=== PATIENT | female | born 1935 | race Caucasian/White ===

== ENCOUNTER 2017-08-18 12:04 | Emergency (ER) | payer OTHER ==
[~2017-08-18] VITALS: Ht 152.4 cm; Wt 75.3 kg
[2017-08-18 12:14] VITALS: TEMP 36.7
--- NOTE | 2017-08-18 12:55 | EMERGENCY ROOM VISIT NOTE ---
History Report prepared by Vanessa: Shelby Soria Under the Supervision of: Dr. Nabor Rodriguez M.D. 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 Positive numbness when she stands on her heels, cough. Negative recent falls or injuries or burning herself. She describes her pain as constant and worse when she stands on her heels. The patient notes her right foot hurts slightly more than the left and she has recently gained a couple of pounds. 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 Negative recent falls or injuries or burning herself. Review of Systems See HPI for pertinent positives and negatives. A total of ten systems were reviewed and were otherwise negative. Past Medical & Surgical Medical Problems: (1) Asthma (2) Bronchitis Family History No pertinent family history Social History Smoking Status: Former Smoker Smokeless Tobacco Use: No Alcohol Use: none Drug Use: none Housing Status: lives alone Occupation Status: retired Current/Historical Medications No Active Prescriptions or Reported Meds Allergies Coded Allergies: No Known Allergies (Unverified , 08/18/17) Physical Exam Vital Signs Date Time Temp Pulse Resp B/P (MAP) Pulse Ox O2 Delivery O2 Flow Rate FiO2 08/18/17 13:27 70 08/18/17 13:21 Room Air 08/18/17 12:14 36.7 83 20 127/71 97 Room Air Physical Exam GENERAL: Awake, alert, well-appearing, NAD. Wearing glasses. HENT: Normocephalic, atraumatic. EYES: Normal conjunctiva. Sclera non-icteric. PERRL. No anisocoria. NECK: Supple. No nuchal rigidity. FROM. RESPIRATORY: No rhonchi, wheezing. Mild crackles at the bases. CARDIAC: RRR, no MRG ABDOMEN: Soft, NTND, BS+ MSK: No chest wall TTP. 1 to 2+ pitting edema located at the level of the mid tibia. Mild calcaneal pain. Redness and prolonged cap refill of all toes BLE. Sensory intact. NEURO: GCS 15, CN 2-12 intact, moves all 4s on command SKIN: No rash or jaundice noted. Medical Decision & Procedures ER Provider Diagnostic Interpretation: Radiology results as stated below per my review and radiologist interpretation: CHEST ONE VIEW PORTABLE CLINICAL HISTORY: 82 years-old Female presenting with EVALUATE RESPIRATORY DISTRESS.DYSPNEA. TECHNIQUE: Portable upright AP view of the chest was obtained. COMPARISON: None. FINDINGS: Atherosclerosis of the aortic arch. Cardiac silhouette top normal in size. No focal opacity. No large effusion or pneumothorax. Osseous structures normal. Upper abdomen normal. IMPRESSION: 1. No acute cardiopulmonary disease. Electronically signed by: Aaron Dale M.D. 08/18/2017 1:20 PM ULTRASOUND VENOUS DOPPLER LWR EXT BILA CLINICAL HISTORY: Bilateral lower extremity swelling. Bilateral heel pain. Blanching toes. COMPARISON STUDY: No previous studies for comparison. FINDINGS: Real-time and color flow Doppler imaging were performed. Flow was seen within the femoral, popliteal and calf veins with no intraluminal thrombus demonstrated. The saphenous vein is patent. IMPRESSION: No evidence of lower extremity DVT. Electronically signed by: Robert Basurto M.D. 08/18/2017 2:57 PM ART DOP LOWER EXT BILAT CLINICAL HISTORY: 82 years-old Female presenting with blanching toes, heel pain, b/l LE swelling. TECHNIQUE: Real-time grayscale and color and spectral Doppler ultrasound imaging of the 53 arteries was performed. Measurements calculated based on NASCET criteria. COMPARISON: None. FINDINGS: Right: Common femoral artery: Patent. Peak systolic velocity 199 cm/s. Superficial femoral artery: Patent. Peak systolic velocity 84-139 cm/s. Deep femoral artery: Patent. Peak systolic velocity 96 cm/s. Popliteal artery: Patent. Peak systolic velocity 84-132 cm/s. Anterior tibial artery: Patent. Peak systolic velocity 106 cm/s. Posterior tibial artery: Patent. Peak systolic velocity 68-80 cm/s. Peroneal artery: Patent. Peak systolic velocity 25-51 cm/s. Dorsalis pedis: Patent. Peak systolic velocity 69 cm/s. Left: Common femoral artery: Patent. Peak systolic velocity 180 cm/s. Superficial femoral artery: Patent. Peak systolic velocity 90-138 cm/s. Deep femoral artery: Patent. Peak systolic velocity 96 cm/s. Popliteal artery: Patent. Peak systolic velocity 77-83 cm/s. Anterior tibial artery: Patent. Peak systolic velocity 90 cm/s. Posterior tibial artery: Patent. Peak systolic velocity 66-78 cm/s. Peroneal artery: Patent. Peak systolic velocity 24-65 cm/s. Dorsalis pedis: Patent. Peak systolic velocity 92 cm/s. ALAN Not performed. Reference ranges: Normal ALAN 1.0-1.4; 0.9-0.99 borderline; less than 0.9 abnormal. IMPRESSION: 1. No hemodynamically significant stenosis. Electronically signed by: Aaron Dale M.D. 08/18/2017 3:01 PM Laboratory Results 08/18/17 13:30 Red Blood Count 4.05, Mean Corpuscular Volume 88.1, Mean Corpuscular Hemoglobin 28.9, Mean Corpuscular Hemoglobin Concent 32.8, Mean Platelet Volume 10.4, Neutrophils (%) (Auto) 65.0, Lymphocytes (%) (Auto) 23.9, Monocytes (%) (Auto) 7.7, Eosinophils (%) (Auto) 2.8, Basophils (%) (Auto) 0.3, Neutrophils # (Auto) 6.12, Lymphocytes # (Auto) 2.25, Monocytes # (Auto) 0.72, Eosinophils # (Auto) 0.26, Basophils # (Auto) 0.03 08/18/17 13:30 Test 08/18/17 13:30 08/18/17 15:37 White Blood Count 9.41 K/uL (4.8-10.8) Red Blood Count 4.05 M/uL (4.2-5.4) Hemoglobin 11.7 g/dL (12.0-16.0) Hematocrit 35.7 % (37-47) Mean Corpuscular Volume 88.1 fL (80-100) Mean Corpuscular Hemoglobin 28.9 pg (25-34) Mean Corpuscular Hemoglobin Concent 32.8 g/dl (32-36) Platelet Count 227 K/uL (130-400) Mean Platelet Volume 10.4 fL (7.4-10.4) Neutrophils (%) (Auto) 65.0 % Lymphocytes (%) (Auto) 23.9 % Monocytes (%) (Auto) 7.7 % Eosinophils (%) (Auto) 2.8 % Basophils (%) (Auto) 0.3 % Neutrophils # (Auto) 6.12 K/uL (1.4-6.5) Lymphocytes # (Auto) 2.25 K/uL (1.2-3.4) Monocytes # (Auto) 0.72 K/uL (0.11-0.59) Eosinophils # (Auto) 0.26 K/uL (0-0.5) Basophils # (Auto) 0.03 K/uL (0-0.2) RDW Standard Deviation 46.8 fL (36.4-46.3) RDW Coefficient of Variation 14.4 % (11.5-14.5) Immature Granulocyte % (Auto) 0.3 % Immature Granulocyte # (Auto) 0.03 K/uL (0.00-0.02) Anion Gap 6.0 mmol/L (3-11) Est Creatinine Clear Calc Drug Dose 58.8 ml/min Estimated GFR () 95.1 Estimated GFR (Non- 82.0 BUN/Creatinine Ratio 21.3 (10-20) Calcium Level 8.9 mg/dl (8.5-10.1) Troponin I < 0.015 ng/ml (0-0.045) Pro-B-Type Natriuretic Peptide 438 pg/ml (0-1800) Prothrombin Time 10.1 SECONDS (9.0-12.0) Prothromb Time International Ratio 1.0 (0.9-1.1) Activated Partial Thromboplast Time 27.3 SECONDS (21.0-31.0) Partial Thromboplastin Ratio 1.1 Laboratory results reviewed by me Medications Administered Medications (Trade) Dose Ordered Sig/Craig Route Start Time Stop Time Status Last Admin Dose Admin Acetaminophen (Tylenol Tab) 1,000 mg NOW STAT PO 08/18/17 13:03 08/18/17 13:05 DC 08/18/17 15:06 1,000 MG ECG Per My Interpretation Indication: other (BLE swelling) Rate (beats per minute): 69 Rhythm: normal sinus Findings: no ectopy, other (normal intervals, normal axis, no STS changes or TWI) ED Course 1247: The patient was evaluated in room C7. A complete history and physical exam was performed. 1600: I reevaluated the patient. Discussed results and discharge instructions: She verbalized understanding and agreement. The patient is ready for discharge. 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 Positive numbness when she stands on her heels, cough. Negative recent falls or injuries or burning herself. Nursing notes reviewed. Ancillary studies and prior records reviewed. Differential diagnosis: Etiologies such as DVT, musculoskeletal, infection, joint effusion, trauma, lymphedema, idiopathic, CHF, fracture, dislocation, neurovascular compromise, compartment syndrome, soft tissue injury, as well as others were entertained. Patient was seen and evaluated the bedside. Patient was complaining some bilateral foot pain and swelling. This been ongoing 4 days. Patient was also concerned that she had a cough that she has had some fluid on her lungs in the past. Patient denies any acute chest pain or shortness of breath. Patient denies any prior history of DVT or PE. The patient does have some mild pain and swelling that is located at the ankle and up to the mid tibia. The patient is neurovascular intact distally. Patient was complaining some mild calcaneal tenderness. Patient was noted to have some decreased cap refill and cool toes. The patient does not have any sensory deficit in the patient is able to move all her toes without issue. Patient denies any recent trauma. Patient did have blood work completed along with EKG, troponin, BNP, chest x- ray. Patient also did have bilateral Dopplers of both arterial and venous phase of the lower extremities. Patient's chest x-ray was clear. Patient's EKG is nonischemic with a negative troponin. BNP is not elevated. Less likely CHF or volume overload. The patient's ultrasound did not show any flow-limiting stenosis and there is no evidence of any DVT. The patient did have Reed wraps that were placed over the bilateral lower extremities. I did discuss that she could have some tendinosis or tendinitis. The patient also could have some arthritic change. We also did discuss possibility of neuropathy. Patient was told to keep her legs elevated when she can. Patient was given these Reed wrap to help with any swelling. Patient was told to follow-up with her primary care physician and that if she had persistent symptoms she can follow-up with either physical therapy, podiatry , and/or orthopedics. Patient family member agreed with plan of care. Patient was given strict follow-up, discharge, and return precautions. All questions were answered. Patient was deemed suitable for outpatient follow-up at this time. Patient agreed with the plan of care and was safely discharged home. Medication Reconcilliation Current Medication List: was personally reviewed by me Blood Pressure Screening Patient's blood pressure: Normal blood pressure Blood pressure disposition: Did not require urgent referral Impression Primary Impression: Foot pain Additional Impressions: Anemia Leg swelling Scribe Attestation The scribe's documentation has been prepared under my direction and personally reviewed by me in its entirety. I confirm that the note above accurately reflects all work, treatment, procedures, and medical decision making performed by me. Departure Information Dispostion Home / Self-Care Prescriptions No Active Prescriptions or Reported Meds Referrals Sita Jones DO (PCP) Forms HOME CARE DOCUMENTATION FORM, IMPORTANT VISIT INFORMATION Patient Instructions Arthritis Foot, My [facility] Additional Instructions Please return to the emergency department if you have worsening or recurrent symptoms not amenable to at-home treatment. Please call for a follow-up appointment with her primary care physician. Please take your medications as prescribed. If you have other concerns and/or complaints please feel free to also call your primary care physician's office or return the ED for further evaluation, management, and treatment. You were found to have an elevated blood pressure today (>120 sytolic or >90 diastolic). Per medicare guidelines, you need to follow up with this blood pressure screening with your Primary Care Physician (PCP). For a new PCP call [phone]. You received narcotic or benzodiazepene medication while in the emergency room today. This is an addictive medication that may cause drowziness as well as constipation. Do not drive, operate heavy machinery, or drink alcohol under the influence of this medication. You may take 400 mg Ibuprofen every 12 hours as needed for pain/fever with food unless told by your physician not to take NSAIDs. You may take tylenol 650 mg every 6 hours as needed for pain/fever unless told by your physician to not take it or have liver problems. You may take motrin and tylenol separately or at the same time. Consider topical medications like icy hot, Biofreeze, or BenGay. He may use her Reed wrap to help with any swelling or pain. Please consider follow-up with your PCP to discuss further management options which may include physical therapy, podiatry, and/or orthopedics. Take your medications as prescribed. You have been examined and treated today on an emergency basis only. This is not a substitute for, or an effort to provide, complete comprehensive medical care. It is impossible to recognize and treat all injuries or illnesses in a single emergency department visit. It is therefore important that you follow up closely with [facility], your PCP, and/or your specialist(s). Call as soon as possible for an appointment. Thank you for your time and consideration. I look forward to speaking with you again soon. Please don't hesitate to call us if you have any questions. Problem Qualifiers Primary Impression: Foot pain Laterality: bilateral Qualified Codes: M79.671 - Pain in right foot; M79.672 - Pain in left foot Additional Impressions: Anemia Anemia type: unspecified type Qualified Codes: D64.9 - Anemia, unspecified
[2017-08-18] MEDS ORDERED: ACETAMINOPHEN 500 MG TAB PO STA (13:03)
[2017-08-18 13:20] VITALS: Ht 152.4 cm; Wt 75.3 kg
--- NOTE | 2017-08-18 13:21 | DIAGNOSTIC IMAGING REPORT ---
CHEST ONE VIEW PORTABLE CLINICAL HISTORY: 82 years-old Female presenting with EVALUATE RESPIRATORY DISTRESS.DYSPNEA. TECHNIQUE: Portable upright AP view of the chest was obtained. COMPARISON: None. FINDINGS: Atherosclerosis of the aortic arch. Cardiac silhouette top normal in size. No focal opacity. No large effusion or pneumothorax. Osseous structures normal. Upper abdomen normal. IMPRESSION: 1. No acute cardiopulmonary disease. Electronically signed by: Aaron Dale M.D. 08/18/2017 1:20 PM Dictated Date/Time: 08/18/2017 1:18 PM
[2017-08-18 13:48] LABS: BASO % 0.3 %; BASO ABS # 0.03 K/uL (0-0.2); EOS % 2.8 %; EOS ABS # 0.26 K/uL (0-0.5); HEMATOCRIT 35.7 % (37-47); HEMOGLOBIN 11.7 g/dL (12.0-16.0); IG# 0.03 K/uL (0.00-0.02); LYMPH % 23.9 %; LYMPH ABS # 2.25 K/uL (1.2-3.4); MEAN CELL VOLUME 88.1 fL (80-100); MEAN CORPUSCULAR HEMOGLOBIN 28.9 pg (25-34); MEAN CORPUSCULAR HGB CONC 32.8 g/dl (32-36); MEAN PLATELET VOLUME 10.4 fL (7.4-10.4); MONO % 7.7 %; MONO ABS # 0.72 K/uL (0.11-0.59); NEUT ABS # 6.12 K/uL (1.4-6.5); PLATELET COUNT 227 K/uL (130-400); RED CELL DISTRIBUTION WIDTH CV 14.4 % (11.5-14.5); RED CELL DISTRIBUTION WIDTH SD 46.8 fL (36.4-46.3); WHITE BLOOD COUNT 9.41 K/uL (4.8-10.8)
[2017-08-18 14:27] LABS: BLOOD UREA NITROGEN 15 mg/dl (7-18); CALCIUM 8.9 mg/dl (8.5-10.1); CARBON DIOXIDE 27 mmol/L (21-32); CREATININE 0.68 mg/dl (0.60-1.20); GLUCOSE 88 mg/dl (70-99); POTASSIUM 4.1 mmol/L (3.5-5.1); SODIUM 141 mmol/L (136-145)
--- NOTE | 2017-08-18 14:58 | DIAGNOSTIC IMAGING REPORT ---
ULTRASOUND VENOUS DOPPLER LWR EXT BILA CLINICAL HISTORY: Bilateral lower extremity swelling. Bilateral heel pain. Blanching toes. COMPARISON STUDY: No previous studies for comparison. FINDINGS: Real-time and color flow Doppler imaging were performed. Flow was seen within the femoral, popliteal and calf veins with no intraluminal thrombus demonstrated. The saphenous vein is patent. IMPRESSION: No evidence of lower extremity DVT. Electronically signed by: Robert Basurto M.D. 08/18/2017 2:57 PM Dictated Date/Time: 08/18/2017 2:57 PM
--- NOTE | 2017-08-18 15:02 | DIAGNOSTIC IMAGING REPORT ---
ART DOP LOWER EXT BILAT CLINICAL HISTORY: 82 years-old Female presenting with blanching toes, heel pain, b/l LE swelling. TECHNIQUE: Real-time grayscale and color and spectral Doppler ultrasound imaging of the 53 arteries was performed. Measurements calculated based on NASCET criteria. COMPARISON: None. FINDINGS: Right: Common femoral artery: Patent. Peak systolic velocity 199 cm/s. Superficial femoral artery: Patent. Peak systolic velocity 84-139 cm/s. Deep femoral artery: Patent. Peak systolic velocity 96 cm/s. Popliteal artery: Patent. Peak systolic velocity 84-132 cm/s. Anterior tibial artery: Patent. Peak systolic velocity 106 cm/s. Posterior tibial artery: Patent. Peak systolic velocity 68-80 cm/s. Peroneal artery: Patent. Peak systolic velocity 25-51 cm/s. Dorsalis pedis: Patent. Peak systolic velocity 69 cm/s. Left: Common femoral artery: Patent. Peak systolic velocity 180 cm/s. Superficial femoral artery: Patent. Peak systolic velocity 90-138 cm/s. Deep femoral artery: Patent. Peak systolic velocity 96 cm/s. Popliteal artery: Patent. Peak systolic velocity 77-83 cm/s. Anterior tibial artery: Patent. Peak systolic velocity 90 cm/s. Posterior tibial artery: Patent. Peak systolic velocity 66-78 cm/s. Peroneal artery: Patent. Peak systolic velocity 24-65 cm/s. Dorsalis pedis: Patent. Peak systolic velocity 92 cm/s. ALAN Not performed. Reference ranges: Normal ALAN 1.0-1.4; 0.9-0.99 borderline; less than 0.9 abnormal. IMPRESSION: 1. No hemodynamically significant stenosis. Electronically signed by: Aaron Dale M.D. 08/18/2017 3:01 PM Dictated Date/Time: 08/18/2017 2:56 PM
[2017-08-18 15:58] LABS: PTT PATIENT 27.3 SECONDS (21.0-31.0)
[2017-08-18 16:35] VITALS: BP 152/83; PULSE 70; O2SAT 98
== END 2017-08-18 16:35 | disposition home or self-care (01) ==
LOC: C.EDB 12:06 → C.EDC 16:35
DX: M79.671 Pain in right foot (principal); M79.672 Pain in left foot; D64.9 Anemia, unspecified; R60.9 Edema, unspecified; J45.909 Unspecified asthma, uncomplicated; Z87.891 Personal history of nicotine dependence

== ENCOUNTER 2021-04-24 05:30 | Inpatient (IN) ==
[2021-04-24] MEDS ORDERED: fentaNYL citrate 100 MCG/2 ML VIAL IV STA (05:59)
[2021-04-24] MEDS ORDERED: ACETAMINOPHEN 1,000 MG/100 ML VIAL IV STA (05:59)
--- NOTE | 2021-04-24 06:17 | Emergency Department Note ---
History of Present Illness General Chief complaint: Shortness of Breath/Dyspnea Stated complaint: SHORT OF BREATH/INCREASED PAIN & DISCOMFORT Time Seen by Provider: 04/24/21 05:44 Source: patient Mode of arrival: EMS Limitations: no limitations History of Present Illness Provider complaint: rib pain, dyspnea Onset (ago): day(s) Location: chest Maximum Pain Intensity: 7 Associated symptoms: + chest pain, + cough and + shortness of breath; no fever/chills, no headaches or no nausea/vomiting Treatments prior to arrival: other This is an 86-year-old female presents the emergency department complaining of increased rib pain. Patient with recent fall and diagnosis of a humeral fracture as well as rib fractures. Patient was initially evaluated and placed on hydrocodone/acetaminophen. When patient returned due to worsening pain, additional imaging and repeat labs were performed which were reassuring, no evidence of pneumothorax/hemothorax, or occult pulmonary contusion. Patient then changed to oxycodone for additional pain control. Patient states she is still having significant pain. Patient is concerned that she does live alone. Patient does have an oxygen concentrator which she has used intermittently in the past that she does have a history of COPD due to prior tobacco abuse. Patient denies any hemoptysis or worsening cough, denies fevers or chills, denies any other chest pain other than the site over the rib fractures to the right lateral ribs. Pt seen during a time of high acuity and national emergency pandemic while wearing PPE. Home Medications Medication Instructions Recorded Confirmed Type budesonide-formoterol HFA 160 2 puffs INH BID #30.6 gm 09/18/18 04/24/21 Rx mcg-4.5 mcg/actuation aerosol inhaler (Symbicort) acetaminophen 500 mg tablet 500 mg PO Q6H PRN 10/09/18 04/24/21 History (Tylenol Extra Strength) furosemide 20 mg tablet (Lasix) 10 mg PO DAILY PRN 10/09/18 04/24/21 History Oxygen Home #1 ea 02/19/19 04/17/21 Rx albuterol sulfate 90 mcg/actuation 2 inh INHALATION Q4H PRN #8.5 g 01/23/21 04/24/21 Rx aerosol inhaler oxycodone 5 mg tablet 5 mg PO Q6H PRN #12 tab 04/21/21 04/24/21 Rx famotidine 40 mg tablet 40 mg PO QAM 04/24/21 04/24/21 History tiotropium bromide 18 mcg capsule 1 cap INH QAM 04/24/21 04/24/21 History with inhalation device (Spiriva with HandiHaler) Allergies Allergy/AdvReac Type Severity Reaction Status Date / Time latex Allergy Intermediate rash and Verified 04/24/21 11:37 sores in mouth methylprednisolone Allergy Intermediate hives Verified 04/24/21 11:37 aspirin AdvReac Intermediate upset Verified 04/24/21 11:37 stomach Past Med/Surg History Medical History Asthma Cerebral vascular disease COPD (chronic obstructive pulmonary disease) Venous insufficiency (chronic) (peripheral) Surgical History H/O total hysterectomy History of appendectomy Family History Grandfather (Maternal) Cancer mouth Father Cancer colon Mother Cancer colon and uterine Family/Other Cancer colon Social History Smoking Status: Former smoker Tobacco Type: Cigarettes Age Started Using Tobacco: 19; Age Quit Using Tobacco: 69; packs per day: 4; Years Smoked: 50; Number of Years Since Quit: 24; Second Hand Exposure: Yes; Hx Alcohol Use: No Hx Substance Use: No Preferred Language: [place] Visual Impairment: No Limitations Hearing Ability: Normal Unemployment Examiner Required: No Beliefs That Will Affect Care: None marital status: / Current Living Situation: Alone current occupational status: retired Other Information That Helps Us Care for You: No Feels Safe at Home: Yes Safety Concerns: Feels Safe At This Time Physical Activity Frequency: Does not Exercise Seatbelt Use: always Assistive Devices: Oxygen - Continuous Review of Systems A total of 10 systems reviewed and were otherwise negative All systems reviewed & are unremarkable except as noted in HPI & below Physical Exam Vital Signs Vital Signs - 24 hr 04/24/21 05:36 04/24/21 05:38 04/24/21 06:00 Temperature Temperature Source Pulse Rate 87 93 H 82 Pulse Rate [Apical] Pulse Rate from SpO2 Sensor 91 H 83 Pulse Rhythm [Apical] Pulse Strength [Apical] Respiratory Rate 18 20 17 Respiratory Effort / Characteristics Respiratory Depth Blood Pressure 107/62 Blood Pressure [Left Arm] Blood Pressure Mean 77 Blood Pressure Mean [Left Arm] Pulse Oximetry 94 93 95 Oxygen Delivery Method Room Air Oxygen Flow Rate Sepsis Recent Fever Within 48 Hours No Sepsis New/Unexplained Change in Mental Status N/A Sepsis Action Taken by Nursing No Action Required 04/24/21 06:14 04/24/21 06:20 04/24/21 06:23 Temperature Temperature Source Pulse Rate 87 Pulse Rate [Apical] 85 Pulse Rate from SpO2 Sensor 86 Pulse Rhythm [Apical] Pulse Strength [Apical] Respiratory Rate 16 17 Respiratory Effort / Characteristics Respiratory Depth Blood Pressure 146/73 H Blood Pressure [Left Arm] 146/73 H Blood Pressure Mean 97 Blood Pressure Mean [Left Arm] 97 Pulse Oximetry 94 93 Oxygen Delivery Method Room Air Room Air Oxygen Flow Rate Sepsis Recent Fever Within 48 Hours Sepsis New/Unexplained Change in Mental Status Sepsis Action Taken by Nursing 04/24/21 06:30 04/24/21 07:00 04/24/21 07:18 Temperature Temperature Source Pulse Rate 91 H 77 Pulse Rate [Apical] Pulse Rate from SpO2 Sensor 88 97 H 77 Pulse Rhythm [Apical] Pulse Strength [Apical] Respiratory Rate 16 11 L Respiratory Effort / Characteristics Respiratory Depth Blood Pressure 128/71 Blood Pressure [Left Arm] Blood Pressure Mean 90 Blood Pressure Mean [Left Arm] Pulse Oximetry 90 93 96 Oxygen Delivery Method Oxygen Flow Rate Sepsis Recent Fever Within 48 Hours Sepsis New/Unexplained Change in Mental Status Sepsis Action Taken by Nursing 04/24/21 07:30 04/24/21 08:00 04/24/21 08:01 Temperature Temperature Source Pulse Rate 78 89 92 H Pulse Rate [Apical] Pulse Rate from SpO2 Sensor 78 91 H Pulse Rhythm [Apical] Pulse Strength [Apical] Respiratory Rate 12 23 16 Respiratory Effort / Characteristics Respiratory Depth Blood Pressure 126/55 L 129/64 Blood Pressure [Left Arm] Blood Pressure Mean 78 85 Blood Pressure Mean [Left Arm] Pulse Oximetry 98 97 Oxygen Delivery Method Oxygen Flow Rate Sepsis Recent Fever Within 48 Hours Sepsis New/Unexplained Change in Mental Status Sepsis Action Taken by Nursing 04/24/21 08:50 04/24/21 09:00 04/24/21 09:30 Temperature Temperature Source Pulse Rate 83 85 83 Pulse Rate [Apical] Pulse Rate from SpO2 Sensor 84 86 85 Pulse Rhythm [Apical] Pulse Strength [Apical] Respiratory Rate 22 21 15 Respiratory Effort / Characteristics Respiratory Depth Blood Pressure Blood Pressure [Left Arm] Blood Pressure Mean Blood Pressure Mean [Left Arm] Pulse Oximetry 97 96 96 Oxygen Delivery Method Oxygen Flow Rate Sepsis Recent Fever Within 48 Hours Sepsis New/Unexplained Change in Mental Status Sepsis Action Taken by Nursing 04/24/21 09:45 04/24/21 11:00 Temperature 36.4 C L Temperature Source Oral Pulse Rate Pulse Rate [Apical] 80 82 Pulse Rate from SpO2 Sensor Pulse Rhythm [Apical] Regular Regular Pulse Strength [Apical] Normal Normal Respiratory Rate 16 18 Respiratory Effort / Characteristics Non-Labored Spontaneous Non-Labored Spontaneous Respiratory Depth Normal Normal Blood Pressure Blood Pressure [Left Arm] 161/80 H 165/90 H Blood Pressure Mean Blood Pressure Mean [Left Arm] 107 115 Pulse Oximetry 97 98 Oxygen Delivery Method Nasal Cannula Nasal Cannula Oxygen Flow Rate 2 2 Sepsis Recent Fever Within 48 Hours Sepsis New/Unexplained Change in Mental Status Sepsis Action Taken by Nursing GENERAL: alert, well appearing, well nourished, no distress, non-toxic EYE EXAM: normal conjunctiva, PERRL and EOM's grossly intact OROPHARYNX: no exudate, no erythema, lips, buccal mucosa, and tongue normal and mucous membranes are moist NECK: supple, no nuchal rigidity, no adenopathy, non-tender LUNGS: Clear to auscultation. Normal chest wall mechanics, no w/r/r HEART: no murmurs, S1 normal and S2 normal, pain with palpation over the right lateral ribs, no crepitus ABDOMEN: abdomen soft, non-tender, normo-active bowel sounds, no masses, no rebound or guarding. BACK: Back is symmetrical on inspection and there is no deformity, no midline tenderness, no CVA tenderness. SKIN: no rashes and no bruising UPPER EXTREMITIES: upper extremities are grossly normal. nml pulses b/l. Normal range of motion to the left upper extremity. Right upper extremity in a sling. LOWER EXTREMITIES: Trace bilateral pitting edema. FROM, nml pulses b/l. NEURO EXAM: Normal sensorium, cranial nerves II-XII grossly intact, normal speech, no gross weakness of arms, no gross weakness of legs. Gross sensation intact. Course Administered Medications Acetaminophen (Acetaminophen 500 Mg Tab) 1,000 mg PO TID KOBI Stop: 05/24/21 20:59 Last Admin: 04/24/21 20:10 Dose: 1,000 mg Documented by: [id number] Enoxaparin Sodium (Enoxaparin Inj 40 Mg/0.4 Ml Syr) 40 mg SQ Q24H COUNTS INCLUDE 234 BEDS AT THE [facility] Stop: 05/24/21 13:59 Last Admin: 04/24/21 14:06 Dose: 40 mg Documented by: [id number] Famotidine (Famotidine 40 Mg Tablet) 40 mg PO QAM KOBI Stop: 05/24/21 13:00 Last Admin: 04/24/21 14:06 Dose: 40 mg Documented by: [id number] Fluticasone/Vilanterol (Fluticasone/Vilanterol 200/25mcg 14 Puffs/Inhaler) 1 p uffs INH DAILY COUNTS INCLUDE 234 BEDS AT THE [facility] Stop: 05/24/21 20:59 Last Admin: 04/24/21 20:10 Dose: 1 puffs Documented by: [id number] Lidocaine (Lidocaine 5% 1 Patch) 1 patch TD QAM COUNTS INCLUDE 234 BEDS AT THE [facility] Stop: 05/24/21 12:59 Last Admin: 04/24/21 14:06 Dose: Not Given Documented by: [id number] Oxycodone HCl (Oxycodone Hcl Ir 5 Mg Tab (Immediate Release)) 5 mg PO Q6H PRN PRN Reason: pain (scale score 7-10) Stop: 05/08/21 13:00 Last Admin: 04/25/21 00:31 Dose: 5 mg Documented by: [id number] Admin: 04/24/21 17:01 Dose: 5 mg Documented by: [id number] Umeclidinium [place] (Umeclidinium [place] 62.5mcg/Blister 7 Puffs/Inhaler) 1 puffs INH DAILY COUNTS INCLUDE 234 BEDS AT THE [facility]; Protocol Stop: 05/24/21 13:59 Last Admin: 04/24/21 14:07 Dose: 1 puffs Documented by: [id number] Discontinued Medications Fentanyl Citrate (Fentanyl Citrate 100 Mcg/2 Ml Vial) 50 mcg IV NOW STA Stop: 04/24/21 06:00 Last Admin: 04/24/21 06:24 Dose: 50 mcg Documented by: [id number] [facility] 1,000 mg in 100 mls @ 400 mls/hr IV NOW STA Stop: 04/24/21 06:13 Last Infusion: 04/24/21 07:30 Dose: 0 mls/hr Documented by: [id number] Admin: 04/24/21 06:27 Dose: 400 mls/hr Documented by: [id number] Oxycodone HCl (Oxycodone Hcl Ir 5 Mg Tab (Immediate Release)) 5 mg PO NOW ONE Stop: 04/24/21 11:22 Last Admin: 04/24/21 11:47 Dose: 5 mg Documented by: [id number] Medical Decision Making Differential Diagnosis Differential diagnoses includes but is not limited to pneumonia, bronchitis, COPD/Asthma exacerbation, pneumothorax, pulmonary embolism, congestive heart failure, acute coronary syndrome Medical Records Attestation: I reviewed the patient's medical records. Home Medications Current Medication List: was personally reviewed by me Laboratory Data Attestation: I reviewed the patient's lab results. Result diagrams: 04/24/21 05:40 04/24/21 07:27 Lab Results 04/24/21 04/24/21 04/24/21 Range/Units 05:40 05:40 07:25 WBC 9.05 (4.8-10.8) K/uL RBC 3.49 L (4.2-5.4) M/uL Hgb 10.3 L (12.0-16.0) g/dL Hct 32.3 L (37-47) % MCV 92.6 (80-100) fL MCH 29.5 (25-34) pg MCHC 31.9 L (32-36) g/dL RDW Std Deviation 51.0 H (36.4-46.3) fL RDW Coeff of Harmony 15.1 H (11.5-14.5) % Plt Count 253 (130-400) K/uL MPV 10.9 H (7.4-10.4) fL Sodium 139 (136-145) mmol/L Potassium (3.5-5.1) mmol/L Chloride 106 (98-107) mmol/L Carbon Dioxide 26 (21-32) mmol/L Anion Gap 7 (3-11) BUN 22 (6-23) mg/dl Creatinine 0.77 (0.6-1.2) mg/dl Est Cr Clr Drug Dosing 51.2 ml/min Est GFR ( Amer) 81.6 ml/min Est GFR (Non-Af Amer) 70.4 ml/min BUN/Creatinine Ratio 28.6 H (10-20) Glucose 111 H (70-99(Fasting)) mg/dl Calcium 8.9 (8.5-10.1) mg/dl Total Bilirubin 0.5 (0.2-1.0) mg/dl AST (13-39) U/L ALT 11 (7-52) U/L Alkaline Phosphatase 71 (34-104) U/L Total Protein 6.8 (6.0-8.3) gm/dl Albumin 3.8 (3.4-5.0) gm/dl Globulin 3.0 (2.5-4.0) gm/dl Albumin/Globulin Ratio 1.3 (0.9-2) SARS-CoV-2, RNA, NAAT NEGATIVE (NEGATIVE) 04/24/21 Range/Units 07:27 WBC (4.8-10.8) K/uL RBC (4.2-5.4) M/uL Hgb (12.0-16.0) g/dL Hct (37-47) % MCV (80-100) fL MCH (25-34) pg MCHC (32-36) g/dL RDW Std Deviation (36.4-46.3) fL RDW Coeff of Harmony (11.5-14.5) % Plt Count (130-400) K/uL MPV (7.4-10.4) fL Sodium (136-145) mmol/L Potassium 4.2 (3.5-5.1) mmol/L Chloride (98-107) mmol/L Carbon Dioxide (21-32) mmol/L Anion Gap (3-11) BUN (6-23) mg/dl Creatinine (0.6-1.2) mg/dl Est Cr Clr Drug Dosing ml/min Est GFR ( Amer) ml/min Est GFR (Non-Af Amer) ml/min BUN/Creatinine Ratio (10-20) Glucose (70-99(Fasting)) mg/dl Calcium (8.5-10.1) mg/dl Total Bilirubin (0.2-1.0) mg/dl AST 15 (13-39) U/L ALT (7-52) U/L Alkaline Phosphatase (34-104) U/L Total Protein (6.0-8.3) gm/dl Albumin (3.4-5.0) gm/dl Globulin (2.5-4.0) gm/dl Albumin/Globulin Ratio (0.9-2) SARS-CoV-2, RNA, NAAT (NEGATIVE) Imaging Data Radiologist's Impression: XR ribs RT min 2V w CXR1V HISTORY: 86 years-old Female right rib pain, fx, sob acute right-sided rib pain status post fall COMPARISON: Chest radiograph and CTA chest 04/21/2021 TECHNIQUE: AP view of the chest with 4 views the right ribs FINDINGS: Acute, comminuted, impacted and displaced fracture of the proximal right humerus redemonstrated. Degenerative changes of the shoulders and spine. Acute fractures of the lateral right sixth, seventh and eighth ribs appear unchanged. No pneumothorax. Cardiomediastinal and hilar silhouettes are within normal limits. Emphysema with chronic interstitial coarsening. IMPRESSION: 1. Emphysema with chronic interstitial coarsening. 2. Unchanged appearance of the acute nondisplaced fractures of the lateral right sixth, seventh and eighth ribs. No pneumothorax. 3. Acute, comminuted, impacted and displaced proximal right humeral fracture redemonstrated. ACT 112: Negative or not required by law. The above report was generated using voice recognition software. It may contain grammatical, syntax or spelling errors. Electronically signed by: Samm Valdivia M.D. 04/24/2021 9:02 AM ECG Data Attestation: I personally reviewed and interpreted this ECG as follows: Indication: + SOB/dyspnea Rate (beats per minute): 89 Rhythm: + normal sinus ECG Intervals/blocks: + Normal QRS and + Normal QT ECG [place]: + Normal ECG ST segments: + Nonspecific ST abnormalities MDM Narrative This is an 86-year-old female who presents due to concern for persistent pain. Patient with a fall 1 week ago found to have a proximal humerus fracture and multiple right rib fractures. Patient initially discharged on hydro codone/acetaminophen. Patient returned several days ago due to ongoing pain and trouble breathing. She had additional imaging at that time as a precaution as well as labs which were reassuring. Patient's pain medication changed to oxycodone. Patient states she has been taking this and feels weak and dizzy at times however states it does not help the pain. Patient states she continues to feel short of breath. Patient states due to having one arm in a sling she has been I am unable to set up her home oxygen. She states family does trying, however periodically however she does live alone primarily. Due to concern for persistent pain, advanced age, limitations given her current living situation, underlying comorbidities, case discussed with hospitalist for additional evaluation and management and likely disposition into short-term rehab if possible. An order was placed for continuous cardiac monitoring. The monitor shows a rate of _86_ with _normal sinus_ rhythm. Impression & Plan SOB (shortness of breath), Right rib fracture, Humeral fracture, COPD (chronic obstructive pulmonary disease), Rib pain on right side Discharge Plan Visit Data Chief Complaint: Shortness of Breath/Dyspnea Stated Complaint: SHORT OF BREATH/INCREASED PAIN & DISCOMFORT ED Provider: Sherrie Fields Discharge Problem: SOB (shortness of breath), Right rib fracture, Humeral fracture, COPD (chronic obstructive pulmonary disease), Rib pain on right side Patient Disposition: Admitted As Inpatient Discharge Instructions Interventions: ED Discharge Assessment Last Done: 04/24/21 12:56 Discharge Problem: Right rib fracture Qualifiers: Encounter type: subsequent encounter Rib fracture type: multiple ribs Fracture type: closed Fracture healing: with routine healing Qualified Code(s): S22.41XD - Multiple fractures of ribs, right side, subsequent encounter for fracture with routine healing Humeral fracture Qualifiers: Encounter type: subsequent encounter Humerus Location: proximal Fracture type: closed Fracture morphology: other fracture Fracture alignment: displaced [place]ality: right Fracture healing: with routine healing Qualified Code(s): S42.291D - Other displaced fracture of upper end of right humerus, subsequent encounter for fracture with routine healing COPD (chronic obstructive pulmonary disease) Qualifiers: COPD type: unspecified COPD Qualified Code(s): J44.9 - Chronic obstructive pulmonary disease, unspecified
[2021-04-24 06:29] LABS: Hematocrit (blood only) 32.3 % (37-47); Hemoglobin 10.3 g/dL (12.0-16.0); Mean Corpuscular Hemoglobin 29.5 pg (25-34); Mean Corpuscular Hgb Conc 31.9 g/dL (32-36); Mean Corpuscular Volume 92.6 fL (80-100); Mean Platelet Volume 10.9 fL (7.4-10.4); Platelet Count 253 K/uL (130-400); RDW Coefficient of Variation 15.1 % (11.5-14.5); Red Blood Count 3.49 M/uL (4.2-5.4); White Blood Count 9.05 K/uL (4.8-10.8)
[2021-04-24 07:01] LABS: Albumin Globulin Ratio 1.3 (0.9-2); Albumin Level 3.8 gm/dl (3.4-5.0); BUN Creatinine Ratio 28.6 (10-20); Bilirubin,Total 0.5 mg/dl (0.2-1.0); Calcium 8.9 mg/dl (8.5-10.1); Creatinine Clr Calc Pharmacy 51.2 ml/min; Est GFR (African American) 81.6 ml/min; Est GFR (Non-African American) 70.4 ml/min; Total Protein 6.8 gm/dl (6.0-8.3)
[2021-04-24 08:04] LABS: Potassium 4.2 mmol/L (3.5-5.1)
--- NOTE | 2021-04-24 09:03 | XRay Report ---
XR ribs RT min 2V w CXR1V HISTORY: 86 years-old Female right rib pain, fx, sob acute right-sided rib pain status post fall COMPARISON: Chest radiograph and CTA chest 04/21/2021 TECHNIQUE: AP view of the chest with 4 views the right ribs FINDINGS: Acute, comminuted, impacted and displaced fracture of the proximal right humerus redemonstrated. Dege nerative changes of the shoulders and spine. Acute fractures of the lateral right sixth, seventh and eighth ribs appear unchanged. No pneumothorax. Cardiomediastinal and hilar silhouettes are within nor mal limits. Emphysema with chronic interstitial coarsening. IMPRESSION: 1. Emphysema with chronic interstitial coarsening. 2. Unchanged appearance of the acute nondisplaced fractures of the lateral right sixth, seventh and e ighth ribs. No pneumothorax. 3. Acute, comminuted, impacted and displaced proximal right humeral fracture redemonstrated. ACT 112: Negative or not required by law. The above report was generated using voice recognition software. It may contain grammatical, syntax o r spelling errors. Electronically signed by: Samm Valdivia M.D. 04/24/2021 9:02 AM
--- NOTE | 2021-04-24 10:27 | History & Physical Report ---
Date of Service April 24, 2021 Assessment & Plan (1) Right rib fracture: Plan: -CXR today showed unchanged appearance of the acute nondisplaced fractures of the lateral right sixth, seventh and eighth ribs. No pneumothorax. Emphysema with chronic interstitial coarsening. -Continue to rotate between oxycodone 5 milligrams PO Q6 and Tylenol. -Lidoderm patch. -Patient encouraged to use incentive spirometer. -Patient is interested in rehab placement. Will consult case management. (2) Closed fracture of right humerus: Plan: -Patient is in a sling, [facility] orthopedics on 04/19 who recommended ice and medication management. No procedure scheduled. She has a follow-up appointment with them on 04/05 or 04/06. -Continue to rotate between oxycodone 5 milligrams PO Q6 and Tylenol. -Patient is interested in rehab placement. Will consult case management. (3) COPD (chronic obstructive pulmonary disease): Plan: -No evidence of acute exacerbation. No wheezes on exam, no elevated white blood cell count, no sputum production, CXR shows emphysema with chronic interstitial coarsening. -Currently on 2 L nasal cannula. She is not on oxygen at home. -Albuterol nebs every 4 as needed. -Continue Symbicort and Spiriva. (4) Cerebral vascular disease: Plan: -Patient reports she was told several years ago there was partially blocked artery in her neck, she takes aspirin 81 daily. -No records of this in our system however will continue aspirin 81 daily. (5) DVT prophylaxis: Plan: -SCDs ordered -Lovenox SQ. History of Present Illness Chief Complaint: Right-sided rib pain. Primary Care Provider: Valerie Calzada MD Patient is an 86 y/o F w/ PMH of COPD, peripheral vascular disease, and mechanical ground-level fall on 04/17 who presents with increased rib pain. Patient was evaluated and treated in our ED on 04/17 for a humeral fracture, discharged with hydrocodone-acetaminophen. She returned on 04/21 due to increasing right-sided chest pain and was diagnosed with right rib 6, 7, 8 fractures. CXR showed no evidence of pneumothorax/hemothorax, or occult pulmonary contusion. Medication was changed to oxycodone for additional pain control. Patient returns again today and states she is still having significant pain specific to her right rib cage where her fractures are. She has been compliant with incentive spirometry use, has been using her inhalers for her COPD as scheduled. Denies fevers/chills, hemoptysis, productive cough, new onset SOB, palpitations, any other chest pain other than the site over the rib fractures to the right lateral ribs. Patient is concerned that she does live alone and is interested in rehab for her injuries. Patient was recommended to follow-up with [facility] orthopedics on Monday, 04/19. Management plan includes ice medications as prescribed, patient has a follow-up appointment with them on either 05/06 or 05/07. Allergies Allergy/AdvReac Type Severity Reaction Status Date / Time latex Allergy Intermediate rash and Verified 04/24/21 11:37 sores in mouth methylprednisolone Allergy Intermediate hives Verified 04/24/21 11:37 aspirin AdvReac Intermediate upset Verified 04/24/21 11:37 stomach Home Medications Medication Instructions Recorded Confirmed Type budesonide-formoterol HFA 160 2 puffs INH BID #30.6 gm 09/18/18 04/24/21 Rx mcg-4.5 mcg/actuation aerosol inhaler (Symbicort) acetaminophen 500 mg tablet 500 mg PO Q6H PRN 10/09/18 04/24/21 History (Tylenol Extra Strength) furosemide 20 mg tablet (Lasix) 10 mg PO DAILY PRN 10/09/18 04/24/21 History Oxygen Home #1 ea 02/19/19 04/17/21 Rx albuterol sulfate 90 mcg/actuation 2 inh INHALATION Q4H PRN #8.5 g 01/23/21 04/24/21 Rx aerosol inhaler oxycodone 5 mg tablet 5 mg PO Q6H PRN #12 tab 04/21/21 04/24/21 Rx famotidine 40 mg tablet 40 mg PO QAM 04/24/21 04/24/21 History tiotropium bromide 18 mcg capsule 1 cap INH QAM 04/24/21 04/24/21 History with inhalation device (Spiriva with HandiHaler) Past Med/Surg History Medical History Asthma Cerebral vascular disease COPD (chronic obstructive pulmonary disease) Venous insufficiency (chronic) (peripheral) Surgical History H/O total hysterectomy History of appendectomy Family History Grandfather (Maternal) Cancer mouth Father Cancer colon Mother Cancer colon and uterine Family/Other Cancer colon Social History Smoking Status: Former smoker Tobacco Type: Cigarettes Age Started Using Tobacco: 19; Age Quit Using Tobacco: 69; packs per day: 4; Years Smoked: 50; Number of Years Since Quit: 24; Second Hand Exposure: Yes; Hx Alcohol Use: No Hx Substance Use: No Preferred Language: Czech Communication Ability: Effective Visual Impairment: No Limitations Hearing Ability: Normal Dual Rate Dealer Required: No Beliefs That Will Affect Care: None marital status: / Current Living Situation: Alone current occupational status: retired Other Information That Helps Us Care for You: No Feels Safe at Home: Yes Safety Concerns: Feels Safe At This Time Physical Activity Frequency: Does not Exercise Seatbelt Use: always Assistive Devices: None Review of Systems Review of Systems: Constitutional: No fever, sweats or chills Eyes: No diplopia, no worsening or blurred vision ENT: normal hearing, no trouble swallowing Respiratory: Reports cough without sputum, no dyspnea at rest or on exertion Cardiovascular: No chest pain, tightness or palpitations Abdomen: No pain, nausea, vomiting, diarrhea or constipation Musculoskeletal: Right-sided rib cage pain, no joint pain, calf pain, swelling Neurologic: No weakness, numbness/tingling, or balance problems Psychiatric: No anxiety or depression Skin: No rash or itch Physical Exam Physical Exam: General: awake, alert, no apparent distress. Patient on 2 L nasal cannula. Head: Normocephalic, atraumatic ENT: PERRL, EOMI, no pharyngeal exudate, mucous membranes moist Chest: Clear to auscultation, no adventitious breath sounds Cardiac: Regular rate and rhythm, no murmur, no JVD, normal peripheral pulses, good capillary refill Abdominal: NABS x 4 quadrants, soft, nontender to palpation, no rebound, guarding or tenderness Extremities: Normal inspection, no peripheral edema or erythema, calfs nontender to palpation Psych: Normal mood and affect Neuro: AAO x 3, strength intact bilaterally and rated 5/5, no motor deficits, s peech is clear, no peripheral sensory deficits Skin: no rash or erythema Results & Data Results & Data ([facility]) Vital Signs (Past 12 Hours) Vital Signs Pulse Pulse Resp BP BP Pulse Ox 04/24/21 09:45 80 16 161/80 H 97 04/24/21 09:30 83 15 96 04/24/21 09:00 85 21 96 04/24/21 08:50 83 22 97 04/24/21 08:01 92 H 16 129/64 97 04/24/21 08:00 89 23 04/24/21 07:30 78 12 126/55 L 98 04/24/21 07:18 77 11 L 128/71 96 04/24/21 07:00 93 04/24/21 06:30 91 H 16 90 04/24/21 06:23 87 17 146/73 H 93 04/24/21 06:20 85 16 146/73 H 94 04/24/21 06:00 82 17 95 04/24/21 05:38 93 H 20 107/62 93 04/24/21 05:36 87 18 94 Laboratory Results Lab Results 04/24/21 04/24/21 04/24/21 Range/Units 05:40 05:40 07:25 WBC 9.05 (4.8-10.8) K/uL RBC 3.49 L (4.2-5.4) M/uL Hgb 10.3 L (12.0-16.0) g/dL Hct 32.3 L (37-47) % MCV 92.6 (80-100) fL MCH 29.5 (25-34) pg MCHC 31.9 L (32-36) g/dL RDW Std Deviation 51.0 H (36.4-46.3) fL RDW Coeff of Harmony 15.1 H (11.5-14.5) % Plt Count 253 (130-400) K/uL MPV 10.9 H (7.4-10.4) fL Sodium 139 (136-145) mmol/L Potassium (3.5-5.1) mmol/L Chloride 106 (98-107) mmol/L Carbon Dioxide 26 (21-32) mmol/L Anion Gap 7 (3-11) BUN 22 (6-23) mg/dl Creatinine 0.77 (0.6-1.2) mg/dl Est Cr Clr Drug Dosing 51.2 ml/min Est GFR ( Amer) 81.6 ml/min Est GFR (Non-Af Amer) 70.4 ml/min BUN/Creatinine Ratio 28.6 H (10-20) Glucose 111 H (70-99(Fasting)) mg/dl Calcium 8.9 (8.5-10.1) mg/dl Total Bilirubin 0.5 (0.2-1.0) mg/dl AST (13-39) U/L ALT 11 (7-52) U/L Alkaline Phosphatase 71 (34-104) U/L Total Protein 6.8 (6.0-8.3) gm/dl Albumin 3.8 (3.4-5.0) gm/dl Globulin 3.0 (2.5-4.0) gm/dl Albumin/Globulin Ratio 1.3 (0.9-2) SARS-CoV-2, RNA, NAAT NEGATIVE (NEGATIVE) 04/24/21 Range/Units 07:27 WBC (4.8-10.8) K/uL RBC (4.2-5.4) M/uL Hgb (12.0-16.0) g/dL Hct (37-47) % MCV (80-100) fL MCH (25-34) pg MCHC (32-36) g/dL RDW Std Deviation (36.4-46.3) fL RDW Coeff of Harmony (11.5-14.5) % Plt Count (130-400) K/uL MPV (7.4-10.4) fL Sodium (136-145) mmol/L Potassium 4.2 (3.5-5.1) mmol/L Chloride (98-107) mmol/L Carbon Dioxide (21-32) mmol/L Anion Gap (3-11) BUN (6-23) mg/dl Creatinine (0.6-1.2) mg/dl Est Cr Clr Drug Dosing ml/min Est GFR ( Amer) ml/min Est GFR (Non-Af Amer) ml/min BUN/Creatinine Ratio (10-20) Glucose (70-99(Fasting)) mg/dl Calcium (8.5-10.1) mg/dl Total Bilirubin (0.2-1.0) mg/dl AST 15 (13-39) U/L ALT (7-52) U/L Alkaline Phosphatase (34-104) U/L Total Protein (6.0-8.3) gm/dl Albumin (3.4-5.0) gm/dl Globulin (2.5-4.0) gm/dl Albumin/Globulin Ratio (0.9-2) SARS-CoV-2, RNA, NAAT (NEGATIVE) Diagnostic Findings Ribs w/Chest X-Ray 04/24/21 05:59 XR ribs RT min 2V w CXR1V HISTORY: 86 years-old Female right rib pain, fx, sob acute right-sided rib pain status post fall COMPARISON: Chest radiograph and CTA chest 04/21/2021 TECHNIQUE: AP view of the chest with 4 views the right ribs FINDINGS: Acute, comminuted, impacted and displaced fracture of the proximal right humerus redemonstrated. Degenerative changes of the shoulders and spine. Acute fractures of the lateral right sixth, seventh and eighth ribs appear unchanged. No pneumothorax. Cardiomediastinal and hilar silhouettes are within normal limits. Emphysema with chronic interstitial coarsening. IMPRESSION: 1. Emphysema with chronic interstitial coarsening. 2. Unchanged appearance of the acute nondisplaced fractures of the lateral right sixth, seventh and eighth ribs. No pneumothorax. 3. Acute, comminuted, impacted and displaced proximal right humeral fracture redemonstrated. Code Status & VTE Plan Code Status DNR, DNI Supervising Physician Co-Signing Physician Notes I personally saw and examined the patient. I verified all almonte points and agree with Tisha Sánchez PA-C with the following exceptions and/or additions: 86 year old female who presents to the ER with generalized weakness after falling. No signs/symptoms of infective etiology. O/E Alert and orientated x3, HS1+2, no murmurs, Chest CTAB, no focal lateralizing deficit right arm in sling. Right lateral chest pain on palpation. A/P Multiple rib fractures - continue incentive spirometer and nebulizers. Humeral fracture - continue sling. pain management. PT/OT evals Hypoxia - secondary to chest pain from rib fractures and atelectasis. No sign/symptom of pneumonia from history, labs, imaging. PG Care Time/CCT Total # of Minutes Spent Total Time Spent with Patient: Total time spent is greater than 50% in coordination of care (as documented) at patient's floor/unit and/or counseling patient: Coding Level of Care Code 26616 Initial Inpt Care Lvl 2 Diagnoses Right rib fracture S22.41XA Encounter type: initial encounter Fracture type: closed Rib fracture type: multiple ribs Closed fracture of right humerus S42.301A Fracture morphology: comminuted COPD (chronic obstructive pulmonary disease) J43.9 COPD type: emphysema Emphysema type: unspecified Cerebral vascular disease I67.9 DVT prophylaxis Z29.9 (1) Right rib fracture Encounter type: initial encounter Fracture type: closed Rib fracture type: multiple ribs Qualified Code(s): S22.41XA - Multiple fractures of ribs, right side, initial encounter for closed fracture (2) COPD (chronic obstructive pulmonary disease) COPD type: emphysema Emphysema type: unspecified Qualified Code(s): J43.9 - Emphysema, unspecified (3) Closed fracture of right humerus Fracture morphology: comminuted
[2021-04-24] MEDS ORDERED: oxyCODONE HCL IR 5 MG TAB (IMMEDIATE RELEASE) PO ONE (11:21)
--- NOTE | 2021-04-24 11:38 | Electrocardiogram Report ---
Test Reason : Blood Pressure : / mmHG Vent. Rate : 089 BPM Atrial Rate : 087 BPM P-R Int : 000 ms QRS Dur : 062 ms QT Int : 348 ms P-R-T Axes : 000 047 050 degrees QTc Int : 423 ms Poor data quality, interpretation may be adversely affected Normal sinus rhythm with frequent Premature atrial complexes Cannot rule out Septal infarct , age undetermined Abnormal ECG When compared with ECG of 21-APR-2021 21:10, Septal infarct is now Present Confirmed by Matias Freire ([id number]) on 04/24/2021 11:37:54 AM Referred By: Confirmed By:Matias Freire
[2021-04-24] MEDS ORDERED: POLYETHYLENE (MIRALAX) 17 GM PACK PO PRN (13:01)
[2021-04-24] MEDS ORDERED: FUROSEMIDE 20 MG TAB PO PRN (13:01)
[2021-04-24] MEDS ORDERED: ALBUTEROL HFA 8 GM INHALER INH PRN (13:01)
[2021-04-24] MEDS ORDERED: ONDANSETRON INJ 2 MG/ML 2 ML VIAL IV PRN (13:01)
[2021-04-24] MEDS ORDERED: ACETAMINOPHEN 500 MG TAB PO PRN (13:13)
[2021-04-24] MEDS: ENOXAPARIN INJ 40 MG/0.4 ML SYR SQ SCH (14:06)
[2021-04-24] MEDS: LIDOCAINE 5% 1 PATCH TD SCH (14:06)
[2021-04-24] MEDS: FAMOTIDINE 40 MG TABLET PO SCH (14:06)
[2021-04-24] MEDS: UMECLIDINIUM BROMIDE 62.5MCG/BLISTER 7 PUFFS/INHALER INH SCH (14:07)
[2021-04-24] MEDS: oxyCODONE HCL IR 5 MG TAB (IMMEDIATE RELEASE) PO PRN (17:01)
[2021-04-24] MEDS: FLUTICASONE/VILANTEROL 200/25MCG 14 PUFFS/INHALER INH SCH (20:10)
[2021-04-24] MEDS: ACETAMINOPHEN 500 MG TAB PO SCH (20:10)
[2021-04-25] MEDS: oxyCODONE HCL IR 5 MG TAB (IMMEDIATE RELEASE) PO PRN ×2 (00:31→21:28)
[2021-04-25 06:05] LABS: Basophils # (auto) 0.02 K/uL (0-0.2); Basophils % (auto) 0.3 %; Eosinophils # (auto) 0.21 K/uL (0-0.5); Eosinophils % (auto) 3.1 %; Hematocrit (blood only) 31.6 % (37-47); Immature Granulocytes # (auto) 0.02 K/uL (0.00-0.02); Immature Granulocytes % (auto) 0.3 %; Lymphocytes % (auto) 13.4 %; Mean Corpuscular Hemoglobin 29.6 pg (25-34); Mean Corpuscular Hgb Conc 31.6 g/dL (32-36); Mean Corpuscular Volume 93.5 fL (80-100); Mean Platelet Volume 10.6 fL (7.4-10.4); Monocytes # (auto) 0.72 K/uL (0.11-0.59); Monocytes % (auto) 10.7 %; Neutrophils # (auto) 4.85 K/uL (1.4-6.5); Neutrophils % (auto) 72.2 %; Platelet Count 247 K/uL (130-400); RDW Coefficient of Variation 14.9 % (11.5-14.5); RDW Standard Deviation 50.7 fL (36.4-46.3); Red Blood Count 3.38 M/uL (4.2-5.4); White Blood Count 6.72 K/uL (4.8-10.8)
[2021-04-25] MEDS: UMECLIDINIUM BROMIDE 62.5MCG/BLISTER 7 PUFFS/INHALER INH SCH (08:36)
[2021-04-25] MEDS: FAMOTIDINE 40 MG TABLET PO SCH (08:36)
[2021-04-25] MEDS: LIDOCAINE 5% 1 PATCH TD SCH (08:36)
[2021-04-25] MEDS: ACETAMINOPHEN 500 MG TAB PO SCH ×3 (08:36→21:27)
[2021-04-25] MEDS: FLUTICASONE/VILANTEROL 200/25MCG 14 PUFFS/INHALER INH SCH (08:37)
--- NOTE | 2021-04-25 13:24 | Hospitalist Progress Note ---
Date of Service April 25, 2021 Assessment & Plan (1) Rib pain on right side: (2) Closed fracture of right humerus: (3) Accidental fall: (4) Cerebral vascular disease: (5) Uncontrolled pain: (6) COPD (chronic obstructive pulmonary disease): Plan: 86F admitted 04/24 with ongoing rib pain 2/2 rib fracture from fall 04/17, uncontrolled outpatient Pain 2/2 R Rib Fractures R Rib 6-8 fractures 04/28 fall as below First noted on CXR 04/17 CTA 04/21 negative for associated PE or Ptx. Trace R pleff. CXR 04/24 stable fractures & tiny R pleff No pulmonary contusion, hemothorax, pneumothorax - APAP 1G TID - Lido patch - Ibuprofen 400mg TID PRN - OxyIR 5mg q8h PRN - Senna daily + miralax PRN to prevent OIC - IS Mechanical fall w/ injury, Closed R humeral Fracture Mechanical fall 04/17 c/b humeral fracture, R Rib 6-8 fractures [facility] 04/19: ice, sling, medical mgmt. no surgery. - Continue sling - Pain mgmt as above - [facility] f/u 05/06 or 05/07 - PT/OT assessment. patient is NOT interested in rehab. consider outpt PT/OT for gait/balance training COPD No exacerbation. CXR stable No home O2 requirement, weaned off O2 inpatient - Albuterol nebs every 4 as needed. - Continue Symbicort and Spiriva. - IS Anemia New 04/17/21 Hgb 10s from prior 12 12/2020 Suspect due to blood loss in s/o fall & associated injuries Slow downtrend likely iatrogenic - Iron studies - Minimize lab draws unless dropping significantly. If major drop - would repeat CXR to r/o developing hemothorax. Cerebral vascular disease - Blocked artery in neck per patient - points to carotid (carotid atherosclerosis? no documentation in our system) - Continue ASA daily. Discussed that if she does have ASCVD warranting aspirin she should also be on statin. Will discuss w/ OP physician Elevated BP - Likely due to pain. Would not plan to initiate antiHTN med inpatient unless significantly elevated. outpatient f/u to ensure normalization. Diet: Regular DVT ppx: Lovenox Dispo: came from home. plans to return home w/ daugther for support. F/u PT/OT recs for potential home PT/OT but suspect outpt OT/PT would be sufficient Admission and Anticipated Discharge Date Admission Date: April 24, 2021 Subjective Pain ok - required 2 oxy PRNs in past 24h Would NOT want to go to rehab. Unsure how that got misconstrued Breathing well, off O2 now Using IS Review of Systems Review of Systems: No CP SOB NV + constipation urinating well no dysuria no MCKEON blurry vision no edema Physical Exam Physical Exam: General: Well appearing, sitting in chair comfortably Face: resolving bruise under R eye Neuro: alert oriented conversant pleasant CV: Normal rate, regular rhythm. No murmurs. Resp: Breathing comfortably on room air. Lungs clear to auscultation bilaterally. No wheezes. Trace crackles in R base Abd: Soft, nontender Ext: Warm, well perfused. Trace edema R chest wall w/o visible bruising. lido patch in place Results & Data Results & Data ([facility]) Vital Signs (Past 12 Hours) Vital Signs Temp Pulse Resp BP Pulse Ox 04/25/21 07:45 98.6 F 78 18 156/65 H 96 PG Care Time/CCT Total # of Minutes Spent Total Time Spent with Patient: Total time spent is greater than 50% in coordination of care (as documented) at patient's floor/unit and/or counseling patient: Coding Level of Care Code 61521 Subseq Hosp Care Lvl 2 Diagnoses Rib pain on right side R07.81 Closed fracture of right humerus S42.301A Fracture morphology: comminuted Accidental fall W19.XXXA Cerebral vascular disease I67.9 Uncontrolled pain R52 COPD (chronic obstructive pulmonary disease) J44.9 COPD type: unspecified COPD (1) Closed fracture of right humerus Fracture morphology: comminuted (2) COPD (chronic obstructive pulmonary disease) COPD type: unspecified COPD Qualified Code(s): J44.9 - Chronic obstructive pulmonary disease, unspecified
[2021-04-25] MEDS ORDERED: IBUPROFEN 200 MG TAB PO PRN (14:05)
[2021-04-25] MEDS: SENNA 8.6 MG TAB PO SCH (14:15)
[2021-04-25] MEDS: ENOXAPARIN INJ 40 MG/0.4 ML SYR SQ SCH (16:38)
[2021-04-26] MEDS: oxyCODONE HCL IR 5 MG TAB (IMMEDIATE RELEASE) PO PRN (04:06)
[2021-04-26 06:35] LABS: Hemoglobin 10.7 g/dL (12.0-16.0); Mean Corpuscular Hemoglobin 30.1 pg (25-34); Mean Corpuscular Hgb Conc 32.4 g/dL (32-36); Mean Corpuscular Volume 92.7 fL (80-100); Mean Platelet Volume 10.3 fL (7.4-10.4); Platelet Count 260 K/uL (130-400); RDW Coefficient of Variation 14.8 % (11.5-14.5); RDW Standard Deviation 49.9 fL (36.4-46.3); Red Blood Count 3.56 M/uL (4.2-5.4); White Blood Count 8.26 K/uL (4.8-10.8)
[2021-04-26 07:04] LABS: Albumin Level 3.5 gm/dl (3.4-5.0); BUN Creatinine Ratio 18.6 (10-20); Calcium 8.9 mg/dl (8.5-10.1); Creatinine Clr Calc Pharmacy 66.8 ml/min; Est GFR (African American) 96.9 ml/min; Est GFR (Non-African American) 83.6 ml/min; Phosphorus 3.2 mg/dl (2.5-4.9); Potassium 3.7 mmol/L (3.5-5.1)
[2021-04-26 07:19] LABS: Ferritin 85.6 ng/ml (8-388)
[2021-04-26] MEDS: ACETAMINOPHEN 500 MG TAB PO SCH ×2 (09:20→14:56)
[2021-04-26] MEDS: FAMOTIDINE 40 MG TABLET PO SCH (09:21)
[2021-04-26] MEDS: FLUTICASONE/VILANTEROL 200/25MCG 14 PUFFS/INHALER INH SCH (09:21)
[2021-04-26] MEDS: UMECLIDINIUM BROMIDE 62.5MCG/BLISTER 7 PUFFS/INHALER INH SCH (09:21)
[2021-04-26] MEDS: SENNA 8.6 MG TAB PO SCH (09:22)
[2021-04-26] MEDS: LIDOCAINE 5% 1 PATCH TD SCH (09:22)
[2021-04-26] MEDS: ENOXAPARIN INJ 40 MG/0.4 ML SYR SQ SCH (15:01)
--- NOTE | 2021-04-26 16:01 | Discharge Summary ---
Date of Service April 26, 2021 Admission HPI Per Admitting Provider Patient is an 86 y/o F w/ PMH of COPD, peripheral vascular disease, and mechanical ground-level fall on 04/17 who presents with increased rib pain. Patient was evaluated and treated in our ED on 04/17 for a humeral fracture, discharged with hydrocodone-acetaminophen. She returned on 04/21 due to increasing right-sided chest pain and was diagnosed with right rib 6, 7, 8 fractures. CXR showed no evidence of pneumothorax/hemothorax, or occult pulmonary contusion. Medication was changed to oxycodone for additional pain control. Patient returns again today and states she is still having significant pain specific to her right rib cage where her fractures are. She has been compliant with incentive spirometry use, has been using her inhalers for her COPD as scheduled. Denies fevers/chills, hemoptysis, productive cough, new onset SOB, palpitations, any other chest pain other than the site over the rib fractures to the right lateral ribs. Patient is concerned that she does live alone and is interested in rehab for her injuries. Patient was recommended to follow-up with [facility] orthopedics on Monday, 04/19. Management plan includes ice medications as prescribed, patient has a follow-up appointment with them on either 05/06 or 05/07. Principal Diagnosis Generalized weakness, right humerus fracture, right rib fracture Discharge Exam Patient noted bright red blood per rectum on day of discharge. No chest pain, dizziness or shortness of breath. No prior colonoscopy and not interest in having one at this time. No significant history of steroids. Bleeding is non- painful. She wishes to be discharged home regardless. Constitutional WD/WN, vitals as above Eyes PERRL, conjunctivae normal, anicteric sclerae ENMT external ear and nose normal, oropharynx normal Respiratory normal respiratory effort Cardiovascular RRR, no murmur, no edema Gastrointestinal (Abdomen) normal bowel sounds, soft, nontender, no hepatosplenomegaly Rectal Exam: normal visual inspection of rectum (few skin tags but no hemorrhoids) Skin no rashes, warm and dry Psychiatric A+Ox3, euthymic affect Discharge Data Allergies Allergy/AdvReac Type Severity Reaction Status Date / Time latex Allergy Intermediate rash and Verified 04/24/21 11:37 sores in mouth methylprednisolone Allergy Intermediate hives Verified 04/24/21 11:37 aspirin AdvReac Intermediate upset Verified 04/24/21 11:37 stomach Consultations 04/24/21 07:02 ED Decision to Admit Stat Hospital Course (1) Rib pain on right side: (2) Closed fracture of right humerus: (3) Accidental fall: (4) Cerebral vascular disease: (5) Uncontrolled pain: (6) COPD (chronic obstructive pulmonary disease): Donita Rodas is an 86 year old female admitted to [facility] from April 24-2021 due to generalized weakness after recent falls and humerus/rib fractures. She underwent Physical and Occupational Therapy assessments and home health referrals have been completed. She preferred to be discharged to her daughter's home than for inpatient rehabilitation at this time. She should oxygen to maintain oxygen saturation levels > 90% and follow- up with her primary care physician for ongoing hypoxia, suspect atelactasis due to rib fracture. Continue to use incentive spirometer to reduce the risk of pneumonia after rib fractures. She will continue to follow-up with orthopedics regarding her previously diagnosed humerus fracture. She noticed bright red blood in her stool prior to discharge. Hemoglobin levels have been stable during your admission. Most likely given painless nature of this is due to a diverticular bleed however recommend following up with her PCP to discuss possible need of a colonoscopy given she has never had one. She was given Lovenox and ibuprofen during her inpatient admission which will not be continued on discharge and increase the risk of diverticular bleeding and therefore should improve off these medications. Recommend using acetaminophen regularly up to 3250 mg daily and oxycodone as previously prescribed as needed for breakthrough pain. She can continue using lidocaine patches as needed. Total Time Total Time Spent Total Time Spent (In Minutes): 40 Discharge Plan Discharge Items Patient Disposition: Home - Home Health Services Reason For Visit: R HUMERAL, RIB FRACTURE Discharge Diagnosis: Generalized weakness, right humerus fracture, right rib fracture Activity: Resume your previous activity Non-emergency contact: Primary Care Provider Call non-emergency contact if: you have any medication questions and your symptoms worsen Follow-up/Referrals: Valerie Calzada MD [Primary Care Provider] - 04/28/21 9:30 am (Laura Lopes PA-C will be seeing you.) Diet: Regular Addtl Attending Provider Instructions: You were admitted to [facility] from April 24-31, 2022 due to generalized weakness after recent falls and humerus/rib fractures. You underwent Physical and Occupational Therapy assessments and home health referrals have been completed. Please continue oxygen to maintain oxygen saturation levels > 90% and follow-up with your primary care physician for ongoing hypoxia. Continue to use incentive spirometer to reduce the risk of pneumonia after rib fractures. Please continue to follow-up with orthopedics regarding your humerus fracture. You noticed bright red blood in your stool prior to discharge. Your hemoglobin (anemia) levels have been stable during your admission. Most likely given painless nature of this is due to a diverticular bleed however recommend following up with your primary care physician to discuss possible need of a colonoscopy. You were given Lovenox and ibuprofen during admission which will not be continued on discharge and increase the risk of diverticular bleeding and should improve off these medications. Recommend using acetaminophen regularly up to 3250 mg daily and oxycodone as previously prescribed as needed for breakthrough pain. Please continue lidocaine patches which are available [id number]. Pending Studies at Discharge: No Stand-Alone Forms: [facility] Medications and DC Order Prescriptions: Continued Symbicort 160-4.5 mcg/actuation HFA aerosol inhaler 2 puffs INH BID Qty: 30.6 RF: 5 (DME) Oxygen Home Liters Per Minute See Dose Instructions .ROUTE .MEDSUPPLY Qty: 1 RF: 0 acetaminophen [Tylenol Extra Strength] 500 mg Tablet 500 mg PO Q6H PRN (Reason: Pain) RF: 0 furosemide [Lasix] 20 mg tablet 10 mg PO DAILY PRN (Reason: Edema) RF: 0 albuterol sulfate 90 mcg/actuation HFA aerosol inhaler 2 inh inhalation Q4H PRN (Reason: shortness of breath or wheezing) Qty: 8.5 RF: 0 oxycodone 5 mg tablet 5 mg PO Q6H PRN (Reason: pain (scale score 7-10)) Qty: 12 RF: 0 famotidine 40 mg tablet 40 mg PO QAM RF: 0 Spiriva with HandiHaler 18 mcg capsule, w/inhalation device 1 cap INH QAM RF: 0 Discharge Orders: Discharge Order (Routine); Ordered 04/26/21 Ordered By: Fred Vasquez Admission Data Admit Date/Time: 04/24/21 11:13 Attending Provider: Fred Vasquez Admit Provider: Fred Vasquez Primary Care Provider: Valerie Calzada Other Providers: Bettie Mart ; Fred Vasquez Other Interventions: Discharge Summary Assessment (RN) Last Done: 04/26/21 16:14 Coding Level of Care Code D/C DAY MANAGEMENT >30 MINS Diagnoses Rib pain on right side R07.81 Closed fracture of right humerus S42.301A Fracture morphology: comminuted Accidental fall W19.XXXA Cerebral vascular disease I67.9 Uncontrolled pain R52 COPD (chronic obstructive pulmonary disease) J44.9 COPD type: unspecified COPD
== END 2021-04-26 17:50 | disposition home health service (06) | DRG 183 ==
LOC: ED 05:30 → SUATTDRO 11:13 → 3N 11:13

== ENCOUNTER 2023-08-27 13:51 | Inpatient (IN) ==
--- OUTSIDE RECORDS SUMMARY | 2023-08-27 13:56 | External Medical Summary | Continuity of Care Document ---
Author Name Unknown Organization [facility] [address] [facility] Address [address] [place], [place] [id number] Care Team Providers Care Ui Designer Name Role Phone Valerie Calzada Primary Care Physician [phone] [id number] Date(s): 08/02/23 - 08/02/23 [facility] [address], [address] [place] [address] [phone] Encounter Diagnosis Swallowing dysfunction(Discharge Diagnosis) - 08/01/23 COPD (chronic obstructive pulmonary disease)(Discharge Diagnosis) - 08/01/23 GERD (gastroesophageal reflux disease)(Discharge Diagnosis) - 08/01/23 Discharge Disposition: Home or Self Care Attending Physician: MD Calzada Amy L Allergies, Adverse Reactions, Alerts Substance Reaction Severity Status aspirin stomach burning Active Assessment and Plan Extracted from: Title:Office Visit Note Author:MD Clazada Amy L D ate:08/02/23 1.COPD (chronic obstructiv e pulmonary disease) STATUS: Chronic, uncontrolled. DATA: hx & examreviewed. GOAL: Maintain adequate oxygenation, improve functional ability. PLAN: will try to send in Rx for Symbicort 160 with brand name product. Cont current use of Spiriva & rescue inhaler. Recheck in 2-3 months. Call if not able to get Symbicort inhaler. 2.GERD (gastroesophageal reflux disease) STATUS: Chronic, uncontrolled. DATA: hx & examreviewed. GOAL: relieve sx of acid reflux. PLAN: Cont current dose of Esomeprazole. Refer to GI, as she may need EGD, vs med change. Stay vigilant with diet & non-pharmacological measures. 5.Swallowing dysfunction STATUS: Chronic, uncontrolled. DATA: hx & examreviewed. GOAL: relieve sx of food sticking. PLAN: will await input from GI, to see if any further esophageal studies needed (ie manometry). Return in 2-3 months for recheck of breathing. Time:Total time spent with this patient on day of evaluation including chart review, ordering, education and coordination of care elements: _32 minutes Immunizations Given and Recorded Vaccine Date Status Refusal Reason influenza virus vaccine, inactivated 02/01/23 Give n influenza virus vaccine, inactivated 12/29/21 Give n influenza virus vaccine, inactivated 12/11/20 Give n influenza virus vaccine, inactivated 11/27/19 Give n pneumococcal 20-valent conjugate vaccine 02/14/22 Given tetanus/diphtheria/pertuss, acel (Tdap) 10/25/20 R ecorded tetanus/diphtheria/pertuss, acel (Tdap) 1 08/10/16 Recorded pneumococcal 13-valent vaccine 2 02/10/16 Recorded pneumococcal 23-valent vaccine 3 10/18/01 Recorded 1Result Comment: 2019-11-27: Historical information-source unspecified 2Result Comment: 2019-11-27: Historical information-source unspecified 3Result Comment: 2019-11-27: Historical information-source unspecified Medications albuterol 0.083% for nebulization Start: 04/07/22 18:19:00 EST, See Instructions, Disp# 300 mL, Refills: 0, INHALE 1 VIAL VIA NEBULIZER EVERY 6 HOURS NEEDED FOR WHEEZING, Pharmacy: [facility] [id number] Start Date: 04/07/22 Status: Ordered aspirin 81 mg oral delayed release tablet Start: 03/29/19 7:55:00 EST, 1 tab, PO, Daily Start Date: 03/29/19 Status: Ordered esomeprazole 40 mg oral delayed release capsule Start: 10/03/22 9:56:00 EDT, 1 cap, PO, Daily, Disp# 30 cap, Refills: 6, Pharmacy: [id number] Start Date: 10/03/22 Status: Ordered furosemide 20 mg oral tablet Start: 12/12/22 10:48:00 EDT, See Instructions, Disp# 15 tab, Refills: 3, Take 1/2 (one-half) tablet by mouth once daily, Pharmacy: [id number] Start Date: 12/12/22 Status: Ordered Spiriva Respimat 60 ACT 2.5 mcg/inh inhalation aerosol Start: 10/14/22 12:32:00 EDT, See Instructions, Disp# 4 g, Refills: 11, INHALE 2 SPRAY(S) BY MOUTH ONCE DAILY, Pharmacy: [id number] Start Date: 10/14/22 Status: Ordered Symbicort 160 mcg-4.5 mcg/inh inhalation aerosol Start: 08/02/23 8:56:00 EDT, 2 puff, inhaled, bid, Disp# 10.2 g, Refills: 5, Pharmacy: [id number] Start Date: 08/02/23 Status: Ordered Mental Status 08/02/23 Barriers to Learning one year None evide nt Mandatory Health Literacy Documentation Yes Health Literacy Communication Barriers N ever Primary Language Cambodian Problem List Condition Confirmation Course Effective Dates Status H ealth Status Informant Ankle edema Confirmed Active Ankle edema Confirmed Active BPPV (benign paroxysmal positional vertigo) Confirmed Active Carotid artery stenosis Confirmed Active Chronic headache Confirmed Active COPD (chronic obstructive pulmonary disease) Confirmed Active Bony exostosis of mandible Confirmed Active Proximal humerus fracture Confirmed Active GERD (gastroesophageal reflux disease) Confirmed Active GERD (gastroesophageal reflux disease) Confirmed Active Bright red rectal bleeding Confirmed Active Borderline hyperglycemia Confirmed Active Shoulder injury 1 Confirmed Active Myalgia Confirmed Active Arm pain, left Confirmed Active Wrist pain, left Confirmed Active Medicare annual wellness visit, subsequent Confirmed Active Sebaceous cyst Confirmed Active Sebaceous cyst Confirmed Active Swallowing dysfunction Confirmed Active Back pain, thoracic Confirmed Active Gastric regurgitation Confirmed Active 1right Diagnosis Diagnosis Type Effective Dates Health Status Clinical Service Informant Swallowing dysfunction Discharge Diagnosis 08/01/23 COPD (chronic obstructive pulmonary disease) Discharge Diagnosis 08/01/23 GERD (gastroesophageal reflux disease) Discharge Diagnosis 08/01/23 Procedures Procedure Date Related Diagnosis Body Site Status X-ray tomography of right rib 1 11/17/22 Completed Esophagram 2 10/05/22 Completed REMOVE FOREIGN BODY 3 10/26/21 Com pleted Chest x-ray 4 04/21/21 Completed Hand X-ray 5 11/27/20 Completed X-ray 6 04/01/19 Completed MR angiogram of carotid justine ry with contrast 7 05/09/16 Completed History of hysterectomy C ompleted [address] [place] [address] Impression: 1. No acute processes of the chest. 2. No acute displaced rib fracture or pneumothorax identified. 3. Chronic right-sided rib and proximal humeral fracture deformities 2[facility] Impression: 1. Mild esophageal dysmotility 2. Small sliding-type hiatal hernia 3. Gastroesophageal reflux was observed during the examination 3UOC Right hand, removal of subcutaneous retained foreign bodies (dirt, gravel) 4[facility] Impression: 1. No acute cardiopulmonary findings 2. No change in alignment of the impacted right humeral head and neck fracture since radiographs of04/17/2021 5Osteopenia and osteoarthritis. 6XR MANDIBLE MIN 4V ROUTINE IMPRESSION: No significant bony abnormalities. 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 Smoking Status Never smoked cigaret daksha Sex Female FCM Outpt Note * MD Zheng, Valerie Griffin: PERFORM Event Display: FCM Outpt Note Authored Date: Chief Complaint follow up, discuss inhaler, not working well History of Present Illness * This patient is being followed longitudinally for chronic serious medical problems by Dr. Valerie Calzada. Their most recent visitwith Dr. Calzada:02/02/23 Here for recheck offollowing concerns : 1)COPD - she has been using Brenya 80/45 (generic for Symbicort) for past 2 months. She did notrequest it, but her pharmacist just gave it to her as the generic for Symbicort. The brand name inhaler helped, but she feels like Brenya difference. It does not cause any adverse effects. She has had increased FAIR, no SOB. She does cough almost every day. Hot weather bothers her most. She does have oxygen, but tries not to use it. 2) GERD - she continues to have intractable heartburn about 3-4 days of the week, despite Nexium.It bothers her at night, even though she does sleep on 2 pillows. 3) Swallowing dysfunction - she denies swallowing problems or pain with swallowing. However, she does feel that "food sticks" in one part of her throat. Review of Systems Review of Systems- Constitutional: no fatigue or changes in weight. HEENT: no vision changes, or sinus congestion. Respiratory: + cough, SOB, &wheezing. Cardiac: no chest pain, palpitations or pedal edema. GI: no abdominal pain, vomiting or change in bowel habits. : no dysuria. Neurologic: no headaches. Musculoskeletal: No joint pains. Physical Exam Vitals & Measurements HR:70(Monitored) RR:20 BP:148/66 SpO2:95% WT:72.100kg(Dosing) WT:72.1kg PHQ2 Data(Data Documented on:08/02/2023 08:32) Emotional health assessment NEGATIVE PE : Alert, in NAD. HEENT - PERRL. TM's - normal. Nares - clear. Oropharynx - normal. Neck - supple, without thyromegaly or lymphadenopathy. Lungs - clear, with good breath sounds bilaterally. Heart - RRR without murmur. No pedal edema. Abdomen - +BS, soft, NT without HSM or mass. Neuro - alert & oriented, speech & cognition normal. Skin - warm & dry. Psych - affect appropriate. Assessment/Plan 1.COPD (chronic obstructive pulmonary disease) STATUS: Chronic, uncontrolled. DATA: hx & examreviewed. GOAL: Maintain adequate oxygenation, improve functional ability. PLAN: will try to send in Rx for Symbicort 160 with brand name product. Cont current use of Spiriva & rescue inhaler. Recheck in 2-3 months. Call if not able to get Symbicort inhaler. 2.GERD (gastroesophageal reflux disease) STATUS: Chronic, uncontrolled. DATA: hx & examreviewed. GOAL: relieve sx of acid reflux. PLAN: Cont current dose of Esomeprazole. Refer to GI, as she may need EGD, vs med change. Stay vigilant with diet & non-pharmacological measures. 5.Swallowing dysfunction STATUS: Chronic, uncontrolled. DATA: hx & examreviewed. GOAL: relieve sx of food sticking. PLAN: will await input from GI, to see if any further esophageal studies needed (ie manometry). Return in 2-3 months for recheck of breathing. Time:Total time spent with this patient on day of evaluation including chart review, ordering, education and coordination of care elements: _32 minutes Problem List/Past Medical History Ongoing Ankle edema Ankle edema Arm pain, left Back pain, thoracic Bony exostosis of mandible Borderline hyperglycemia BPPV (benign paroxysmal positional vertigo) Bright red rectal bleeding Carotid artery stenosis Chronic headache COPD (chronic obstructive pulmonary disease) Gastric regurgitation GERD (gastroesophageal reflux disease) GERD (gastroesophageal reflux disease) Medicare annual wellness visit, subsequent Myalgia Proximal humerus fracture Sebaceous cyst Sebaceous cyst Shoulder injury Swallowing dysfunction Wrist pain, left Historical Ear pain, right Procedure/Surgical History X-ray tomography of right rib| Service Date: 11/17/2022Esophagram| Service Date: 10/05/2022REMOVE FOREIGN BODY| Service Date: 2Chest x-ray| Service Date: 04/21/2021Hand X-ray|Service Date: 11/27/2020X-ray| Service Date: 04/01/2019MR angiogram of carotid artery with contrast| Service Date: 05/09/2016History of hysterectomy Medications albuterol(albuterol 0.083% for nebulization), See Instructions aspirin(aspirin 81 mg oral delayed release tablet), 81 mg= 1 tab, PO, Daily budesonide-formoterol(Symbicort 160 mcg-4.5 mcg/inh inhalation aerosol), 2 puff, inhaled, bid, 5 refills esomeprazole(esomeprazole 40 mg oral delayed release capsule), 40 mg= 1 cap, PO, Daily, 6 refills furosemide(furosemide 20 mg oral tablet), See Instructions tiotropium(Spiriva Respimat 60 ACT 2.5 mcg/inh inhalation aerosol), See Instructions Allergies aspirinstomach burning Social History Smoking Status Never smoked cigarettes Tobacco Stopped at age:66Years Family History Malignant tumor of lung: Father and Brother. Uterine cancer...: Mother. Health Status Family Member(s) Immunizations Vaccine Date Status influenza virus vaccine, inactivated 02/01/2023 Given pneumococcal 20-valent conjugate vaccine 02/14/2022 Given influenza virus vaccine, inactivated 12/29/2021 Given influenza virus vaccine, inactivated 12/11/2020 Given tetanus/diphtheria/pertuss, acel (Tdap) 10/2020 Recorded influenza virus vaccine, inactivated 11/27/2019 Given tetanus/diphtheria/pertuss, acel (Tdap) 08/10/2016 Recorded Comments : 2019-11-27: Historical information-source unspecified pneumococcal 13-valent vaccine 02/10/2016 Recorded Comments : 2019-11-27: Historical information-source unspecified pneumococcal 23-valent vaccine 10/18/2001 Recorded Comments : 2019-11-27: Historical information-source unspecified Recommendations Health Maintenance Pending(in the next year) OverDue Medicare Annual Wellness Visit due02/14/23and every 1year Due Body Mass Index due07/07/23and every 366day Adult COVID-19 Vaccination due08/02/23Unknown Frequency Adult Social Determinants of Health Screening due08/02/23Unknown Frequency Shingles Vaccine due08/02/23One-time only Due In Future Adult Influenza Vaccine not due until09/24/23and every 1year Satisfied(in the past 1 year) Satisfied Adult Influenza Vaccine on02/01/23.Satisfied by SHADI Robertson Kim Electronic Signature on File Electronically Reviewed/Signed by: Valerie Calzada MD Author Signature Dt/Tm:08/02/2023 12:04 PM Ripening Room Operator [facility] [address] [place] [address] [facility] Patient Care team information Care Team Personnel Name: MD Zheng, Valerie Griffin Position: Physician - Family Med Member Role: Primary Care Provider Address: Address: [address] [place] [address], [place] [address] [place]
--- OUTSIDE RECORDS SUMMARY | 2023-08-27 13:56 | External Medical Summary | Continuity of Care Document ---
Author Name Unknown Organization [facility] [address] [facility] [address] [id number] Care Team Providers Care Garbage Collector Name Role Phone Valerie Calzada Primary Care Physician [phone] Encounter [facility] [id number] Date(s): 06/14/23 - 06/14/23 [facility] [address] [place] [facility] [address] [phone] Encounter Diagnosis Epidermal cyst(Discharge Diagnosis) - 06/14/23 Seborrheic keratoses(Discharge Diagnosis) - 06/14/23 Discharge Disposition: Home or Self Care Attending Physician: NISHANT Garrison Holly C Referring Physician: MD Calzada Amy L Allergies, Adverse Reactions, Alerts Substance Reaction Severity Status aspirin stomach burning Active Assessment and Plan Extracted from: Title:Dermatology Office Visit Note Author:NISHANT Garrison Holly C Date:06/14/23 1.Epidermal cyst Reassurance provided. Chronic Stable Patient declines treatment at this time. Advised she can schedule on excision if she would like, she declines. She is here because her daughter wanted her to come. 2.Seborrheic keratoses Chronic Stable Discussed benign nature of lesions. May treat prn if become painful or irritated. Discussed signs and symptoms of skin cancer with patient and advised to call and schedule an appointment if develops any new or concerning lesions or wounds that won't heal. Advised to wear hats, sunscreens and SPF clothing. Advised patient to call with any problems, questions, or concerns. States understanding. Patient was seen independently,Dr Merinoavailable for immediate collaboration as needed during this visit. Will follow up in as needed Immunizations Given and Recorded Vaccine Date Status [...] EVERY 6 HOURS NEEDED FOR WHEEZING, Pharmacy: [facility] [id number] Start Date: 04/07/22 Status: Ordered aspirin 81 mg oral delayed release tablet Start: 03/29/19 7:55:00 EST, 1 tab, PO, Daily Start Date: 03/29/19 Status: Ordered esomeprazole 40 mg oral delayed release capsule Start: 10/03/22 9:56:00 EDT, 1 cap, PO, Daily, Disp# 30 cap, Refills: 6, Pharmacy: [id number] Start Date: 10/03/22 Status: Ordered furosemide 20 mg oral tablet Start: 12/12/22 10:48:00 EDT, See Instructions, Disp# 15 tab, Refills: 3, Take 1/2 (one-half) tablet by mouth once daily, Pharmacy: [id number] Start Date: 12/12/22 Status: Ordered Spiriva Respimat 60 ACT 2.5 mcg/inh inhalation aerosol Start: 10/14/22 12:32:00 EDT, See Instructions, Disp# 4 g, Refills: 11, INHALE 2 SPRAY(S) BY MOUTH ONCE DAILY, Pharmacy: [id number] Start Date: 10/14/22 Status: Ordered Symbicort 80 mcg-4.5 mcg/inh inhalation aerosol Start: 12/12/22 14:56:00 EDT, 2 puff, inhaled, bid, Disp# 1 each, Refills: 11, Pharmacy: [id number] Start Date: 12/12/22 Status: Ordered Problem List Condition Confirmation Course Effective Dates [...] Effective Dates Health Status Clinical Service Informant Epidermal cyst Discharge Diagnosis 06/14/23 Seborrheic keratoses Discharge Diagnosis 06/14/23 Procedures Procedure Date Related Diagnosis Body Site Status X-ray tomography of right rib 1 11/17/22 Completed Esophagram 2 10/05/22 Completed REMOVE FOREIGN BODY 3 10/26/21 Com pleted Chest x-ray 4 04/21/21 Completed Hand X-ray 5 11/27/20 Completed X-ray 6 04/01/19 Completed MR angiogram of carotid justine ry with contrast 7 05/09/16 Completed History of hysterectomy C ompleted [address] [place] [address] Impression: 1. No acute processes of the chest. 2. No acute displaced rib fracture or pneumothorax identified. 3. Chronic right-sided rib and proximal humeral fracture deformities [address] [place] [address] Impression: 1. Mild esophageal dysmotility 2. Small sliding-type hiatal hernia 3. Gastroesophageal reflux was observed during the examination 3UOC Right hand, removal of subcutaneous retained foreign bodies (dirt, gravel) 4 Impression: 1. No acute cardiopulmonary findings 2. [...] stenosis of R ICA & L ICA Social History Social History Type Response Tobacco Stopped age 66 Years . Smoking Status Former Smoker, quit > 1 yr Sex Female Dermatology Outpatient Note * NISHANT Garrison, Naya Escoto: PERFORM, MODIFY Event Display: Dermatology Outpt Note Authored Date: [id number] Chief Complaint left upper back, has area that has increased in size, itches. Denies pain or bleeding. History of Present Illness 88 YearsoldFemalepatient here for acute visit. Patient reports area of concern today:enlargingbump on back. Has had it for many years. Sidney wanted her to get it checkedso she is here. It itches once in a while, no pain,bleed, discharge. Previous treatment. Family history melanoma:no Family history of BCC or SCC no Tanning bed use:no History of severe, blistering sunburns:no Sun protection:No out very much, so does not wear hats or sunscreens. Ever have anything removed:no Denies history of skin cancer. No other skin areas of concern. Otherwise healthy. Saw Dr Merino09/08/2021 who also noted the epidermal inclusion cyst. Physical Exam General: Well developed, well nourished, in no acute distress. Oriented x3 with appropriate mood and affect. Skin: skin exam performed of hair, scalp, ears, face, nose, lips, neck, chest, abdomen, back, axilla, upper extremities, hands.Brown waxy lesions, red papules, brown macules. The exam normal except for the following findings: left upper mid back 2 cm epidermal inclusion cyst. Nolesions suspicious for skin cancer. No unusual features under dermoscopy. Patient declined further exam. Denied any other areas of concerns. Assessment/Plan 1.Epidermal cyst Reassurance provided. Chronic Stable Patient declines treatment at this time. Advised she can schedule on excision if she would like, she declines. She is here because her daughter wanted her to come. 2.Seborrheic keratoses Chronic Stable Discussed benign nature of lesions. May treat prn if become painful or irritated. Discussed signs and symptoms of skin cancer with patient and advised to call and schedule an appointment if develops any new or concerning lesions or wounds that won't heal. Advised to wear hats, sunscreens and SPF clothing. Advised patient to call with any problems, questions, or concerns. States understanding. Patient was seenindependently,Dr Merinoavailable for immediate collaboration as needed during this visit. Will follow up in as needed Problem List/Past Medical History Ongoing Ankle edema [...] Service Date: 10/05/2022REMOVE FOREIGN BODY| Service Date: 10/26/2021hest x-ray| Service Date: 04/21/2021Hand X-ray|Service Date: 11/27/2020X-ray| Service Date: 04/01/2019MR angiogram of carotid artery with contrast| Service Date: 05/09/2016History of hysterectomy Medications albuterol(albuterol 0.083% for nebulization), See Instructions aspirin(aspirin 81 mg oral delayed release tablet), 81 mg= 1 tab, PO, Daily budesonide-formoterol(Symbicort 80 mcg-4.5 mcg/inh inhalation aerosol), 2 puff, inhaled, bid, 11 refills esomeprazole(esomeprazole 40 mg oral delayed release capsule), 40 mg= 1 cap, PO, Daily, 6 refills furosemide(furosemide 20 mg oral tablet), See Instructions tiotropium(Spiriva Respimat 60 ACT 2.5 mcg/inh inhalation aerosol), See Instructions Allergies aspirinstomach burning Social History Smoking Status Former Smoker, quit > 1 yr Tobacco Stopped at age:66Years Family History Malignant tumor of lung: Father and Brother. Uterine cancer...: Mother. Health Status Family Member(s) Electronic Signature on File Electronically Reviewed/Signed by: Naya Garrison PA-C Author Signature Dt/Tm:06/14/2023 09:40 AM Department of Dermatology Electronically Reviewed/Signed by: Bubba Merino MD Cosigner Signature Dt/Tm: 06/14/2023 10:11 AM Department of Dermatology [facility] Patient Care team information Care Team Personnel Name: MD Zheng, Valerie Griffin Position: Physician - Family Med Member Role: Primary Care Provider Address: Address: [address] [place] [address]"
--- NOTE | 2023-08-27 14:04 | ED Triage Note ---
Date of Service August 27, 2023 Provider in Triage Author: Janice Rojas History of Present Illness This patient was briefly evaluated while in triage. An abbreviated physical exam was performed. This patient is a 88-year-old Female who presents to the ED for evaluation 5 days of mid-upper abdominal pain, vomiting, diarrhea dizzy, lightheaded, sweats/chills no urinary symptoms no blood in vomit or stool hx of hysterectomy and cholecystectomy per pt Physical Exam GENERAL: NAD CARDIOVASCULAR: RRR RESPIRATORY: CTA ABDOMEN: BS x 4. Mid upper abdominal TTP. No guarding or rebound. Initial orders for labs and / or imaging were placed and patient was placed in the waiting area until a bed is available. Please see further documentation for the full ED course.
[2023-08-27] MEDS: SODIUM CHLORIDE 0.9% 500 ML IV STA (14:44)
[2023-08-27 15:00] LABS: Basophils # (auto) 0.03 K/uL (0.00-0.20); Basophils % (auto) 0.3 %; Eosinophils # (auto) 0.02 K/uL (0.00-0.50); Eosinophils % (auto) 0.2 %; Hematocrit (blood only) 38.4 % (37.0-47.0); Hemoglobin 13.2 g/dl (12.0-16.0); Immature Granulocytes # (auto) 0.04 K/uL (0.01-0.20); Immature Granulocytes % (auto) 0.4 %; Lymphocytes # (auto) 1.23 K/uL (1.20-3.40); Lymphocytes % (auto) 12.1 %; Mean Corpuscular Hemoglobin 29.5 pg (25.0-34.0); Mean Corpuscular Hgb Conc 34.4 g/dL (32.0-36.0); Mean Corpuscular Volume 85.9 fL (80.0-100.0); Mean Platelet Volume 11.5 fL (9.4-12.4); Monocytes # (auto) 1.69 K/uL (0.11-0.59); Monocytes % (auto) 16.6 %; Neutrophils # (auto) 7.16 K/uL (1.40-6.50); Neutrophils % (auto) 70.4 %; Platelet Count 207 K/uL (130-400); RDW Standard Deviation 43.8 fL (36.4-46.3); Red Blood Count 4.47 M/uL (4.20-5.40); White Blood Count 10.17 K/ul (4.8-10.8)
[2023-08-27] MEDS: dilTIAZem HCL 125 MG in DEXTROSE 5% 100 ML IV SCH (15:02)
[2023-08-27] MEDS: MAGNESIUM SULFATE / D5W 1 GM/100 ML BAG IV SCH (15:09)
[2023-08-27] MEDS: STAT IV Infusion **Titration per Protocol STA (15:09)
[2023-08-27 15:14] LABS: Albumin Globulin Ratio 1.2 (0.9-2); Albumin Level 4.2 gm/dl (3.4-5.0); Bilirubin,Total 0.8 mg/dl (0.2-1.0); Calcium 8.9 mg/dl (8.6-10.3); Creatinine Clr Calc Pharmacy 34.3 ml/min; Est GFR (African American) 58.7 ml/min; Est GFR (Non-African American) 50.6 ml/min; Globulin 3.4 gm/dl (2.5-4.0); Potassium 3.9 mmol/L (3.5-5.1); Total Protein 7.6 gm/dl (6.0-8.3)
[2023-08-27 15:16] LABS: iSTAT Hemoglobin 12.2 g/dl (12.0-16.0); iSTAT Ionized Calcium 1.09 mmol/l (1.12-1.32)
[2023-08-27] MEDS: OPTIRAY 320 100ml IV ONE (15:25)
[2023-08-27 15:26] LABS: Troponin I High Sensitivity 57.5 pg/ml (0-14)
--- NOTE | 2023-08-27 15:26 | Emergency Department Note ---
Impression & Plan Atrial fibrillation with rapid ventricular response, Weakness, Dehydration, Gastroenteritis ED Provider Note Provider: Efrain Fatima MD DATE OF SERVICE: 08/27/2023 CHIEF COMPLAINT: Weak, nausea and vomiting diarrhea decreased intake, abdominal discomfort HISTORY OF PRESENT ILLNESS: Patient is a 88-year-old female history of COPD and GERD presenting here today reporting over the past 5 days has been dealing with abdominal discomfort with associated nausea and did have some episodes of vomiting and diarrhea. Nonbloody in nature. Not been able to eat or drink much and feeling very weak. Denies chest pain or significant new shortness of breath. Denies a cardiac history. No sick contacts reported. No trauma reported. No syncope reported. Generalized weakness and fatigue. No focal numbness or weakness specifically. Denies urinary symptoms but decreased urine output. No fevers or chills reported. Did soak through her close the other night by her report however. No use of Pepto-Bismol or Imodium at home. PAST MEDICAL HISTORY: As noted above MEDICATIONS: Reviewed home medications which she has not been able to take much recently due to her illness SOCIAL HISTORY: Former smoker PHYSICAL EXAM: GENERAL: alert and oriented in no acute distress on stretcher Head: normocephalic and atraumatic EYES: No injection, discharge or icterus. EOMI. NECK: Trachea midline. ENT: Mucous membranes pink and moist. LUNGS: Airway patent. No retractions. Breath sounds clear HEART: Tachycardic irregular regular rate and rhythm. No chest wall tenderness ABDOMEN: Soft some slight mid abdominal discomfort on palpitation. No guarding. SKIN: Acyanotic, warm, dry, without rashes EXTREMITIES: Without swelling, tenderness or deformity NEUROLOGICAL: No focal deficits. No aphasia. No facial droop or slurred speech. Ambulatory. EKG: Rapid atrial fibrillation [address] segment elevation or depression with a QTc of 455. CONTINUOUS CARDIAC MONITORING: was ordered and showed a heart rate of 100s-160s bpm in atrial fibrillation Patient's laboratory studies and imaging reviewed. Differential includes Infection, cholecystitis, gastrointestinal issue, dehydration, metabolic abnormality, hypo/hyperglycemia, electrolyte disturbance, anemia, hypoxia, cardiac sources, intracerebral event, toxicologic, neurologic, as well as other pathologies. IMPRESSION/MEDICAL DECISION MAKING: Patient with GI symptoms for several days. Generalized weakness. Seemingly somewhat dehydrated. Found to be in new onset rapid atrial fibrillation. Will give IV fluids. Will start some gentle rate control with IV diltiazem. Given some borderline blood pressures and her well appearance we will avoid bolus. Given some IV magnesium as well. Some abdominal tenderness but nonperitoneal. Will obtain abdominal CT imaging. Doubt this represents PE. No evidence of leg swelling or DVT on clinical exam. Blood work here without significant cytosis or anemia. No severe electrolyte abnormalities or signs of renal dysfunction. No findings consistent with acute hepatitis or pancreatitis. Troponin sent given the rapid A-fib and minimally elevated. I doubt this represents acute ACS or PE. Likely demand given her tachycardia and dehydration. CT abdomen pelvis per radiology reassuring without acute intra-abdominal findings noted. Patient resting on reassessment. Will increase diltiazem drip and start on heparin drip given her risk factors and new onset A-fib. Hospitalist contacted for admission. DIAGNOSIS: A-fib with rapid ventricular response, weakness, gastroenteritis DISPOSITION: Hospitalist will evaluate Patient was agreeable with this plan. Critical Care I have personally spent 35 minutes of critical care time in the direct management of this patient. This includes bedside care, interpretation of diagnostic studies, and testing, discussion with consultants, patient, and family members, and other required patient management activities. These 35 minutes is in excess of all separately billable procedures. Past Med/Surg History Problem List (Updated 08/27/23 @ 16:44 by Tasha Reina MD) Elevated troponin Hyponatremia Gastroenteritis (Acute) Dehydration (Acute) Weakness (Acute) Atrial fibrillation with rapid ventricular response (Acute) Uncontrolled pain SOB (shortness of breath) (Acute) Rib pain on right side (Acute) DVT prophylaxis Right rib fracture (Acute) Humeral fracture (Acute) Cerebral vascular disease Venous insufficiency (chronic) (peripheral) COPD (chronic obstructive pulmonary disease) (Acute) Medical History Cerebral vascular disease COPD (chronic obstructive pulmonary disease) Venous insufficiency (chronic) (peripheral) Surgical History H/O total hysterectomy History of appendectomy Family History Grandfather (Maternal) Cancer mouth Father Cancer colon Mother Cancer colon and uterine Family/Other Cancer colon Social History Smoking Status: Never smoker Tobacco Type: Cigarettes Age Started Using Tobacco: 19; Age Quit Using Tobacco: 69; packs per day: 4; Second Hand Exposure: Yes; Do You Dip or Chew Tobacco: No; Hx Alcohol Use: No Hx Substance Use: No Preferred Language: American Communication Ability: Effective Visual Impairment: No Limitations Hearing Ability: Normal Building Inspection Engineer Required: No Beliefs That Will Affect Care: None marital status: / Current Living Situation: Alone current occupational status: retired Feels Safe at Home: Yes Physical Activity Frequency: Does not Exercise Seatbelt Use: always Assistive Devices: Brace/Splint/Immobilizer Allergies Allergies Allergy/AdvReac Type Severity Reaction Status Date / Time latex Allergy Intermediate rash and Verified 08/27/23 16:02 sores in mouth methylprednisolone Allergy Intermediate hives Verified 08/27/23 16:02 aspirin AdvReac Intermediate upset Verified 08/27/23 16:02 stomach Home Meds Home Medications Medication Instructions Recorded Confirmed albuterol sulfate 2.5 mg/3 mL 2.5 mg continuous nebulization Q6 11/17/22 08/27/23 (0.083 %) solution for nebulization PRN Wheezing albuterol sulfate 90 mcg/actuation 2 puff inhalation Q6H PRN 11/17/22 08/27/23 aerosol inhaler cough,Sob,wheezing aspirin 81 mg tablet,delayed 81 mg PO DAILY 11/17/22 08/27/23 release esomeprazole magnesium 40 mg 40 mg PO DAILY 11/17/22 08/27/23 capsule,delayed release furosemide 20 mg tablet 10 mg PO Q OTHER DAY Fluid 11/17/22 08/27/23 Retention tiotropium bromide 2.5 2 puff inhalation DAILY PRN 11/17/22 08/27/23 mcg/actuation mist for inhalation Shortness Of Breath Or Wheezing (Spiriva Respimat) budesonide-formoterol HFA 160 2 puff inhalation BID 08/27/23 08/27/23 mcg-4.5 mcg/actuation aerosol inhaler (Breyna) Results & Data (ED) Vital Signs Vital Signs - 24 hr 08/27/23 13:59 08/27/23 14:49 08/27/23 15:42 Temperature 36.4 C L Temperature Source Oral Pulse Rate 96 H 130 H Pulse Rhythm Regular Pulse Strength Normal Respiratory Rate 17 22 Respiratory Effort / Characteristics Non-Labored Respiratory Depth Normal Respiratory Pattern Regular Blood Pressure 97/42 L Blood Pressure Mean 60 Blood Pressure Position Sitting Pulse Oximetry 97 98 97 Oxygen Delivery Method Room Air Room Air Room Air Sepsis Recent Fever Within 48 Hours Yes Sepsis New/Unexplained Change in Mental Status No Sepsis Action Taken by Nursing No Action Required 08/27/23 15:51 08/27/23 16:13 Temperature Temperature Source Pulse Rate 120 H Pulse Rhythm Pulse Strength Respiratory Rate Respiratory Effort / Characteristics Respiratory Depth Respiratory Pattern Blood Pressure 111/67 Blood Pressure Mean 84 Blood Pressure Position Pulse Oximetry 96 Oxygen Delivery Method Room Air Sepsis Recent Fever Within 48 Hours Sepsis New/Unexplained Change in Mental Status Sepsis Action Taken by Nursing Laboratory Data 08/27/23 14:29 08/27/23 14:29 Lab Results 08/27/23 08/27/23 Range/Units 14:29 15:02 WBC 10.17 (4.8-10.8) K/ul RBC 4.47 (4.20-5.40) M/uL Hgb 13.2 (12.0-16.0) g/dl POC Hgb 12.2 (12.0-16.0) g/dl Hct 38.4 (37.0-47.0) % POC Hct 36 L (37-47) % MCV 85.9 (80.0-100.0) fL MCH 29.5 (25.0-34.0) pg MCHC 34.4 (32.0-36.0) g/dL RDW Std Deviation 43.8 (36.4-46.3) fL RDW Coeff of Harmony 14.0 (11.5-14.5) % Plt Count 207 (130-400) K/uL MPV 11.5 (9.4-12.4) fL Immature Gran % (Auto) 0.4 % Neut % (Auto) 70.4 % Lymph % (Auto) 12.1 % Lucas % (Auto) 16.6 % Eos % (Auto) 0.2 % Baso % (Auto) 0.3 % Neut # (Auto) 7.16 H (1.40-6.50) K/uL Lymph # (Auto) 1.23 (1.20-3.40) K/uL Lucas # (Auto) 1.69 H (0.11-0.59) K/uL Eos # (Auto) 0.02 (0.00-0.50) K/uL Baso # (Auto) 0.03 (0.00-0.20) K/uL Immature Gran # (Auto) 0.04 (0.01-0.20) K/uL PT 10.9 (9.0-12.0) Seconds INR 1.0 (0.9-1.1) APTT 28 (21-31) Seconds PTT Ratio 1.0 POC Sodium 134 L (135-144) mmol/L Sodium 134 L (136-145) mmol/L POC Potassium 4.0 (3.3-5.0) mmol/L Potassium 3.9 (3.5-5.1) mmol/L POC Chloride 102 (101-112) mmol/L Chloride 100 (98-107) mmol/L Carbon Dioxide 25 (21-32) mmol/L POC Total CO2 21 L (24-31) mmol/L Anion Gap 9 (3-11) POC Anion Gap 16.0 (16-25) mmol/L POC BUN 19 H (7-18) mg/dl BUN 21 (6-23) mg/dl Creatinine 1.00 (0.6-1.2) mg/dl POC Creatinine 1.0 (0.6-1.3) mg/dl Est Cr Clr Drug Dosing 34.3 ml/min Est GFR ( Amer) 58.7 ml/min Est GFR (Non-Af Amer) 50.6 ml/min BUN/Creatinine Ratio 21.0 H (10-20) Glucose 111 H (70-99(Fasting)) mg/dl POC Glucose (other) 108 H (70-99) mg/dl Calcium 8.9 (8.6-10.3) mg/dl POC Ioniz Calcium Esther 1.09 L (1.12-1.32) mmol/l Total Bilirubin 0.8 (0.2-1.0) mg/dl AST 42 H (13-39) U/L ALT 23 (7-52) U/L Alkaline Phosphatase 97 (34-104) U/L Troponin I High Sens 57.5 H* (0-14) pg/ml Total Protein 7.6 (6.0-8.3) gm/dl Albumin 4.2 (3.4-5.0) gm/dl Globulin 3.4 (2.5-4.0) gm/dl Albumin/Globulin Ratio 1.2 (0.9-2) Lipase 28 (11-82) U/L TSH 4.450 (0.300-4.500) uIu/ml Administered Medications Diltiazem HCl 125 mg/ Dextrose 125 mls @ 10 mls/hr IV .[id number] PENDING SALE TO [facility]; Protocol Stop: 09/26/23 14:59 Last Titration: 08/27/23 16:14 Dose: 10 mg/hr, 10 mls/hr Documented By: OAC Co-signed By: CHARLEY Admin: 08/27/23 15:02 Dose: 5 mg/hr, 5 mls/hr Documented By: OAC Co-signed By: PENNY Heparin Sodium/Dextrose (Heparin Sodium/Dextrose) 25,000 units in 500 mls @ 13 mls/hr IV .Q24H PENDING SALE TO [facility]; Protocol Stop: 09/26/23 16:14 Last Admin: 08/27/23 16:37 Dose: 650 units/hr, 13 mls/hr Documented By: OAC Co-signed By: CHARLEY Discontinued Medications Heparin Sodium (Porcine) (Heparin Sod (Porcine) 1000 Unit/Ml) 3,000 units IV NOW ONE Stop: 08/27/23 16:14 Last Admin: 08/27/23 16:37 Dose: 3,000 units Documented By: OAC Co-signed By: CHARLEY Heparin Sodium/Dextrose (Heparin Iv Adult Wt-Based Low-Dose W/ Initial Bolus Protocol) 1 each IV NOW STA; Protocol Stop: 08/27/23 15:58 Last Admin: 08/27/23 16:40 Dose: 1 each Documented By: KERRY Sodium Chloride (Nss) 500 mls @ 999 mls/hr IV .Q31M STA Stop: 08/27/23 14:37 Last Infusion: 08/27/23 15:16 Dose: Infused Documented By: Admin: 08/27/23 14:44 Dose: 999 mls/hr Documented By: OAC Sodium Chloride (Nss) 500 mls @ 999 mls/hr IV .Q31M ONE Stop: 08/27/23 15:16 Last Infusion: 08/27/23 17:00 Dose: Infused Documented By: [facility] Admin: 08/27/23 16:21 Dose: 999 mls/hr Documented By: KERRY Magnesium Sulfate/Dextrose (Magnesium Sulfate / D5w) 1 gm in 100 mls @ 400 mls/hr IV Q15M KOBI Stop: 08/27/23 15:14 Last Infusion: 08/27/23 15:48 Dose: Infused Documented By: Admin: 08/27/23 15:09 Dose: 400 mls/hr Documented By: KERRY Sodium Chloride (Nss) 250 mls @ 999 mls/hr IV .Q16M ONE Stop: 08/27/23 16:41 Last Infusion: 08/27/23 17:17 Dose: Infused Documented By: Admin: 08/27/23 16:57 Dose: 999 mls/hr Documented By: RENETTA Ioversol (Optiray 320 100ml) 90 ml IV ONCE ONE Stop: 08/27/23 15:25 Last Admin: 08/27/23 15:25 Dose: 90 ml Documented By: RM Miscellaneous (Stat Iv Infusion Titration Per Protocol) 1 each N/A NOW STA Stop: 08/27/23 14:48 Last Admin: 08/27/23 15:09 Dose: 1 each Documented By: KERRY Imaging Data Radiologist's Impression: Abdomen/Pelvis CT 08/27/23 14:05 CT abd pelvis IV con only CLINICAL HISTORY: abdominal pain n/v/d x 5 days TECHNIQUE: Helical axial images of the abdomen and pelvis were obtained and displayed. Automated dose lowering techniques and/or adjustment according to patient size were utilized for this exam. This exam was performed with intravenous contrast. CT DOSE: 899.16 mGy.cm COMPARISON: Comparison is made to CT abdomen pelvis 04/21/2021 FINDINGS: Lower chest: No acute abnormality. Liver: Unremarkable. No focal lesions are seen. Gallbladder and biliary tree: Cholelithiasis is seen without evidence of cholecystitis. No intra- or extrahepatic biliary ductal dilation. Pancreas: Unremarkable, no focal lesions. Spleen: Unremarkable. Adrenals: Unremarkable. Kidneys and ureters: Nonobstructive nephrolithiasis is seen. Bladder: Unremarkable. Reproductive organs: Unremarkable. Bowel: The appendix is normal. There is a small hiatal hernia. Lymph nodes Retroperitoneal: Subcentimeter lymph nodes are noted. Pelvic: Unremarkable. Mesenteric: Unremarkable. Peritoneum: Normal. Vessels: Atherosclerotic calcifications are seen. Abdominal wall: Unremarkable. Bones: Unremarkable. IMPRESSION: No acute abnormalities. In particular no evidence of bowel obstruction or cholecystitis despite cholelithiasis. There is a small hiatal hernia. ACT 112: Negative or not required by law. Electronically signed by: Gab Do M.D. 08/27/2023 3:39 PM Discharge Plan Visit Data Chief Complaint: GI Assessment Stated Complaint: SICK 5 DAYS,GI ISSUES,NO ORAL INTAKE,ABD PAIN ED Provider: Efrain Fatima Discharge Problem: Atrial fibrillation with rapid ventricular response, Weakness, Dehydration, Gastroenteritis Patient Disposition: Being Evaluated by Hospitalist Discharge Instructions Interventions: ED Discharge Assessment Last Done: 08/27/23 18:03
[2023-08-27 15:30] LABS: Thyroid Stimulating Hormone 4.45 uIu/ml (0.300-4.500)
--- NOTE | 2023-08-27 15:41 | CT Scan Report ---
CT abd pelvis IV con only CLINICAL HISTORY: abdominal pain n/v/d x 5 days TECHNIQUE: Helical axial images of the abdomen and pelvis were obtained and displayed. Automated dose lowering techniques and/or adjustment according to patient size were utilized for this exam. This e xam was performed with intravenous contrast. CT DOSE: 899.16 mGy.cm COMPARISON: Comparison is made to CT abdomen pelvis 04/21/2021 FINDINGS: Lower chest: No acute abnormality. Liver: Unremarkable. No focal lesions are seen. Gallbladder and biliary tree: Cholelithiasis is seen without evidence of cholecystitis. No intra- or extrahepatic biliary ductal dilation. Pancreas: Unremarkable, no focal lesions. Spleen: Unremarkable. Adrenals: Unremarkable. Kidneys and ureters: Nonobstructive nephrolithiasis is seen. Bladder: Unremarkable. Reproductive organs: Unremarkable. Bowel: The appendix is normal. There is a small hiatal hernia. Lymph nodes Retroperitoneal: Subcentimeter lymph nodes are noted. Pelvic: Unremarkable. Mesenteric: Unremarkable. Peritoneum: Normal. Vessels: Atherosclerotic calcifications are seen. Abdominal wall: Unremarkable. Bones: Unremarkable. IMPRESSION: No acute abnormalities. In particular no evidence of bowel obstruction or cholecystitis despite hebert lithiasis. There is a small hiatal hernia. ACT 112: Negative or not required by law. Electronically signed by: Gab Do M.D. 08/27/2023 3:39 PM
[2023-08-27] MEDS ORDERED: HEPARIN SOD (PORCINE) 1000 UNIT/ML IV ONE (16:13)
[2023-08-27] MEDS: SODIUM CHLORIDE 0.9% 500 ML IV ONE (16:21)
[2023-08-27] MEDS ORDERED: POLYETHYLENE (MIRALAX) 17 GM PACK PO PRN (16:22)
[2023-08-27] MEDS ORDERED: ONDANSETRON INJ 2 MG/ML 2 ML VIAL IV PRN (16:22)
[2023-08-27] MEDS ORDERED: MELATONIN 3 MG TAB PO PRN (16:22)
[2023-08-27] MEDS ORDERED: LEVALBUTEROL HCL 0.63 MG/3 ML NEB NEB PRN (16:26)
[2023-08-27 16:33] LABS: Partial Thromboplastin Time 28 Seconds (21-31)
[2023-08-27] MEDS: HEPARIN SODIUM/DEXTROSE 25,000 UNITS/500 ML BAG IV SCH (16:37)
[2023-08-27] MEDS: HEPARIN SOD (PORCINE) 1000 UNIT/ML IV ONE (16:37)
[2023-08-27] MEDS: Heparin IV Adult Wt-Based Low-Dose w/ INITIAL Bolus Protocol IV STA (16:40)
[2023-08-27 16:41] LABS: Prothrombin Time 10.9 Seconds (9.0-12.0)
--- NOTE | 2023-08-27 16:46 | History & Physical Report ---
Date of Service August 27, 2023 Assessment & Plan (1) Gastroenteritis: Plan: acute episode on , resolved, reports decreased appetite IV fluids, no acute abnormality on CT A/p Zofran PRN diet as tolerated (2) Atrial fibrillation with rapid ventricular response: Plan: new onset IV Cardizem, IV Heparin continue ASA obtain ECHO consult cardiology monitor on tele TSH is normal (3) COPD (chronic obstructive pulmonary disease): Plan: no exacerbation continue inhalers Xopenex prn (4) Hyponatremia: Plan: mild hold Lasix IV fluids monitor BMP (5) Elevated troponin: Plan: demand ischemia due to Afib with RVR, repeat trop IV Heparin ECHO tele ASA statins History of Present Illness Chief Complaint: nausea, dizziness Primary Care Provider: Valerie Calzada MD Patient is a 88-year-old female history of COPD and GERD presenting here today reporting nausea, vomiting , diarrhea on .Nonbloody in nature. Not been able to eat or drink much and feeling very weak since this episode on . No sick contacts reported. No trauma reported. No syncope reported. Generalized weakness and fatigue. No focal numbness or weakness specifically. Denies urinary symptoms but decreased urine output. No fevers or chills reported. CT abdomen/pelvis no acute abnormalities. EKG is significant for Afib, HR in 170, she was started on IV Cardizem, IV Heparin, patient denies CAD, but reports more SOB lately,no CP. Trop 57, TSH is normal , denies cough, wheezing, stopped smoking years ago. Allergies Allergy/AdvReac Type Severity Reaction Status Date / Time latex Allergy Intermediate rash and Verified 08/27/23 16:02 sores in mouth methylprednisolone Allergy Intermediate hives Verified 08/27/23 16:02 aspirin AdvReac Intermediate upset Verified 08/27/23 16:02 stomach Home Medications Medication Instructions Recorded Confirmed Type albuterol sulfate 2.5 mg/3 mL 2.5 mg continuous nebulization Q6 11/17/22 08/27/23 History (0.083 %) solution for nebulization PRN Wheezing albuterol sulfate 90 mcg/actuation 2 puff inhalation Q6H PRN 11/17/22 08/27/23 History aerosol inhaler cough,Sob,wheezing aspirin 81 mg tablet,delayed 81 mg PO DAILY 11/17/22 08/27/23 History release esomeprazole magnesium 40 mg 40 mg PO DAILY 11/17/22 08/27/23 History capsule,delayed release furosemide 20 mg tablet 10 mg PO Q OTHER DAY Fluid 11/17/22 08/27/23 History Retention tiotropium bromide 2.5 2 puff inhalation DAILY PRN 11/17/22 08/27/23 History mcg/actuation mist for inhalation Shortness Of Breath Or Wheezing (Spiriva Respimat) budesonide-formoterol HFA 160 2 puff inhalation BID 08/27/23 08/27/23 History mcg-4.5 mcg/actuation aerosol inhaler (Breyna) Past Med/Surg History Problem List (Updated 08/27/23 @ 16:44 by Tasha Reina MD) Elevated troponin Hyponatremia Gastroenteritis (Acute) Dehydration (Acute) Weakness (Acute) Atrial fibrillation with rapid ventricular response (Acute) Uncontrolled pain SOB (shortness of breath) (Acute) Rib pain on right side (Acute) DVT prophylaxis Right rib fracture (Acute) Humeral fracture (Acute) Cerebral vascular disease Venous insufficiency (chronic) (peripheral) COPD (chronic obstructive pulmonary disease) (Acute) Medical History Cerebral vascular disease COPD (chronic obstructive pulmonary disease) Venous insufficiency (chronic) (peripheral) Surgical History H/O total hysterectomy History of appendectomy Family History Grandfather (Maternal) Cancer mouth Father Cancer colon Mother Cancer colon and uterine Family/Other Cancer colon Social History Smoking Status: Never smoker Tobacco Type: Cigarettes Age Started Using Tobacco: 19; Age Quit Using Tobacco: 69; packs per day: 4; Second Hand Exposure: Yes; Do You Dip or Chew Tobacco: No; Hx Alcohol Use: No Hx Substance Use: No Preferred Language: Icelandic Communication Ability: Effective Visual Impairment: No Limitations Hearing Ability: Normal Avionics Repair Technician Required: No Beliefs That Will Affect Care: None marital status: / Current Living Situation: Alone current occupational status: retired Feels Safe at Home: Yes Physical Activity Frequency: Does not Exercise Seatbelt Use: always Assistive Devices: Brace/Splint/Immobilizer Review of Systems Review of Systems: All systems reviewed & are unremarkable except as noted in HPI & below Physical Exam Physical Exam: head atraumatic, normocephalic neck supple chest decreased breath sounds b/l heart tachy, no murmurs abdomen soft, nt, nd, bs present extremities no edema, no clubbing, no cyanosis neuro AAO times 3 Results & Data Results & Data Vital Signs (Past 12 Hours) Vital Signs Temp Pulse Resp BP Pulse Ox O2 Del Method 08/27/23 15:51 120 H 96 Room Air 08/27/23 15:42 130 H 22 97 Room Air 08/27/23 14:49 98 Room Air 08/27/23 13:59 36.4 C L 96 H 17 97/42 L 97 Room Air Laboratory Results Abnormal lab results 08/27/23 08/27/23 Range/Units 14:29 15:02 POC Hct 36 L (37-47) % Neut # (Auto) 7.16 H (1.40-6.50) K/uL [place]entry # (Auto) 1.69 H (0.11-0.59) K/uL POC Sodium 134 L (135-144) mmol/L Sodium 134 L (136-145) mmol/L POC Total CO2 21 L (24-31) mmol/L POC BUN 19 H (7-18) mg/dl BUN/Creatinine Ratio 21.0 H (10-20) Glucose 111 H (70-99(Fasting)) mg/dl POC Glucose (other) 108 H (70-99) mg/dl POC Ioniz Calcium Esther 1.09 L (1.12-1.32) mmol/l AST 42 H (13-39) U/L Troponin I High Sens 57.5 H* (0-14) pg/ml Diagnostic Findings Abdomen/Pelvis CT 08/27/23 14:05 CT abd pelvis IV con only CLINICAL HISTORY: abdominal pain n/v/d x 5 days TECHNIQUE: Helical axial images of the abdomen and pelvis were obtained and displayed. Automated dose lowering techniques and/or adjustment according to patient size were utilized for this exam. This exam was performed with intravenous contrast. CT DOSE: 899.16 mGy.cm COMPARISON: Comparison is made to CT abdomen pelvis 04/21/2021 FINDINGS: Lower chest: No acute abnormality. Liver: Unremarkable. No focal lesions are seen. Gallbladder and biliary tree: Cholelithiasis is seen without evidence of cholecystitis. No intra- or extrahepatic biliary ductal dilation. Pancreas: Unremarkable, no focal lesions. Spleen: Unremarkable. Adrenals: Unremarkable. Kidneys and ureters: Nonobstructive nephrolithiasis is seen. Bladder: Unremarkable. Reproductive organs: Unremarkable. Bowel: The appendix is normal. There is a small hiatal hernia. Lymph nodes Retroperitoneal: Subcentimeter lymph nodes are noted. Pelvic: Unremarkable. Mesenteric: Unremarkable. Peritoneum: Normal. Vessels: Atherosclerotic calcifications are seen. Abdominal wall: Unremarkable. Bones: Unremarkable. IMPRESSION: No acute abnormalities. In particular no evidence of bowel obstruction or cholecystitis despite cholelithiasis. There is a small hiatal hernia. ACT 112: Negative or not required by law. Electronically signed by: Gab Do M.D. 08/27/2023 3:39 PM ECG Additional Comments: afib with RVR HR 166 PG Care Time/CCT Total # of Minutes Spent Total Time Spent with Patient: Total time spent is greater than 50% in coordination of care (as documented) at patient's floor/unit and/or counseling patient: Coding Level of Care Code 32489 INT INP/OBS CARE 3/75MIN Diagnoses Gastroenteritis K52.9 Atrial fibrillation with rapid ventricular response I48.91 Pulmonary emphysema, unspecified emphysema type J44.9 COPD type: unspecified COPD Hyponatremia E87.1 Elevated troponin R79.89 (3) COPD (chronic obstructive pulmonary disease) COPD type: unspecified COPD Qualified Code(s): J44.9 - Chronic obstructive pulmonary disease, unspecified
[2023-08-27] MEDS: SODIUM CHLORIDE 0.9% 250 ML IV ONE (16:57)
[2023-08-27] MEDS ORDERED: UMECLIDINIUM BROMIDE 62.5MCG/BLISTER 7 PUFFS/INHALER INH PRN (17:51)
[2023-08-27 18:30] LABS: Troponin I High Sensitivity 68.5 pg/ml (0-14)
[2023-08-27] MEDS: ATORVASTATIN 40 MG TAB PO SCH (19:01)
[2023-08-27 23:34] LABS: ANTI-Xa, UFH(UnfractionatedHep 0.22 IU/ml (0.3-0.7)
[2023-08-28 04:48] LABS: Hematocrit (blood only) 31.7 % (37.0-47.0); Hemoglobin 10.7 g/dl (12.0-16.0); Mean Corpuscular Hemoglobin 29.1 pg (25.0-34.0); Mean Corpuscular Hgb Conc 33.8 g/dL (32.0-36.0); Mean Corpuscular Volume 86.1 fL (80.0-100.0); Mean Platelet Volume 11.8 fL (9.4-12.4); Platelet Count 151 K/uL (130-400); RDW Standard Deviation 44.3 fL (36.4-46.3); Red Blood Count 3.68 M/uL (4.20-5.40); White Blood Count 9.09 K/ul (4.8-10.8)
[2023-08-28 04:57] LABS: BUN Creatinine Ratio 16.5 (10-20); Calcium 8.2 mg/dl (8.6-10.3); Creatinine Clr Calc Pharmacy 40.7 ml/min; Est GFR (African American) 71.4 ml/min; Est GFR (Non-African American) 61.6 ml/min; Magnesium 2.1 mg/dl (1.7-2.4); Potassium 3.7 mmol/L (3.5-5.1)
[2023-08-28 05:07] LABS: Troponin I High Sensitivity 68.5 pg/ml (0-14)
[2023-08-28] MEDS: FLUTICASONE/VILANTEROL 200/25MCG 14 PUFFS/INHALER INH SCH (08:02)
[2023-08-28] MEDS: ASPIRIN 81 MG ECTAB PO SCH (08:02)
[2023-08-28] MEDS: ACETAMINOPHEN 325 MG TAB PO PRN (08:03)
[2023-08-28] MEDS: PANTOprazole 40 MG TAB PO SCH (08:03)
--- NOTE | 2023-08-28 08:51 | XRay Report ---
XR chest 2V PA/lateral HISTORY: 88 years-old Female tachypnea acute shortness of breath COMPARISON: 11/17/2022 TECHNIQUE: AP view of the chest FINDINGS: Cardiomediastinal and hilar silhouettes are within normal limits. Atherosclerosis of the aorta. No pn eumothorax, pleural effusion, airspace consolidation or pulmonary edema. Emphysema with hyperinflatio n. Chronic right-sided rib fractures with healed chronic right proximal humeral fracture deformity. IMPRESSION: Emphysema without acute process of the chest. ACT 112: Negative or not required by law. The above report was generated using voice recognition software. It may contain grammatical, syntax o r spelling errors. Electronically signed by: Samm Valdivia M.D. 08/28/2023 8:50 AM
[2023-08-28 09:22] LABS: Adenovirus PCR Not Detected (NotDetected); Bordetella parapertussis PCR Not Detected (NotDetected); Bordetella pertussis PCR Not Detected (NotDetected); Chlamydia pneumoniae PCR Not Detected (NotDetected); Coronavirus 229E PCR Not Detected (NotDetected); Coronavirus CoV-2 (COVID19)PCR Not Detected (NotDetected); Coronavirus HKU1 PCR Not Detected (NotDetected); Coronavirus NL63 PCR Not Detected (NotDetected); Coronavirus OC43PCR Not Detected (NotDetected); Human Metapneumovirus PCR Not Detected (NotDetected); Influenza A PCR Not Detected (NotDetected); Influenza B PCR Not Detected (NotDetected); Mycoplasma pneumoniae PCR Not Detected (NotDetected); Parainfluenza Virus 1 PCR Not Detected (NotDetected); Parainfluenza Virus 2 PCR Not Detected (NotDetected); Parainfluenza Virus 3 PCR Not Detected (NotDetected); Parainfluenza Virus 4 PCR Not Detected (NotDetected); Respiratory Syncytial VirusPCR Not Detected (NotDetected); Rhinovirus/Enterovirus PCR Not Detected (NotDetected)
[2023-08-28 09:35] LABS: Appearance Urine Cloudy (Clear); Bacteria Urine Automated 3+ (None Seen); Bilirubin Urine Negative (Negative); Blood Urine Negative (Negative); Cast Urine Automated 0-2 /lpf (0-2); Color Urine Dark Yellow; Glucose Urine UA Negative (Negative); Ketones Urine Trace (Negative); Leukocyte Esterase Urine 1+ (Negative); Nitrite Urine Negative (Negative); Protein Urine 1+ (Negative); Specific Gravity Urine > 1.045 (1.000-1.030); Urobilinogen Urine Negative (Negative); WBC Urine Automated 0-5 /hpf (0-5)
--- NOTE | 2023-08-28 13:37 | Hospitalist Progress Note ---
Date of Service August 28, 2023 Assessment & Plan (1) Gastroenteritis: Plan: Patient continues to have diarrhea Stool bio fire pending Improved in frequency and volume but consistency is still very watery. Patient is eating and drinking well. No renal failure Received IV fluids. Will monitor without fluids Zofran PRN diet as tolerated (2) Atrial fibrillation with rapid ventricular response: Plan: new onset Per nurse, patient is going back and forth between A-fib and sinus rhythm Rate much better controlled [id number] score of 5 (gender, age, history of stroke) Currently on IV heparin Will switch to p.o. Eliquis Awaiting cardiology input Cardizem drip has been discontinued Echocardiogram ordered TSH normal Monitor on telemetry (3) COPD (chronic obstructive pulmonary disease): Plan: no exacerbation continue inhalers Xopenex prn (4) Hyponatremia: Plan: mild hold Lasix Was given IV fluid monitor BMP (5) Elevated troponin: Plan: demand ischemia due to Afib with RVR, repeat trop IV Heparin ECHO tele ASA statins (6) Acute febrile illness: Plan: Patient had fever. Broke with Tylenol. Ordered stool bio fire Respiratory panel ordered as well. Blood cultures ordered Most likely viral episode with viral gastroenteritis as no other symptoms associated Admission and Anticipated Discharge Date Admission Date: August 27, 2023 Subjective Patient states that the diarrhea has improved frequency and volume but still very watery. Patient is accompanied by her daughter in the room. Review of Systems Review of Systems: All systems reviewed & are unremarkable except as noted in Subjective Physical Exam Physical Exam: General: Awake, conversant Heart: S1, S2/regular rate and rhythm, no murmur rubs or gallops Lungs: Clear to auscultation bilaterally. Normal effort Abdomen: Soft/nontender/nondistended. No hepatosplenomegaly Extremities: No clubbing/cyanosis. No edema Behavior: Appropriate, cooperative Results & Data Results & Data Vital Signs (Past 12 Hours) Vital Signs Temp Pulse Pulse Pulse Resp BP BP 08/28/23 10:29 107 H 08/28/23 10:17 36.3 C L 82 16 08/28/23 08:56 36.8 C 80 20 92/49 L 08/28/23 07:09 38.8 C H 88 20 104/61 08/28/23 06:00 87 24 103/82 08/28/23 05:30 89 25 H 92/59 L 06/03/24 05:00 93 H 28 H 107/71 08/28/23 04:45 93 H 26 H 101/63 08/28/23 04:12 37.7 C H 88 23 96/61 L 08/28/23 03:36 110 H 26 H 93/64 L 08/28/23 03:06 110 H 26 H 08/28/23 02:52 92 H 08/28/23 02:33 116 H 21 98/68 L 08/28/23 01:51 105 H 20 08/28/23 01:45 101 H 26 H BP Pulse Ox O2 Del Method 08/28/23 10:29 08/28/23 10:17 102/62 96 Room Air 08/28/23 08:56 94 Room Air 08/28/23 07:09 96 Room Air 08/28/23 06:00 93 Room Air 08/28/23 05:30 96 Room Air 08/28/23 05:00 98 Room Air 08/28/23 04:45 96 Room Air 08/28/23 04:12 97 Room Air 08/28/23 03:36 95 08/28/23 03:06 94 08/28/23 02:52 08/28/23 02:33 95 08/28/23 01:51 95 08/28/23 01:45 95 Laboratory Results Abnormal lab results 08/27/23 08/27/23 08/27/23 Range/Units 14:29 15:02 17:18 RBC (4.20-5.40) M/uL Hgb (12.0-16.0) g/dl Hct (37.0-47.0) % POC Hct 36 L (37-47) % Neut # (Auto) 7.16 H (1.40-6.50) K/uL Pierce # (Auto) 1.69 H (0.11-0.59) K/uL Heparin Anti-Xa, Unfract (0.3-0.7) IU/ml POC Sodium 134 L (135-144) mmol/L Sodium 134 L (136-145) mmol/L POC Total CO2 21 L (24-31) mmol/L POC BUN 19 H (7-18) mg/dl BUN/Creatinine Ratio 21.0 H (10-20) Glucose 111 H (70-99(Fasting)) mg/dl POC Glucose (other) 108 H (70-99) mg/dl Calcium (8.6-10.3) mg/dl POC Ioniz Calcium Esther 1.09 L (1.12-1.32) mmol/l AST 42 H (13-39) U/L Troponin I High Sens 57.5 H* 68.5 H* D (0-14) pg/ml Urine Appearance (Clear) Ur Specific [place] (1.000-1.030) Urine Protein (Negative) Urine Ketones (Negative) Ur Leukocyte Esterase (Negative) Urine RBC (Auto) (0-2) /hpf U Epithel Cells (Auto) (0-2) /hpf Urine Bacteria (Auto) (None Seen) 08/27/23 08/28/23 08/28/23 Range/Units 22:37 03:28 06:19 RBC 3.68 L (4.20-5.40) M/uL Hgb 10.7 L (12.0-16.0) g/dl Hct 31.7 L (37.0-47.0) % POC Hct (37-47) % Neut # (Auto) (1.40-6.50) K/uL Pierce # (Auto) (0.11-0.59) K/uL Heparin Anti-Xa, Unfract 0.22 L 0.20 L (0.3-0.7) IU/ml POC Sodium (135-144) mmol/L Sodium 134 L (136-145) mmol/L POC Total CO2 (24-31) mmol/L POC BUN (7-18) mg/dl BUN/Creatinine Ratio (10-20) Glucose 122 H (70-99(Fasting)) mg/dl POC Glucose (other) (70-99) mg/dl Calcium 8.2 L (8.6-10.3) mg/dl POC Ioniz Calcium Esther (1.12-1.32) mmol/l AST (13-39) U/L Troponin I High Sens 68.5 H* (0-14) pg/ml Urine Appearance (Clear) Ur Specific [place] (1.000-1.030) Urine Protein (Negative) Urine Ketones (Negative) Ur Leukocyte Esterase (Negative) Urine RBC (Auto) (0-2) /hpf U Epithel Cells (Auto) (0-2) /hpf Urine Bacteria (Auto) (None Seen) 08/28/23 Range/Units 09:12 RBC (4.20-5.40) M/uL Hgb (12.0-16.0) g/dl Hct (37.0-47.0) % POC Hct (37-47) % Neut # (Auto) (1.40-6.50) K/uL Pierce # (Auto) (0.11-0.59) K/uL Heparin Anti-Xa, Unfract (0.3-0.7) IU/ml POC Sodium (135-144) mmol/L Sodium (136-145) mmol/L POC Total CO2 (24-31) mmol/L POC BUN (7-18) mg/dl BUN/Creatinine Ratio (10-20) Glucose (70-99(Fasting)) mg/dl POC Glucose (other) (70-99) mg/dl Calcium (8.6-10.3) mg/dl POC Ioniz Calcium Esther (1.12-1.32) mmol/l AST (13-39) U/L Troponin I High Sens (0-14) pg/ml Urine Appearance Cloudy A (Clear) Ur Specific [place] > 1.045 H (1.000-1.030) Urine Protein 1+ H (Negative) Urine Ketones Trace H (Negative) Ur Leukocyte Esterase 1+ H (Negative) Urine RBC (Auto) 3-5 H (0-2) /hpf U Epithel Cells (Auto) 6-10 H (0-2) /hpf Urine Bacteria (Auto) 3+ H (None Seen) PG Care Time/CCT Total # of Minutes Spent Total Time Spent with Patient: Total time spent is greater than 50% in coordination of care (as documented) at patient's floor/unit and/or counseling patient: Coding Level of Care Code 66033 SUB INP/OBS CARE 2/35MIN Diagnoses Gastroenteritis K52.9 Atrial fibrillation with rapid ventricular response I48.91 Pulmonary emphysema, unspecified emphysema type J44.9 COPD type: unspecified COPD Hyponatremia E87.1 Elevated troponin R79.89 Acute febrile illness R50.9 (3) COPD (chronic obstructive pulmonary disease) COPD type: unspecified COPD Qualified Code(s): J44.9 - Chronic obstructive pulmonary disease, unspecified
--- NOTE | 2023-08-28 13:57 | Cardiology Consultation ---
Date of Consultation August 28, 2023 Assessment & Plan (1) Paroxysmal atrial fibrillation: (2) Pericardial effusion: (3) Elevated troponin: Plan ASSESSMENT/PLAN: 1. Paroxysmal atrial fibrillation: Based on her symptoms, she seems to been having paroxysmal atrial fibrillation for years with increased burden/frequency and symptomatic. She does not feel well with her palpitations. Heart rates are quite elevated at times. Hypotensive with diltiazem intravenously. Would avoid beta-blockers given her extensive wheezing. Hypotension would also likely inhibit aggressive rate control. Discussed treatment strategy such as rate control, rhythm control, or ablation. Recommend amiodarone 400 mg twice daily for 8 to 10 days and then 200 mg once daily. We discussed potential adverse reaction such as pulmonary toxicity, thyroid abnormalities, and liver damage. She was agreeable to attempt amiodarone. Diagnosis itself discussed in detail. Recommend anticoagulation for stroke risk reduction. She is agreeable. Currently on heparin but would discharge on Eliquis 5 mg twice daily. 2. Carotid artery stenosis: She reports carotid artery stenosis and is on aspirin. Aspirin can be discontinued while on anticoagulation therapy. Monitor through her PCP. 3. Pericardial effusion: Small. Chronicity unknown. Echo can be repeated in the next few days prior to discharge if still hospitalized, otherwise as an outpatient. Asymptomatic in this regard. 4. Gastroenteritis: As per primary hospitalist service. Had fever earlier today while hospitalized. 5. Elevated troponin: Likely due to demand ischemia. Did not present with acute coronary syndrome. Ischemic evaluation not necessary. 6. Disposition: Cardiology will continue to follow. Plan of care communicated with primary hospitalist service, Dr. Deluna. Thank you for allowing me to participate in the care of your patient. Please call for any other questions or concerns. Sincerely, Geo Escudero M.D. History of Present Illness Reason for Consultation: Atrial fibrillation Requesting Physician: Dr. Reina Attending Physician: Belkis Deluna MD History of Present Illness Ms. Rodas is a very pleasant 88-year-old female history significant for COPD, venous insufficiency and stroke according to records, however she denies TIA or stroke history. She developed epigastric pain on 08/24/2023. The pain worsened over the next several days. She also had diarrhea, at least 5 bouts of diarrhea per day. She denies melena, hematochezia, hematuria, fevers, chills, chest pain, orthopnea, shortness of breath at rest, syncope, near syncope, or sick contacts. She has h ad several bouts of diarrhea today (as of our conversation for this consult earlier this afternoon). Nursing staff reports that the most recent diarrhea it was orange/brown in color but liquid. She has dyspnea on exertion which is chronic and stable. She has chronic lower extremity edema but has not had edema at the time of presentation. She has not been eating or drinking well since she has been feeling ill in her abdomen. For years, she has had intermittent fluttering in her chest. It can last for days at a time. She uses a pulse oximeter at home and at times during the fluttering she notes that her heart rate is in the 130s. She does not feel overly well during the palpitations, stating that it causes her great anxiety. The frequency of her palpitations have increased over time. She has had intermittent palpitations while here. On telemetry she has noted to develop atrial fibrillation with heart rates up to the 160s. She was given diltiazem 5 mg IV as a continuous drip but nursing staff reports that her systolic blood pressure was in the 90s and therefore was discontinued. Review of systems: As above. Review of systems otherwise negative/unremarkable. Family history: Son diagnosed with Brugada syndrome and has ICD (lives in [place]). Social history: She quit smoking in approximately 1999. No alcohol or drug abuse. Lives alone. 5 children. Grandchildren. Her daughter, Iris, was present at the bedside. Allergies Allergy/AdvReac Type Severity Reaction Status Date / Time latex Allergy Intermediate rash and Verified 08/27/23 16:02 sores in mouth methylprednisolone Allergy Intermediate hives Verified 08/27/23 16:02 aspirin AdvReac Intermediate upset Verified 08/27/23 16:02 stomach Home Medications Medication Instructions Recorded Confirmed Type albuterol sulfate 2.5 mg/3 mL 2.5 mg continuous nebulization Q6 11/17/22 08/27/23 History (0.083 %) solution for nebulization PRN Wheezing albuterol sulfate 90 mcg/actuation 2 puff inhalation Q6H PRN 11/17/22 08/27/23 History aerosol inhaler cough,Sob,wheezing aspirin 81 mg tablet,delayed 81 mg PO DAILY 11/17/22 08/27/23 History release esomeprazole magnesium 40 mg 40 mg PO DAILY 11/17/22 08/27/23 History capsule,delayed release furosemide 20 mg tablet 10 mg PO Q OTHER DAY Fluid 11/17/22 08/27/23 History Retention tiotropium bromide 2.5 2 puff inhalation DAILY PRN 11/17/22 08/27/23 History mcg/actuation mist for inhalation Shortness Of Breath Or Wheezing (Spiriva Respimat) budesonide-formoterol HFA 160 2 puff inhalation BID 08/27/23 08/27/23 History mcg-4.5 mcg/actuation aerosol inhaler (Breyna) Patient History Surgical History H/O total hysterectomy History of appendectomy Family History Grandfather (Maternal) Cancer mouth Father Cancer colon Mother Cancer colon and uterine Family/Other Cancer colon Social History Smoking Status: Former smoker Tobacco Type: Cigarettes Age Started Using Tobacco: 19; Age Quit Using Tobacco: 69; packs per day: 4; Second Hand Exposure: Yes; Do You Dip or Chew Tobacco: No; Hx Alcohol Use: No Hx Substance Use: No Preferred Language: Mohawk Communication Ability: Effective Visual Impairment: No Limitations Hearing Ability: Normal Solution Sales Senior Executive Required: No Beliefs That Will Affect Care: None marital status: / Current Living Situation: Alone current occupational status: retired Feels Safe at Home: Yes Physical Activity Frequency: Does not Exercise Seatbelt Use: always Assistive Devices: Denture - Upper and Glasses Physical Exam Physical Exam: Gen.: No acute distress. Alert. HEENT: Anicteric sclera. Neck: No JVD. No bruits. Normal carotid upstrokes bilaterally. Cardiac: No ventricular heave. Irregularly irregular. Normal S1-S2. No murmurs, rubs, or gallops. Pulmonary: Decreased breath sounds bilaterally with bilateral expiratory wheezing. Abdomen: Soft, nontender, nondistended, with normoactive bowel sounds. No bruits noted. Extremities: 2+ radial pulses bilaterally. 2+ posterior tibialis pulses bilaterally. No edema or cyanosis. Psychiatric: Affect appears appropriate. Results & Data Vital Signs (Past 12 Hours) Vital Signs Temp Pulse Pulse Pulse Resp BP BP 08/28/23 10:29 107 H 08/28/23 10:17 36.3 C L 82 16 08/28/23 08:56 36.8 C 80 20 92/49 L 08/28/23 07:09 38.8 C H 88 20 104/61 08/28/23 06:00 87 24 103/82 08/28/23 05:30 89 25 H 92/59 L 08/28/23 05:00 93 H 28 H 107/71 08/28/23 04:45 93 H 26 H 101/63 08/28/23 04:12 37.7 C H 88 23 96/61 L 08/28/23 03:36 110 H 26 H 93/64 L 08/28/23 03:06 110 H 26 H 08/28/23 02:52 92 H 08/28/23 02:33 116 H 21 98/68 L BP Pulse Ox O2 Del Method 08/28/23 10:29 08/28/23 10:17 102/62 96 Room Air 08/28/23 08:56 94 Room Air 08/28/23 07:09 96 Room Air 08/28/23 06:00 93 Room Air 08/28/23 05:30 96 Room Air 08/28/23 05:00 98 Room Air 08/28/23 04:45 96 Room Air 08/28/23 04:12 97 Room Air 08/28/23 03:36 95 08/28/23 03:06 94 08/28/23 02:52 08/28/23 02:33 95 Laboratory Results Laboratory Results - last 24 hr 08/27/23 08/27/23 08/27/23 14:29 15:02 17:18 WBC 10.17 RBC 4.47 Hgb 13.2 POC Hgb 12.2 Hct 38.4 POC Hct 36 L MCV 85.9 MCH 29.5 MCHC 34.4 RDW Std Deviation 43.8 RDW Coeff of Harmony 14.0 Plt Count 207 MPV 11.5 Immature Gran % (Auto) 0.4 Neut % (Auto) 70.4 Lymph % (Auto) 12.1 [place] % (Auto) 16.6 Eos % (Auto) 0.2 Baso % (Auto) 0.3 Neut # (Auto) 7.16 H Lymph # (Auto) 1.23 [place] # (Auto) 1.69 H Eos # (Auto) 0.02 Baso # (Auto) 0.03 Immature Gran # (Auto) 0.04 PT 10.9 INR 1.0 APTT 28 PTT Ratio 1.0 Heparin Anti-Xa, Unfract POC Sodium 134 L Sodium 134 L POC Potassium 4.0 Potassium 3.9 POC Chloride 102 Chloride 100 Carbon Dioxide 25 POC Total CO2 21 L Anion Gap 9 POC Anion Gap 16.0 POC BUN 19 H BUN 21 Creatinine 1.00 POC Creatinine 1.0 Est Cr Clr Drug Dosing 34.3 Est GFR ( Amer) 58.7 Est GFR (Non-Af Amer) 50.6 BUN/Creatinine Ratio 21.0 H Glucose 111 H POC Glucose (other) 108 H Calcium 8.9 POC Ioniz Calcium Esther 1.09 L Magnesium Total Bilirubin 0.8 AST 42 H ALT 23 Alkaline Phosphatase 97 Troponin I High Sens 57.5 H* 68.5 H* D Total Protein 7.6 Albumin 4.2 Globulin 3.4 Albumin/Globulin Ratio 1.2 Triglycerides 61 Cholesterol 105 LDL Cholesterol, Calc 58 VLDL Cholesterol, Calc 12 HDL Cholesterol 35 Cholesterol/HDL Ratio 3.0 Lipase 28 Procalcitonin TSH 4.450 Urine Color Urine Appearance Urine pH Ur Specific [place] Urine Protein Urine Glucose (UA) Urine Ketones Urine Blood Urine Nitrite Urine Bilirubin Urine Urobilinogen Ur Leukocyte Esterase Urine WBC (Auto) Urine RBC (Auto) U Hyaline Cast (Auto) U Epithel Cells (Auto) Urine Bacteria (Auto) Stl C. cayetanensis PCR Stool Rotavirus A PCR Stl Adenov F 40/41 PCR Stool Astrovirus (PCR) Stool Campylobacter PCR Stool Cryptosporidium PCR Stl E.coli Shiga Tox PCR Stl Enterotoxigenic E PCR Stool EAEC (PCR) Stl E. histolytica PCR Stool Giardia Lamblia PCR Stool Salmonella PCR Stool Sapovirus (PCR) Stl P. shigelloides PCR Stl Shigella/EIEC PCR St Y.enterocolitica PCR Stool Vibrio (PCR) Stl Vibrio cholerae PCR Stl Norovirus GI/GII PCR Adenovirus (PCR) B. pertussis DNA (PCR) B.parapertussis DNA PCR C. pneumoniae DNA (PCR) Coronavirus OC43 (PCR) Coronavirus HKU1 (PCR) Coronavirus 229E (PCR) SARS-CoV-2 (PCR) Coronavirus NL63 (PCR) Human Metapneumovir PCR Influenza Type A (PCR) Influenza Type B (PCR) M. pneumoniae (PCR) Parainfluenza 1 (PCR) Parainfluenza 2 (PCR) Parainfluenza 3 (PCR) Parainfluenza 4 (PCR) RSV (PCR) Entero/Rhino (PCR) 08/27/23 08/28/23 08/28/23 22:37 03:28 06:19 WBC 9.09 RBC 3.68 L Hgb 10.7 L POC Hgb Hct 31.7 L POC Hct MCV 86.1 MCH 29.1 MCHC 33.8 RDW Std Deviation 44.3 RDW Coeff of Harmony 14.0 Plt Count 151 MPV 11.8 Immature Gran % (Auto) Neut % (Auto) Lymph % (Auto) [place] % (Auto) Eos % (Auto) Baso % (Auto) Neut # (Auto) Lymph # (Auto) [place] # (Auto) Eos # (Auto) Baso # (Auto) Immature Gran # (Auto) PT INR APTT PTT Ratio Heparin Anti-Xa, Unfract 0.22 L 0.20 L POC Sodium Sodium 134 L POC Potassium Potassium 3.7 POC Chloride Chloride 105 Carbon Dioxide 24 POC Total CO2 Anion Gap 5 POC Anion Gap POC BUN BUN 14 Creatinine 0.85 POC Creatinine Est Cr Clr Drug Dosing 40.7 Est GFR ( Amer) 71.4 Est GFR (Non-Af Amer) 61.6 BUN/Creatinine Ratio 16.5 Glucose 122 H POC Glucose (other) Calcium 8.2 L POC Ioniz Calcium Esther Magnesium 2.1 Total Bilirubin AST ALT Alkaline Phosphatase Troponin I High Sens 68.5 H* Total Protein Albumin Globulin Albumin/Globulin Ratio Triglycerides Cholesterol LDL Cholesterol, Calc VLDL Cholesterol, Calc HDL Cholesterol Cholesterol/HDL Ratio Lipase Procalcitonin 0.20 TSH Urine Color Urine Appearance Urine pH Ur Specific [place] Urine Protein Urine Glucose (UA) Urine Ketones Urine Blood Urine Nitrite Urine Bilirubin Urine Urobilinogen Ur Leukocyte Esterase Urine WBC (Auto) Urine RBC (Auto) U Hyaline Cast (Auto) U Epithel Cells (Auto) Urine Bacteria (Auto) Stl C. cayetanensis PCR Stool Rotavirus A PCR Stl Adenov F 40/ PCR Stool Astrovirus (PCR) Stool Campylobacter PCR Stool Cryptosporidium PCR Stl E.coli Shiga Tox PCR Stl Enterotoxigenic E PCR Stool EAEC (PCR) Stl E. histolytica PCR Stool Giardia Lamblia PCR Stool Salmonella PCR Stool Sapovirus (PCR) Stl P. shigelloides PCR Stl Shigella/EIEC PCR St Y.enterocolitica PCR Stool Vibrio (PCR) Stl Vibrio cholerae PCR Stl Norovirus GI/GII PCR Adenovirus (PCR) B. pertussis DNA (PCR) B.parapertussis DNA PCR C. pneumoniae DNA (PCR) Coronavirus OC43 (PCR) Coronavirus HKU1 (PCR) Coronavirus 229E (PCR) SARS-CoV-2 (PCR) Coronavirus NL63 (PCR) Human Metapneumovir PCR Influenza Type A (PCR) Influenza Type B (PCR) M. pneumoniae (PCR) Parainfluenza 1 (PCR) Parainfluenza 2 (PCR) Parainfluenza 3 (PCR) Parainfluenza 4 (PCR) RSV (PCR) Entero/Rhino (PCR) 08/28/23 08/28/23 08/28/23 08:10 09:12 12:57 WBC RBC Hgb POC Hgb Hct POC Hct MCV MCH MCHC RDW Std Deviation RDW Coeff of Harmony Plt Count MPV Immature Gran % (Auto) Neut % (Auto) Lymph % (Auto) [place] % (Auto) Eos % (Auto) Baso % (Auto) Neut # (Auto) Lymph # (Auto) [place] # (Auto) Eos # (Auto) Baso # (Auto) Immature Gran # (Auto) PT INR APTT PTT Ratio Heparin Anti-Xa, Unfract POC Sodium Sodium POC Potassium Potassium POC Chloride Chloride Carbon Dioxide POC Total CO2 Anion Gap POC Anion Gap POC BUN BUN Creatinine POC Creatinine Est Cr Clr Drug Dosing Est GFR ( Amer) Est GFR (Non-Af Amer) BUN/Creatinine Ratio Glucose POC Glucose (other) Calcium POC Ioniz Calcium Esther Magnesium Total Bilirubin AST ALT Alkaline Phosphatase Troponin I High Sens Total Protein Albumin Globulin Albumin/Globulin Ratio Triglycerides Cholesterol LDL Cholesterol, Calc VLDL Cholesterol, Calc HDL Cholesterol Cholesterol/HDL Ratio Lipase Procalcitonin TSH Urine Color Dark Yellow Urine Appearance Cloudy A Urine pH 6.0 Ur Specific [place] > 1.045 H Urine Protein 1+ H Urine Glucose (UA) Negative Urine Ketones Trace H Urine Blood Negative Urine Nitrite Negative Urine Bilirubin Negative Urine Urobilinogen Negative Ur Leukocyte Esterase 1+ H Urine WBC (Auto) 0-5 Urine RBC (Auto) 3-5 H U Hyaline Cast (Auto) 0-2 U Epithel Cells (Auto) 6-10 H Urine Bacteria (Auto) 3+ H Stl C. cayetanensis PCR Pending Stool Rotavirus A PCR Pending Stl Adenov F 40/41 PCR Pending Stool Astrovirus (PCR) Pending Stool Campylobacter PCR Pending Stool Cryptosporidium PCR Pending Stl E.coli Shiga Tox PCR Pending Stl Enterotoxigenic E PCR Pending Stool EAEC (PCR) Pending Stl E. histolytica PCR Pending Stool Giardia Lamblia PCR Pending Stool Salmonella PCR Pending Stool Sapovirus (PCR) Pending Stl P. shigelloides PCR Pending Stl Shigella/EIEC PCR Pending St Y.enterocolitica PCR Pending Stool Vibrio (PCR) Pending Stl Vibrio cholerae PCR Pending Stl Norovirus GI/GII PCR Pending Adenovirus (PCR) Not Detected B. pertussis DNA (PCR) Not Detected B.parapertussis DNA PCR Not Detected C. pneumoniae DNA (PCR) Not Detected Coronavirus OC43 (PCR) Not Detected Coronavirus HKU1 (PCR) Not Detected Coronavirus 229E (PCR) Not Detected SARS-CoV-2 (PCR) Not Detected Coronavirus NL63 (PCR) Not Detected Human Metapneumovir PCR Not Detected Influenza Type A (PCR) Not Detected Influenza Type B (PCR) Not Detected M. pneumoniae (PCR) Not Detected Parainfluenza 1 (PCR) Not Detected Parainfluenza 2 (PCR) Not Detected Parainfluenza 3 (PCR) Not Detected Parainfluenza 4 (PCR) Not Detected RSV (PCR) Not Detected Entero/Rhino (PCR) Not Detected Diagnostic Findings ECHO 08/28/23: 1. Normal left ventricular size and systolic function. EF 55-60%. No regional wall motion abnormalities. No left ventricular hypertrophy. 2. No significant valvular abnormalities. 3. Small pericardial effusion without echocardiographic evidence of tamponade physiology. 4. Atrial fibrillation with normal heart rate. 5. No prior study available for comparison. ECG personally reviewed from 08/27/2023: A-fib with RVR 166 bpm. Possible septal infarct. Labs reviewed and notable for normal renal function, normal potassium, normal TSH, normal magnesium, mild anemia (chronic and stable). Elevated high- sensitivity troponin, peaking at 68.5. Chest x-ray 08/28/2023: Emphysema without acute process per radiology. CT abdomen/pelvis 08/27/2023: No acute abnormalities per radiology. Small hiatal hernia. Medications Administered Current Inpatient Medications Acetaminophen (Acetaminophen 325 Mg Tab) 650 mg PO Q4H PRN PRN Reason: pain/fever Stop: 09/26/23 16:21 Last Admin: 08/28/23 08:03 Dose: 650 mg Aspirin (Aspirin 81 Mg Ectab) 81 mg PO DAILY [facility] Stop: 09/27/23 08:59 Last Admin: 08/28/23 08:02 Dose: 81 mg Atorvastatin Calcium (Atorvastatin 40 Mg Tab) 40 mg PO QAM [facility] Stop: 09/26/23 16:59 Last Admin: 08/28/23 08:02 Dose: 40 mg Fluticasone/Vilanterol (Fluticasone/Vilanterol 200/25mcg 14 Puffs/Inhaler) 1 puffs INH DAILY [facility] Stop: 09/27/23 08:59 Last Admin: 08/28/23 08:02 Dose: 1 puffs Diltiazem HCl 125 mg/ Dextrose 125 mls @ 0 mls/hr IV .Q0M KOBI; Protocol Stop: 09/26/23 14:59 Last Titration: 08/28/23 09:15 Dose: 0 mg/hr, 0 mls/hr Heparin Sodium/Dextrose (Heparin Sodium/Dextrose) 25,000 units in 500 mls @ 15 mls/hr IV .Q24H KOBI; Protocol Stop: 09/26/23 16:14 Last Titration: 08/28/23 08:03 Dose: 750 units/hr, 15 mls/hr Levalbuterol HCl (Levalbuterol Hcl 0.63 Mg/3 Ml Neb) 0.63 mg NEB Q6R PRN; Protocol PRN Reason: Shortness Of Breath Or Wheezing Stop: 09/26/23 16:25 Melatonin (Melatonin 3 Mg Tab) 3 mg PO HS PRN PRN Reason: Insomnia Stop: 09/26/23 16:21 Ondansetron HCl (Ondansetron Inj 2 Mg/Ml 2 Ml Vial) 4 mg IV Q6H PRN PRN Reason: Nausea Stop: 09/26/23 16:21 Pantoprazole Sodium (Pantoprazole 40 Mg Tab) 40 mg PO DAILY KOBI Stop: 09/27/23 08:59 Last Admin: 08/28/23 08:03 Dose: 40 mg Polyethylene Glycol (Polyethylene (Miralax) 17 Gm Pack) 17 gm PO DAILY PRN PRN Reason: Constipation Stop: 09/26/23 16:21 Umeclidinium [place] (Umeclidinium [place] 62.5mcg/Blister 7 Puffs/Inhaler) 1 puffs INH DAILY PRN PRN Reason: Shortness Of Breath Or Wheezin Stop: 09/26/23 17:50 PG Care Time/CCT Total # of Minutes Spent Total Time Spent with Patient: Total time spent is greater than 50% in coordination of care (as documented) at patient's floor/unit and/or counseling patient: Coding Level of Care Code 27764 INT INP/OBS CARE 3/75MIN Diagnoses Paroxysmal atrial fibrillation I48.0 Pericardial effusion I31.39 Elevated troponin R79.89
--- NOTE | 2023-08-28 14:18 | XCELERA ---
[id number] \\[email or web address]\[id number]
[2023-08-28 14:24] LABS: Adenovirus F 40/41 PCR Not Detected (NotDetected); Astrovirus PCR Not Detected (NotDetected); Campylobacter PCR Not Detected (NotDetected); Cryptosporidium PCR Not Detected (NotDetected); Cyclospora cayetanensis PCR Not Detected (NotDetected); Entamoeba histolytica PCR Not Detected (NotDetected); Enteroaggregative E.coli(EAEC) Not Detected (NotDetected); Enteropathogenic E.coli (EPEC) Not Detected (NotDetected); Enterotoxigenic E.coli (ETEC) Not Detected (NotDetected); Giardia lamblia PCR Not Detected (NotDetected); Norovirus GI/GII PCR Not Detected (NotDetected); Plesiomonas shigelloides PCR Not Detected (NotDetected); Rotavirus A PCR Not Detected (NotDetected); Salmonella PCR Not Detected (NotDetected); Sapovirus PCR Not Detected (NotDetected); Shiga-like Toxin E.coli (STEC) Not Detected (NotDetected); Shigella/Enteroinvasive E.coli Not Detected (NotDetected); Vibrio cholerae PCR Not Detected (NotDetected); Vibrio species PCR Not Detected (NotDetected); Yersinia enterocolitica PCR Not Detected (NotDetected)
[2023-08-28 14:39] LABS: ANTI-Xa, UFH(UnfractionatedHep 0.23 IU/ml (0.3-0.7)
[2023-08-28] MEDS: AMIODARONE 200 MG TAB PO SCH (17:50)
[2023-08-28 21:17] LABS: ANTI-Xa, UFH(UnfractionatedHep 0.24 IU/ml (0.3-0.7)
[2023-08-29 04:25] LABS: ANTI-Xa, UFH(UnfractionatedHep 0.32 IU/ml (0.3-0.7)
[2023-08-29] MEDS: APIXABAN 5 MG TABLET PO SCH (09:07)
--- NOTE | 2023-08-29 11:18 | Discharge Summary ---
Date of Service August 29, 2023 Admission HPI Per Admitting Provider Patient is a 88-year-old female history of COPD and GERD presenting here today reporting nausea, vomiting , diarrhea on .Nonbloody in nature. Not been able to eat or drink much and feeling very weak since this episode on . No sick contacts reported. No trauma reported. No syncope reported. Generalized weakness and fatigue. No focal numbness or weakness specifically. Denies urinary symptoms but decreased urine output. No fevers or chills reported. CT abdomen/pelvis no acute abnormalities. EKG is significant for Afib, HR in 170, she was started on IV Cardizem, IV Heparin, patient denies CAD, but reports more SOB lately,no CP. Trop 57, TSH is normal , denies cough, wheezing, stopped smoking years ago. Admission Exam Per Admitting Provider head atraumatic, normocephalic neck supple chest decreased breath sounds b/l heart tachy, no murmurs abdomen soft, nt, nd, bs present extremities no edema, no clubbing, no cyanosis neuro AAO times 3 Principal Diagnosis - Viral gastroenteritis - Rapid Afib: new diagnosis - Acute febrile illness due to Viral gastroenteritis - Small pericardial effusion Discharge Exam General: Awake, conversant Heart: S1, S2/regular rate and rhythm, no murmur rubs or gallops Lungs: Clear to auscultation bilaterally. Normal effort Abdomen: Soft/nontender/nondistended. No hepatosplenomegaly Extremities: No clubbing/cyanosis. No edema Behavior: Appropriate, cooperative Discharge Data Allergies Allergy/AdvReac Type Severity Reaction Status Date / Time latex Allergy Intermediate rash and Verified 08/27/23 16:02 sores in mouth methylprednisolone Allergy Intermediate hives Verified 08/27/23 16:02 aspirin AdvReac Intermediate upset Verified 08/27/23 16:02 stomach Consultations 08/27/23 15:58 ED Decision to Admit Stat 08/27/23 16:22 Consult Cardiology Routine Ordered Studies 08/27/23 14:05 CT abd pelvis IV con only Stat Hospital Course (1) Gastroenteritis: Resolved No more diarrhea Patient is tolerating meals Stool bio fire negative Patient is eating and drinking well. No renal failure Continue to do well without IV fluids (2) Atrial fibrillation with rapid ventricular response: new onset Per nurse, patient is going back and forth between A-fib and sinus rhythm Rate much better controlled [id number] score of 5 (gender, age, history of stroke) Switched to p.o. Eliquis Patient was started on p.o. amiodarone by cardiology Heart rate stable even on ambulation Will discharge on amiodarone 400 twice daily for 1 week followed by 200 once daily thereafter Echocardiogram showed a small pericardial effusion without any evidence of tamponade. Payroll And Benefits Manager will follow-up with a repeat echocardiogram Follow-up with cardiology in 1 month (3) COPD (chronic obstructive pulmonary disease): no exacerbation continue inhalers Xopenex prn (4) Hyponatremia: mild hold Lasix Was given IV fluid monitor BMP (5) Elevated troponin: demand ischemia due to Afib with RVR, repeat trop IV Heparin ECHO tele ASA statins (6) Acute febrile illness: Patient had fever. Broke with Tylenol. Stool bio fire was negative Patient had no respiratory complaints or any other complaints Blood cultures ordered, pending Most likely viral episode with viral gastroenteritis as no other symptoms associated No more fevers Blood culture will need to be followed up on by PCP Plan Discharge today Total Time Total Time Spent Total Time Spent (In Minutes): 35 Discharge Plan Discharge Items Patient Disposition: Home - Self-Care Reason For Visit: AFIB Discharge Diagnosis: - Viral gastroenteritis - Rapid Afib: new diagnosis - Acute febrile illness due to Viral gastroenteritis - Small pericardial effusion Activity: Resume your previous activity Non-emergency contact: Primary Care Provider Call non-emergency contact if: you have any medication questions and your symptoms worsen Follow-up/Referrals: Michael Escudero MD [Physician] - 09/04/23 11:30 am Valerie Calzada MD [Primary Care Provider] - 09/04/23 2:45 pm (Pt scheduled with Dr. Calzada for hospital follow up on September 03 at 2:[address] [place] [address] location in front of the hospital. ) Diet: Heart Healthy Addtl Attending Provider Instructions: - Advised to follow-up with PCP in 1 week - Advised to follow-up with mission analyst in 1 month - Advised to note that you will be on Amiodarone 200mg 2 tabs twice daily for 1 week followed by 1 tab once daily thereafter. - Advised that you are being discharged on a blood thinner called Jayde Pending Studies at Discharge: Yes Studies:: Blood cultures Stand-Alone Forms: My [facility] Medications and DC Order Prescriptions: New Eliquis 5 mg Tablet 5 mg PO BID 30 Days Qty: 60 0RF amiodarone 200 mg Tablet 400 mg PO BIDM 7 Days Qty: 90 0RF Rx Instructions: then followed by 200mg 1 tab by mouth once daily thereafter Continued Spiriva Respimat 2.5 mcg/actuation mist 2 puff INHALATION DAILY PRN (Reason: Shortness Of Breath Or Wheezing) esomeprazole magnesium 40 mg capsule,delayed release(DR/EC) 40 mg PO DAILY albuterol sulfate 2.5 mg /3 mL (0.083 %) solution for nebulization 2.5 mg continuous nebulization Q6 PRN (Reason: Wheezing) furosemide 20 mg tablet 10 mg PO Q OTHER DAY albuterol sulfate 90 mcg/actuation Hfa Aerosol Inhaler 2 puff INHALATION Q6H PRN (Reason: cough,Sob,wheezing) aspirin 81 mg Tablet,Delayed Release (Dr/Ec) 81 mg PO DAILY budesonide-formoterol [Breyna] 160-4.5 mcg/actuation HFA aerosol inhaler 2 puff INHALATION BID Discharge Orders: Discharge Order (Routine); Ordered 08/29/23 Ordered By: Belkis Deluna Admission Data Admit Date/Time: 08/27/23 16:22 Attending Provider: Belkis Deluna Admit Provider: Tasha Reina Primary Care Provider: Valerie Calzada Other Providers: Tasha Reina; Ramiro Castaneda Other Interventions: Discharge Summary Assessment (RN) Last Done: 08/29/23 11:24 Coding Level of Care Code 76205 INP/OBS DISCH >30 MIN Diagnoses Gastroenteritis K52.9 Atrial fibrillation with rapid ventricular response I48.91 Pulmonary emphysema, unspecified emphysema type J44.9 COPD type: unspecified COPD Hyponatremia E87.1 Elevated troponin R79.89 Acute febrile illness R50.9
--- NOTE | 2023-08-30 05:25 | Electrocardiogram Report ---
Test Reason : Blood Pressure : / mmHG Vent. Rate : 166 BPM Atrial Rate : 000 BPM P-R Int : 000 ms QRS Dur : 070 ms QT Int : 274 ms P-R-T Axes : 000 063 072 degrees QTc Int : 455 ms Atrial fibrillation with rapid ventricular response Low voltage QRS Abnormal ECG When compared with ECG of 17-NOV-2022 15:12, Atrial fibrillation has replaced Sinus rhythm Vent. rate has increased BY 88 BPM Questionable change in initial forces of Septal leads T wave inversion no longer evident in Inferior leads Confirmed by Michael Escudero ([id number]) on 08/30/2023 5:25:27 AM Referred By: REFERRED SELF Confirmed By:Michael Escudero
--- NOTE | 2023-08-30 05:49 | Electrocardiogram Report ---
Test Reason : Blood Pressure : / mmHG Vent. Rate : 075 BPM Atrial Rate : 075 BPM P-R Int : 154 ms QRS Dur : 074 ms QT Int : 370 ms P-R-T Axes : 070 059 076 degrees QTc Int : 413 ms Normal sinus rhythm Normal ECG When compared with ECG of 27-AUG-2023 14:34, Sinus rhythm has replaced Atrial fibrillation Vent. rate has decreased BY 91 BPM Confirmed by Michael Escudero ([id number]) on 08/30/2023 5:48:40 AM Referred By: REFERRED SELF Confirmed By:Michael Escudero
--- NOTE | 2023-08-30 05:56 | Electrocardiogram Report ---
Test Reason : Blood Pressure : / mmHG Vent. Rate : 094 BPM Atrial Rate : 094 BPM P-R Int : 168 ms QRS Dur : 082 ms QT Int : 336 ms P-R-T Axes : 068 062 075 degrees QTc Int : 420 ms Poor data quality, interpretation may be adversely affected Sinus rhythm with frequent , and consecutive Premature supraventricular complexes with Fusion complex es When compared with ECG of 28-AUG-2023 09:18, Fusion complexes are now Present Premature supraventricular complexes are now Present Confirmed by Michael Escudero ([id number]) on 08/30/2023 5:56:20 AM Referred By: REFERRED SELF Confirmed By:Michael Escudero
--- NOTE | 2023-08-30 05:57 | Electrocardiogram Report ---
Test Reason : Blood Pressure : / mmHG Vent. Rate : 133 BPM Atrial Rate : 326 BPM P-R Int : 000 ms QRS Dur : 076 ms QT Int : 312 ms P-R-T Axes : 000 052 063 degrees QTc Int : 464 ms Atrial flutter with variable A-V block Nonspecific ST abnormality Abnormal ECG When compared with ECG of 28-AUG-2023 10:47, Atrial flutter has replaced Sinus rhythm ST now depressed in Anterior leads Confirmed by Michael Escudero ([id number]) on 08/30/2023 5:57:21 AM Referred By: REFERRED SELF Confirmed By:Michael Escudero
== END 2023-08-29 12:55 | disposition home or self-care (01) | DRG 392 ==
LOC: ED 13:51 → EDINP 16:22 → SUATTDRO 16:22 → EDINP 18:03 → 2S 08-28 10:26

== ENCOUNTER 2024-03-28 12:34 | Inpatient (IN) ==
--- NOTE | 2024-03-28 13:43 | ED Triage Note ---
Date of Service March 28, 2024 Provider in Triage Author: Doug Lo History of Present Illness This patient was briefly evaluated while in triage. An abbreviated physical exam was performed. This patient is a 89-year-old Female who was referred to the emergency department by her PCP for shortness of breath and left-sided chest discomfort. The patient reports that she was just discharged from the hospital a week ago for a low oxygen level. The patient reports that she fell the day that she got home. The patient reports persistent pain to her left ribs. Patient did have lab work and chest x-ray in the office that was concerning for possible pneumonia. The patient is currently on oxygen at 2 L/min nasal cannula at home. Patient also has a history of A-fib and COPD. The patient rates her discomfort a 9 out of 10. Physical Exam CONSTITUTIONAL: Healthy and well nourished. HEENT: No scleral icterus or conjunctival injection. NECK: Full active range of motion without discomfort. LYMPHATICS: No cervical chain adenopathy. RESPIRATORY: Clear to auscultation bilaterally with no wheezing, crackles, rhonchi or stridor. CARDIOVASCULAR: Regular rate and rhythm with no murmurs, rubs or gallops. GASTROINTESTINAL: Bowel sounds present in all quadrants. No focal abdominal pain. MUSCULOSKELETAL: Patient has generalized tenderness to palpation through the left rib region. INTEGUMENTARY: No rash or other significant dermatologic conditions noted on exposed surfaces. HEMATOLOGIC: No ecchymosis or petechiae. PSYCHIATRIC: Positive affect. NEUROLOGIC: No focal neurologic deficits noted. Initial orders for labs and / or imaging were placed and patient was placed in the waiting area until a bed is available. Please see further documentation for the full ED course.
[2024-03-28 14:53] LABS: Basophils # (auto) 0.02 K/uL (0.00-0.20); Basophils % (auto) 0.2 %; Eosinophils # (auto) 0.14 K/uL (0.00-0.50); Eosinophils % (auto) 1.1 %; Hematocrit (blood only) 30.6 % (37.0-47.0); Hemoglobin 9.5 g/dl (12.0-16.0); Immature Granulocytes % (auto) 1.6 %; Lymphocytes # (auto) 1.27 K/uL (1.20-3.40); Lymphocytes % (auto) 10.3 %; Mean Corpuscular Hemoglobin 27.2 pg (25.0-34.0); Mean Corpuscular Volume 87.7 fL (80.0-100.0); Mean Platelet Volume 10.9 fL (9.4-12.4); Monocytes # (auto) 1.17 K/uL (0.11-0.59); Monocytes % (auto) 9.5 %; Neutrophils # (auto) 9.56 K/uL (1.40-6.50); Neutrophils % (auto) 77.3 %; Platelet Count 310 K/uL (130-400); RDW Coefficient of Variation 14.6 % (11.5-14.5); RDW Standard Deviation 46.8 fL (36.4-46.3); Red Blood Count 3.49 M/uL (4.20-5.40); White Blood Count 12.36 K/ul (4.8-10.8)
[2024-03-28 15:06] LABS: Alanine Aminotransferase 12 U/L (7-52); Albumin Globulin Ratio 1.4 (0.9-2); Albumin Level 3.7 gm/dl (3.4-5.0); Alkaline Phosphatase 68 U/L (34-104); Anion Gap 4 (3-11); Aspartate Aminotransferase 12 U/L (13-39); BUN Creatinine Ratio 20.9 (10-20); Bilirubin,Total 0.5 mg/dl (0.2-1.0); Blood Urea Nitrogen 29 mg/dl (6-23); Calcium 8.5 mg/dl (8.6-10.3); Carbon Dioxide 31 mmol/L (21-32); Chloride 103 mmol/L (98-107); Globulin 2.6 gm/dl (2.5-4.0); Glucose 97 mg/dl (70-99(Fasting)); Lipase 23 U/L (11-82); Potassium 4.4 mmol/L (3.5-5.1); Sodium 138 mmol/L (136-145); Total Protein 6.3 gm/dl (6.0-8.3)
[2024-03-28 15:12] LABS: Troponin I High Sensitivity 8.4 pg/ml (0-14)
[2024-03-28 15:17] LABS: INR 1.1 (0.9-1.1); Partial Thromboplastin Time 27 Seconds (21-31); Prothrombin Time 11.9 Seconds (9.0-12.0)
[2024-03-28 15:31] LABS: Adenovirus PCR Not Detected (NotDetected); Bordetella parapertussis PCR Not Detected (NotDetected); Bordetella pertussis PCR Not Detected (NotDetected); Chlamydia pneumoniae PCR Not Detected (NotDetected); Coronavirus 229E PCR Not Detected (NotDetected); Coronavirus CoV-2 (COVID19)PCR Not Detected (NotDetected); Coronavirus HKU1 PCR Not Detected (NotDetected); Coronavirus NL63 PCR Not Detected (NotDetected); Coronavirus OC43PCR Not Detected (NotDetected); Human Metapneumovirus PCR Not Detected (NotDetected); Influenza A PCR Not Detected (NotDetected); Influenza B PCR Not Detected (NotDetected); Mycoplasma pneumoniae PCR Not Detected (NotDetected); Parainfluenza Virus 1 PCR Not Detected (NotDetected); Parainfluenza Virus 2 PCR Not Detected (NotDetected); Parainfluenza Virus 3 PCR Not Detected (NotDetected); Parainfluenza Virus 4 PCR Not Detected (NotDetected); Respiratory Syncytial VirusPCR Not Detected (NotDetected); Rhinovirus/Enterovirus PCR Not Detected (NotDetected)
--- NOTE | 2024-03-28 15:41 | CT Scan Report ---
CT chest diagnostic wo con CLINICAL HISTORY: L rib pain s/p fall, SOB TECHNIQUE: Multidetector row helical CT of the chest was performed. Coronal and sagittal reformations were obtained. Automated dose lowering techniques and/or adjustment according to patient size were u tilized for this exam. CT DOSE: 215.84 mGy.cm Comparison: Comparison is made to CT chest on 824 FINDINGS: Lungs and pleura: Diffuse centrilobular emphysema is seen most prominent in the upper lobes. Small ri ght pleural effusion is seen. Diffuse groundglass opacities are seen, new from prior exam. Heart and pericardium: Cardiomegaly is seen with biatrial enlargement. Hypodensity of the blood pool is seen compatible with anemia. Vessels: Mild atherosclerotic changes in the aorta and coronary arteries. Mediastinum and arturo: Subcentimeter lymph nodes are seen. Chest wall and lower neck: Unremarkable. Abdomen: Unremarkable. Bones: Degenerative changes in the thoracic spine. IMPRESSION: 1. There is a trace right pleural effusion. 2. Scattered groundglass opacities are compatible with infectious/inflammatory process. ACT 112: Negative or not required by law. Electronically signed by: Gab Do M.D. 03/28/2024 3:39 PM
--- NOTE | 2024-03-28 15:49 | Electrocardiogram Report ---
Test Reason : Blood Pressure : */* mmHG Vent. Rate : 59 BPM Atrial Rate : 59 BPM P-R Int : 172 ms QRS Dur : 86 ms QT Int : 446 ms P-R-T Axes : 87 13 62 degrees QTcB Int : 441 ms Sinus bradycardia Low voltage QRS Borderline ECG When compared with ECG of 28-Nov-2023 15:40, No significant change was found Confirmed by Matias Freire ([id number]) on 03/28/2024 3:48:49 PM Referred By: Confirmed By: Matias Freire
--- NOTE | 2024-03-28 15:51 | Emergency Department Note ---
Impression & Plan Hypoxia, Pneumonia, Acute heart failure with preserved ejection fraction (HFpEF), Anemia ED Provider Note NAME: DEBBIE WORKMAN AGE: 89 SEX: F : 1935 ARRIVES VIA: Walk-In INFORMANT: Patient, daughter ED PROVIDER(S): Nabor Rodriguez MD CHIEF COMPLAINT: Shortness of breath, outpatient referral MEDICAL DECISION MAKING: Patient presents to concern for shortness of breath and outpatient referral for possible pneumonia. IV was established and blood work was obtained. Patient with a white count of 12 with a hemoglobin of 9.5 with a normal platelet count. Patient's kidney function with creatinine 1.39. BioFire negative. Patient's CT of the chest does not show any evidence of fracture trace right pleural effusion and groundglass opacities consistent with an infectious process. Patient was ordered IV cefepime. Patient does use oxygen at home but has been using it more frequently. The patient does currently have an oxygen requirement at the bedside. Given these concerns I did see the on-call hospitalist service Dr. Casillas and the patient was admitted to the medicine service. Critical Care: I have personally spent 35 minutes of critical care time in direct management of this patient. This includes bedside care, interpretation of diagnostic studies, and testing, discussion with consultants, patient, and family members, and other require inpatient management activities. This 35 minutes is in excess of all separately billable procedures. Discussion w/ other healthcare providers: Dr. Casillas inpatient medicine service Prior /Outside records reviewed: None Differential diagnosis: Reactive airway disease, pneumonia, pneumothorax, COPD, CHF, ACS, pulmonary embolism, musculoskeletal, GERD as well as other pathologies were considered. Diagnostics, as interpreted by me: ECG: Sinus bradycardia, rate 59, normal intervals, normal axis no ST elevations. Cardiac monitoring: An order was placed for continuous cardiac monitoring. The monitor shows a rate of 62 with sinus rhythm. Patient was placed on pulse oximetry Medical decision rules: None Imaging studies: I informally interpreted the patient's CT of the chest does show right-sided pleural effusion. with formal report to follow. HPI: Patient presents as a referral due to concern for some associated shortness of breath. Patient did have an outpatient x-ray completed that was concerning for possible pneumonia. Patient reportedly did have a fall after being admitted and treated for CHF. The patient reportedly fell and struck her ribs. Patient did subsequently have a chest x-ray completed today that showed possible pneumonia. Patient does take Eliquis. Patient denies strike or LOC at the time that she had a fall. Patient reports that she believes she was admitted at [facility]. Patient was treated with IV Lasix and discharged home at that time. Patient has not been eating or drinking as much. Patient reportedly did take her medications. No nausea vomiting or diarrhea. PAST MEDICAL HISTORY: See Below PAST SURGICAL HISTORY: See Below SOCIAL HISTORY: See Below HOME MEDICATIONS: See Below ALLERGIES: See Below VITALS: See Below PHYSICAL EXAMINATION: GENERAL: NAD, non-toxic. EYE EXAM: Normal conjunctiva. PERRL, no anisocoria and EOM's grossly intact w/o pain. OROPHARYNX: Moist mucus membranes, grossly normal dentition. NECK: Trachea midline, no stridor. LUNGS: Bibasilar crackles noted. Normal chest wall mechanics. HEART: NSR, no MRG. ABDOMEN: Abdomen soft, non-tender, no masses, no rebound or guarding. BACK: No CVA TTP. SKIN: No rashes and no bruising. UPPER EXTREMITIES: Upper extremities are grossly normal. LOWER EXTREMITIES: Grossly normal, trace pretibial edema without calf pain erythema. NEURO EXAM: A&O x3, cranial nerves II-XII grossly intact, normal speech, moves all 4 extremities. Past Med/Surg History Problem List (Updated 04/03/24 @ 10:29 by Nabor Rodriguez MD) Hypoxia (Acute) Leukocytosis Acute kidney injury Pneumonia (Acute) Fall Anemia (Acute) Paroxysmal atrial fibrillation controlled w/ medications, reason for eliquis, follows w/ Dr Escudero COPD (chronic obstructive pulmonary disease) Acute heart failure with preserved ejection fraction (HFpEF) (Acute) Diarrhea Epigastric pain Dyspnea on exertion Pericardial effusion Paroxysmal atrial fibrillation (Acute) Acute febrile illness Elevated troponin Hyponatremia Gastroenteritis (Acute) Dehydration (Acute) Weakness (Acute) Atrial fibrillation with rapid ventricular response (Acute) Uncontrolled pain Rib pain on right side (Acute) SOB (shortness of breath) (Acute) DVT prophylaxis Humeral fracture (Acute) Right rib fracture (Acute) Cerebral vascular disease Venous insufficiency (chronic) (peripheral) COPD (chronic obstructive pulmonary disease) (Acute) Medical History COPD (chronic obstructive pulmonary disease) Venous insufficiency (chronic) (peripheral) Cerebral vascular disease Hx of fracture 2021--hx humeral and rib fracture from fall- resolved Pericardial effusion hx Dyspnea on exertion Hx of acute heart failure Acid reflux Anxiety Peripheral edema bilat ankle Paroxysmal atrial fibrillation controlled w/ medications, reason for eliquis, follows w/ Dr Escudero On home O2 2 lpm via NC w/ activity Vomiting reason for upcoming procedure Surgical History H/O total hysterectomy appendix removed during hysterectomy Family History Grandfather (Maternal) Cancer mouth Father Cancer colon Mother Cancer colon and uterine Family/Other Cancer colon Social History Smoking Status: Former smoker Tobacco Type: Cigarettes Age Started Using Tobacco: 19; Age Quit Using Tobacco: 69; packs per day: 4; Second Hand Exposure: Yes; Do You Dip or Chew Tobacco: No; Hx Alcohol Use: No Hx Substance Use: No Preferred Language: Georgian Communication Ability: Effective Visual Impairment: No Limitations Hearing Ability: Normal Roof Fitter Required: No Beliefs That Will Affect Care: None marital status: / Current Living Situation: Alone current occupational status: retired Feels Safe at Home: Yes Physical Activity Frequency: Does not Exercise Seatbelt Use: always Assistive Devices: Cane, Oxygen - Continuous, Walker and Wheelchair Allergies Allergies Allergy/AdvReac Type Severity Reaction Status Date / Time latex Allergy Intermediate rash and Verified 02/28/24 13:51 sores in mouth methylprednisolone Allergy Intermediate hives Verified 02/28/24 13:51 aspirin AdvReac Intermediate upset Verified 02/28/24 13:51 stomach Home Meds Home Medications Medication Instructions Recorded Confirmed albuterol sulfate 2.5 mg/3 mL 2.5 mg continuous nebulization Q6 11/17/22 03/28/24 (0.083 %) solution for nebulization PRN Wheezing albuterol sulfate 90 mcg/actuation 2 puff inhalation Q6H PRN 11/17/22 03/28/24 aerosol inhaler cough,Sob,wheezing pantoprazole 20 mg tablet,delayed 20 mg PO QAM 02/07/24 03/28/24 release chlorpheniramine maleate 4 mg 4 mg PO Q12H PRN ALLERGIES 03/28/24 03/28/24 tablet (Allergy Relief (chlorpheniramine)) pseudoephedrine HCl 120 mg 120 mg PO BID PRN Congestion 03/28/24 03/28/24 tablet,extended release (Sudafed 12 Hour) sodium chloride, sodium 1 ea DAILY 03/28/24 03/28/24 bicarb-nasal rinse squeeze bottle with packet (Neilmed Sinus Rinse Complete with packet) spironolactone 25 mg tablet 25 mg PO QAM 03/28/24 03/28/24 tiotropium 2.5 mcg-olodaterol 2.5 2 puff inhalation QAM 03/28/24 03/28/24 mcg/actuation mist for inhalation (Stiolto Respimat) Previous Rx's Medication Instructions Recorded apixaban 5 mg tablet (Eliquis) 5 mg PO BID #180 tabs 09/20/23 budesonide 160 mcg-glycopyr 9 2 inh inhalation BID #10.7 grams 12/14/23 mcg-formot 4.8 mcg/actuation HFA inhaler (Breztri Aerosphere) fluticasone propionate 50 1 spray intranasal BID #18.2 mL 12/22/23 mcg/actuation nasal spray,suspension (Flonase Allergy Relief) amiodarone 200 mg tablet 200 mg PO DAILY #90 tabs 02/07/24 ipratropium 0.5 mg-albuterol 3 mg 3 ml inhalation Q6H #180 mL 03/14/24 (2.5 mg base)/3 mL nebulization soln furosemide 20 mg tablet 20 mg PO Q OTHER DAY Fluid 03/30/24 Retention #90 tabs Results & Data (ED) Vital Signs Vital Signs - 24 hr 03/28/24 13:38 03/28/24 15:47 Temperature 36.8 C Temperature Source Temporal Artery Scan Pulse Rate 63 Pulse Rate [Right Finger] 63 Respiratory Rate 18 24 Respiratory Depth Normal Blood Pressure 153/67 H Blood Pressure [Right Arm] 135/71 Blood Pressure Mean 95 Blood Pressure Mean [Right Arm] 92 Pulse Oximetry 99 100 Oxygen Delivery Method Nasal Cannula Nasal Cannula Oxygen Flow Rate 2 3 Sepsis Recent Fever Within 48 Hours No Sepsis New/Unexplained Change in Mental Status No Sepsis Action Taken by Nursing No Action Required Home Medications Current Medication List: was personally reviewed by id Laboratory Data Attestation: I reviewed the patient's lab results. 03/30/24 05:32 03/30/24 05:32 Lab Results 03/28/24 Range/Units 14:28 WBC 12.36 H (4.8-10.8) K/ul RBC 3.49 L (4.20-5.40) M/uL Hgb 9.5 L (12.0-16.0) g/dl Hct 30.6 L (37.0-47.0) % MCV 87.7 (80.0-100.0) fL MCH 27.2 (25.0-34.0) pg MCHC 31.0 L (32.0-36.0) g/dL RDW Std Deviation 46.8 H (36.4-46.3) fL RDW Coeff of Harmony 14.6 H (11.5-14.5) % Plt Count 310 (130-400) K/uL MPV 10.9 (9.4-12.4) fL Immature Gran % (Auto) 1.6 % Neut % (Auto) 77.3 % Lymph % (Auto) 10.3 % Calvert % (Auto) 9.5 % Eos % (Auto) 1.1 % Baso % (Auto) 0.2 % Neut # (Auto) 9.56 H (1.40-6.50) K/uL Lymph # (Auto) 1.27 (1.20-3.40) K/uL Calvert # (Auto) 1.17 H (0.11-0.59) K/uL Eos # (Auto) 0.14 (0.00-0.50) K/uL Baso # (Auto) 0.02 (0.00-0.20) K/uL Immature Gran # (Auto) 0.20 (0.01-0.20) K/uL PT 11.9 (9.0-12.0) Seconds INR 1.1 (0.9-1.1) APTT 27 (21-31) Seconds PTT Ratio 1.0 Sodium 138 (136-145) mmol/L Potassium 4.4 (3.5-5.1) mmol/L Chloride 103 (98-107) mmol/L Carbon Dioxide 31 (21-32) mmol/L Anion Gap 4 (3-11) BUN 29 H (6-23) mg/dl Creatinine 1.39 H (0.6-1.2) mg/dl Est Cr Clr Drug Dosing Not Reportable eGFR 36.50 BUN/Creatinine Ratio 20.9 H (10-20) Glucose 97 (70-99(Fasting)) mg/dl Calcium 8.5 L (8.6-10.3) mg/dl Total Bilirubin 0.5 (0.2-1.0) mg/dl AST 12 L (13-39) U/L ALT 12 (7-52) U/L Alkaline Phosphatase 68 (34-104) U/L Troponin I High Sens 8.4 (0-14) pg/ml Total Protein 6.3 (6.0-8.3) gm/dl Albumin 3.7 (3.4-5.0) gm/dl Globulin 2.6 (2.5-4.0) gm/dl Albumin/Globulin Ratio 1.4 (0.9-2) Lipase 23 (11-82) U/L Procalcitonin 0.04 (0-0.5) ng/ml Adenovirus (PCR) Not Detected (NotDetected) B. pertussis DNA (PCR) Not Detected (NotDetected) B.parapertussis DNA PCR Not Detected (NotDetected) C. pneumoniae DNA (PCR) Not Detected (NotDetected) Coronavirus OC43 (PCR) Not Detected (NotDetected) Coronavirus HKU1 (PCR) Not Detected (NotDetected) Coronavirus 229E (PCR) Not Detected (NotDetected) SARS-CoV-2 (PCR) Not Detected (NotDetected) Coronavirus NL63 (PCR) Not Detected (NotDetected) Human Metapneumovir PCR Not Detected (NotDetected) Influenza Type A (PCR) Not Detected (NotDetected) Influenza Type B (PCR) Not Detected (NotDetected) M. pneumoniae (PCR) Not Detected (NotDetected) Parainfluenza 1 (PCR) Not Detected (NotDetected) Parainfluenza 2 (PCR) Not Detected (NotDetected) Parainfluenza 3 (PCR) Not Detected (NotDetected) Parainfluenza 4 (PCR) Not Detected (NotDetected) RSV (PCR) Not Detected (NotDetected) Entero/Rhino (PCR) Not Detected (NotDetected) Administered Medications Discontinued Medications Acetaminophen (Acetaminophen 325 Mg Tab) 650 mg PO Q4H PRN PRN Reason: Pain or Fever Stop: 04/27/24 20:22 Last Admin: 03/30/24 02:24 Dose: 650 mg Documented By: JESSICA Acetaminophen (Acetaminophen 325 Mg Tab) 650 mg PO TID [facility] Stop: 04/28/24 13:59 Last Admin: 03/30/24 14:16 Dose: 650 mg Documented By: Admin: 03/30/24 07:53 Dose: 650 mg Documented By: Admin: 03/29/24 21:34 Dose: 650 mg Documented By: Admin: 03/29/24 13:38 Dose: 650 mg Documented By: ANSON Amiodarone HCl (Amiodarone 200 Mg Tab) 200 mg PO DAILY [facility] Stop: 04/28/24 08:59 Last Admin: 03/30/24 09:43 Dose: 200 mg Documented By: Admin: 03/29/24 11:06 Dose: 200 mg Documented By: ANSON Apixaban (Apixaban 5 Mg Tablet) 5 mg PO BID [facility] Stop: 04/27/24 20:59 Last Admin: 03/28/24 21:49 Dose: 5 mg Documented By: OFELIA Apixaban (Apixaban 2.5 Mg Tab) 2.5 mg PO BID [facility] Stop: 04/28/24 08:59 Last Admin: 03/30/24 07:50 Dose: 2.5 mg Documented By: Admin: 03/29/24 21:33 Dose: 2.5 mg Documented By: Admin: 03/29/24 11:01 Dose: 2.5 mg Documented By: ANSON Fluticasone Furoate (Fluticasone Furoate 200mcg 14 Puffs/Inhaler) 1 puffs INH DAILY [facility] Stop: 04/27/24 20:59 Last Admin: 03/30/24 10:19 Dose: 1 puffs Documented By: Admin: 03/29/24 11:01 Dose: 1 puffs Documented By: Admin: 03/28/24 21:51 Dose: 1 puffs Documented By: MED Furosemide (Furosemide 40 Mg/4 Ml Vial) 40 mg IV ONE ONE Stop: 03/28/24 16:16 Last Admin: 03/28/24 16:33 Dose: 40 mg Documented By: ASW Cefepime HCl (Maxipime 2000mg) 2,000 mg in 20 mls @ 5 mls/min IV NOW STA; Protocol Stop: 03/28/24 16:24 Last Admin: 03/28/24 16:33 Dose: 5 mls/min Documented By: ASW Morphine Sulfate (Morphine Sulfate 2 Mg/Ml Carp) 2 mg IV NOW STA Stop: 03/28/24 16:22 Last Admin: 03/28/24 16:33 Dose: 2 mg Documented By: ELVISW Pantoprazole Sodium (Pantoprazole 40 Mg Tab) 40 mg PO [facility] Stop: 04/28/24 08:59 Last Admin: 03/30/24 07:50 Dose: 40 mg Documented By: Admin: 03/29/24 11:01 Dose: 40 mg Documented By: ANSON Spironolactone (Spironolactone 25 Mg Tab) 25 mg PO [facility] Stop: 04/28/24 08:59 Last Admin: 03/30/24 09:38 Dose: Not Given Documented By: Admin: 03/29/24 11:01 Dose: 25 mg Documented By: ANSON Umeclidinium/Vilanterol (Umeclidinium/Vilanterol 62.5/25mcg 7 Puffs/Inhaler) 1 puffs INH [facility] Stop: 04/27/24 20:59 Last Admin: 03/30/24 10:19 Dose: 1 puffs Documented By: Admin: 03/29/24 11:00 Dose: 1 puffs Documented By: Admin: 03/28/24 21:50 Dose: 1 puffs Documented By: [facility] Imaging Data Radiologist's Impression: Chest CT 03/28/24 13:44 CT chest diagnostic wo con CLINICAL HISTORY: L rib pain s/p fall, SOB TECHNIQUE: Multidetector row helical CT of the chest was performed. Coronal and sagittal reformations were obtained. Automated dose lowering techniques and/or adjustment according to patient size were utilized for this exam. CT DOSE: 215.84 mGy.cm Comparison: Comparison is made to CT chest on 824 FINDINGS: Lungs and pleura: Diffuse centrilobular emphysema is seen most prominent in the upper lobes. Small right pleural effusion is seen. Diffuse groundglass opacities are seen, new from prior exam. Heart and pericardium: Cardiomegaly is seen with biatrial enlargement. Hypodensity of the blood pool is seen compatible with anemia. Vessels: Mild atherosclerotic changes in the aorta and coronary arteries. Mediastinum and arturo: Subcentimeter lymph nodes are seen. Chest wall and lower neck: Unremarkable. Abdomen: Unremarkable. Bones: Degenerative changes in the thoracic spine. IMPRESSION: 1. There is a trace right pleural effusion. 2. Scattered groundglass opacities are compatible with infectious/inflammatory process. ACT 112: Negative or not required by law. Electronically signed by: Gab Do M.D. 03/28/2024 3:[address] 03/28/24 13:44 CT chest diagnostic wo con CLINICAL HISTORY: L rib pain s/p fall, SOB TECHNIQUE: Multidetector row helical CT of the chest was performed. Coronal and sagittal reformations were obtained. Automated dose lowering techniques and/or adjustment according to patient size were utilized for this exam. CT DOSE: 215.84 mGy.cm Comparison: Comparison is made to CT chest on 824 FINDINGS: Lungs and pleura: Diffuse centrilobular emphysema is seen most prominent in the upper lobes. Small right pleural effusion is seen. Diffuse groundglass opacities are seen, new from prior exam. Heart and pericardium: Cardiomegaly is seen with biatrial enlargement. Hypodensity of the blood pool is seen compatible with anemia. Vessels: Mild atherosclerotic changes in the aorta and coronary arteries. Mediastinum and arturo: Subcentimeter lymph nodes are seen. Chest wall and lower neck: Unremarkable. Abdomen: Unremarkable. Bones: Degenerative changes in the thoracic spine. IMPRESSION: 1. There is a trace right pleural effusion. 2. Scattered groundglass opacities are compatible with infectious/inflammatory process. ACT 112: Negative or not required by law. Electronically signed by: Gab Do M.D. 03/28/2024 3:39 PM Discharge Plan Visit Data Chief Complaint: Abnormal Labs/Diagnostic Testing Stated Complaint: ABN LABS, BLOODWORK ED Provider: Nabor Rodriguez Discharge Problem: Hypoxia, Pneumonia, Acute heart failure with preserved ejection fraction (HFpEF), Anemia Patient Disposition: Admitted As Inpatient Discharge Instructions Interventions: ED Discharge Assessment Last Done: 03/29/24 21:52 Discharge Problem: Pneumonia Qualifiers: Pneumonia type: due to unspecified organism Laterality: unspecified laterality Lung location: unspecified part of lung Qualified Code(s): J18.9 - Pneumonia, unspecified organism Anemia Qualifiers: Anemia type: unspecified type Qualified Code(s): D64.9 - Anemia, unspecified
[2024-03-28] MEDS: MoRPHine SULFATE 2 MG/ML CARP IV STA (16:33)
[2024-03-28] MEDS: CEFEPIME 2000MG 2,000 MG/20 ML SYR IV STA (16:33)
[2024-03-28] MEDS: FUROSEMIDE 40 MG/4 ML VIAL IV ONE (16:33)
--- NOTE | 2024-03-28 17:09 | History & Physical Report ---
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 every other day - Last echocardiogram 09/2023 showed normal systolic function, EF 60 to 65% - CXR showing trace bilateral pleural effusions, minimal bibasilar opacities that favor atelectasis, emphysema - Chest CT showing trace right pleural effusion, scattered groundglass opacities that are compatible with infectious/inflammatory process - Heart healthy, low-sodium, fluid restricted diet - BNP ordered - diuresis with Lasix 40 mg IV in ED; continue with Lasix 40 IV BID to start 03/29 - continue spironolactone - [place] working on obtaining records from recent hospitalization; if no echo obtained during hospitalization, order echo - Strict I&O monitoring - Daily weights - juan carlos stockings, promote leg elevation, and frequent movement - daily BMP and Mg with diuretic (2) Fall: Plan: s/p fall at home 03/22 resulting in left sided rib pain denies HS or LOC; on Eliquis chest cxr and ct showed no fractures - biofire negative - UA ordered - PT/OT consulted - fall and aspiration precautions Left rib pain - Tylenol prn, Voltaren gel prn, incentive spirometry (3) Acute kidney injury: Plan: Mild has had recent ibuprofen use due to pain from fall (400 Mg every 4 hours x 2 days) possibly secondary to poor p.o. intake, acute CHF, or NSAID use - Cr increased from 1.02 to 1.50, BUN elevated to 29 - urine sodium and urine cr ordered to calculate Fena - UA ordered - post void bladder scan 614, on purewick - will repeat with next void - BMP trend - Avoid nephrotoxic agents - NSAIDs - defer IV fluid resuscitation given acute CHF above (4) Pneumonia: Plan: questionable chest CT showing scattered groundglass opacities compatible with infectious/inflammatory process Biofire negative - no leukocytosis, VSS, non-hypoxic (on chronic O2 therapy) - lactate and procal negative - started on cefepime in ED - if procal negative defer further abx therapy - sputum cultures ordered - incentive spirometry (5) Leukocytosis: Plan: WBC 12.36; chronically elevated neutrophil predominance Possibly secondary to stress with fall or questionable pneumonia Trend CBC to monitor white count (6) COPD (chronic obstructive pulmonary disease): Plan: history of COPD on chronic prn 2 L O2 nasal cannula; has used continuous O2 for past few weeks follows with Dr. Moore Does not appear to be in acute exacerbation at this time Continue home inhalers (7) Paroxysmal atrial fibrillation: Plan: history of paroxysmal A-fib; not in A-fib on admitting EKG Continue home amiodarone and Eliquis (8) Anemia: Plan: History of chronic anemia although acutely worsened Hgb 9.5 denies signs of bleeding; no blood in stool, no melena iron panel with AM labs closely monitor H&H Plan Patient is an 89-year-old female with past medical history of HFpEF, COPD, paroxysmal A-fib, anxiety, GERD, anemia. She presents today after a fall on 03/22 in which she hurt her ribs; She had a chest x-ray with her PCP who then referred her to come in for treatment for pneumonia. The CXR showed bilateral pleural effusions and minimal bibasilar opacities that favor atelectasis. Patient stated she was recently discharged from the hospital 1 week ago and was treated for CHF. She is being admitted today for acute CHF exacerbation and questionable pneumonia, pending procalcitonin. Chronic stable diagnoses: GERD - continue PPI anxiety - continue paxil VTE ppx: Eliquis Diet: heart healthy, low NA Dispo: med/tele Admission and Anticipated Discharge Date Admission Date: 03/28/23 History of Present Illness Chief Complaint: abnormal lab/diagnostic testing Primary Care Provider: Valerie Calzada MD Patient is an 89-year-old female with past medical history of HFpEF, COPD, paroxysmal A-fib, anxiety, GERD, anemia. She presents today after a fall on 03/22 in which she hurt her ribs; She had a chest x-ray with her PCP who then referred her to come in for treatment for pneumonia. The CXR showed bilateral pleural effusions and minimal bibasilar opacities that favor atelectasis. Patient stated she was recently discharged from the hospital 1 week ago and was treated for CHF. Patient stated that she was at [facility] after worsening shortness of breath and increased oxygen requirement; she was treated with IV Lasix and sent home. She stated that she had 2 L O2 via nasal cannula as needed, prior to this hospitalization she was requiring 24/7 and has continued to need it since. She was discharged on Lasix 20 Mg every other day. She stated she has had about a 10 pound weight increase over the past 3 weeks. She has poor p.o. intake but tries to limit herself, did have a hot dog 1 years. She endorses chronic cough, has recently been decreased because she has to force herself not to cough with the rib pain on the left side. The patient stated she fell a couple days ago, approximately 03/22 while she was rushing to go to the bathroom. She fell into her daughter shower, denies LOC or head strike. She h as both a walker and a cane but sometimes ambulates without assistance. She endorses chronic dizziness, no acute worsening. She also has chronic edema, and it has been worsened over the past 3 weeks. Patient denies fever, chills, headache, rhinorrhea, sore throat, sputum production, abdominal pain, nausea, vomiting, diarrhea, constipation, dysuria, hematuria, numbness, tingling. She took all of her home medications this morning wishes to be full code. Patient's daughters updated at bedside. Allergies Allergy/AdvReac Type Severity Reaction Status Date / Time latex Allergy Intermediate rash and Verified 02/28/24 13:51 sores in mouth methylprednisolone Allergy Intermediate hives Verified 02/28/24 13:51 aspirin AdvReac Intermediate upset Verified 02/28/24 13:51 stomach Home Medications Medication Instructions Recorded Confirmed Type albuterol sulfate 2.5 mg/3 mL 2.5 mg continuous nebulization Q6 11/17/22 03/28/24 History (0.083 %) solution for nebulization PRN Wheezing albuterol sulfate 90 mcg/actuation 2 puff inhalation Q6H PRN 11/17/22 03/28/24 History aerosol inhaler cough,Sob,wheezing apixaban 5 mg tablet (Eliquis) 5 mg PO BID #180 tabs 09/20/23 03/28/24 Rx furosemide 20 mg tablet 20 mg PO DAILY PRN Fluid Retention 09/29/23 03/28/24 Rx #90 tabs budesonide 160 mcg-glycopyr 9 2 inh inhalation BID #10.7 grams 12/14/23 03/28/24 Rx mcg-formot 4.8 mcg/actuation HFA inhaler (Breztri Aerosphere) fluticasone propionate 50 1 spray intranasal BID #18.2 mL 12/22/23 03/28/24 Rx mcg/actuation nasal spray,suspension (Flonase Allergy Relief) amiodarone 200 mg tablet 200 mg PO DAILY #90 tabs 02/07/24 03/28/24 Rx pantoprazole 20 mg tablet,delayed 20 mg PO QAM 02/07/24 03/28/24 History release ipratropium 0.5 mg-albuterol 3 mg 3 ml inhalation Q6H #180 mL 03/14/24 03/28/24 Rx (2.5 mg base)/3 mL nebulization soln chlorpheniramine maleate 4 mg 4 mg PO Q12H PRN ALLERGIES 03/28/24 03/28/24 History tablet (Allergy Relief (chlorpheniramine)) pseudoephedrine HCl 120 mg 120 mg PO BID PRN Congestion 03/28/24 03/28/24 History tablet,extended release (Sudafed 12 Hour) sodium chloride, sodium 1 ea DAILY 03/28/24 03/28/24 History bicarb-nasal rinse squeeze bottle with packet ([facility] [place] Sinus Rinse Complete with packet) spironolactone 25 mg tablet 25 mg PO QAM 03/28/24 03/28/24 History tiotropium 2.5 mcg-olodaterol 2.5 2 puff inhalation QAM 03/28/24 03/28/24 History mcg/actuation mist for inhalation (Stiolto Respimat) Past Med/Surg History Problem List (Updated 03/28/24 @ 18:12 by Demetrice Chatterjee PA-C) Leukocytosis Acute kidney injury Pneumonia Fall Anemia Paroxysmal atrial fibrillation controlled w/ medications, reason for eliquis, follows w/ Dr Escudero COPD (chronic obstructive pulmonary disease) Encounter for pre-operative examination Acute heart failure with preserved ejection fraction (HFpEF) Diarrhea Epigastric pain Dyspnea on exertion Pericardial effusion Paroxysmal atrial fibrillation (Acute) Acute febrile illness Elevated troponin Hyponatremia Gastroenteritis (Acute) Dehydration (Acute) Weakness (Acute) Atrial fibrillation with rapid ventricular response (Acute) Uncontrolled pain Rib pain on right side (Acute) SOB (shortness of breath) (Acute) DVT prophylaxis Humeral fracture (Acute) Right rib fracture (Acute) Cerebral vascular disease Venous insufficiency (chronic) (peripheral) COPD (chronic obstructive pulmonary disease) (Acute) Medical History COPD (chronic obstructive pulmonary disease) Venous insufficiency (chronic) (peripheral) Cerebral vascular disease Hx of fracture 2021--hx humeral and rib fracture from fall- resolved Pericardial effusion hx Dyspnea on exertion Hx of acute heart failure Acid reflux Anxiety Peripheral edema bilat ankle Paroxysmal atrial fibrillation controlled w/ medications, reason for eliquis, follows w/ Dr Escudero On home O2 2 lpm via NC w/ activity Vomiting reason for upcoming procedure Surgical History H/O total hysterectomy appendix removed during hysterectomy Family History Grandfather (Maternal) Cancer mouth Father Cancer colon Mother Cancer colon and uterine Family/Other Cancer colon Social History Smoking Status: Former smoker Tobacco Type: Cigarettes Age Started Using Tobacco: 19; Age Quit Using Tobacco: 69; packs per day: 4; Second Hand Exposure: Yes; Do You Dip or Chew Tobacco: No; Hx Alcohol Use: No Hx Substance Use: No Preferred Language: Yi Communication Ability: Effective Visual Impairment: No Limitations Hearing Ability: Normal Business Economist Required: No Beliefs That Will Affect Care: None marital status: / Current Living Situation: Alone current occupational status: retired Feels Safe at Home: Yes Safety Concerns: Feels Safe At This Time Physical Activity Frequency: Does not Exercise Seatbelt Use: always Assistive Devices: Cane, Oxygen - at Night and Walker Review of Systems Review of Systems: see HPI Physical Exam Physical Exam: The patient is awake, alert and oriented 3, well developed and well nourished, normocephalic and atraumatic, in no acute distress. Non-toxic appearing. HEENT- EOMI, mucous membranes moist. Hearing grossly intact. Heart-normal S1 and S2. No murmurs, rubs or gallops. Lungs-decreased bilaterally, no respiratory distress, no accessory muscle use. Abdomen-normal bowel sounds and soft. No ascites noted. Non-tender. Extremities- no clubbing, cyanosis. +2 pitting edema BL LE. Dark purple BL feet, chronic. Rheumatologic-normal range of motion. Psychiatric-normal affect. Results & Data Results & Data Vital Signs (Past 12 Hours) Vital Signs Temp Pulse Pulse Resp BP BP Pulse Ox 03/28/24 16:36 61 22 135/71 100 03/28/24 16:36 62 24 100 03/28/24 15:59 60 03/28/24 15:47 63 24 135/71 100 03/28/24 13:38 36.8 C 63 18 153/67 H 99 O2 Del Method O2 Flow Rate 03/28/24 16:36 Nasal Cannula 2 03/28/24 16:36 Nasal Cannula 2 03/28/24 15:59 03/28/24 15:47 Nasal Cannula 3 03/28/24 13:38 Nasal Cannula 2 Laboratory Results Reviewed CBC, PT/INR, CMP, troponin, bio fire Diagnostic Findings reviewed CXR and chest CT Medications Administered ED: Lasix 40 IVm cefepime 2g, morphine 2mg IV ECG Additional Comments: sinus bradycardia, rate 59 Code Status & VTE Plan Code Status full VTE Prophylaxis Plan VTE Prophylaxis will be ordered: Yes Supervising Physician Co-Signing Physician Notes I have personally seen, evaluated and examined the patient. I have also personally discussed the management of the patient with the resident physician/LUPIS and I agree with the exam findings documented in the history and physical examination and the documented assessment and plan unless otherwise stated below. Brief Exam: In general is a very pleasant 89-year-old female is accompanied by her daughter at the time of examination. She appropriately and pleasantly. She does have some mild conversational dyspnea approximately 5-6 words at a time. She is also using accessory muscles of respiration. She does report she had an echocardiogram during her stay at [facility] about a week ago. She was told "her flapper" are not closing appropriately. I suspect the aortic stenosis clinically as described below. We would have requested the records from [facility] and have yet to receive them. HEENT: Normocephalic atraumatic. Heart: Is fairly regular on auscultation. There is a 2 out of 6 to 3 out of 6 systolic ejection murmur best heard at the right sternal border. No rub. Lungs: Diminished with bilateral rales. Extremities: 2+ edema bilaterally lower extremities with changes of chronic venous stasis bilaterally. Neurologically: Alert and oriented x 3 with no focal deficit. Assessment/plan: As discussed above. Obtain records from [facility] from last week. It does sound like she had an echocardiogram then. Therefore we will not repeat that at this point until we review those records. Fluid restriction. IV diuresis. Pain control with Tylenol at this point has been taking a significant amount of NSAIDs at home we will hold off on those given the acute CHF and the bump in her creatinine. Please refer to orders for further planning. PG Care Time/CCT Total # of Minutes Spent Total Time Spent with Patient: Total time spent is greater than 50% in coordination of care (as documented) at patient's floor/unit and/or counseling patient: Coding Level of Care Code 80067 INT INP/OBS CARE 3/75MIN Diagnoses Acute heart failure with preserved ejection fraction (HFpEF) I50.31 Fall W19.XXXA Acute kidney injury N17.9 Pneumonia J18.9 Leukocytosis D72.829 COPD (chronic obstructive pulmonary disease) J44.9 Paroxysmal atrial fibrillation I48.0 Anemia D64.9
[2024-03-28] MEDS ORDERED: DICLOFENAC SOD 1% GEL 100 GM TUBE EXT PRN (20:23)
[2024-03-28] MEDS ORDERED: ALBUTEROL HFA 8 GM INHALER INH PRN (20:23)
[2024-03-28] MEDS ORDERED: DOCUSATE SODIUM 100 MG CAP PO PRN (20:23)
[2024-03-28] MEDS: APIXABAN 5 MG TABLET PO SCH (21:49)
[2024-03-28] MEDS: UMECLIDINIUM/VILANTEROL 62.5/25MCG 7 PUFFS/INHALER INH SCH (21:50)
[2024-03-28] MEDS: FLUTICASONE FUROATE 200MCG 14 PUFFS/INHALER INH SCH (21:51)
[2024-03-29 00:53] LABS: Appearance Urine Clear (Clear); Bacteria Urine Automated None Seen (None Seen); Bilirubin Urine Negative (Negative); Blood Urine Negative (Negative); Cast Urine Automated 0-2 /lpf (0-2); Color Urine Yellow; Epithelial Cell Urine Auto 0-2 /hpf (0-2); Glucose Urine UA Negative (Negative); Ketones Urine Negative (Negative); Leukocyte Esterase Urine Trace (Negative); Nitrite Urine Negative (Negative); Protein Urine Negative (Negative); RBC Urine Automated 0-2 /hpf (0-2); Specific Gravity Urine 1.008 (1.000-1.030); Urobilinogen Urine Negative (Negative); WBC Urine Automated 0-5 /hpf (0-5)
[2024-03-29 01:11] LABS: Creatinine Urine Random 16.7 mg/dl
[2024-03-29 04:28] LABS: Basophils # (auto) 0.02 K/uL (0.00-0.20); Basophils % (auto) 0.2 %; Eosinophils # (auto) 0.22 K/uL (0.00-0.50); Eosinophils % (auto) 1.7 %; Hematocrit (blood only) 31.5 % (37.0-47.0); Hemoglobin 9.8 g/dl (12.0-16.0); Immature Granulocytes # (auto) 0.22 K/uL (0.01-0.20); Immature Granulocytes % (auto) 1.7 %; Lymphocytes # (auto) 1.32 K/uL (1.20-3.40); Lymphocytes % (auto) 10.4 %; Mean Corpuscular Hemoglobin 27.5 pg (25.0-34.0); Mean Corpuscular Hgb Conc 31.1 g/dL (32.0-36.0); Mean Corpuscular Volume 88.5 fL (80.0-100.0); Mean Platelet Volume 10.9 fL (9.4-12.4); Monocytes # (auto) 1.43 K/uL (0.11-0.59); Monocytes % (auto) 11.3 %; Neutrophils # (auto) 9.49 K/uL (1.40-6.50); Neutrophils % (auto) 74.7 %; Platelet Count 293 K/uL (130-400); RDW Coefficient of Variation 14.5 % (11.5-14.5); RDW Standard Deviation 46.9 fL (36.4-46.3); Red Blood Count 3.56 M/uL (4.20-5.40)
[2024-03-29 04:44] LABS: BUN Creatinine Ratio 20.3 (10-20); Calcium 8.3 mg/dl (8.6-10.3); Creatinine Clr Calc Pharmacy 21.9 ml/min; Magnesium 2.4 mg/dl (1.7-2.4); Potassium 4.3 mmol/L (3.5-5.1)
[2024-03-29 05:03] LABS: Ferritin 41.7 ng/ml (8-388)
[2024-03-29] MEDS ORDERED: UMECLIDINIUM/VILANTEROL 62.5/25MCG 7 PUFFS/INHALER INH SCH (09:00)
[2024-03-29] MEDS ORDERED: FUROSEMIDE 40 MG/4 ML VIAL IV SCH (09:00)
[2024-03-29] MEDS: PANTOprazole 40 MG TAB PO SCH (11:01)
[2024-03-29] MEDS: SPIRONOLACTONE 25 MG TAB PO SCH (11:01)
[2024-03-29] MEDS: APIXABAN 2.5 MG TAB PO SCH (11:01)
[2024-03-29] MEDS: AMIODARONE 200 MG TAB PO SCH (11:06)
[2024-03-29] MEDS: ACETAMINOPHEN 325 MG TAB PO SCH (13:38)
--- NOTE | 2024-03-29 20:04 | Hospitalist Progress Note ---
Date of Service March 29, 2024 Assessment & Plan (1) Acute heart failure with preserved ejection fraction (HFpEF): (2) Acute kidney injury: (3) Hypoxia: (4) COPD (chronic obstructive pulmonary disease): (5) Fall: Plan Patient is an 89-year-old female with past medical history of HFpEF, COPD (2L O2 PRN), paroxysmal A-fib, anxiety, GERD, anemia. She presents today after a fall on 03/22 in which she hurt her ribs; She had a chest x-ray with her PCP who then referred her to come in for treatment for pneumonia. she was seen at [facility] and treated for pneumonia and CHF exacerbation last week. #Acute exacerbation of CHF Recent admission for similar at [facility], echo done thereattempting to obtain records. Follows with Dr. Escudero and CHF clinic Dry weight ~140lbs. Most recent lasix regimen 20mg every other day CT showing trace right pleural effusion and groundglass opacities Received 40 mg of IV Lasixadditional Lasix held with increasing creatinine and weight near dry weight Continue low-sodium diet, fluid restriction, daily weights, JOSLYN hose #KIMBERLY Baseline creatinine ~1 Does report recent increased NSAID use. Cr continues to rise 1.58 - further lasix held, defer fluids today will reasses tomorrow AM BMP #Hypoxia/ hx of COPD with a history of COPD, does not appear to be in acute exacerbation. COntinue Stiolto and albuterol. Has home oxygen 2 L as needed but has been having to wear it more frequently With a recent fall 03/22 at home resulting in rib pain, no fractures on imaging - this has been limiting her ability to take a deep breath, contributing to atelectasis seen on CT scan Continue IS Wean oxygen as tolerated suspect she will have to go home on continuous oxygen while ribs continue to heal Low suspicion for pneumonia given reason for atelectasis, recent completed antibiotic course lactate and Pro-Dinesh negative. Antibiotics have been discontinued. Sputum cultures, pending uncollected #Anemia History of chronic anemia baseline 10.5-11, hgb 9.9 on admission Iron panel consistent with anemia of chronic disease No signs of active bleeding. Routine hemoglobin monitoring #recent fall - PT/OT consults GERD - continue PPI anxiety - continue paxil Proximal A-fibsinus rhythm on telemetry and EKG. Continue Eliquis and amiodarone Dispo: continue inpatient stay, monitoring respiratory status and Cr VTE ppx: Jayde family updated at bedside 03/29 Admission and Anticipated Discharge Date Admission Date: March 28, 2024 Supervising Physician Co-Signing Physician Notes Attending Attestation - Chart reviewed, care plan d/w ADRIEN Thakur. I agree w/ the almonte components of her documentation. Fred Pool MD Subjective patient seen resting in bed while holding in the ER, no family present at bedside. Is able to tell me her past medical history in detail. States that she was just hospitalized at [facility] and was told that she was fluid overloaded and possibly had pneumonia and was discharged after antibiotics. There have been multiple changes to her Lasix dosing over the last month or so and she is unsure what she is supposed be taking but her last instruction was to take it every other day. She had it as a as needed and did not realize how much weight she should gain before she should take it and was taking it infrequently Her main complaint is her pain from her ribs from her fall trying to sit on the toilet at home this occurred on 03/22. She is unable to take a deep breath because of this Denies cough, fevers or chills Review of Systems Review of Systems: All systems reviewed & are unremarkable except as noted in Subjective Physical Exam Physical Exam: General: NAD, VS as above , very pleasant Resp: normal respiratory effort, lungs diminished in the bases, no wheezing CV: RRR, no murmur, Abd: normal bowel sounds, non tender, no hepatosplenomegaly Extremities: Moves all extremities, 1+ bilateral lower extremity edema Neuro: A&O x3, Skin: bruising left lateral side hip and abdomen Results & Data Results & Data Vital Signs (Past 12 Hours) Vital Signs Pulse Pulse Pulse Resp BP BP Pulse Ox 03/29/24 19:00 63 20 104/60 98 03/29/24 18:00 67 14 115/39 L 99 03/29/24 17:00 64 18 108/43 L 100 03/29/24 16:00 61 20 127/44 L 100 03/29/24 15:00 60 15 99 03/29/24 14:42 03/29/24 12:00 60 18 100 03/29/24 12:00 128/53 L 03/29/24 12:00 128/53 L 03/29/24 11:03 64 24 97 03/29/24 11:00 123/54 L 03/29/24 11:00 123/54 L 03/29/24 10:57 64 19 98 03/29/24 10:03 63 19 03/29/24 10:00 138/38 L 03/29/24 09:54 67 16 03/29/24 09:06 60 17 96 03/29/24 09:00 124/50 L 03/29/24 08:45 60 17 100 03/29/24 08:00 115/44 L 03/29/24 08:00 115/44 L 03/29/24 08:00 115/44 L 03/29/24 08:00 60 24 99 03/29/24 07:59 16 Pulse Ox Pulse Ox O2 Del Method O2 Flow Rate O2 Flow Rate O2 Flow Rate 03/29/24 19:00 Nasal Cannula 3 03/29/24 18:00 Nasal Cannula 2 03/29/24 17:00 Nasal Cannula 2 03/29/24 16:00 Nasal Cannula 2 03/29/24 15:00 Nasal Cannula 2 03/29/24 14:42 98 100 2 2 03/29/24 12:00 03/29/24 12:00 03/29/24 12:00 03/29/24 11:03 03/29/24 11:00 03/29/24 11:00 03/29/24 10:57 03/29/24 10:03 03/29/24 10:00 03/29/24 09:54 03/29/24 09:06 03/29/24 09:00 03/29/24 08:45 03/29/24 08:00 03/29/24 08:00 03/29/24 08:00 03/29/24 08:00 03/29/24 07:59 Laboratory Results CBC and chemistry reviewed Iron panel reviewed PG Care Time/CCT Total # of Minutes Spent Total Time Spent with Patient: Total time spent is greater than 50% in coordination of care (as documented) at patient's floor/unit and/or counseling patient: Coding Level of Care Code 26050 SUB INP/OBS CARE 3/50MIN Diagnoses Acute heart failure with preserved ejection fraction (HFpEF) I50.31 Acute kidney injury N17.9 Hypoxia R09.02 Pulmonary emphysema, unspecified emphysema type J44.9 COPD type: unspecified COPD Fall W19.XXXA (4) COPD (chronic obstructive pulmonary disease) COPD type: unspecified COPD Qualified Code(s): J44.9 - Chronic obstructive p ulmonary disease, unspecified
[2024-03-30] MEDS: ACETAMINOPHEN 325 MG TAB PO PRN (02:24)
[2024-03-30 06:14] LABS: Basophils # (auto) 0.01 K/uL (0.00-0.20); Basophils % (auto) 0.1 %; Eosinophils # (auto) 0.17 K/uL (0.00-0.50); Eosinophils % (auto) 1.6 %; Hematocrit (blood only) 27.2 % (37.0-47.0); Hemoglobin 8.7 g/dl (12.0-16.0); Immature Granulocytes # (auto) 0.16 K/uL (0.01-0.20); Immature Granulocytes % (auto) 1.5 %; Lymphocytes % (auto) 9.5 %; Mean Corpuscular Hemoglobin 28.1 pg (25.0-34.0); Mean Corpuscular Volume 87.7 fL (80.0-100.0); Mean Platelet Volume 10.8 fL (9.4-12.4); Monocytes # (auto) 1.31 K/uL (0.11-0.59); Monocytes % (auto) 12.5 %; Neutrophils # (auto) 7.87 K/uL (1.40-6.50); Neutrophils % (auto) 74.8 %; Platelet Count 273 K/uL (130-400); RDW Coefficient of Variation 14.3 % (11.5-14.5); RDW Standard Deviation 45.7 fL (36.4-46.3); White Blood Count 10.52 K/ul (4.8-10.8)
[2024-03-30 06:29] LABS: BUN Creatinine Ratio 18.2 (10-20); Creatinine Clr Calc Pharmacy 22.7 ml/min; Potassium 4.1 mmol/L (3.5-5.1)
[2024-03-30 11:27] VITALS: TEMP 98.1
--- NOTE | 2024-03-30 16:11 | Discharge Summary ---
Discharge Summary Date of Service March 30, 2024 Principal Dx & Hospital Course #1 = Principal Diagnosis (1) Acute heart failure with preserved ejection fraction (HFpEF): (2) Acute kidney injury: (3) Hypoxia: (4) COPD (chronic obstructive pulmonary disease): (5) Fall: Plan Patient is an 89-year-old female with past medical history of HFpEF, COPD (2L O2 PRN), paroxysmal A-fib, anxiety, GERD, anemia. She presents today after a fall on 03/22 in which she hurt her ribs; She had a chest x-ray with her PCP who then referred her to come in for treatment for pneumonia. she was seen at [facility] [address] and treated for pneumonia and CHF exacerbation last week. #Acute exacerbation of CHF Recent admission for similar at [facility] [address], echo done thereattempting to obtain records. Follows with Dr. Escudero and CHF clinic Dry weight ~140lbs. Most recent lasix regimen 20mg every other day CT showing trace right pleural effusion and groundglass opacities Donita presented with increasing oxygen requirements which are likely multifactorial. Did improve after diuresis and down to her dry weight unfortunately was overdiuresis and had a mild KIMBERLY. Discussed lifestyle changes with her and her daughter prior to discharge including low-sodium diet, fluid restriction, daily weights, JOSLYN hose. to continue Lasix 20 mg p.o. every other day resuming on Sunday 04/02. Close follow-up with the CHF clinic. Blood pressures were low but patient asymptomatic and upon chart review tend to be running this way. Discussed increasing fluids at home if becoming dizzy and to notify her PCP #KIMBERLY Baseline creatinine ~1 Does report recent increased NSAID use. Cr downtrending to 1.43, will suspect will continue to do so without Lasix. Discussed appropriate level of hydration #Hypoxia/ hx of COPD with a history of COPD, does not appear to be in acute exacerbation. COntinue Stiolto and albuterol. With a recent fall 03/22 at home resulting in rib pain, no fractures on imaging - this has been limiting her ability to take a deep breath, contributing to atelectasis seen on CT scan Patient's ability to take a deep breath improved with scheduled Tylenol 650mg TID - recommend she continue this the next few days at home. Continue her incentive spirometry and can work on weaning her oxygen back to as needed. Was stable on 1 L at rest on discharge #Anemia History of chronic anemia baseline 10.5-11, hgb 9.9 on admission Iron panel consistent with anemia of chronic disease No signs of active bleeding. Routine hemoglobin monitoring #recent fall - PT/OT consults recommend home consider home PT. - case management started the process to be followed up on monday GERD - continue PPI anxiety - continue paxil Proximal A-fibsinus rhythm on telemetry and EKG. Continue Eliquis and amiodarone Dispo: Discharged to home today. Discussed with patient and daughter with the option to stay 1 more night for additional blood pressure and kidney function monitoring but they felt comfortable taking her home stating she thinks she will do better at home and will make sure she is staying adequately hydrated. Will have PCP and CHF clinic follow-up family updated at bedside 03/29, 03/30 Notes For Next Care Provider Consider repeat BMP next week pending when the CHF follow-up is scheduled Medication Changes From Visit Lasix changed to 20 mg every other day Admission HPI Per Admitting Provider Patient is an 89-year-old female with past medical history of HFpEF, COPD, paroxysmal A-fib, anxiety, GERD, anemia. She presents today after a fall on 03/22 in which she hurt her ribs; She had a chest x-ray with her PCP who then referred her to come in for treatment for pneumonia. The CXR showed bilateral pleural effusions and minimal bibasilar opacities that favor atelectasis. Patient stated she was recently discharged from the hospital 1 week ago and was treated for CHF. Patient stated that she was at [facility] [address] after worsening shortness of breath and increased oxygen requirement; she was treated with IV Lasix and sent home. She stated that she had 2 L O2 via nasal cannula as needed, prior to this hospitalization she was requiring 24/7 and has continued to need it since. She was discharged on Lasix 20 Mg every other day. She stated she has had about a 10 pound weight increase over the past 3 weeks. She has poor p.o. intake but tries to limit herself, did have a hot dog 1 years. She endorses chronic cough, has recently been decreased because she has to force herself not to cough with the rib pain on the left side. The patient stated she fell a couple days ago, approximately 03/22 while she was rushing to go to the bathroom. She fell into her daughter shower, denies LOC or head strike. She has both a walker and a cane but sometimes ambulates without assistance. She endorses chronic dizziness, no acute worsening. She also has chronic edema, and it has been worsened over the past 3 weeks. Patient denies fever, chills, headache, rhinorrhea, sore throat, sputum production, abdominal pain, nausea, vomiting, diarrhea, constipation, dysuria, hematuria, numbness, tingling. She took all of her home medications this morning wishes to be full code. Patient's daughters updated at bedside. Discharge Exam General: NAD, VS as above , very pleasant Resp: normal respiratory effort, lungs clear to auscultation CV: RRR, no murmur, Abd: normal bowel sounds, non tender, no hepatosplenomegaly Extremities: Moves all extremities, trace bilateral lower extremity edema Neuro: A&O x3, Skin: bruising left lateral side hip and thigh Discharge Plan Discharge Items Patient Disposition: Home - Self-Care Reason For Visit: ACUTE CHF, POSSIBLE PNA Discharge Diagnosis: chf exac, bruised ribs Activity: Resume your previous activity Weightbearing: Full weightbearing Non-emergency contact: Primary Care Provider and Amusement Ride Operator Call non-emergency contact if: you have any medication questions, your symptoms worsen and your temperature is above 101 Follow-up/Referrals: Valerie Calzada MD [Primary Care Provider] - (follow up 7-10 days ) Lisseth Treadwell PA-C [Physician Grinder Machine Setter] - (follow up within one week ) Diet: Heart Healthy and Low Sodium (2gm) Addtl Attending Provider Instructions: Ms. Rodas, You were hospitalized after having difficulty breathing - this was likely due to a multitude of reasons including your recent pneumonia, fall that injured your ribs and an exacerbation of your heart failure. We treated you with IV Lasix which improved your breathing from heart failure but unfortunately caused an increase in your kidney function. For this reason we have held your Lasix for a few days. Please resume your Lasix on Sunday 04/02 at the dose of 20 mg every other day. You will have close follow up with Pam Darby at the CHF clinic to alter your dosing as needed. Please weigh yourself everyday and keep a log. It is important that you stay hydrated but not over hydrated. Goal for about 2 L of total fluid per day. I have attached some additional information about CHF below. Regarding your lungs the pain improved with scheduled Tylenol - we were giving you 650 mg 3 times a day, I would recommend that you continue on this dosing for the next few days (4-6) as you continue to heal and get closer to your baseline. You can wean your oxygen as tolerated at rest to maintain oxygen saturation greater than 90%. Would recommend continued use with activity. Home PT is in the works and our Case Management office will be following up on Monday. Regarding your low blood pressure readings - these seem to be more chronic for you. You did not have dizziness or lightheadedness while you were in the hospital, however if this were to occur at home, please rest/lie down and focus on hydration. If you are feeling that way you should not take your spironolactone and call your PCP. Activity: You can do normal everyday activities as your body allows. Take rest breaks if you feel tired. Do not overexert. Stop activity if you have pain, shortness of breath or feel dizzy. Follow-up appointments: Make an appointment with your primary care physician within one week of discharge. A copy of this summary will be sent to them. Every time you see your primary care physician, or any other doctor, bring your medication list, and a list of questions. CONTACT YOUR PRIMARY CARE PROVIDER if you experience any of the following: Shortness of breath or difficulty breathing Fevers or chills Feeling tired with normal activity or experiencing dizziness or fainting Difficulty following your treatment plan, or difficulty taking medications Call cardiology if - weight gain greater than 3 lbs in one day - weight gain greater than 5 lbs in one week CALL 911 OR GO TO THE EMERGENCY DEPARTMENT if you experience any of the followin g: Severe abdominal pain or nausea/vomiting Severe chest pain, or chest pain that radiates (moves) to your jaw or arm Sudden, severe shortness of breath or difficulty breathing Thank you for allowing us to participate in your care. Addtl Installation Service Representative Provider Instructions: Call 911 and go to the Emergency Room if: * You have tightness or pain in your chest that does not go away with rest or Nitroglycerin * You are very short of breath even with rest Call your doctor if any of the following symptoms or problems start or get worse: * Shortness of breath or difficulty breathing * Wake up at night short of breath * Chest pain * Cough * Swelling of your hands, fee, or legs * More fatigued or tired with your normal activity * Palpitations - sudden fast heart beats WEIGHT * Weigh yourself every morning after using the bathroom. * Use the same scale. * Wear the same amount of clothing. * Write your weight down on your chart. * Call your doctor if you gain more than 2-3 pounds in 1-2 days. MEDICATIONS * Use this discharge instruction sheet for instructions. * Take your medications at the time your doctor ordered. * Do not skip a dose of your medicines. * If you miss a dose of medicine, take as soon as possible, but DO NOT DOUBLE A DOSE. * Read your medicine information when you get home. * Know all of the side effects of your medicine. * Call your doctor's office if you have any side effects. * Be sure all of your doctors know what medicine and herbs you take (including cold, flu, and herbal medicine). * Pain Medicine: If you do not get relief from your pain, please call your doctor for help. Take the following with you to your follow-up doctor appointments: * Weight Chart * Medication List * List of questions Do not drink excessive alcohol, beer or wine. Pending Studies at Discharge: No Stand-Alone Forms: My [facility], Smoking Cessation Medications and DC Order Prescriptions: Continued Jarrett Chicisimo 160-9-4.8 mcg/actuation HFA aerosol inhaler 2 inh inhalation BID Qty: 10.7 3RF ipratropium-albuterol 0.5 mg-3 mg(2.5 mg base)/3 mL solution for nebulization 3 ml inhalation Q6H Qty: 180 3RF fluticasone propionate [Flonase Allergy Relief] 50 mcg/actuation spray,suspension 1 spray intranasal BID Qty: 18.2 2RF Rx Instructions: administer into each nostril pantoprazole 20 mg tablet,delayed release (DR/EC) 20 mg PO QAM amiodarone 200 mg tablet 200 mg PO DAILY Qty: 90 3RF Eliquis 5 mg tablet 5 mg PO BID Qty: 180 3RF albuterol sulfate 2.5 mg /3 mL (0.083 %) solution for nebulization 2.5 mg continuous nebulization Q6 PRN (Reason: Wheezing) albuterol sulfate 90 mcg/actuation Hfa Aerosol Inhaler 2 puff INHALATION Q6H PRN (Reason: cough,Sob,wheezing) Stiolto Respimat 2.5-2.5 mcg/actuation mist 2 puff inhalation QAM chlorpheniramine maleate [Allergy Relief(chlorpheniramn)] 4 mg tablet 4 mg PO Q12H PRN (Reason: ALLERGIES) pseudoephedrine HCl [Sudafed 12 Hour] 120 mg tablet extended release 120 mg PO BID PRN (Reason: Congestion) Neilmed Sinus Rinse Complete Packet With Rinse Device 1 ea DAILY Rx Instructions: use daily; spironolactone 25 mg tablet 25 mg PO QAM Changed furosemide 20 mg tablet 20 mg PO Q OTHER DAY Qty: 90 3RF Discharge Orders: Discharge Order (Routine); Ordered 03/30/24 Ordered By: Seema Thakur Admission Data Admit Date/Time: 03/28/24 17:53 Attending Provider: Fred Pool Admit Provider: Ahmet Casillas Primary Care Provider: Valerie Calzada Other Providers: Lisseth Treadwell Other Interventions: Discharge Summary Assessment (RN) Last Done: 03/30/24 16:07 Hospital Stay Data Consultations 03/28/24 16:43 ED Decision to Admit Stat 03/30/24 15:42 [facility] Referral Routine Diagnostic Imagining Performed Chest CT 03/28/24 13:44 CT chest diagnostic wo con CLINICAL HISTORY: L rib pain s/p fall, SOB TECHNIQUE: Multidetector row helical CT of the chest was performed. Coronal and sagittal reformations were obtained. Automated dose lowering techniques and/or adjustment according to patient size were utilized for this exam. CT DOSE: 215.84 mGy.cm Comparison: Comparison is made to CT chest on 824 FINDINGS: Lungs and pleura: Diffuse centrilobular emphysema is seen most prominent in the upper lobes. Small right pleural effusion is seen. Diffuse groundglass opacities are seen, new from prior exam. Heart and pericardium: Cardiomegaly is seen with biatrial enlargement. Hypodensity of the blood pool is seen compatible with anemia. Vessels: Mild atherosclerotic changes in the aorta and coronary arteries. Mediastinum and arturo: Subcentimeter lymph nodes are seen. Chest wall and lower neck: Unremarkable. Abdomen: Unremarkable. Bones: Degenerative changes in the thoracic spine. IMPRESSION: 1. There is a trace right pleural effusion. 2. Scattered groundglass opacities are compatible with infectious/inflammatory process. ACT 112: Negative or not required by law. Electronically signed by: Gab Do M.D. 03/28/2024 3:39 PM Pending Results Patient Have Any Pending Studies at Discharge: No Discharge Instructions Given to Patient (Per Discharging Provider) Ms. Rodas, Robert were hospitalized after having difficulty breathing - this was likely due to a multitude of reasons including your recent pneumonia, fall that injured your ribs and an exacerbation of your heart failure. We treated you with IV Lasix which improved your breathing from heart failure but unfortunately caused an in crease in your kidney function. For this reason we have held your Lasix for a few days. Please resume your Lasix on Sunday 04/02 at the dose of 20 mg every other day. You will have close follow up with Pam Darby at the CHF clinic to alter your dosing as needed. Please weigh yourself everyday and keep a log. It is important that you stay hydrated but not over hydrated. Goal for about 2 L of total fluid per day. I have attached some additional information about CHF below. Regarding your lungs the pain improved with scheduled Tylenol - we were giving you 650 mg 3 times a day, I would recommend that you continue on this dosing for the next few days (4-6) as you continue to heal and get closer to your baseline. You can wean your oxygen as tolerated at rest to maintain oxygen saturation greater than 90%. Would recommend continued use with activity. Home PT is in the works and our Case Management office will be following up on Monday. Regarding your low blood pressure readings - these seem to be more chronic for you. You did not have dizziness or lightheadedness while you were in the hospital, however if this were to occur at home, please rest/lie down and focus on hydration. If you are feeling that way you should not take your spironolactone and call your PCP. Activity: You can do normal everyday activities as your body allows. Take rest breaks if you feel tired. Do not overexert. Stop activity if you have pain, shortness of breath or feel dizzy. Follow-up appointments: Make an appointment with your primary care physician within one week of discharge. A copy of this summary will be sent to them. Every time you see your primary care physician, or any other doctor, bring your medication list, and a list of questions. CONTACT YOUR PRIMARY CARE PROVIDER if you experience any of the following: Shortness of breath or difficulty breathing Fevers or chills Feeling tired with normal activity or experiencing dizziness or fainting Difficulty following your treatment plan, or difficulty taking medications Call cardiology if - weight gain greater than 3 lbs in one day - weight gain greater than 5 lbs in one week CALL 911 OR GO TO THE EMERGENCY DEPARTMENT if you experience any of the following: Severe abdominal pain or nausea/vomiting Severe chest pain, or chest pain that radiates (moves) to your jaw or arm Sudden, severe shortness of breath or difficulty breathing Thank you for allowing us to participate in your care. Supervising Physician Co-Signing Physician Notes Attending Attestation and Discharge Note: Chart reviewed, discharge care plan d/w ADRIEN Thakur. I agree w/ the almonte components of her discharge documentation. Of note - I did not perform a personal bedside visit or physical exam on day of discharge. 89yo female with chronic diastolic CHF, PAF on Eliquis/amiodarone, COPD - recent hospitalization at [facility] [address] for pneumonia/CHF exacerbation - presented after a fall with left-sided chest wall pain. Imaging did not show a discrete rib fracture but imaging was concerning for either ongoing pneumonia vs pulm edema. Latter favored. During her stay she was diuresed. This led to mild KIMBERLY with Cr 1.4 (baseline about 0.9 to 1). Since she had previously been treated with abx for recent pneumonia she did not receive additional abx while here. Her lasix was held once KIMBERLY developed. She will resume her lasix on 04/02 at a dose of 20mg every other day. Seen by PT/OT - cleared for home, but home therapy advised. Fred Pool MD Total Time Total Time Spent Total Time Spent (In Minutes): Time spent day of discharge 35 minutes including direct patient care, medication reconciliation, documentation, review of labs and images, and coordination of care. Coding Level of Care Code 08790 INP/OBS DISCH >30 MIN Diagnoses Acute heart failure with preserved ejection fraction (HFpEF) I50.31 Acute kidney injury N17.9 Hypoxia R09.02 Pulmonary emphysema, unspecified emphysema type J44.9 COPD type: unspecified COPD Fall W19.XXXA
[2024-03-30 16:28] VITALS: BP 109/61; PULSE 61; RESP 18; O2SAT 95
== END 2024-03-30 16:43 | disposition home or self-care (01) | DRG 291 ==
LOC: ED 12:34 → SUATTDRO 17:53 → EDINP 17:53 → 2N 03-29 20:25
DX: S70.02XA Contusion of left hip, initial encounter; J44.9 Chronic obstructive pulmonary disease, unspecified; R91.8 Other nonspecific abnormal finding of lung field; D64.9 Anemia, unspecified; K21.9 Gastro-esophageal reflux disease without esophagitis; J18.9 Pneumonia, unspecified organism; Z87.891 Personal history of nicotine dependence; I48.0 Paroxysmal atrial fibrillation; R07.81 Pleurodynia; J43.9 Emphysema, unspecified; I50.31 Acute diastolic (congestive) heart failure; Z79.899 Other long term (current) drug therapy; W18.2XXA Fall in (into) shower or empty bathtub, initial encounter; F41.9 Anxiety disorder, unspecified; N17.9 Acute kidney failure, unspecified; Z79.01 Long term (current) use of anticoagulants; S70.12XA Contusion of left thigh, initial encounter

== ENCOUNTER 2024-06-21 10:11 | Inpatient (IN) ==
--- NOTE | 2024-06-21 10:33 | Emergency Department Note ---
Impression & Plan Stroke-like symptoms ED Provider Note NAME: DEBBIE WORKMAN AGE: 89 SEX: F : 1935 ARRIVES VIA: Walk-In INFORMANT: Patient, ED PROVIDER(S): Matias Pizarro DO CHIEF COMPLAINT: Strokelike symptoms HPI: The patient is an 89-year-old female who presented to the emergency department for an evaluation of strokelike symptoms. The patient started having symptoms yesterday around noon. She was with her daughter when she started having an acute onset of strokelike symptoms. She had a near syncopal episode first followed by difficulty speaking. She is also noticed headache. The patient denies having any fever. She denies having any coughing. She denies having any abdominal pain. She has had no chest pain. She does have a history of atrial fibrillation and currently takes Eliquis. She states she has been compliant with her outpatient medications otherwise. ROS: See above HPI for pertinent positives & negatives. A total of 10 systems reviewed and were otherwise negative. PAST MEDICAL HISTORY: See Below PAST SURGICAL HISTORY: See Below FAMILY HISTORY: See Below SOCIAL HISTORY: See Below HOME MEDICATIONS: See Below ALLERGIES: See Below VITALS: See Below PHYSICAL EXAMINATION: GENERAL: The patient is awake and alert. The patient is anxious. EYES: The conjunctivae are clear. The pupils are round and reactive. EARS, NOSE, MOUTH AND THROAT: The nose is without any evidence of any deformity. NECK: The neck is nontender and supple. RESPIRATORY: Normal respiratory effort is noted there is no evidence of wheezing rhonchi or rales CARDIOVASCULAR: Regular rate and rhythm noted there no murmurs rubs or gallops normal S1 normal S2. GASTROINTESTINAL: The abdomen is soft. Abdomen is nontender. MUSCULOSKELETAL/EXTREMITIES: There is no evidence of gross deformity full range of motion is noted in the hips and shoulders. SKIN: There is no obvious evidence of any rash. There are no petechiae, pallor or cyanosis noted. NEUROLOGIC: The patient is awake alert and oriented x 3. There is no drift in the upper extremities but the patient is tremulous. Speech is clear but the patient has episodes of vocal stuttering. The patient is able to hold each leg off of the bed for greater than 5 seconds. MEDICAL DECISION MAKING: The patient is an 89-year-old female who presented to the emergency department for strokelike symptoms. The patient was having episodes of dysarthria. She was on was having a stuttering speech. The patient also complained of some left-sided numbness. She does take apixaban and symptoms began at noon yesterday. She was seen in another facility. No definite cause for her symptoms could be found. Her family brought her to the emergency department here for further evaluation. I discussed the patient's laboratory and radiographic studies with her. She was not found to have any signs of large vessel occlusion on CT angiography. She was also not found to have any abnormality on CT of the brain. She did have some small aneurysm noted on the angiography but I do not feel that this explains the patient's symptoms. I discussed the patient's condition with the on-call [facility]. They have agreed to evaluate the patient in the emergency department for further management and disposition. Triage Nursing notes reviewed. Prior medical records reviewed Vital Signs: reviewed and remarkable for no significant abnormalities Differential diagnosis: Infection, dehydration, metabolic abnormality, hypo/hyperglycemia, electrolyte disturbance, anemia, hypoxia, cardiac sources, intracerebral event, toxicologic, neurologic, as well as other pathologies. ER treatment provided: See below Diagnostics interpreted by me: ECG: EKG was obtained in the emergency department. My interpretation is sinus bradycardia at 59 bpm. There was no PVCs noted. There was no acute ST segment abnormalities noted. QRS duration was 100 ms. Cardiac Monitoring: An order was placed for continuous cardiac monitoring. The monitor shows a rate of 58 bpm with sinus bradycardia. Laboratory studies: As stated above and show below. Imaging studies: See below. Radiographic imaging was reviewed by myself Consultation(s): I discussed this case with the on-call [facility] hospitalist, Dr. Fonseca. He will evaluate the patient in the emergency department. Past Med/Surg History Problem List (Updated 06/21/24 @ 14:56 by Matias Pizarro DO) Stroke-like symptoms (Acute) Hypoxia (Acute) Diarrhea Epigastric pain Dyspnea on exertion Pericardial effusion Paroxysmal atrial fibrillation (Acute) Acute febrile illness Elevated troponin Hyponatremia Gastroenteritis (Acute) Dehydration (Acute) Weakness (Acute) Atrial fibrillation with rapid ventricular response (Acute) Uncontrolled pain Rib pain on right side (Acute) SOB (shortness of breath) (Acute) DVT prophylaxis Humeral fracture (Acute) Right rib fracture (Acute) Cerebral vascular disease Venous insufficiency (chronic) (peripheral) Medical History Acute kidney injury Anemia COPD (chronic obstructive pulmonary disease) Paroxysmal atrial fibrillation controlled w/ medications, reason for eliquis, follows w/ Dr Escudero COPD (chronic obstructive pulmonary disease) Venous insufficiency (chronic) (peripheral) Cerebral vascular disease Hx of fracture 2021--hx humeral and rib fracture from fall- resolved Pericardial effusion hx Dyspnea on exertion Hx of acute heart failure Acid reflux Anxiety Peripheral edema bilat ankle On home O2 2 lpm via NC w/ activity Vomiting reason for upcoming procedure Surgical History H/O total hysterectomy appendix removed during hysterectomy Family History Grandfather (Maternal) Cancer mouth Father Cancer colon Mother Cancer colon and uterine Family/Other Cancer colon Social History Smoking Status: Never smoker Tobacco Type: Cigarettes Age Started Using Tobacco: 19; Age Quit Using Tobacco: 69; packs per day: 4; Second Hand Exposure: Yes; Do You Dip or Chew Tobacco: No; Hx Alcohol Use: No Hx Substance Use: No Preferred Language: Algerian Communication Ability: Effective Visual Impairment: No Limitations Hearing Ability: Normal Branch Operations Coordinator Required: No Beliefs That Will Affect Care: None marital status: / Current Living Situation: Alone current occupational status: retired Feels Safe at Home: Yes Physical Activity Frequency: Does not Exercise Seatbelt Use: always Assistive Devices: Cane, Oxygen - Continuous, Walker and Wheelchair Allergies Allergies Allergy/AdvReac Type Severity Reaction Status Date / Time latex Allergy Intermediate rash and Verified 05/13/24 11:06 sores in mouth methylprednisolone Allergy Intermediate hives Verified 05/13/24 11:06 aspirin AdvReac Intermediate upset Verified 05/13/24 11:06 stomach Home Meds Home Medications Medication Instructions Recorded Confirmed albuterol sulfate 2.5 mg/3 mL 2.5 mg continuous nebulization Q6 11/17/22 06/21/24 (0.083 %) solution for nebulization PRN Wheezing albuterol sulfate 90 mcg/actuation 2 puff inhalation Q6H PRN 11/17/22 06/21/24 aerosol inhaler cough,Sob,wheezing pseudoephedrine HCl 120 mg 120 mg PO BID PRN Congestion 03/28/24 06/21/24 tablet,extended release (Sudafed 12 Hour) spironolactone 25 mg tablet 25 mg PO QAM 03/28/24 06/21/24 amiodarone 200 mg tablet 200 mg PO QAM 06/21/24 06/21/24 Previous Rx's Medication Instructions Recorded apixaban 5 mg tablet (Eliquis) 5 mg PO BID #180 tabs 09/20/23 furosemide 20 mg tablet 20 mg PO DAILY PRN Fluid Retention 04/05/24 #90 tabs budesonide 160 mcg-glycopyr 9 2 inh inhalation BID #10.7 grams 04/11/24 mcg-formot 4.8 mcg/actuation HFA inhaler ([email or web address]) Results & Data (ED) Vital Signs Vital Signs - 24 hr 06/21/24 10:15 06/21/24 10:39 06/21/24 10:47 Temperature 37.0 C Temperature Source Oral Pulse Rate 68 56 L 57 L Pulse Rate from SpO2 Sensor 57 L Pulse Rhythm Regular Pulse Strength Normal Respiratory Rate 20 21 Respiratory Effort / Characteristics Non-Labored Spontaneous Respiratory Depth Normal Blood Pressure 143/64 H 136/60 Blood Pressure Mean 90 85 Blood Pressure Position Sitting Pulse Oximetry 100 99 Oxygen Delivery Method Room Air Room Air Sepsis Recent Fever Within 48 Hours No Sepsis New/Unexplained Change in Mental Status No Sepsis Action Taken by Nursing No Action Required 06/21/24 10:47 06/21/24 10:57 06/21/24 11:01 Temperature Temperature Source Pulse Rate 58 L Pulse Rate from SpO2 Sensor 60 Pulse Rhythm Pulse Strength Respiratory Rate 27 H Respiratory Effort / Characteristics Respiratory Depth Blood Pressure 139/63 137/31 L Blood Pressure Mean 108 100 Blood Pressure Position Pulse Oximetry 96 Oxygen Delivery Method Room Air Sepsis Recent Fever Within 48 Hours Sepsis New/Unexplained Change in Mental Status Sepsis Action Taken by Nursing 06/21/24 11:09 06/21/24 11:16 06/21/24 11:45 Temperature Temperature Source Pulse Rate 55 L Pulse Rate from SpO2 Sensor 55 L Pulse Rhythm Pulse Strength Respiratory Rate 22 Respiratory Effort / Characteristics Respiratory Depth Blood Pressure 118/35 L 136/91 Blood Pressure Mean 87 105 Blood Pressure Position Pulse Oximetry 100 Oxygen Delivery Method Room Air Sepsis Recent Fever Within 48 Hours Sepsis New/Unexplained Change in Mental Status Sepsis Action Taken by Nursing 06/21/24 11:48 06/21/24 11:57 06/21/24 12:00 Temperature Temperature Source Pulse Rate 57 L 57 L 57 L Pulse Rate from SpO2 Sensor 58 L 57 L 57 L Pulse Rhythm Pulse Strength Respiratory Rate 25 H 17 16 Respiratory Effort / Characteristics Respiratory Depth Blood Pressure 130/74 Blood Pressure Mean 92 Blood Pressure Position Pulse Oximetry 97 98 99 Oxygen Delivery Method Room Air Room Air Room Air Sepsis Recent Fever Within 48 Hours Sepsis New/Unexplained Change in Mental Status Sepsis Action Taken by Nursing 06/21/24 12:15 06/21/24 12:21 06/21/24 12:30 Temperature Temperature Source Pulse Rate 56 L Pulse Rate from SpO2 Sensor 57 L Pulse Rhythm Pulse Strength Respiratory Rate 20 Respiratory Effort / Characteristics Respiratory Depth Blood Pressure 126/49 L 134/48 L Blood Pressure Mean 100 93 Blood Pressure Position Pulse Oximetry 97 Oxygen Delivery Method Room Air Sepsis Recent Fever Within 48 Hours Sepsis New/Unexplained Change in Mental Status Sepsis Action Taken by Nursing 06/21/24 12:30 06/21/24 12:33 06/21/24 12:42 Temperature Temperature Source Pulse Rate 57 L 57 L Pulse Rate from SpO2 Sensor 58 L 57 L Pulse Rhythm Pulse Strength Respiratory Rate 15 13 Respiratory Effort / Characteristics Respiratory Depth Blood Pressure 134/48 L Blood Pressure Mean 93 Blood Pressure Position Pulse Oximetry 96 98 Oxygen Delivery Method Room Air Room Air Sepsis Recent Fever Within 48 Hours Sepsis New/Unexplained Change in Mental Status Sepsis Action Taken by Nursing 06/21/24 12:45 06/21/24 13:00 06/21/24 13:06 Temperature Temperature Source Pulse Rate 57 L Pulse Rate from SpO2 Sensor 57 L Pulse Rhythm Pulse Strength Respiratory Rate 16 Respiratory Effort / Characteristics Respiratory Depth Blood Pressure 135/64 137/57 L Blood Pressure Mean 105 104 Blood Pressure Position Pulse Oximetry 98 Oxygen Delivery Method Room Air Sepsis Recent Fever Within 48 Hours Sepsis New/Unexplained Change in Mental Status Sepsis Action Taken by Nursing 06/21/24 13:15 06/21/24 13:30 06/21/24 13:33 Temperature Temperature Source Pulse Rate 56 L 60 Pulse Rate from SpO2 Sensor 56 L 60 Pulse Rhythm Pulse Strength Respiratory Rate 15 15 Respiratory Effort / Characteristics Respiratory Depth Blood Pressure 134/56 L 129/85 Blood Pressure Mean 82 91 Blood Pressure Position Pulse Oximetry 97 99 Oxygen Delivery Method Room Air Room Air Sepsis Recent Fever Within 48 Hours Sepsis New/Unexplained Change in Mental Status Sepsis Action Taken by Nursing 06/21/24 13:45 06/21/24 14:00 06/21/24 14:15 Temperature Temperature Source Pulse Rate 57 L Pulse Rate from SpO2 Sensor 57 L Pulse Rhythm Pulse Strength Respiratory Rate 15 Respiratory Effort / Characteristics Respiratory Depth Blood Pressure 120/84 134/79 130/63 Blood Pressure Mean 87 97 103 Blood Pressure Position Pulse Oximetry 97 Oxygen Delivery Method Room Air Sepsis Recent Fever Within 48 Hours Sepsis New/Unexplained Change in Mental Status Sepsis Action Taken by Nursing 06/21/24 14:21 06/21/24 14:30 Temperature Temperature Source Pulse Rate 58 L 58 L Pulse Rate from SpO2 Sensor 58 L 58 L Pulse Rhythm Pulse Strength Respiratory Rate 17 16 Respiratory Effort / Characteristics Respiratory Depth Blood Pressure 128/55 L Blood Pressure Mean 79 Blood Pressure Position Pulse Oximetry 97 97 Oxygen Delivery Method Room Air Sepsis Recent Fever Within 48 Hours Sepsis New/Unexplained Change in Mental Status Sepsis Action Taken by Long Term Medications Current Medication List: was personally reviewed by me Laboratory Data Attestation: I reviewed the patient's lab results. 06/21/24 10:34 06/21/24 10:34 Lab Results 06/21/24 06/21/24 Range/Units 10:34 10:35 WBC 8.35 (4.8-10.8) K/ul RBC 3.63 L (4.20-5.40) M/uL Hgb 9.6 L (12.0-16.0) g/dl Hct 30.5 L (37.0-47.0) % MCV 84.0 (80.0-100.0) fL MCH 26.4 (25.0-34.0) pg MCHC 31.5 L (32.0-36.0) g/dL RDW Std Deviation 44.3 (36.4-46.3) fL RDW Coeff of [place] 14.6 H (11.5-14.5) % Plt Count 232 (130-400) K/uL MPV 11.3 (9.4-12.4) fL Immature Gran % (Auto) 0.5 % Neut % (Auto) 71.7 % Lymph % (Auto) 15.7 % [place] % (Auto) 10.4 % Eos % (Auto) 1.1 % Baso % (Auto) 0.6 % Neut # (Auto) 5.99 (1.40-6.50) K/uL Lymph # (Auto) 1.31 (1.20-3.40) K/uL [place] # (Auto) 0.87 H (0.11-0.59) K/uL Eos # (Auto) 0.09 (0.00-0.50) K/uL Baso # (Auto) 0.05 (0.00-0.20) K/uL Immature Gran # (Auto) 0.04 (0.01-0.20) K/uL PT 11.7 (9.0-12.0) Seconds INR 1.1 (0.9-1.1) APTT 31 (21-31) Seconds PTT Ratio 1.2 Sodium 139 (136-145) mmol/L Potassium 4.2 (3.5-5.1) mmol/L Chloride 107 (98-107) mmol/L Carbon Dioxide 29 (21-32) mmol/L Anion Gap 3 (3-11) BUN 26 H (6-23) mg/dl Creatinine 1.48 H (0.6-1.2) mg/dl Est Cr Clr Drug Dosing Not Reportable eGFR 33.85 BUN/Creatinine Ratio 17.6 (10-20) Glucose 113 H (70-99(Fasting)) mg/dl POC Glucose 111 H (70-99) mg/dl Calcium 9.1 (8.6-10.3) mg/dl Magnesium 2.4 (1.7-2.4) mg/dl Total Bilirubin 0.4 (0.2-1.0) mg/dl AST 19 (13-39) U/L ALT 14 (7-52) U/L Alkaline Phosphatase 96 (34-104) U/L Troponin I High Sens 6.8 (0-14) pg/ml Total Protein 7.2 (6.0-8.3) gm/dl Albumin 4.1 (3.4-5.0) gm/dl Globulin 3.1 (2.5-4.0) gm/dl Albumin/Globulin Ratio 1.3 (0.9-2) TSH 2.564 (0.300-4.500) uIu/ml Administered Medications Discontinued Medications Ioversol (Optiray 320 125ml) 118 ml IV ONCE ONE Stop: 06/21/24 11:28 Last Admin: 06/21/24 11:27 Dose: 118 ml Documented By: ARACELI Imaging Data Attestation: I personally reviewed and interpreted this imaging study as follows: My Impression: CT of the brain was obtained in the emergency department. My interpretation is no intracranial hemorrhage or mass effect, final report below. 1 view chest x-ray was obtained in the emergency department. My interpretation is no free air or definite infiltrate, final report below. Radiologist's Impression: Chest X-Ray 06/21/24 10:17 XR chest 1V portable CLINICAL HISTORY: neuro deficit, acute stroke suspected COMPARISON STUDY: 03/28/2024 FINDINGS: Stable mild cardiomegaly without pulmonary vascular congestion. No effusion, consolidation, or pneumothorax. IMPRESSION: No acute findings. ACT 112: Negative or not required by law. Electronically signed by: James Iverson M.D. 06/21/2024 11:[address] 06/21/24 10:17 CT head/brain wo con CLINICAL HISTORY: neuro deficit, acute stroke suspected. TECHNIQUE: Multiple axial CT images of the head were obtained without contrast. A dose lowering technique was utilized adhering to the principles of ALARA. CT DOSE: 940.91 mGy.cm COMPARISON: 04/17/2021 no intracranial hemorrhage seen. No mass effect, midline shift, or hydrocephalus. There is stable moderate patchy periventricular hypodensity which usually represents chronic small vessel ischemic changes. Stable mild frontal lobe volume loss. No skull fracture seen. Visualized paranasal sinuses and mastoid air cells are clear. FINDINGS: No acute findings seen. IMPRESSION: ACT 112: Negative or not required by law. The above report was generated using voice recognition software. It may contain grammatical, syntax or spelling errors. Electronically signed by: James Iverson M.D. 06/21/2024 11:52 AM Head CTA 06/21/24 10:17 CT angio head w con, CT angio neck with con CLINICAL HISTORY: 89 years-old Female with neuro deficit, acute stroke suspected. Acute stroke like symptoms COMPARISON STUDY: Head CT of same day TECHNIQUE: Following the IV administration of 118 cc of Optiray, CT angiogram of the head and neck was performed from the aortic arch to the skull apex. Images are reviewed in the axial, sagittal, and coronal planes. 3-D MIPS images are created and assessed. IV contrast was administered without complication. All measurements were obtained according to NASCET criteria. A dose lowering technique was utilized adhering to the principles of ALARA. FINDINGS: CT BRAIN: Dictated separately. Involutional changes with white matter hypodensities likely represent chronic microvascular ischemic disease. CT ANGIOGRAM OF THE HEAD AND NECK: Atherosclerosis of the aorta. There are less than 50% involves the proximal left subclavian artery secondary to atheromatous plaque. Patent innominate and subclavian arteries. The common carotid arteries are patent. Atherosclerotic plaque of the carotid bulbs causes only mild stenosis bilaterally, left greater than right. 3 mm saccular outpouching of the supraclinoid segment of the right internal carotid artery just proximal to the ophthalmic origin, image 13 series 7. Additionally, there is 3 mm focus of sac outpouching involving the right carotid terminus on image 333 and a 4 mm focus of the left carotid terminus also on image 333. Patent middle and anterior cerebral arteries. Dominant right vertebral artery. The vertebral arteries are patent bilaterally. origin of the right posterior cerebral artery. Patent basilar and posterior cerebral arteries. Cerebral venous sinuses are patent. No abnormal intracranial enhancement. Pulmonary emphysema. Lung apices are clear. No pneumothorax. Mild polypoid mucosal thickening of the right maxillary sinus. Degenerative changes of the spine. IMPRESSION: 1. CTA of the head and neck demonstrates no arterial occlusion, high-grade stenosis or dissection. 2. 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 3. Pulmonary emphysema. ACT 112: Negative or not required by law. The above report was generated using voice recognition software. It may contain grammatical, syntax or spelling errors. Electronically signed by: Samm Valdivia M.D. 06/21/2024 12:09 PM Neck CTA 06/21/24 10:17 CT angio head w con, CT angio neck with con CLINICAL HISTORY: 89 years-old Female with neuro deficit, acute stroke suspected. Acute stroke like symptoms COMPARISON STUDY: Head CT of same day TECHNIQUE: Following the IV administration of 118 cc of Optiray, CT angiogram of the head and neck was performed from the aortic arch to the skull apex. Images are reviewed in the axial, sagittal, and coronal planes. 3-D MIPS images are created and assessed. IV contrast was administered without complication. All measurements were obtained according to NASCET criteria. A dose lowering technique was utilized adhering to the principles of ALARA. FINDINGS: CT BRAIN: Dictated separately. Involutional changes with white matter hypodensities likely represent chronic microvascular ischemic disease. CT ANGIOGRAM OF THE HEAD AND NECK: Atherosclerosis of the aorta. There are less than 50% involves the proximal left subclavian artery secondary to atheromatous plaque. Patent innominate and subclavian arteries. The common carotid arteries are patent. Atherosclerotic plaque of the carotid bulbs causes only mild stenosis bilaterally, left greater than right. 3 mm saccular outpouching of the supraclinoid segment of the right internal carotid artery just proximal to the ophthalmic origin, image 13 series 7. Additionally, there is 3 mm focus of sac outpouching involving the right carotid terminus on image 333 and a 4 mm focus of the left carotid terminus also on image 333. Patent middle and anterior cerebral arteries. Dominant right vertebral artery. The vertebral arteries are patent bilaterally. origin of the right posterior cerebral artery. Patent basilar and posterior cerebral arteries. Cerebral venous sinuses are patent. No abnormal intracranial enhancement. Pulmonary emphysema. Lung apices are clear. No pneumothorax. Mild polypoid mucosal thickening of the right maxillary sinus. Degenerative changes of the spine. IMPRESSION: 1. CTA of the head and neck demonstrates no arterial occlusion, high-grade stenosis or dissection. 2. 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 3. Pulmonary emphysema. ACT 112: Negative or not required by law. The above report was generated using voice recognition software. It may contain grammatical, syntax or spelling errors. Electronically signed by: Samm Valdivia M.D. 06/21/2024 12:09 PM Discharge Plan Visit Data Chief Complaint: TIA Symptoms Stated Complaint: TROUBLE WITH SPEECH, LT SIDE NUMB ED Provider: Matias Pizarro Discharge Problem: Stroke-like symptoms Patient Disposition: Being Evaluated by Hospitalist Forms Stand Alone Forms: My [employer] Prescriptions Prescriptions: No Action Leigh Annevelynjung Aerosphere 160-9-4.8 mcg/actuation HFA aerosol inhaler 2 inh inhalation BID Qty: 10.7 3RF furosemide 20 mg tablet 20 mg PO DAILY PRN (Reason: Fluid Retention) Qty: 90 3RF Eliquis 5 mg tablet 5 mg PO BID Qty: 180 3RF albuterol sulfate 2.5 mg /3 mL (0.083 %) solution for nebulization 2.5 mg continuous nebulization Q6 PRN (Reason: Wheezing) albuterol sulfate 90 mcg/actuation Hfa Aerosol Inhaler 2 puff INHALATION Q6H PRN (Reason: cough,Sob,wheezing) pseudoephedrine HCl [Sudafed 12 Hour] 120 mg tablet extended release 120 mg PO BID PRN (Reason: Congestion) spironolactone 25 mg tablet 25 mg PO QAM amiodarone 200 mg tablet 200 mg PO QAM Referrals Referrals: Valerie Calzada MD [Primary Care Provider] -
[2024-06-21 11:01] LABS: Basophils # (auto) 0.05 K/uL (0.00-0.20); Basophils % (auto) 0.6 %; Eosinophils # (auto) 0.09 K/uL (0.00-0.50); Eosinophils % (auto) 1.1 %; Hematocrit (blood only) 30.5 % (37.0-47.0); Hemoglobin 9.6 g/dl (12.0-16.0); Immature Granulocytes # (auto) 0.04 K/uL (0.01-0.20); Immature Granulocytes % (auto) 0.5 %; Lymphocytes # (auto) 1.31 K/uL (1.20-3.40); Lymphocytes % (auto) 15.7 %; Mean Corpuscular Hemoglobin 26.4 pg (25.0-34.0); Mean Corpuscular Hgb Conc 31.5 g/dL (32.0-36.0); Mean Platelet Volume 11.3 fL (9.4-12.4); Monocytes # (auto) 0.87 K/uL (0.11-0.59); Monocytes % (auto) 10.4 %; Neutrophils # (auto) 5.99 K/uL (1.40-6.50); Neutrophils % (auto) 71.7 %; Platelet Count 232 K/uL (130-400); RDW Coefficient of Variation 14.6 % (11.5-14.5); RDW Standard Deviation 44.3 fL (36.4-46.3); Red Blood Count 3.63 M/uL (4.20-5.40); White Blood Count 8.35 K/ul (4.8-10.8)
--- NOTE | 2024-06-21 11:03 | XRay Report ---
XR chest 1V portable CLINICAL HISTORY: neuro deficit, acute stroke suspected COMPARISON STUDY: 03/28/2024 FINDINGS: Stable mild cardiomegaly without pulmonary vascular congestion. No effusion, consolidation, or pneumothorax. IMPRESSION: No acute findings. ACT 112: Negative or not required by law. Electronically signed by: James Iverson M.D. 06/21/2024 11:02 AM
[2024-06-21 11:06] LABS: Alanine Aminotransferase 14 U/L (7-52); Albumin Globulin Ratio 1.3 (0.9-2); Albumin Level 4.1 gm/dl (3.4-5.0); Alkaline Phosphatase 96 U/L (34-104); Anion Gap 3 (3-11); Aspartate Aminotransferase 19 U/L (13-39); BUN Creatinine Ratio 17.6 (10-20); Bilirubin,Total 0.4 mg/dl (0.2-1.0); Blood Urea Nitrogen 26 mg/dl (6-23); Calcium 9.1 mg/dl (8.6-10.3); Carbon Dioxide 29 mmol/L (21-32); Chloride 107 mmol/L (98-107); Globulin 3.1 gm/dl (2.5-4.0); Glucose 113 mg/dl (70-99(Fasting)); Magnesium 2.4 mg/dl (1.7-2.4); Potassium 4.2 mmol/L (3.5-5.1); Sodium 139 mmol/L (136-145); Total Protein 7.2 gm/dl (6.0-8.3)
[2024-06-21 11:12] LABS: Troponin I High Sensitivity 6.8 pg/ml (0-14)
[2024-06-21 11:15] LABS: INR 1.1 (0.9-1.1); Partial Thromboplastin Ratio 1.2; Partial Thromboplastin Time 31 Seconds (21-31); Prothrombin Time 11.7 Seconds (9.0-12.0)
[2024-06-21] MEDS: OPTIRAY 320 125ml IV ONE (11:27)
--- NOTE | 2024-06-21 11:55 | CT Scan Report ---
CT head/brain wo con CLINICAL HISTORY: neuro deficit, acute stroke suspected. TECHNIQUE: Multiple axial CT images of the head were obtained without contrast. A dose lowering tech nique was utilized adhering to the principles of ALARA. CT DOSE: 940.91 mGy.cm COMPARISON: 04/17/2021 no intracranial hemorrhage seen. No mass effect, midline shift, or hydrocephalu s. There is stable moderate patchy periventricular hypodensity which usually represents chronic small vessel ischemic changes. Stable mild frontal lobe volume loss. No skull fracture seen. Visualized pa ranasal sinuses and mastoid air cells are clear. FINDINGS: No acute findings seen. IMPRESSION: ACT 112: Negative or not required by law. The above report was generated using voice recognition software. It may contain grammatical, syntax o r spelling errors. Electronically signed by: James Iverson M.D. 06/21/2024 11:52 AM
--- NOTE | 2024-06-21 12:11 | CT Scan Report ---
CT angio head w con, CT angio neck with con CLINICAL HISTORY: 89 years-old Female with neuro deficit, acute stroke suspected. Acute stroke lik e symptoms COMPARISON STUDY: Head CT of same day TECHNIQUE: Following the IV administration of 118 cc of Optiray, CT angiogram of the head and neck wa s performed from the aortic arch to the skull apex. Images are reviewed in the axial, sagittal, and c oronal planes. 3-D MIPS images are created and assessed. IV contrast was administered without complic ation. All measurements were obtained according to NASCET criteria. A dose lowering technique was uti lized adhering to the principles of ALARA. FINDINGS: CT BRAIN: Dictated separately. Involutional changes with white matter hypodensities likely represent chronic mi crovascular ischemic disease. CT ANGIOGRAM OF THE HEAD AND NECK: Atherosclerosis of the aorta. There are less than 50% involves the proximal left subclavian artery se condary to atheromatous plaque. Patent innominate and subclavian arteries. The common carotid arterie s are patent. Atherosclerotic plaque of the carotid bulbs causes only mild stenosis bilaterally, left greater than right. 3 mm saccular outpouching of the supraclinoid segment of the right internal martines tid artery just proximal to the ophthalmic origin, image 13 series 7. Additionally, there is 3 mm foc us of sac outpouching involving the right carotid terminus on image 333 and a 4 mm focus of the left carotid terminus also on image 333. Patent middle and anterior cerebral arteries. Dominant right vertebral artery. The vertebral arteries are patent bilaterally. origin of the r ight posterior cerebral artery. Patent basilar and posterior cerebral arteries. Cerebral venous sinus es are patent. No abnormal intracranial enhancement. Pulmonary emphysema. Lung apices are clear. No pneumothorax. Mild polypoid mucosal thickening of the right maxillary sinus. Degenerative changes of the spine. IMPRESSION: 1. CTA of the head and neck demonstrates no arterial occlusion, high-grade stenosis or dissection. 2. 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 3. Pulmonary emphysema. ACT 112: Negative or not required by law. The above report was generated using voice recognition software. It may contain grammatical, syntax o r spelling errors. Electronically signed by: Samm Valdivia M.D. 06/21/2024 12:09 PM
--- NOTE | 2024-06-21 13:22 | History & Physical Report ---
Date of Service June 21, 2024 Assessment & Plan (1) Stroke-like symptoms: (2) Paroxysmal atrial fibrillation: Plan Donita is a pleasant 89-year-old female who came in for stuttering speech, difficulty swallowing, headache, and left-sided facial numbness. While her difficulty swallowing and facial numbness had resolved, she still exhibits stuttering speech and headache. #Strokelike symptoms/stuttering speech Head CT on arrival revealed no acute findings Head/neck CTA revealed no arterial occlusion, high-grade stenosis, or dissection; small 4 mm saccular aneurysm Currently working to obtain brain MRI from [facility]; if unable to obtain we will repeat Echocardiogram ordered, pending COVID, flu, RSV negative on arrival Suspect that her stuttering speech may be secondary to anxiety, however patient's reported facial numbness is concerning for TIA Will plan to trial patient on Plavix 75 mg daily (aspirin allergy: Upset/burning stomach; no history of throat closing or anaphylaxis) #Paroxysmal atrial fibrillation Continue apixaban and dose reduce as needed Continue amiodarone #COPD Continue home inhalers Disposition: Obs -admit to PCU telemetry Full code Regular diet VTE PPx: Eliquis History of Present Illness Chief Complaint: TIA symptoms Primary Care Provider: Valerie Calzada MD Donita is an 89-year-old female with PMH of CVD, paroxysmal atrial fibrillation (on apixaban, amiodarone), and chronic venous insufficiency. She presented on for slurred speech, difficulty swallowing, headache, and left-sided facial numbness. Patient lives by herself. Patient reports that she felt fine when she woke up yesterday morning. She did some laundry, and was in the kitchen cooking some meat, when she suddenly felt dizzy like the room was spinning. Her daughter was present at that time, and "caught her". No head strike, fall, or syncope. Daughter at that time, noticed that she had developed stuttering speech. She is unsure if it was "slurred". She did not appreciate any facial droop at that time. Unsure if the weakness was generalized or unilateral. Patient does have a cane and walker at home, but usually does not require it for ambulation. No recent falls, or injuries to the head or neck. Patient also complained of left-sided facial numbness at that time. Additionally, she has had a waxing and waning headache since this time. In terms of location, she reports that it "roams" around her head, but is currently located on the back of her head/lower neck (occipital). Patient took Tylenol for this, but it only helped with her headache for short period of time. Patient went to [facility] yesterday for a stroke workup where she had initial imaging done including a brain MRI; she was then sent home. Patient took her regular morning medicine today. No recent change in medications. Patient manages her meds at home. Patient does have supplemental oxygen at home, but reports she does not use it at nighttime as she does not need it; no CPAP at night. Patient denies smoking (quit 30 to 40 years ago), tobacco use, recent alcohol use. Patient reports she does have an allergy to aspirin; reports that it "waters" her stomach whenever she takes it. No history of throat closure or anaphylaxis with ant iplatelets. She reports she is amenable to trying Plavix while inpatient. Patient is mildly bradycardic at 57 bpm at time admission; BP 137/57; vitals otherwise stable. ED course: ROS: Patient endorses headaches (currently occipital), blurry/itchy eyes, stuttering speech, unsure of unilateral deficits, FAIR (attributes to COPD), dry cough, and abdominal pain (attributes to "gas"/indigestion). Patient denies fever, chills, night-sweats, photophobia, rashes, tick bites, slurred speech, facial droop, tinnitus, chest pain, chest palpitations, SOB at rest, pleuritic CP, N/V/D, burning with urination, blood in the urine/stool, or numbness/tingling in the arms or legs. Allergies Allergy/AdvReac Type Severity Reaction Status Date / Time latex Allergy Intermediate rash and Verified 05/13/24 11:06 sores in mouth methylprednisolone Allergy Intermediate hives Verified 05/13/24 11:06 aspirin AdvReac Intermediate upset Verified 05/13/24 11:06 stomach Home Medications Medication Instructions Recorded Confirmed Type albuterol sulfate 2.5 mg/3 mL 2.5 mg continuous nebulization Q6 11/17/22 06/21/24 History (0.083 %) solution for nebulization PRN Wheezing albuterol sulfate 90 mcg/actuation 2 puff inhalation Q6H PRN 11/17/22 06/21/24 History aerosol inhaler cough,Sob,wheezing apixaban 5 mg tablet (Eliquis) 5 mg PO BID #180 tabs 09/20/23 06/21/24 Rx pseudoephedrine HCl 120 mg 120 mg PO BID PRN Congestion 03/28/24 06/21/24 H istory tablet,extended release (Sudafed 12 Hour) spironolactone 25 mg tablet 25 mg PO QAM 03/28/24 06/21/24 History furosemide 20 mg tablet 20 mg PO DAILY PRN Fluid Retention 04/05/24 06/21/24 Rx #90 tabs budesonide 160 mcg-glycopyr 9 2 inh inhalation BID #10.7 grams 04/11/24 06/21/24 Rx mcg-formot 4.8 mcg/actuation HFA inhaler (Breztri Aerosphere) amiodarone 200 mg tablet 200 mg PO QAM 06/21/24 06/21/24 History Past Med/Surg History Problem List (Updated 06/21/24 @ 14:56 by Matias Pizarro DO) Stroke-like symptoms (Acute) Hypoxia (Acute) Diarrhea Epigastric pain Dyspnea on exertion Pericardial effusion Paroxysmal atrial fibrillation (Acute) Acute febrile illness Elevated troponin Hyponatremia Gastroenteritis (Acute) Dehydration (Acute) Weakness (Acute) Atrial fibrillation with rapid ventricular response (Acute) Uncontrolled pain Rib pain on right side (Acute) SOB (shortness of breath) (Acute) DVT prophylaxis Humeral fracture (Acute) Right rib fracture (Acute) Cerebral vascular disease Venous insufficiency (chronic) (peripheral) Medical History Acute kidney injury Anemia COPD (chronic obstructive pulmonary disease) Paroxysmal atrial fibrillation controlled w/ medications, reason for eliquis, follows w/ Dr Escudero COPD (chronic obstructive pulmonary disease) Venous insufficiency (chronic) (peripheral) Cerebral vascular disease Hx of fracture 2021--hx humeral and rib fracture from fall- resolved Pericardial effusion hx Dyspnea on exertion Hx of acute heart failure Acid reflux Anxiety Peripheral edema bilat ankle On home O2 2 lpm via NC w/ activity Vomiting reason for upcoming procedure Surgical History H/O total hysterectomy appendix removed during hysterectomy Family History Grandfather (Maternal) Cancer mouth Father Cancer colon Mother Cancer colon and uterine Family/Other Cancer colon Social History Smoking Status: Former smoker Tobacco Type: Cigarettes Age Started Using Tobacco: 19; Age Quit Using Tobacco: 69; packs per day: 4; Smoking End Date: 30 yrs ago; Second Hand Exposure: No; Do You Dip or Chew Tobacco: No; Tobacco Cessation Education Requested by Patient: No Hx Alcohol Use: No Hx Substance Use: No Preferred Language: Irish Communication Ability: Effective Visual Impairment: No Limitations Hearing Ability: Normal 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: No Beliefs That Will Affect Care: None marital status: / Current Living Situation: Alone current occupational status: retired Other Information That Helps Us Care for You: No Feels Safe at Home: Yes Safety Concerns: Feels Safe At This Time Physical Activity Frequency: Does not Exercise Seatbelt Use: always Assistive Devices: Cane, Nebulizer, Oxygen - Continuous and Walker Assistive Devices Comment: has oxygen to use when needed, has a lift shower chair Review of Systems Review of Systems: See HPI above Physical Exam Physical Exam: General: no acute distress; anxious; 2 daughters at bedside; non-toxic appearing; frail appearing; cooperative; SpO2 98% on RA HEENT: normocephalic, atraumatic; no scleral icterus; PERRLA; vision and hearing intact; patient demonstrates ability to smile, frown, and lift eyebrows without unilateral deficits; patient demonstrates ability to protrude and wiggle tongue bilaterally Neck: supple; trachea midline Skin: warm, dry without signs of tenting; no cyanosis; no rashes, bruising, lesions, or erythema noted CV: chest wall NTP; RRR; S1/S2 normal; no murmurs/rubs/gallops; pulses intact and symmetric at radial, DP, and PT Lungs: no acute respiratory distress; symmetrical chest wall expansion; clear breath sounds across all lung beltran w/o adventitious sounds; no wheezing ABD: Soft, NTP; BS present; no rebound/guarding; no distention MSK: Patient may exhibit a mild resting tremor in her right hand; no edema noted in the LEs b/l, nonerythematous; 5/5 cyber forensic specialist strength bilaterally; patient demo nstrates the ability to lift legs from the bed bilaterally without unilateral deficits Neuro: A&Ox3; normal mood and affect; fluent speech; no focal deficits; negative pronator drift; sensation grossly intact in the LEs b/l Results & Data Results & Data Vital Signs (Past 12 Hours) Vital Signs Temp Pulse Resp BP Pulse Ox O2 Del Method 06/21/24 13:06 57 L 16 98 Room Air 06/21/24 13:00 137/57 L 06/21/24 12:45 135/64 06/21/24 12:42 57 L 13 98 Room Air 06/21/24 12:33 57 L 15 96 Room Air 06/21/24 12:30 134/48 L 06/21/24 12:30 134/48 L 06/21/24 12:21 56 L 20 97 Room Air 06/21/24 12:15 126/49 L 06/21/24 12:00 57 L 16 130/74 99 Room Air 06/21/24 11:57 57 L 17 98 Room Air 06/21/24 11:48 57 L 25 H 97 Room Air 06/21/24 11:45 136/91 06/21/24 11:16 118/35 L 06/21/24 11:09 55 L 22 100 Room Air 06/21/24 11:01 137/31 L 06/21/24 10:57 58 L 27 H 96 Room Air 06/21/24 10:47 139/63 06/21/24 10:47 57 L 06/21/24 10:39 56 L 21 136/60 99 Room Air 06/21/24 10:15 37.0 C 68 20 143/64 H 100 Room Air Laboratory Results Abnormal lab results 06/21/24 06/21/24 Range/Units 10:34 10:35 RBC 3.63 L (4.20-5.40) M/uL Hgb 9.6 L (12.0-16.0) g/dl Hct 30.5 L (37.0-47.0) % MCHC 31.5 L (32.0-36.0) g/dL RDW Coeff of [place] 14.6 H (11.5-14.5) % [place] # (Auto) 0.87 H (0.11-0.59) K/uL BUN 26 H (6-23) mg/dl Creatinine 1.48 H (0.6-1.2) mg/dl Glucose 113 H (70-99(Fasting)) mg/dl POC Glucose 111 H (70-99) mg/dl Diagnostic Findings Chest X-Ray 06/21/24 10:17 XR chest 1V portable CLINICAL HISTORY: neuro deficit, acute stroke suspected COMPARISON STUDY: 03/28/2024 FINDINGS: Stable mild cardiomegaly without pulmonary vascular congestion. No effusion, consolidation, or pneumothorax. IMPRESSION: No acute findings. ACT 112: Negative or not required by law. Electronically signed by: James Iverson M.D. 06/21/2024 11:[address] 06/21/24 10:17 CT head/brain wo con CLINICAL HISTORY: neuro deficit, acute stroke suspected. TECHNIQUE: Multiple axial CT images of the head were obtained without contrast. A dose lowering technique was utilized adhering to the principles of ALARA. CT DOSE: 940.91 mGy.cm COMPARISON: 04/17/2021 no intracranial hemorrhage seen. No mass effect, midline shift, or hydrocephalus. There is stable moderate patchy periventricular hypodensity which usually represents chronic small vessel ischemic changes. Stable mild frontal lobe volume loss. No skull fracture seen. Visualized paranasal sinuses and mastoid air cells are clear. FINDINGS: No acute findings seen. IMPRESSION: ACT 112: Negative or not required by law. The above report was generated using voice recognition software. It may contain grammatical, syntax or spelling errors. Electronically signed by: James Iverson M.D. 06/21/2024 11:52 AM Head CTA 06/21/24 10:17 CT angio head w con, CT angio neck with con CLINICAL HISTORY: 89 years-old Female with neuro deficit, acute stroke suspected. Acute stroke like symptoms COMPARISON STUDY: Head CT of same day TECHNIQUE: Following the IV administration of 118 cc of Optiray, CT angiogram of the head and neck was performed from the aortic arch to the skull apex. Images are reviewed in the axial, sagittal, and coronal planes. 3-D MIPS images are created and assessed. IV contrast was administered without complication. All measurements were obtained according to NASCET criteria. A dose lowering technique was utilized adhering to the principles of ALARA. FINDINGS: CT BRAIN: Dictated separately. Involutional changes with white matter hypodensities likely represent chronic microvascular ischemic disease. CT ANGIOGRAM OF THE HEAD AND NECK: Atherosclerosis of the aorta. There are less than 50% involves the proximal left subclavian artery secondary to atheromatous plaque. Patent innominate and subclavian arteries. The common carotid arteries are patent. Atherosclerotic plaque of the carotid bulbs causes only mild stenosis bilaterally, left greater than right. 3 mm saccular outpouching of the supraclinoid segment of the right internal carotid artery just proximal to the ophthalmic origin, image 13 series 7. Additionally, there is 3 mm focus of sac outpouching involving the right carotid terminus on image 333 and a 4 mm focus of the left carotid terminus also on image 333. Patent middle and anterior cerebral arteries. Dominant right vertebral artery. The vertebral arteries are patent bilaterally. origin of the right posterior cerebral artery. Patent basilar and posterior cerebral arteries. Cerebral venous sinuses are patent. No abnormal intracranial enhancement. Pulmonary emphysema. Lung apices are clear. No pneumothorax. Mild polypoid mucosal thickening of the right maxillary sinus. Degenerative changes of the spine. IMPRESSION: 1. CTA of the head and neck demonstrates no arterial occlusion, high-grade stenosis or dissection. 2. 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 3. Pulmonary emphysema. ACT 112: Negative or not required by law. The above report was generated using voice recognition software. It may contain grammatical, syntax or spelling errors. Electronically signed by: Samm Valdivia M.D. 06/21/2024 12:09 PM Neck CTA 06/21/24 10:17 CT angio head w con, CT angio neck with con CLINICAL HISTORY: 89 years-old Female with neuro deficit, acute stroke suspected. Acute stroke like symptoms COMPARISON STUDY: Head CT of same day TECHNIQUE: Following the IV administration of 118 cc of Optiray, CT angiogram of the head and neck was performed from the aortic arch to the skull apex. Images are reviewed in the axial, sagittal, and coronal planes. 3-D MIPS images are created and assessed. IV contrast was administered without complication. All measurements were obtained according to NASCET criteria. A dose lowering technique was utilized adhering to the principles of ALARA. FINDINGS: CT BRAIN: Dictated separately. Involutional changes with white matter hypodensities likely represent chronic microvascular ischemic disease. CT ANGIOGRAM OF THE HEAD AND NECK: Atherosclerosis of the aorta. There are less than 50% involves the proximal left subclavian artery secondary to atheromatous plaque. Patent innominate and subclavian arteries. The common carotid arteries are patent. Atherosclerotic plaque of the carotid bulbs causes only mild stenosis bilaterally, left greater than right. 3 mm saccular outpouching of the supraclinoid segment of the right internal carotid artery just proximal to the ophthalmic origin, image 13 series 7. Additionally, there is 3 mm focus of sac outpouching involving the right carotid terminus on image 333 and a 4 mm focus of the left carotid terminus also on image 333. Patent middle and anterior cerebral arteries. Dominant right vertebral artery. The vertebral arteries are patent bilaterally. origin of the right posterior cerebral artery. Patent basilar and posterior cerebral arteries. Cerebral venous sinuses are patent. No abnormal intracranial enhancement. Pulmonary emphysema. Lung apices are clear. No pneumothorax. Mild polypoid mucosal thickening of the right maxillary sinus. Degenerative changes of the spine. IMPRESSION: 1. CTA of the head and neck demonstrates no arterial occlusion, high-grade stenosis or dissection. 2. 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 3. Pulmonary emphysema. ACT 112: Negative or not required by law. The above report was generated using voice recognition software. It may contain grammatical, syntax or spelling errors. Electronically signed by: Samm Valdivia M.D. 06/21/2024 12:09 PM Code Status & VTE Plan Code Status Full code VTE Prophylaxis Plan VTE Prophylaxis will be ordered: Yes Supervising Physician Co-Signing Physician Notes Patient seen and examined, chart reviewed, case discussed with Eduardo Sher PA-C and I agree with the assessment and plan as above except as otherwise noted Labs and images reviewed D9-year-old female presents with concern for left-sided facial numbness, difficulty speaking, and stuttering speech. She was recommended for evaluation for strokelike symptoms, as her vision and MRI. Agree with above. Nontoxic. On assessment cyber forensic specialist strength, elbow flexion/extension, hip flexion, ankle dorsiflexion/plantarflexion are intact although fatigues easily. Cogwheeling of the upper extremities is noted. No visual deficits. Prominent stuttering of speech during exam however there is no expressive or receptive aphasia PG Care Time/CCT Total # of Minutes Spent Total Time Spent with Patient: Total time spent is greater than 50% in coordination of care (as documented) at patient's floor/unit and/or counseling patient: Coding [place] [address] INT INP/OBS CARE 2/55MIN Patient Type Established Medical Decision Making Moderate Complexity Diagnoses Stroke-like symptoms R29.90 Paroxysmal atrial fibrillation I48.0
--- NOTE | 2024-06-21 14:21 | Electrocardiogram Report ---
Test Reason : Blood Pressure : */* mmHG Vent. Rate : 59 BPM Atrial Rate : 59 BPM P-R Int : 186 ms QRS Dur : 100 ms QT Int : 460 ms P-R-T Axes : 51 4 57 degrees QTcB Int : 455 ms Sinus bradycardia Otherwise normal ECG When compared with ECG of 28-Mar-2024 14:32, No significant change was found Confirmed by Matias Freire ([id number]) on 06/21/2024 2:20:52 PM Referred By: Valerie Calzada Confirmed By: Matias Freire
[2024-06-21 14:48] LABS: Thyroid Stimulating Hormone 2.564 uIu/ml (0.300-4.500)
--- NOTE | 2024-06-21 15:37 | XCELERA ---
[id number]
[2024-06-21 16:08] LABS: Influenza A virus by PCR Negative (Neg); Influenza B virus by PCR Negative (Neg); RSV by PCR Negative (Neg); SARS CoV2 RNA(COVID-19) Ceph NEGATIVE (Negative)
[2024-06-21] MEDS: ACETAMINOPHEN 325 MG TAB ONE (17:51)
[2024-06-21] MEDS: CLOPIDOGREL BISULFATE 75 MG TAB PO ONE (17:51)
[2024-06-21] MEDS: ACETAMINOPHEN 325 MG TAB PO STA (17:51)
[2024-06-21] MEDS ORDERED: ALBUTEROL HFA 8 GM INHALER INH PRN (18:15)
[2024-06-21] MEDS ORDERED: ALBUTEROL 0.083% NEBU SOLN 3 ML VIAL NEB PRN (18:15)
[2024-06-21] MEDS: LACTATED RINGER'S 1,000 ML IV SCH (20:16)
[2024-06-21] MEDS: APIXABAN 5 MG TABLET PO SCH (20:16)
[2024-06-21 23:55] LABS: Appearance Urine Clear (Clear); Bacteria Urine Automated 1+ (None Seen); Bilirubin Urine Negative (Negative); Blood Urine Negative (Negative); Cast Urine Automated 0-2 /lpf (0-2); Color Urine Yellow; Glucose Urine UA Negative (Negative); Ketones Urine Negative (Negative); Leukocyte Esterase Urine Trace (Negative); Nitrite Urine Negative (Negative); Protein Urine Negative (Negative); RBC Urine Automated 0-2 /hpf (0-2); Specific Gravity Urine 1.035 (1.000-1.030); Urobilinogen Urine Negative (Negative); WBC Urine Automated 0-5 /hpf (0-5)
[2024-06-22 06:58] LABS: Basophils # (auto) 0.05 K/uL (0.00-0.20); Basophils % (auto) 0.8 %; Eosinophils # (auto) 0.12 K/uL (0.00-0.50); Hematocrit (blood only) 27.1 % (37.0-47.0); Hemoglobin 8.6 g/dl (12.0-16.0); Immature Granulocytes # (auto) 0.02 K/uL (0.01-0.20); Immature Granulocytes % (auto) 0.3 %; Lymphocytes # (auto) 1.14 K/uL (1.20-3.40); Lymphocytes % (auto) 18.5 %; Mean Corpuscular Hemoglobin 26.7 pg (25.0-34.0); Mean Corpuscular Hgb Conc 31.7 g/dL (32.0-36.0); Mean Corpuscular Volume 84.2 fL (80.0-100.0); Monocytes # (auto) 0.69 K/uL (0.11-0.59); Monocytes % (auto) 11.2 %; Neutrophils # (auto) 4.13 K/uL (1.40-6.50); Neutrophils % (auto) 67.2 %; Platelet Count 186 K/uL (130-400); RDW Coefficient of Variation 14.6 % (11.5-14.5); RDW Standard Deviation 44.7 fL (36.4-46.3); Red Blood Count 3.22 M/uL (4.20-5.40); White Blood Count 6.15 K/ul (4.8-10.8)
[2024-06-22 07:17] LABS: Calcium 8.7 mg/dl (8.6-10.3); Chol HDL Ratio 3.3 (0-5); Creatinine Clr Calc Pharmacy 22.6 ml/min; Potassium 4.6 mmol/L (3.5-5.1)
[2024-06-22 07:47] LABS: Estimated Average Glucose 97 mg/dl
[2024-06-22] MEDS: AMIODARONE 200 MG TAB PO SCH (08:17)
[2024-06-22] MEDS: ACETAMINOPHEN 325 MG TAB PO PRN (08:17)
[2024-06-22] MEDS: CLOPIDOGREL BISULFATE 75 MG TAB PO SCH (08:18)
[2024-06-22] MEDS: SPIRONOLACTONE 25 MG TAB PO SCH (08:18)
[2024-06-22] MEDS ORDERED: ASPIRIN 81 MG ECTAB PO SCH (09:00)
--- NOTE | 2024-06-22 10:49 | Magnetic Resonance Report ---
HISTORY: Dizziness and stuttering for several days. Occipital headache. TECHNIQUE: Multiplanar multiecho MR imaging of the brain was performed without the use of IV contrast. COMPARISON: Head CT dated 04/17/2021. FINDINGS: The sella is not expanded. The included upper cervical spinal cord is unremarkable. Cerebellar tonsils do not extend below the foramen magnum. No areas of restricted diffusion to suggest acute infarct.Extensive periventricular and subcortical white matter T2/FLAIR hyperintensity is nearly confluent and nonspecific. No abnormal areas of susceptibility artifact to suggest intracranial hemorrhage. Ventricular caliber is appropriate for the degree of cerebral volume loss. Cerebral volume loss is mild. Fourth ventricle is midline. The basal cisterns are patent. Major intracranial flow voids are maintained. The globes and orbits are unremarkable. No paranasal sinus air-fluid levels. The mastoid air cells are well aerated. IMPRESSION: * No acute intracranial findings. No evidence of acute infarct or intracranial hemorrhage. * Extensive nonspecific periventricular and subcortical white matter T2/FLAIR hyperintensities nearly confluent. This has broad differential including chronic microvascular ischemic changes, demyelinating disease, or other infectious, inflammatory, or metabolic causes of leukoencephalopathy. * Mild diffuse volume loss. Electronically signed by Stephen Corona 06-22-2024 10:48 AM
[2024-06-22] MEDS: CARBIDOPA/LEVODOPA 25/100MG TAB PO SCH (13:12)
[2024-06-22 14:25] LABS: Lyme Screen Rflx Confirmation Positive (Negative)
[2024-06-22 14:59] LABS: Lyme Ab IgG 2nd Tier Confirm Positive (Negative); Lyme Ab IgM 2nd Tier Confirm Positive (Negative)
[2024-06-22] MEDS: DOXYCYCLINE HYCLATE 100 MG in DEXTROSE 5% MINI-B 100 ML IV SCH (15:14)
--- NOTE | 2024-06-22 15:39 | Hospitalist Progress Note ---
Date of Service June 22, 2024 Assessment & Plan (1) Stroke-like symptoms: (2) Paroxysmal atrial fibrillation: Plan Donita is a pleasant 89-year-old female who came in for stuttering speech, difficulty swallowing, headache, and left-sided facial numbness. While her difficulty swallowing and facial numbness had resolved, she still exhibits stuttering speech and headache. Stuttering speech/tremor? Neurologic Lyme versus parkinsonism versus vocal tremor CThead, CTAhead neck without acute findings MRI No acute intracranial findings. No evidence of acute infarct or intracranial hemorrhage. Extensive nonspecific periventricular and subcortical white matter T2/FLAIR hyperintensities nearly confluent. This has broad differential including chronic microvascular ischemic changes, demyelinating disease, or other infectious, inflammatory, or metabolic causes of l eukoencephalopathy. Mild diffuse volume loss. Discussed neurology, suspected possible chronic/vascular changes however Subsequently Lyme screen positive for both IgG and IgM and undergoing further evaluation and management of this Lyme screen, IgG, IgM positive. Pending Western blot confirmation. ?Symptoms are due to acute Lyme neuritis. EKG is without heart block - Started on doxycycline initially. Reviewed with ID. Early in the season for Lyme and presentation more with tremor rather than out right meningeal and encephalitic symptoms is unusual. Recommend continuing doxycycline as ordered but also pursuing LP for diagnostic confirmation and consideration of alternative causes. Eliquis has been held and has been converted to open for stroke prophylaxis, display earliest IR guided LP could be done is either late Monday or Monday. Alternative DDx also includes development of parkinsonism with vocal tremor especially given some tremors in her legs which she reports with a change in gait over last few months preceding arm tremors and her vocal tremors. Was initially treated with Sinemet until Lyme returned positive. Sinemet has been held temporarily while treating for Lyme, if further workup and progression is not consistent with Lyme then would resume this and follow-up with neuro as an outpatient. A-fib Amiodarone continued Apixaban held, transition to heparin pending LP EKG is sinus on admission. Heart block is not present No heart block on admission DVT prophylaxis: Anticoagulated Disposition: Telemetry. CODE STATUS: Full code Admission and Anticipated Discharge Date Admission Date: June 21, 2024 Subjective Seen at the bedside. [place] a little bit better this morning but continues to have stuttering speech. She notes that she also has tremors in her legs when standing although this is not new over the last several months. She does endorse a little bit of a tremor in her hands as well. No fevers chills or sweats. Physical Exam Physical Exam: General: A&Ox3. NAD. Cooperative. HEENT: Atraumatic, normocephalic. Speech is without expressive or receptive aphasia however intermittent stuttering is present. Left-sided facial tingling has improved at time of reassessment. Tongue protrudes midline. Pulm: CTAB A&P. -wheezes, -rales, -rhonchi. Symmetrical chest rise. No increased work of breathing. No respiratory distress. Cardiac: RRR, -mrg. Radial pulses intact and symmetrical. Abdominal: Nontender, nondistended, soft. BS present. Extremities: Warm, dry. Cogwheeling of upper extremities bilaterally on passive range of motion. [employer] strength, hip flexion, ankle dorsiflexion/plantarflexion remains symmetrical. Sensation is intact to soft touch in hands and feet Results & Data Results & Data Vital Signs (Past 12 Hours) Vital Signs Temp Pulse Pulse Resp BP BP Pulse Ox 06/22/24 15:15 36.8 C 57 L 18 123/46 L 97 06/22/24 11:08 63 18 128/75 96 06/22/24 09:38 06/22/24 09:21 57 L 06/22/24 08:06 108/43 L 06/22/24 08:02 36.7 C 66 18 88/58 L 94 06/22/24 03:35 36.8 C 60 17 104/55 L 94 O2 Del Method 06/22/24 15:15 Room Air 06/22/24 11:08 Room Air 06/22/24 09:38 Room Air 06/22/24 09:21 06/22/24 08:06 06/22/24 08:02 Room Air 06/22/24 03:35 Room Air PG Care Time/CCT Total # of Minutes Spent Total Time Spent with Patient: Total time spent is greater than 50% in coordination of care (as documented) at patient's floor/unit and/or counseling patient: Coding Level of Care Code 43812 SUB INP/OBS CARE 3/50MIN Diagnoses Stroke-like symptoms R29.90 Paroxysmal atrial fibrillation I48.0
[2024-06-22 19:25] LABS: ANTI-Xa, UFH(UnfractionatedHep > 1.50 IU/ml (0.3-0.7)
[2024-06-22] MEDS ORDERED: HEPARIN 25000 UNIT/500 ML D5W 25,000 UNITS/500 ML BAG IV SCH (21:00)
[2024-06-22] MEDS ORDERED: Heparin IV Adult Wt-Based Low-Dose *NO* INITIAL Bolus Protocol IV ONE (21:00)
[2024-06-22 21:09] LABS: INR 1.1 (0.9-1.1); Partial Thromboplastin Ratio 1.1; Partial Thromboplastin Time 30 Seconds (21-31); Prothrombin Time 11.4 Seconds (9.0-12.0)
[2024-06-22] MEDS: HEPARIN 25000 UNIT/500 ML D5W 25,000 UNITS/500 ML BAG IV SCH (21:14)
[2024-06-23 04:30] LABS: Partial Thromboplastin Ratio 1.4; Partial Thromboplastin Time 38 Seconds (21-31)
[2024-06-23 06:19] LABS: Basophils # (auto) 0.04 K/uL (0.00-0.20); Basophils % (auto) 0.6 %; Eosinophils # (auto) 0.13 K/uL (0.00-0.50); Eosinophils % (auto) 2.1 %; Hematocrit (blood only) 26.6 % (37.0-47.0); Hemoglobin 8.3 g/dl (12.0-16.0); Immature Granulocytes # (auto) 0.03 K/uL (0.01-0.20); Immature Granulocytes % (auto) 0.5 %; Lymphocytes # (auto) 1.12 K/uL (1.20-3.40); Lymphocytes % (auto) 18.1 %; Mean Corpuscular Hemoglobin 26.3 pg (25.0-34.0); Mean Corpuscular Hgb Conc 31.2 g/dL (32.0-36.0); Mean Corpuscular Volume 84.2 fL (80.0-100.0); Mean Platelet Volume 11.2 fL (9.4-12.4); Monocytes # (auto) 0.78 K/uL (0.11-0.59); Monocytes % (auto) 12.6 %; Neutrophils # (auto) 4.08 K/uL (1.40-6.50); Neutrophils % (auto) 66.1 %; Platelet Count 191 K/uL (130-400); RDW Coefficient of Variation 14.5 % (11.5-14.5); RDW Standard Deviation 44.4 fL (36.4-46.3); Red Blood Count 3.16 M/uL (4.20-5.40); White Blood Count 6.18 K/ul (4.8-10.8)
[2024-06-23 06:50] LABS: BUN Creatinine Ratio 15.7 (10-20); Calcium 8.6 mg/dl (8.6-10.3); Creatinine Clr Calc Pharmacy 23.7 ml/min; Potassium 4.3 mmol/L (3.5-5.1)
[2024-06-23 06:55] LABS: Partial Thromboplastin Ratio 1.4; Partial Thromboplastin Time 38 Seconds (21-31)
--- NOTE | 2024-06-23 08:15 | Hospitalist Progress Note ---
Date of Service June 23, 2024 Assessment & Plan (1) Stroke-like symptoms: (2) Paroxysmal atrial fibrillation: Plan Donita is a pleasant 89-year-old female who came in for stuttering speech, difficulty swallowing, headache, and left-sided facial numbness. While her difficulty swallowing and facial numbness had resolved, she still exhibits stuttering speech and headache. Stuttering speech/tremor? Neurologic Lyme versus parkinsonism versus vocal tremor CThead, CTAhead neck without acute findings - No change in sx 06/23 MRI No acute intracranial findings. No evidence of acute infarct or intracranial hemorrhage. Extensive nonspecific periventricular and subcortical white matter T2/FLAIR hyperintensities nearly confluent. This has broad differential including chronic microvascular ischemic changes, demyelinating disease, or other infectious, inflammatory, or metabolic causes of leukoencephalopathy. Mild diffuse volume loss. Discussed neurology, suspected possible chronic/vascular changes however Subsequently Lyme screen positive for both IgG and IgM and undergoing further evaluation and management of this Lyme screen, IgG, IgM positive. Pending Western blot confirmation. ?Symptoms are due to acute Lyme neuritis. EKG is without heart block - Started on doxycycline initially. ID Consulted. Early in the season for Lyme and presentation more c/w tremor rather than typical Lyme encephalitic. Recommend continuing doxycycline as ordered but also pursuing LP for diagnostic confirmation and consideration of alternative causes. Eliquis has been held and has been converted to heparin for stroke prophylaxis, earliest IR guided LP could be done is either late Monday or Monday. Will follow western blot and ID will complete consult update on Monday, appreciate recommendations. Alternative DDx also includes development of parkinsonism with vocal tremor & essential tremor. has had tremors in her legs which she reports with a change in gait over last few months preceding arm tremors and her vocal tremors. Was initially treated with Sinemet until Lyme returned positive. If further workup not c/w Lyme --> +/- sinemet follow-up with neuro as an outpatient. A-fib Amiodarone continued Apixaban held, transition to heparin pending LP EKG is sinus on admission. Heart block is not present No heart block on admission DVT prophylaxis: Anticoagulated Disposition: Telemetry. CODE STATUS: Full code Admission and Anticipated Discharge Date Admission Date: June 21, 2024 Subjective Comfortable. Nad. No change. Continues with vocal tremor. No rash. no fevers/chills overnight. No headache. No improvement in sx. no worsening. No signs of JH reaction. Physical Exam Physical Exam: General: A&Ox3. NAD. Cooperative. HEENT: Atraumatic, normocephalic. Speech is without expressive or receptive aphasia however intermittent stuttering remains present. No facial asymmetry. Pulm: CTAB A&P. -wheezes, -rales, -rhonchi. Symmetrical chest rise. No increased work of breathing. No respiratory distress. Cardiac: RRR, -mrg. Radial pulses intact and symmetrical. Abdominal: Nontender, nondistended, soft. BS present. Extremities: Warm, dry. Continues with mild cogwheeling tremor on passive arm extension bilaterally. LE with dusky color bilaterally, no pain or numbness. On foot elevatation rapidly returns to pink color. Cap refill is brisk <2 seconds in the hallux bilaterally. Results & Data Results & Data Vital Signs (Past 12 Hours) Vital Signs Temp Pulse Pulse Resp BP Pulse Ox O2 Del Method 06/23/24 07:16 36.5 C 63 17 125/55 L 98 Room Air 06/23/24 07:15 Room Air 06/23/24 07:15 55 L 06/23/24 03:26 36.7 C 86 16 111/51 L 94 Room Air 06/22/24 23:09 36.7 C 55 L 18 105/40 L 97 Room Air PG Care Time/CCT Total # of Minutes Spent Total Time Spent with Patient: Total time spent is greater than 50% in coordination of care (as documented) at patient's floor/unit and/or counseling patient: Coding Level of Care Code 59210 SUB INP/OBS CARE 2/35MIN Diagnoses Stroke-like symptoms R29.90 Paroxysmal atrial fibrillation I48.0
[2024-06-23 12:05] LABS: Partial Thromboplastin Ratio 1.6; Partial Thromboplastin Time 42 Seconds (21-31)
[2024-06-23 14:07] LABS: ANTI-Xa, UFH(UnfractionatedHep 1.05 IU/ml (0.3-0.7)
[2024-06-23] MEDS: MoRPHine SULFATE 2 MG/ML CARP IV STA (15:30)
[2024-06-23] MEDS: ONDANSETRON INJ 2 MG/ML 2 ML VIAL IV PRN (15:30)
[2024-06-23] MEDS: FAMOTIDINE 20MG IV PUSH 20 MG/5 ML SYR IV STA (15:33)
[2024-06-23] MEDS: ALUMINUM/MAGNESIUM SUSP 30 ML UDC PO STA (15:39)
[2024-06-23] MEDS: OPTIRAY 320 100ml IV ONE (16:10)
--- NOTE | 2024-06-23 16:37 | CT Scan Report ---
INDICATION: Right lower quadrant pain. COMPARISON: CT from 10/14/2023. TECHNIQUE: Axial CT images of the abdomen and pelvis were obtained following IV contrast administration. Coronal and sagittal reformations were reviewed. FINDINGS: Visualized lung bases appear unremarkable. Gallstones in the gallbladder. The liver, spleen, pancreas and adrenal glands appear unremarkable. No hydronephrosis. No evidence of bowel obstruction/colitis. The appendix is dilated up to 0.8 centimeters distally, new from prior CT. There is no significant adjacent inflammation however. Mild amount of retained colonic stool. No free air. No drainable fluid collection. Atheromatous plaquing of the abdominal aorta without dissection or aneurysm. The urinary bladder appears unremarkable. No acute osseous abnormality evident. IMPRESSION: 1. The appendix is dilated up to 0.8 centimeters distally, new from prior CT. There is no significant adjacent inflammation however. Follow-up as clinically relevant. 2. Mild amount retained colonic stool. 3. Cholelithiasis. Electronically signed by Geo Marrero 06-23-2024 4:36 PM
[2024-06-23 16:46] LABS: Hematocrit (blood only) 27.5 % (37.0-47.0); Hemoglobin 8.7 g/dl (12.0-16.0)
[2024-06-23] MEDS ORDERED: MAGNESIUM HYDROXIDE SUSP 30 ML UDC PO PRN (16:48)
[2024-06-23 17:04] LABS: BUN Creatinine Ratio 13.7 (10-20); Calcium 8.4 mg/dl (8.6-10.3); Creatinine Clr Calc Pharmacy 19.7 ml/min; Potassium 4.8 mmol/L (3.5-5.1)
[2024-06-23 17:11] LABS: Troponin I High Sensitivity 4.7 pg/ml (0-14)
[2024-06-23 17:29] LABS: ANTI-Xa, UFH(UnfractionatedHep 0.52 IU/ml (0.3-0.7)
[2024-06-23] MEDS: HEPARIN 25000 UNIT/500 ML D5W 25,000 UNITS/500 ML BAG IV SCH (17:36)
[2024-06-23] MEDS: POLYETHYLENE (MIRALAX) 17 GM PACK PO SCH (20:10)
[2024-06-24 04:39] LABS: Basophils # (auto) 0.06 K/uL (0.00-0.20); Eosinophils # (auto) 0.15 K/uL (0.00-0.50); Eosinophils % (auto) 2.5 %; Hematocrit (blood only) 25.7 % (37.0-47.0); Hemoglobin 8.1 g/dl (12.0-16.0); Immature Granulocytes # (auto) 0.02 K/uL (0.01-0.20); Immature Granulocytes % (auto) 0.3 %; Lymphocytes # (auto) 1.53 K/uL (1.20-3.40); Lymphocytes % (auto) 25.8 %; Mean Corpuscular Hemoglobin 26.7 pg (25.0-34.0); Mean Corpuscular Hgb Conc 31.5 g/dL (32.0-36.0); Mean Corpuscular Volume 84.8 fL (80.0-100.0); Monocytes # (auto) 0.71 K/uL (0.11-0.59); Neutrophils # (auto) 3.45 K/uL (1.40-6.50); Neutrophils % (auto) 58.4 %; Platelet Count 195 K/uL (130-400); RDW Coefficient of Variation 14.6 % (11.5-14.5); RDW Standard Deviation 44.8 fL (36.4-46.3); Red Blood Count 3.03 M/uL (4.20-5.40); White Blood Count 5.92 K/ul (4.8-10.8)
[2024-06-24 04:42] LABS: ANTI-Xa, UFH(UnfractionatedHep 0.27 IU/ml (0.3-0.7)
[2024-06-24 04:55] LABS: BUN Creatinine Ratio 13.4 (10-20); Calcium 8.4 mg/dl (8.6-10.3); Creatinine Clr Calc Pharmacy 20.2 ml/min; Potassium 4.3 mmol/L (3.5-5.1)
[2024-06-24] MEDS: FAMOTIDINE 20MG IV PUSH 20 MG/5 ML SYR IV SCH (06:25)
[2024-06-24 10:54] VITALS: PULSE 59; RESP 18; TEMP 97.9; O2SAT 96
--- NOTE | 2024-06-24 10:59 | Hospitalist Progress Note ---
Date of Service June 24, 2024 Assessment & Plan (1) Stroke-like symptoms: (2) Paroxysmal atrial fibrillation: Plan Donita is a pleasant 89-year-old female who came in for stuttering speech, difficulty swallowing, headache, and left-sided facial numbness. While her difficulty swallowing and facial numbness had resolved, she still exhibits stuttering speech and headache. Stuttering speech/tremor? Neurologic Lyme versus parkinsonism versus vocal tremor CThead, CTAhead neck without acute findings -Clinically improved but not resolved 06/24. Markedly improved speech compared to initial presentation MRI No acute intracranial findings. No evidence of acute infarct or intracranial hemorrhage. Extensive nonspecific periventricular and subcortical white matter T2/FLAIR hyperintensities nearly confluent. This has broad differential including chronic microvascular ischemic changes, demyelinating disease, or other infectious, inflammatory, or metabolic causes of leukoencephalopathy. Mild diffuse volume loss. Discussed neurology, suspected possible chronic/vascular changes however Subsequently Lyme screen positive for both IgG and IgM and undergoing further evaluation and management of this Lyme screen, IgG, IgM positive. Pending Western blot confirmation. EKG is without heart block - Started on doxycycline initially. ID Consulted. Initially was recommended to transition to heparin GTT for potential LP. Seen by virtual consultation 06/24. Lower suspicion for Lyme and no known exposures. Continue treatment for Lyme with doxycycline however okay to defer ceftriaxone and CSF studies at this time. Discussed with neurology. Agree with above. Recommended EEG to R/show partial seizure activity which has been ordered. Alternative DDx also includes development of parkinsonism with vocal tremor & essential tremor. has had tremors in her legs which she reports with a change in gait over last few months preceding arm tremors and her vocal tremors. Was initially treated with Sinemet until Lyme returned positive. If further workup not c/w Lyme --> +/- sinemet follow-up with neuro as an outpatient. A-fib Amiodarone continued Transition back to Eliquis on discharge EKG is sinus on admission. Heart block is not present No heart block on admission Asymptomatic bacteria/contaminated UA 1+ bacteria with epithelial cells and no nitrites on UA. No ongoing urinary symptoms. UCx positive for lactobacillus. Suspected contamination DVT prophylaxis: Anticoagulated Disposition: Telemetry. CODE STATUS: Full code Admission and Anticipated Discharge Date Admission Date: June 23, 2024 Results & Data Results & Data Vital Signs (Past 12 Hours) Vital Signs Temp Pulse Pulse Resp BP Pulse Ox O2 Del Method 06/24/24 10:53 36.6 C 59 L 18 117/42 L 96 Room Air 06/24/24 08:03 36.7 C 70 19 112/46 L 93 Room Air 06/24/24 07:00 57 L 06/24/24 02:29 36.8 C 58 L 19 116/49 L 92 Room Air PG Care Time/CCT Total # of Minutes Spent Total Time Spent with Patient: Total time spent is greater than 50% in coordination of care (as documented) at patient's floor/unit and/or counseling patient: Coding Diagnoses Stroke-like symptoms R29.90 Paroxysmal atrial fibrillation I48.0
--- NOTE | 2024-06-24 11:12 | Infectious Disease Consult ---
Date of Consultation June 24, 2024 Assessment & Plan (1) Stroke-like symptoms: (2) Positive Lyme disease serology: Plan 89yo F with h/o paroxysmal afib (on apixaban and amiodarone), chronic venous insufficiency, COPD, on home O2 with activity, cerebral vascular disease, who presented on 06/21 with dizziness, stuttering, headache, and left-sided facial numbness. On admission, she was afebrile, vss, on RA. WBC wnl, Cr 1.48, AST/ALT wnl. Trop neg. UA with 0-5 WBC. COVID/Flu/RSV neg. CXR neg. CTH neg. 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 MRI brain with extensive nonspecific periventricular and subcortical white matter, T2/FLAIR hyperintensities nearly confluent; this has broad differential including chronic microvascular ischemic changes, demyelinating disease, or other infectious, inflammatory, or metabolic causes of leukoencephalopathy. CTAP with dilated appendix. EKG with sinus bradycardia. TTE with EF 60-65%. Lyme study sent and returned positive. Was started on doxycycline. ID consulted 06/24. No clear risks or exposures to tick bites/Lyme. She has deer in her backyard and its possible there could have been an exposure when she was outside, however she notes minimal time spent outdoors. I spoke to [facility] and they said they do not send specimen for western blot anymore and confirmatory test with serology is already run, which is positive. I dont think her presentation seems consistent with Lyme disease. I do not think she needs an LP for w/u of neuro Lyme as she does not have typical symptoms for neuroborreliosis. ?whether numbness could have been related, though it was just involvement of maxillary region. Will keep complete a course of doxycycline given positive confirmatory serology, ?exposure to tick in backyard from deer, ?trigeminal nerve related numbness. # Left facial numbness resolved # Positive Lyme titer # Stroke-like symptoms - continue doxycycline 100mg bid (can change to PO if she can tolerate by mouth) x 14 days - would also rule out other causes of her presenting symptoms Will discontinue active follow up at this time. Please do not hesitate to reconsult the Infectious Diseases service as needed. Millicent Montenegro MD [facility], Division of Infectious Diseases Consultation Information Consultation was provided via telemedicine using two-way real-time interactive telecommunication between the patient and the telemedicine provider. For the duration of the visit, the provider was performing the assessment from a different facility than the patient. This includesuse of bluetooth stethoscope forauscultationperformed by the telepresenter that the telemedicine provider can hear if described in the physical exam. Clinical Project Coordinator contact information: Please call [facility] . (Phone Number For Physician Use Only) After establishing a telemedicine visit, patient was: Patient was verified with two unique identifiers, Patient/authorized rep acknowledged consent and understanding and Gave permission to continue telehealth session Time Spent with Patient: Initial => 75 min History of Present Illness Reason for Consultation: neurologic lyme. ?Barby Magaña Attending Physician: Aaron Raza MD History of Present Illness 89yo F with h/o paroxysmal afib (on apixaban and amiodarone), chronic venous insufficiency, COPD, on home O2 with activity, cerebral vascular disease, who presented on 06/21 with slurred speech, difficulty swallowing, headache, and left-sided facial numbness. She felt well when she woke up the day prior and was in the kitchen cooking when she suddenly felt dizzy and her daughter caught her. Daughter noted patient had stuttering speech, no facial droop at that time. She did c/o left facial numbness, has had waxing/waning headaches since this time with pain that roams around her head. She was seen at [facility] [place] where she had a stroke w/u including MRI brain that was negative. She reported abdominal pain attributed to gas/indigestion, FAIR attributed to COPD, dry cough. On admission, she was afebrile, vss, on RA. WBC wnl, Cr 1.48, AST/ALT wnl. Trop neg. UA with 0-5 WBC. COVID/Flu/RSV neg. CXR neg. CTH neg. 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 MRI brain with extensive nonspecific periventricular and subcortical white matter, T2/FLAIR hyperintensities nearly confluent; this has broad differential including chronic microvascular ischemic changes, demyelinating disease, or other infectious, inflammatory, or metabolic causes of leukoencephalopathy. CTAP with dilated appendix. EKG with sinus bradycardia. TTE with EF 60-65%. Lyme study sent and returned positive. Was started on doxycycline. ID consulted 06/24. On evaluation, patients daughter is at bedside and assists with history. Patient reports she had left sided facial numbness located on the maxillary distribution only and that has since resolved. Also notes some numbness around her mouth. She also reports that she had some stuttering in her speech that she still has. Notes having had headaches for a couple of weeks that feel like sinus headaches. No other numbness/weakness. She denies any fevers at home, neck stiffness. No h/o hiking, camping, nor spending time outdoors. No prior h/o Lyme. No known tick/bug bites. She does not spend time outdoors and her daughter manages the lawn and shrubs. She has seen deer in her yard but does not come into contact with them. No traveling outside of state since 23 yrs ago when she went to [facility]. Does not live near wooded areas. No gait abnormalities. No known rashes or bulls-eye lesions. Allergies Allergy/AdvReac Type Severity Reaction Status Date / Time latex Allergy Intermediate rash and Verified 05/13/24 11:06 sores in mouth methylprednisolone Allergy Intermediate hives Verified 05/13/24 11:06 aspirin AdvReac Intermediate upset Verified 05/13/24 11:06 stomach Home Medications Medication Instructions Recorded Confirmed Type albuterol sulfate 2.5 mg/3 mL 2.5 mg continuous nebulization Q6 11/17/22 06/21/24 History (0.083 %) solution for nebulization PRN Wheezing albuterol sulfate 90 mcg/actuation 2 puff inhalation Q6H PRN 11/17/22 06/21/24 History aerosol inhaler cough,Sob,wheezing apixaban 5 mg tablet (Eliquis) 5 mg PO BID #180 tabs 09/20/23 06/21/24 Rx pseudoephedrine HCl 120 mg 120 mg PO BID PRN Congestion 03/28/24 06/21/24 History tablet,extended release (Sudafed 12 Hour) spironolactone 25 mg tablet 25 mg PO QAM 03/28/24 06/21/24 History furosemide 20 mg tablet 20 mg PO DAILY PRN Fluid Retention 04/05/24 06/21/24 Rx #90 tabs budesonide 160 mcg-glycopyr 9 2 inh inhalation BID #10.7 grams 04/11/24 06/21/24 Rx mcg-formot 4.8 mcg/actuation HFA inhaler (Breztri Aerosphere) amiodarone 200 mg tablet 200 mg PO QAM 06/21/24 06/21/24 History Patient History Medical History Acute kidney injury Anemia COPD (chronic obstructive pulmonary disease) Paroxysmal atrial fibrillation controlled w/ medications, reason for eliquis, follows w/ Dr Escudero COPD (chronic obstructive pulmonary disease) Venous insufficiency (chronic) (peripheral) Cerebral vascular disease Hx of fracture 2021--hx humeral and rib fracture from fall- resolved Pericardial effusion hx Dyspnea on exertion Hx of acute heart failure Acid reflux Anxiety Peripheral edema bilat ankle On home O2 2 lpm via NC w/ activity Vomiting reason for upcoming procedure Surgical History H/O total hysterectomy appendix removed during hysterectomy Family History Grandfather (Maternal) Cancer mouth Father Cancer colon Mother Cancer colon and uterine Family/Other Cancer colon Social History Smoking Status: Former smoker Tobacco Type: Cigarettes Age Started Using Tobacco: 19; Age Quit Using Tobacco: 69; packs per day: 4; Smoking End Date: 30 yrs ago; Second Hand Exposure: No; Do You Dip or Chew Tobacco: No; Tobacco Cessation Education Requested by Patient: No Hx Alcohol Use: No Hx Substance Use: No Preferred Language: Greenlandic Communication Ability: Effective Visual Impairment: No Limitations Hearing Ability: Normal Vending Machine Servicer Required: No Beliefs That Will Affect Care: None marital status: / Current Living Situation: Alone current occupational status: retired Other Information That Helps Us Care for You: No Feels Safe at Home: Yes Safety Concerns: Feels Safe At This Time Physical Activity Frequency: Does not Exercise Seatbelt Use: always Assistive Devices: Cane, Nebulizer, Oxygen - Continuous and Walker Assistive Devices Comment: has oxygen to use when needed, has a lift shower chair Review of System 10-point review of systems reviewed and are negative except for as above. Physical Exam Physical Exam: General: Awake, alert, no acute distress HEENT: NC/AT, EOMI, mmm Neck: supple Lungs: respirations non-labored Heart: nl peripheral perfusion Abdomen: soft, NT/ND Back: no spinal tenderness Ext: no LE edema Skin: no rash Neuro: moving all extremities, no facial numbness Results & Data Vital Signs (Past 12 Hours) Vital Signs Temp Pulse Pulse Resp BP Pulse Ox O2 Del Method 06/24/24 10:53 36.6 C 59 L 18 117/42 L 96 Room Air 06/24/24 08:03 36.7 C 70 19 112/46 L 93 Room Air 06/24/24 07:00 57 L 06/24/24 02:29 36.8 C 58 L 19 116/49 L 92 Room Air Laboratory Results Labs reviewed. Diagnostic Findings Imaging reviewed.
[2024-06-24 12:33] LABS: ANTI-Xa, UFH(UnfractionatedHep 0.22 IU/ml (0.3-0.7)
--- NOTE | 2024-06-24 13:02 | Electrocardiogram Report ---
Test Reason : Blood Pressure : */* mmHG Vent. Rate : 66 BPM Atrial Rate : 66 BPM P-R Int : 204 ms QRS Dur : 100 ms QT Int : 448 ms P-R-T Axes : 82 34 63 degrees QTcB Int : 469 ms Poor data quality, interpretation may be adversely affected Normal sinus rhythm Normal ECG When compared with ECG of 21-Jun-2024 10:25, No significant change was found Confirmed by Ramiro Castaneda ([id number]) on 06/24/2024 1:02:17 PM Referred By: Valerie Calzada Confirmed By: Ramiro Castaneda
--- NOTE | 2024-06-24 14:24 | Electroencephalogram ---
EEG Procedure Note Date of Service June 24, 2024 Start / End Times Start Time: 12:53 PM End Time: 1:13 PM Referring Physician Baresel History Seizure-like activity, speech arrest Home Medication List Medication Instructions Recorded Confirmed Type albuterol sulfate 2.5 mg/3 mL 2.5 mg continuous nebulization Q6 11/17/22 06/21/24 History (0.083 %) solution for nebulization PRN Wheezing albuterol sulfate 90 mcg/actuation 2 puff inhalation Q6H PRN 11/17/22 06/21/24 History aerosol inhaler cough,Sob,wheezing apixaban 5 mg tablet (Eliquis) 5 mg PO BID #180 tabs 09/20/23 06/21/24 Rx pseudoephedrine HCl 120 mg 120 mg PO BID PRN Congestion 03/28/24 06/21/24 History tablet,extended release (Sudafed 12 Hour) spironolactone 25 mg tablet 25 mg PO QAM 03/28/24 06/21/24 History furosemide 20 mg tablet 20 mg PO DAILY PRN Fluid Retention 04/05/24 06/21/24 Rx #90 tabs budesonide 160 mcg-glycopyr 9 2 inh inhalation BID #10.7 grams 04/11/24 06/21/24 Rx mcg-formot 4.8 mcg/actuation HFA inhaler (Breztri Aerosphere) amiodarone 200 mg tablet 200 mg PO QAM 06/21/24 06/21/24 History Inpatient Medication List Acetaminophen (Acetaminophen 325 Mg Tab) 650 mg PO Q4H PRN PRN Reason: Pain or Fever Stop: 07/21/24 18:14 Last Admin: 06/22/24 08:17 Dose: 650 mg Documented By: MERI Amiodarone HCl (Amiodarone 200 Mg Tab) [facility] [place] Stop: 07/22/24 08:59 Last Admin: 06/24/24 08:57 Dose: 200 mg Documented By: Admin: 06/23/24 08:12 Dose: 200 mg Documented By: Admin: 06/22/24 08:17 Dose: 200 mg Documented By: MERI Apixaban (Apixaban 5 Mg Tablet) 5 mg PO BID [facility] Stop: 07/21/24 20:59 Last Admin: 06/22/24 08:17 Dose: 5 mg Documented By: Admin: 06/21/24 20:16 Dose: 5 mg Documented By: JORGE Clopidogrel Bisulfate (Clopidogrel Bisulfate 75 Mg Tab) 75 mg PO QAM KOBI Stop: 07/22/24 08:59 Last Admin: 06/24/24 08:57 Dose: 75 mg Documented By: Admin: 06/23/24 08:12 Dose: 75 mg Documented By: Admin: 06/22/24 08:18 Dose: 75 mg Documented By: MERI Doxycycline Hyclate 100 mg/ (Dextrose) 100 mls @ 50 mls/hr IV Q12H KOBI Stop: 07/02/24 14:59 Last Infusion: 06/24/24 05:05 Dose: Infused Documented By: Admin: 06/24/24 03:33 Dose: 50 mls/hr Documented By: Infusion: 06/23/24 18:59 Dose: Infused Documented By: Admin: 06/23/24 16:59 Dose: 50 mls/hr Documented By: Infusion: 06/23/24 04:10 Dose: Infused Documented By: Admin: 06/23/24 02:09 Dose: 50 mls/hr Documented By: Infusion: 06/22/24 17:19 Dose: Infused Documented By: Admin: 06/22/24 15:14 Dose: 50 mls/hr Documented By: MERI Famotidine (Pepcid 20mg Iv Push) 20 mg in 5 mls @ 2.5 mls/min IV Q12H KOBI Stop: 07/24/24 06:59 Last Admin: 06/24/24 06:25 Dose: 2.5 mls/min Documented By: JORGE Ondansetron HCl (Ondansetron Inj 2 Mg/Ml 2 Ml Vial) 4 mg IV Q6H PRN PRN Reason: Nausea Stop: 07/21/24 18:14 Last Admin: 06/23/24 15:30 Dose: 4 mg Documented By: MERI Polyethylene Glycol (Polyethylene (Miralax) 17 Gm Pack) 17 gm PO BID KOBI Stop: 07/23/24 20:59 Last Admin: 06/24/24 09:09 Dose: Not Given Documented By: Admin: 06/23/24 20:10 Dose: 17 gm Documented By: JORGE Spironolactone (Spironolactone 25 Mg Tab) 25 mg PO QAM KOBI Stop: 07/22/24 08:59 Last Admin: 06/24/24 08:57 Dose: 25 mg Documented By: Admin: 06/23/24 08:12 Dose: 25 mg Documented By: Admin: 06/22/24 08:18 Dose: 25 mg Documented By: MERI Discontinued Medications Acetaminophen (Acetaminophen 325 Mg Tab) 650 mg PO NOW STA Stop: 06/21/24 17:29 Last Admin: 06/21/24 17:51 Dose: 650 mg Documented By: GAYLE Acetaminophen (Acetaminophen 325 Mg Tab) Confirm Administered Dose 650 mg .ROUTE .STK-MED ONE Stop: 06/21/24 17:35 Last Admin: 06/21/24 17:51 Dose: Not Given Documented By: GAYLE Al Hydrox/Mg Hydrox/Simethicone (Aluminum/Magnesium Susp 30 Ml Udc) 15 ml PO NOW STA Stop: 06/23/24 15:12 Last Admin: 06/23/24 15:39 Dose: 15 ml Documented By: MERI Carbidopa/Levodopa (Carbidopa/Levodopa 25/100mg Tab) 0.5 tab PO BID KOBI Stop: 07/22/24 12:59 Last Admin: 06/22/24 13:12 Dose: 0.5 tab Documented By: MERI Clopidogrel Bisulfate (Clopidogrel Bisulfate 75 Mg Tab) 75 mg PO NOW ONE Stop: 06/21/24 17:31 Last Admin: 06/21/24 17:51 Dose: 75 mg Documented By: GAYLE Lactated Ringer's (Lr) 1,000 mls @ 125 mls/hr IV .Q8H KOBI Stop: 06/22/24 02:44 Last Infusion: 06/22/24 04:20 Dose: Infused Documented By: Admin: 06/21/24 20:16 Dose: 125 mls/hr Documented By: JORGE Heparin Sodium/Dextrose (Heparin 56266 Unit/500 Ml D5w) 25,000 units in 500 mls @ 16 mls/hr IV .Q24H KOBI Stop: 07/22/24 20:59 Last Infusion: 06/23/24 17:39 Dose: Infused Documented By: MERI Co-signed By: REMY Infusion: 06/23/24 14:17 Dose: 0 units/hr, 0 mls/hr Documented By: MERI Co-signed By: KTS Infusion: 06/23/24 06:32 Dose: 800 units/hr, 16 mls/hr Documented By: JORGE Co-signed By: JAH Infusion: 06/23/24 05:27 Dose: 750 units/hr, 15 mls/hr Documented By: JORGE Co-signed By: MNM Admin: 06/22/24 21:14 Dose: 650 units/hr, 13 mls/hr Documented By: JORGE Co-signed By: JAH Heparin Sodium/Dextrose (Heparin 90025 Unit/500 Ml D5w) 25,000 units in 500 mls @ 7 mls/hr IV .Q24H KOBI; Protocol Stop: 07/23/24 14:29 Last Admin: 06/24/24 13:45 Dose: Not Given Documented By: Titration: 06/24/24 13:43 Dose: Infused Documented By: MAN Co-signed By: CM(2) Titration: 06/24/24 12:40 Dose: 350 units/hr, 7 mls/hr Documented By: MAN Co-signed By: MTP Titration: 06/24/24 07:12 Dose: 300 units/hr, 6 mls/hr Documented By: AMN Co-signed By: JORGE Titration: 06/24/24 05:07 Dose: 300 units/hr, 6 mls/hr Documented By: JORGE Co-signed By: BARRINGTON Admin: 06/23/24 17:36 Dose: 250 units/hr, 5 mls/hr Documented By: MERI Co-signed By: JERRY Famotidine (Pepcid 20mg Iv Push) 20 mg in 5 mls @ 2.5 mls/min IV NOW STA Stop: 06/23/24 15:12 Last Admin: 06/23/24 15:33 Dose: 2.5 mls/min Documented By: MERI Ioversol (Optiray 320 125ml) 118 ml IV ONCE ONE Stop: 06/21/24 11:28 Last Admin: 06/21/24 11:27 Dose: 118 ml Documented By: ARACELI Ioversol (Optiray 320 100ml) 93 ml IV ONCE ONE Stop: 06/23/24 16:10 Last Admin: 06/23/24 16:10 Dose: 93 ml Documented By: PLW Morphine Sulfate (Morphine Sulfate 2 Mg/Ml Carp) 1 mg IV NOW STA Stop: 06/23/24 15:26 Last Admin: 06/23/24 15:30 Dose: 1 mg Documented By: MERI Description This is a 21 electrode EEG with a single channel dedicated to limited EKG. The electrodes were placed in accordance with the International 10-20 system. There is a posterior dominant rhythm of 9 to 10 Hz which is symmetrically distributed and attenuates with eye opening. There is a normal anterior to posterior organization. Photic stimulation is unremarkable. Hyperventilation is not performed. There is a symmetric frontal beta rhythm. There is a minimal degree of admixed generalized theta activity. There is no focal slowing. There are no epileptiform abnormalities. Interpretation Normal-appearing awake/drowsy EEG. [facility] EEG Procedure Codes Indication for Procedure (1) Seizure-like activity: Neurology Neurology: 31232 EEG include record awake & drowsy
--- NOTE | 2024-06-24 15:14 | Discharge Summary ---
Discharge Summary Date of Service June 24, 2024 Principal Dx & Hospital Course #1 = Principal Diagnosis (1) Stroke-like symptoms: (2) Paroxysmal atrial fibrillation: Hugh Duckworth is a pleasant 89-year-old female who came in for stuttering speech, difficulty swallowing, headache, and left-sided facial numbness. While her difficulty swallowing and facial numbness had resolved, she still exhibits stuttering speech and headache. Stuttering speech/tremor? Neurologic Lyme versus parkinsonism versus vocal tremor CThead, CTAhead neck without acute findings -Clinically improved but not resolved 06/24. Markedly improved speech compared to initial presentation MRI No acute intracranial findings. No evidence of acute infarct or intracranial hemorrhage. Extensive nonspecific periventricular and subcortical white matter T2/FLAIR hyperintensities nearly confluent. This has broad differential including chronic microvascular ischemic changes, demyelinating disease, or other infectious, inflammatory, or metabolic causes of leukoencephalopathy. Mild diffuse volume loss. Discussed neurology, suspected possible chronic/vascular changes however Subsequently Lyme screen positive for both IgG and IgM and undergoing further evaluation and management of this Lyme screen, IgG, IgM positive. Pending Western blot confirmation. EKG is without heart block - Started on doxycycline initially. ID Consulted. Initially was recommended to transition to heparin GTT for potential LP. Seen by virtual consultation 06/24. Lower suspicion for Lyme and no known exposures. Continue treatment for Lyme with doxycycline X 2 weeks however okay to defer ceftriaxone and CSF studies at this time. Discussed with neurology. Agree with above. Recommended EEG to r/o partial seizures. EEG was normal. She had returned to her baseline with no stuttering and fluent speech at time of discharge. Was discharged to continue doxycycline with neurology follow-up as outpatient Alternative DDx also includes development of parkinsonism with vocal tremor & essential tremor. has had tremors in her legs which she reports with a change in gait over last few months preceding arm tremors and her vocal tremors. Was ini tially treated with Sinemet until Lyme returned positive. If further workup not c/w Lyme --> +/- sinemet follow-up with neuro as an outpatient. KIMBERLY/CKD Baseline creatinine range around 1.41.6. Creatinine was 1.68 peak during admission and downtrending at 1.64-day of discharge. Patient was recommended to continue oral hydration and to follow-up with a repeat BMP to ensure stability within about 1 week. She was not oliguric during admission Abdominal pain Patient had an episode of severe acute lower abdominal pain during admission. She had been bridged to heparin with transiently supratherapeutic levels. Due to severe pain and lower abdominal tenderness CTA/P was obtained. This did not show any acute bleed or perforation. She had an increased stool burden. Pain was likely due to gastric irritation from doxycycline. She was started on Pepcid with symptomatic relief. For constipation she was directed to continue MiraLAX twice daily A-fib Amiodarone continued Transition back to Eliquis on discharge. She met criteria for dose reduction of her Eliquis EKG is sinus on admission. Heart block is not present No heart block on admission Asymptomatic bacteria/contaminated UA 1+ bacteria with epithelial cells and no nitrites on UA. No ongoing urinary symptoms. UCx positive for lactobacillus. Suspected contamination Admission HPI Per Admitting Provider Donita is an 89-year-old female with PMH of CVD, paroxysmal atrial fibrillation (on apixaban, amiodarone), and chronic venous insufficiency. She presented on 06/21 for slurred speech, difficulty swallowing, headache, and left-sided facial numbness. Patient lives by herself. Patient reports that she felt fine when she woke up yesterday morning. She did some laundry, and was in the kitchen cooking some meat, when she suddenly felt dizzy like the room was spinning. Her daughter was present at that time, and "caught her". No head strike, fall, or syncope. Daughter at that time, noticed that she had developed stuttering speech. She is unsure if it was "slurred". She did not appreciate any facial droop at that time. Unsure if the weakness was generalized or unilateral. Patient does have a cane and walker at home, but usually does not require it for ambulation. No recent falls, or injuries to the head or neck. Patient also complained of left-sided facial numbness at that time. Additionally, she has had a waxing and waning headache since this time. In terms of location, she reports that it "roams" around her head, but is currently located on the back of her head/lower neck (occipital). Patient took Tylenol for this, but it only helped with her headache for short period of time. Patient went to [facility] yesterday for a stroke workup where she had initial imaging done including a brain MRI; she was then sent home. Patient took her regular morning medicine today. No recent change in medications. Patient manages her meds at home. Patient does have supplemental oxygen at home, but reports she does not use it at nighttime as she does not need it; no CPAP at night. Patient denies s moking (quit 30 to 40 years ago), tobacco use, recent alcohol use. Patient reports she does have an allergy to aspirin; reports that it "waters" her stomach whenever she takes it. No history of throat closure or anaphylaxis with antiplatelets. She reports she is amenable to trying Plavix while inpatient. Patient is mildly bradycardic at 57 bpm at time admission; BP 137/57; vitals otherwise stable. ED course: ROS: Patient endorses headaches (currently occipital), blurry/itchy eyes, stuttering speech, unsure of unilateral deficits, FAIR (attributes to COPD), dry cough, and abdominal pain (attributes to "gas"/indigestion). Patient denies fever, chills, night-sweats, photophobia, rashes, tick bites, slurred speech, facial droop, tinnitus, chest pain, chest palpitations, SOB at rest, pleuritic CP, N/V/D, burning with urination, blood in the urine/stool, or numbness/tingling in the arms or legs. Discharge Exam General: A&Ox3. NAD. Cooperative. HEENT: Atraumatic, normocephalic. Speech deficits have resolved, minimal to no stuttering and speech is fluent prior to discharge Pulm: CTAB A&P. -wheezes, -rales, -rhonchi. Symmetrical chest rise. No increased work of breathing. No respiratory distress. Cardiac: RRR, -mrg. Radial pulses intact and symmetrical. Abdominal: Nontender, nondistended, soft. BS present. Extremities: Warm, dry. Slight resting tremor/mild cogwheeling on passive extension of the upper extremities bilaterally. Greatly improved from prior Discharge Plan Discharge Items Patient Disposition: Home - Self-Care Reason For Visit: STROKE-LIKE S/S Discharge Diagnosis: Speech abnormality/stuttering Activity: Resume your previous activity Non-emergency contact: Primary Care Provider Call non-emergency contact if: you have any medication questions and your symptoms worsen Follow-up/Referrals: Valerie Calzada MD [Primary Care Provider] - Joce Deras MD [Physician] - Diet: Heart Healthy Addtl Attending Provider Instructions: You are seen in the hospital for transient facial tingling and stuttering speech. You did not have any difficulty understanding speech or word finding but did have very pronounced persistent stuttering which had a sudden onset prior to your admission. This gradually improved during admission. Your preliminary Lyme testing was positive however your overall symptoms were atypical. On consultation with neurology and infectious disease it was recommended that you complete 2 weeks of doxycycline antibiotic treatment for Lyme disease, and follow-up as an outpatient to neurology. He also had an EEG performed which did not show evidence of seizure activity. Your CT of the head and blood vessels in the head and neck, and MRI did not show any evidence of a s troke. There were some nonspecific changes which may be age-related on your MRI. Doxycycline can be very irritating to the stomach and esophagus if it gets stuck in your throat. Please take doxycycline with food, and make sure to drink a full glass of water with each dose. You have been prescribed famotidine twice daily to help prevent stomach upset while on doxycycline Your Eliquis dosing met criteria for dose reduction. Your Eliquis dose has been changed to 2.5 mg by mouth twice daily. Please discuss this with your primary care provider at your follow-up appointment You should have a repeat BMP to check your kidney function in approximately 1 week by your PCP If you develop any new or worsening symptoms including fever, chills, sweats, chest pain, chest pressure, difficulty breathing, uncontrolled nausea/vomiting, rash, wheezing, passing out or nearly passing out, bleeding, black/bloody bowel movements, or other new or concerning symptoms please call your primary care physician, or call 911 for re-evaluation in the emergency department if you are very concerned. Pending Studies at Discharge: Yes (Lyme final western blot results) Stand-Alone Forms: My [employer], Smoking Cessation Medications and DC Order Prescriptions: New doxycycline hyclate 100 mg capsule 100 mg PO BID 12 Days Qty: 24 0RF famotidine 10 mg tablet 10 mg PO BID 14 Days Qty: 28 0RF Continued Breztri Aerosphere 160-9-4.8 mcg/actuation HFA aerosol inhaler 2 inh inhalation BID Qty: 10.7 3RF furosemide 20 mg tablet 20 mg PO DAILY PRN (Reason: Fluid Retention) Qty: 90 3RF albuterol sulfate 2.5 mg /3 mL (0.083 %) solution for nebulization 2.5 mg continuous nebulization Q6 PRN (Reason: Wheezing) albuterol sulfate 90 mcg/actuation Hfa Aerosol Inhaler 2 puff INHALATION Q6H PRN (Reason: cough,Sob,wheezing) pseudoephedrine HCl [Sudafed 12 Hour] 120 mg tablet extended release 120 mg PO BID PRN (Reason: Congestion) spironolactone 25 mg tablet 25 mg PO QAM amiodarone 200 mg tablet 200 mg PO QAM Changed Eliquis 5 mg tablet 2.5 mg PO BID Qty: 180 3RF Discharge Orders: Discharge Order (Routine); Ordered 06/24/24 Ordered By: Aaron Raza Admission Data Admit Date/Time: 06/23/24 14:22 Attending Provider: Aaron Raza Admit Provider: Aaron Raza Primary Care Provider: Valerie Calzada Other Providers: Aaron Raza; Nila Murphy; Myra Salas; Millicent Montenegro; Aston Maldonado; Karen Michaud; Aleisha Rosales Hospital Stay Data Consultations 06/21/24 13:18 ED Decision to Admit Stat 06/22/24 15:39 Consult Infectious Diseases Stat Diagnostic Imagining Performed 06/21/24 10:17 CT angio head w con Stat CT angio neck with con Stat CT head/brain wo con Stat 06/22/24 07:37 MR brain wo con Urgent 06/23/24 15:24 CT Abd and Pelvis [CT abd pelvis IV con only] Stat Discharge Instructions Given to Patient (Per Discharging Provider) You are seen in the hospital for transient facial tingling and stuttering speech. You did not have any difficulty understanding speech or word finding but did have very pronounced persistent stuttering which had a sudden onset prior to your admission. This gradually improved during admission. Your preliminary Lyme testing was positive however your overall symptoms were atypical. On consultation with neurology and infectious disease it was recommended that you complete 2 weeks of doxycycline antibiotic treatment for Lyme disease, and follow-up as an outpatient to neurology. He also had an EEG performed which did not show evidence of seizure activity. Your CT of the head and blood vessels in the head and neck, and MRI did not show any evidence of a stroke. There were some nonspecific changes which may be age-related on your MRI. Doxycycline can be very irritating to the stomach and esophagus if it gets stuck in your throat. Please take doxycycline with food, and make sure to drink a full glass of water with each dose. You have been prescribed famotidine twice daily to help prevent stomach upset while on doxycycline Your Eliquis dosing met criteria for dose reduction. Your Eliquis dose has been changed to 2.5 mg by mouth twice daily. Please discuss this with your primary care provider at your follow-up appointment You should have a repeat BMP to check your kidney function in approximately 1 week by your PCP If you develop any new or worsening symptoms including fever, chills, sweats, chest pain, chest pressure, difficulty breathing, uncontrolled nausea/vomiting, rash, wheezing, passing out or nearly passing out, bleeding, black/bloody bowel movements, or other new or concerning symptoms please call your primary care physician, or call 911 for re-evaluation in the emergency department if you are very concerned. Total Time Total Time Spent Total Time Spent (In Minutes): Time spend day of discharge 65 minutes including direct patient care, documentation, review of labs and images, and coordination of care. Coding Level of Care Code 14314 INP/OBS DISCH >30 MIN Diagnoses Stroke-like symptoms R29.90 Paroxysmal atrial fibrillation I48.0
[2024-06-24 16:15] VITALS: BP 121/58
[2024-06-24] MEDS ORDERED: APIXABAN 2.5 MG TAB PO SCH (21:00)
== END 2024-06-24 17:38 | disposition home or self-care (01) | DRG 868 ==
LOC: ED 10:11 → 2E 10:11

== ENCOUNTER 2024-07-16 11:01 | Inpatient (IN) ==
--- NOTE | 2024-07-16 11:27 | Emergency Department Note ---
ED Visit Note I was consulted by the Advanced Practice Provider Carley Rojas PA-C. I performed a substantive portion of the visit including all aspects of medical decision making. .
[2024-07-16] MEDS: ALBUT/IPRATROP 3MG/0.5MG NEB 3 ML VIAL INH STA (11:34)
--- NOTE | 2024-07-16 11:41 | Emergency Department Note ---
History of Present Illness General Chief complaint: Shortness of Breath/Dyspnea Stated complaint: CAN'T BREATH, DISCHARGING PHLEGM Time Seen by Provider: 07/16/24 11:11 History of Present Illness Maximum Pain Intensity: 5 Patient is an 89-year-old female with past medical history for COPD, atrial fibrillation on Eliquis, history of CHF, anxiety, GERD, among other chronic medical problems who returns to the emergency department accompanied by her daughter for evaluation of continued chest pain and shortness of breath. She was seen in thoroughly of here yesterday for the same complaint. She reports chest pain, cough productive of sputum, wheezing and shortness of breath that started on Monday, 2 days ago. There was some nasal congestion associated with the onset of her illness. ED workup yesterday was reassuring, and she did feel improved after a DuoNeb treatment, and was desirous for discharge to home. She was placed on prednisone and started the prednisone yesterday. She states that she was feeling well until around 0030 today, when she states that the tightness in her chest, wheezing and shortness of breath returned. She has been doing a DuoNeb treatment every 6 hours, she has had 4 since leaving the ED, last was at 0900, roughly 2 hours ago. She did take a dose of prednisone this morning. She has a Breztri inhaler, which she has been on, she also has an albuterol inhaler but she is only used this once. She normally just uses liters of nasal cannula oxygen at home when she is active, but she is needed to use the oxygen [id number] since symptoms started on Monday. She documented an oxygen saturation of 76% while on 2 L at home this morning. She has not documented any fevers, but subjectively has felt warm. Home Medications Medication Instructions Recorded Confirmed Type albuterol sulfate 90 mcg/actuation 2 puff inhalation Q6H PRN 11/17/22 07/16/24 History aerosol inhaler cough,Sob,wheezing furosemide 20 mg tablet 20 mg PO DAILY PRN Fluid Retention 04/05/24 07/16/24 Rx #90 tabs budesonide 160 mcg-glycopyr 9 2 inh inhalation BID #10.7 grams 04/11/24 07/16/24 Rx mcg-formot 4.8 mcg/actuation HFA inhaler (Breztri Aerosphere) amiodarone 200 mg tablet 200 mg PO QAM 06/21/24 07/16/24 History apixaban 2.5 mg tablet 2.5 mg PO BID #60 tabs 07/08/24 07/16/24 Rx esomeprazole magnesium 40 mg 40 mg PO DAILY 07/15/24 07/16/24 History capsule,delayed release guaifenesin 600 mg tablet, 600 mg PO Q12H PRN Congestion 07/15/24 07/16/24 History extended release 12 hr (Mucinex) ipratropium 0.5 mg-albuterol 3 mg 3 ml inhalation TID PRN shortness 07/15/24 07/16/24 History (2.5 mg base)/3 mL nebulization of breath or wheezing soln paroxetine HCl 10 mg tablet 10 mg PO DAILY 07/15/24 07/16/24 History prednisone 20 mg tablet 20 mg PO BID 5 days #10 tabs 07/15/24 07/16/24 Rx spironolactone 25 mg tablet 25 mg PO DAILY 07/15/24 07/16/24 History Allergies Allergy/AdvReac Type Severity Reaction Status Date / Time latex Allergy Intermediate rash and Verified 07/15/24 11:25 sores in mouth methylprednisolone Allergy Intermediate hives Verified 07/15/24 11:25 aspirin AdvReac Intermediate upset Verified 07/15/24 11:25 stomach Past Med/Surg History Problem List (Updated 07/16/24 @ 13:17 by Janice Rojas) Parainfluenza infection (Acute) Acute exacerbation of chronic obstructive pulmonary disease (Acute) History of fall Swallowing dysfunction Leg weakness ARNOLDO (generalized anxiety disorder) Chronic headache Chronic diarrhea CHF (congestive heart failure) Carotid artery stenosis BPPV (benign paroxysmal positional vertigo) Borderline hyperglycemia Back pain Bilateral wheezing (Acute) (HFpEF) heart failure with preserved ejection fraction (Chronic) Seizure-like activity Positive Lyme disease serology Stroke-like symptoms (Acute) Hypoxia (Acute) Diarrhea Epigastric pain Dyspnea on exertion Pericardial effusion Paroxysmal atrial fibrillation (Acute) Acute febrile illness Elevated troponin Hyponatremia Gastroenteritis (Acute) Dehydration (Acute) Weakness (Acute) Atrial fibrillation with rapid ventricular response (Acute) Uncontrolled pain Rib pain on right side (Acute) SOB (shortness of breath) (Acute) DVT prophylaxis Humeral fracture (Acute) Right rib fracture (Acute) Cerebral vascular disease Venous insufficiency (chronic) (peripheral) Medical History Acute kidney injury Anemia COPD (chronic obstructive pulmonary disease) Paroxysmal atrial fibrillation controlled w/ medications, reason for eliquis, follows w/ Dr Escudero COPD (chronic obstructive pulmonary disease) Venous insufficiency (chronic) (peripheral) Cerebral vascular disease Hx of fracture 2021--hx humeral and rib fracture from fall- resolved Pericardial effusion hx Dyspnea on exertion Hx of acute heart failure Acid reflux Anxiety Peripheral edema bilat ankle On home O2 2 lpm via NC w/ activity Vomiting reason for upcoming procedure Surgical History H/O total hysterectomy appendix removed during hysterectomy Family History Grandfather (Maternal) Cancer mouth Father Cancer colon, lung Mother Cancer colon and uterine Family/Other Cancer colon Brother Cancer lung Social History Smoking Status: Former smoker Tobacco Type: Cigarettes Age Started Using Tobacco: 19; Age Quit Using Tobacco: 69; packs per day: 4; Second Hand Exposure: No; Do You Dip or Chew Tobacco: No; Hx Alcohol Use: No Hx Substance Use: No Preferred Language: Hong Konger Communication Ability: Effective Visual Impairment: No Limitations Hearing Ability: Normal Case Assistant Required: No Beliefs That Will Affect Care: None marital status: / Current Living Situation: Alone current occupational status: retired Feels Safe at Home: Yes Diet: other Diet Comment: swallowing dysfunction caffeine: Yes Physical Activity Frequency: Does not Exercise Seatbelt Use: always Do you think of yourself as: straight/heterosexual Gender Identity: Female Assistive Devices: Cane, Oxygen - Continuous and Walker Review of Systems A total of 10 systems reviewed and were otherwise negative Physical Exam Vital Signs Vital Signs - 24 hr 07/16/24 11:03 07/16/24 11:20 07/16/24 11:20 Temperature 36.9 C Temperature Source Temporal Artery Scan Pulse Rate 81 Pulse Rate from SpO2 Sensor Respiratory Rate 26 H Respiratory Effort / Characteristics Short of Breath Spontaneous Retracting Short of Breath Respiratory Depth Shallow Respiratory Pattern Tachypnea Blood Pressure 182/62 H Blood Pressure Mean 102 Pulse Oximetry 92 100 Oxygen Delivery Method Nasal Cannula Nasal Cannula Oxygen Flow Rate 2 3 Sepsis Recent Fever Within 48 Hours No Sepsis New/Unexplained Change in Mental Status N/A Sepsis Action Taken by Nursing No Action Required 07/16/24 11:20 07/16/24 11:36 07/16/24 11:45 Temperature Temperature Source Pulse Rate 74 81 Pulse Rate from SpO2 Sensor 82 Respiratory Rate 24 Respiratory Effort / Characteristics Spontaneous Respiratory Depth Respiratory Pattern Blood Pressure Blood Pressure Mean Pulse Oximetry 100 100 Oxygen Delivery Method Nasal Cannula Oxygen Flow Rate 3 Sepsis Recent Fever Within 48 Hours Sepsis New/Unexplained Change in Mental Status Sepsis Action Taken by Nursing 07/16/24 11:51 07/16/24 11:52 07/16/24 11:52 Temperature Temperature Source Pulse Rate 80 Pulse Rate from SpO2 Sensor 80 Respiratory Rate Respiratory Effort / Characteristics Respiratory Depth Respiratory Pattern Blood Pressure 165/72 H 165/72 H Blood Pressure Mean 115 115 Pulse Oximetry 100 Oxygen Delivery Method Oxygen Flow Rate Sepsis Recent Fever Within 48 Hours Sepsis New/Unexplained Change in Mental Status Sepsis Action Taken by Nursing 07/16/24 11:54 07/16/24 11:54 07/16/24 11:54 Temperature Temperature Source Pulse Rate 84 Pulse Rate from SpO2 Sensor 85 Respiratory Rate Respiratory Effort / Characteristics Respiratory Depth Respiratory Pattern Blood Pressure Blood Pressure Mean Pulse Oximetry 100 100 100 Oxygen Delivery Method Nasal Cannula Nasal Cannula Oxygen Flow Rate 3 Sepsis Recent Fever Within 48 Hours Sepsis New/Unexplained Change in Mental Status Sepsis Action Taken by Nursing 07/16/24 12:09 07/16/24 12:27 07/16/24 12:30 Temperature Temperature Source Pulse Rate 95 H 108 H Pulse Rate from SpO2 Sensor 98 H 108 H Respiratory Rate 24 Respiratory Effort / Characteristics Respiratory Depth Respiratory Pattern Blood Pressure 107/70 Blood Pressure Mean 73 Pulse Oximetry 100 100 Oxygen Delivery Method Oxygen Flow Rate Sepsis Recent Fever Within 48 Hours Sepsis New/Unexplained Change in Mental Status Sepsis Action Taken by Nursing 07/16/24 12:33 07/16/24 12:42 07/16/24 12:54 Temperature Temperature Source Pulse Rate 103 H 99 H 94 H Pulse Rate from SpO2 Sensor 103 H 99 H 94 H Respiratory Rate 24 22 Respiratory Effort / Characteristics Respiratory Depth Respiratory Pattern Blood Pressure Blood Pressure Mean Pulse Oximetry 100 100 99 Oxygen Delivery Method Oxygen Flow Rate Sepsis Recent Fever Within 48 Hours Sepsis New/Unexplained Change in Mental Status Sepsis Action Taken by Nursing 07/16/24 12:57 07/16/24 13:00 07/16/24 13:06 Temperature Temperature Source Pulse Rate 101 H 95 H Pulse Rate from SpO2 Sensor 100 H 95 H Respiratory Rate 22 Respiratory Effort / Characteristics Respiratory Depth Respiratory Pattern Blood Pressure 127/68 Blood Pressure Mean 106 Pulse Oximetry 99 99 Oxygen Delivery Method Oxygen Flow Rate Sepsis Recent Fever Within 48 Hours Sepsis New/Unexplained Change in Mental Status Sepsis Action Taken by Nursing 07/16/24 13:12 07/16/24 13:30 07/16/24 13:30 Temperature Temperature Source Pulse Rate 94 H Pulse Rate from SpO2 Sensor 96 H Respiratory Rate 22 Respiratory Effort / Characteristics Respiratory Depth Respiratory Pattern Blood Pressure 118/47 L 118/47 L Blood Pressure Mean 73 73 Pulse Oximetry 100 Oxygen Delivery Method Oxygen Flow Rate Sepsis Recent Fever Within 48 Hours Sepsis New/Unexplained Change in Mental Status Sepsis Action Taken by Nursing 07/16/24 13:30 07/16/24 13:33 07/16/24 13:57 Temperature Temperature Source Pulse Rate 92 H 92 H Pulse Rate from SpO2 Sensor 92 H 92 H Respiratory Rate 20 Respiratory Effort / Characteristics Respiratory Depth Respiratory Pattern Blood Pressure 118/47 L Blood Pressure Mean 73 Pulse Oximetry 100 99 Oxygen Delivery Method Oxygen Flow Rate Sepsis Recent Fever Within 48 Hours Sepsis New/Unexplained Change in Mental Status Sepsis Action Taken by Nursing 07/16/24 14:00 07/16/24 14:00 07/16/24 14:00 Temperature Temperature Source Pulse Rate Pulse Rate from SpO2 Sensor Respiratory Rate Respiratory Effort / Characteristics Respiratory Depth Respiratory Pattern Blood Pressure 126/56 L 126/56 L 126/56 L Blood Pressure Mean 64 64 64 Pulse Oximetry Oxygen Delivery Method Oxygen Flow Rate Sepsis Recent Fever Within 48 Hours Sepsis New/Unexplained Change in Mental Status Sepsis Action Taken by Nursing 07/16/24 14:00 07/16/24 14:18 07/16/24 14:21 Temperature Temperature Source Pulse Rate 89 86 85 Pulse Rate from SpO2 Sensor 89 86 85 Respiratory Rate 25 H 26 H 22 Respiratory Effort / Characteristics Respiratory Depth Respiratory Pattern Blood Pressure Blood Pressure Mean Pulse Oximetry 99 100 100 Oxygen Delivery Method Oxygen Flow Rate Sepsis Recent Fever Within 48 Hours Sepsis New/Unexplained Change in Mental Status Sepsis Action Taken by Nursing 07/16/24 14:30 07/16/24 14:33 07/16/24 14:42 Temperature Temperature Source Pulse Rate 89 89 Pulse Rate from SpO2 Sensor 89 88 Respiratory Rate 22 26 H Respiratory Effort / Characteristics Respiratory Depth Respiratory Pattern Blood Pressure 135/60 Blood Pressure Mean 69 Pulse Oximetry 99 98 Oxygen Delivery Method Oxygen Flow Rate Sepsis Recent Fever Within 48 Hours Sepsis New/Unexplained Change in Mental Status Sepsis Action Taken by Nursing 07/16/24 14:51 07/16/24 14:54 07/16/24 15:00 Temperature Temperature Source Pulse Rate 84 83 Pulse Rate from SpO2 Sensor 84 84 Respiratory Rate 23 22 Respiratory Effort / Characteristics Respiratory Depth Respiratory Pattern Blood Pressure 124/56 L Blood Pressure Mean 64 Pulse Oximetry 99 99 Oxygen Delivery Method Oxygen Flow Rate Sepsis Recent Fever Within 48 Hours Sepsis New/Unexplained Change in Mental Status Sepsis Action Taken by Nursing CONSTITUTIONAL: Ill-appearing 89-year-old female in mild distress due to her increased work of breathing. Oxygen saturation is 100% on 3 L by nasal cannula. There is increased respiratory effort, she speaks in short sentences. Audible wheezing noted. EYES: Pupils equal, round, reactive to light and accommodation. EOMs intact without nystagmus. Sclera are anicteric. ENT: Tympanic membranes intact, with normal landmarks. External canals are clear. Oral and nasopharynx are clear. Mucous membranes are moist, no lesions, tongue and gums appear normal. CARDIOVASCULAR: Regular rate and rhythm. Peripheral pulses easy to palpable. RESPIRATORY: Breath sounds are diminished, with primarily expiratory wheezes noted throughout. GI: Bowel sounds are present. Abdomen is soft, nontender, nondistended. No organomegaly. No pulsatile masses. No guarding or rebound. MUSCULOSKELETAL: Full range of motion of extremities x 4 with good strength. No cyanosis, edema, joint tenderness or swelling. No deformity. INTEGUMENTARY: No lesions or rash, normal skin turgor. Course Course The patient was seen and assessed as above. External medical records are reviewed. ED record/evaluation from yesterday also reviewed. Patient presentation, physical exam findings, and plan reviewed with attending physician, Dr. Rodriguez. IV lock was initiated. Laboratory studies were collected. EKG and chest x-ray were obtained. She was given hour-long DuoNeb and Decadron IV. Patient reviewed with ED corrections caseworker for likely admission. Diagnostics, as interpreted by me: Laboratory studies: Normal white count 9800, left shift noted. H&H 8.8 and 29.1 which is chronic and stable appearing for the patient. No thrombocytopenia. No electrolyte imbalance or KIMBERLY, no transaminitis. High-sensitivity troponin within normal limits at 9, mildly elevated BNP at 291. Upper respiratory BioFire positive for parainfluenza 3. ECG: Normal sinus rhythm 79 bpm, no acute ischemic changes, no significant change on review of EKG from yesterday or from prior. Cardiac monitoring: An order was placed for continuous cardiac monitoring. The monitor shows a NSR at a rate of 80 per my interpretation. Imaging studies: Chest x-ray clear, no consolidation/infiltrate, no indication for failure. Patient was reassessed after DuoNeb, she subjectively felt mildly improved, and wheezing had lessened on auscultation, but was still present. Laboratory studies and x-rays were reviewed with her and family. Appears to have a COPD exacerbation, likely related to the parainfluenza viral illness. She is worsening despite appropriate nebulizers and corticosteroids at home. I previously had discussed admission/observation with her, and reiterated that I feel that this was appropriate. She was agreeable. Consultation placed with the [facility] for further care and management. Patient reviewed with residential mortgage underwriter, Dr. Coffey. Please refer to his H&P and orders for additional information. Differential diagnosis: Reactive airway disease, pneumonia, pneumothorax, COPD exacerbation, CHF, infections, cardiac ischemia, pulmonary embolism, musculoskeletal, gastrointestinal, as well as other pathologies. Administered Medications Acetaminophen (Acetaminophen 325 Mg Tab) 650 mg PO Q4H PRN PRN Reason: Pain or Fever Stop: 08/15/24 17:33 Last Admin: 07/16/24 18:17 Dose: 650 mg Documented By: KARISHMA Albuterol (Albut/Ipratrop 3mg/0.5mg Neb 3 Ml Vial) 3 ml INH Q6R OKBI Stop: 08/15/24 18:59 Last Admin: 07/16/24 18:25 Dose: 3 ml Documented By: KMS Discontinued Medications Albuterol (Albut/Ipratrop 3mg/0.5mg Neb 3 Ml Vial) 12 ml INH ONE STA Stop: 07/16/24 11:28 Last Admin: 07/16/24 11:34 Dose: 12 ml Documented By: ANSON Azithromycin (Azithromycin 250 Mg Tab) 500 mg PO NOW ONE Stop: 07/16/24 17:46 Last Admin: 07/16/24 18:14 Dose: 500 mg Documented By: KARISHMA Dexamethasone Sodium Phosphate (DexamethasonePf 10 Mg/Ml Vial) 10 mg IV NOW ONE Stop: 07/16/24 11:33 Last Admin: 07/16/24 11:48 Dose: 10 mg Documented By: ANSON Medical Decision Making Differential Diagnosis See ED Course. Medical Records Attestation: I reviewed the patient's medical records. Home Medications Current Medication List: was personally reviewed by me Laboratory Data Attestation: I reviewed the patient's lab results. 07/16/24 11:53 07/16/24 11:53 Lab Results 07/16/24 07/16/24 Range/Units 11:53 11:55 WBC 9.87 (4.8-10.8) K/ul RBC 3.40 L (4.20-5.40) M/uL Hgb 8.8 L (12.0-16.0) g/dl Hct 29.1 L (37.0-47.0) % MCV 85.6 (80.0-100.0) fL MCH 25.9 (25.0-34.0) pg MCHC 30.2 L (32.0-36.0) g/dL RDW Std Deviation 49.6 H (36.4-46.3) fL RDW Coeff of Harmony 16.2 H (11.5-14.5) % Plt Count 170 (130-400) K/uL MPV 11.0 (9.4-12.4) fL Immature Gran % (Auto) 0.8 % Neut % (Auto) 88.9 % Lymph % (Auto) 4.4 % Collin % (Auto) 5.7 % Eos % (Auto) 0.0 % Baso % (Auto) 0.2 % Neut # (Auto) 8.78 H (1.40-6.50) K/uL Lymph # (Auto) 0.43 L (1.20-3.40) K/uL Collin # (Auto) 0.56 (0.11-0.59) K/uL Eos # (Auto) 0.00 (0.00-0.50) K/uL Baso # (Auto) 0.02 (0.00-0.20) K/uL Immature Gran # (Auto) 0.08 (0.01-0.20) K/uL Sodium 138 (136-145) mmol/L Potassium 4.1 (3.5-5.1) mmol/L Chloride 105 (98-107) mmol/L Carbon Dioxide 29 (21-32) mmol/L Anion Gap 4 (3-11) BUN 20 (6-23) mg/dl Creatinine 1.12 (0.6-1.2) mg/dl Est Cr Clr Drug Dosing Not Reportable eGFR 47.30 BUN/Creatinine Ratio 17.9 (10-20) Glucose 119 H (70-99(Fasting)) mg/dl Calcium 8.6 (8.6-10.3) mg/dl Magnesium 2.1 (1.7-2.4) mg/dl Total Bilirubin 0.3 (0.2-1.0) mg/dl AST 39 (13-39) U/L ALT 30 (7-52) U/L Alkaline Phosphatase 84 (34-104) U/L Troponin I High Sens 9.0 D (0-14) pg/ml B-Natriuretic Peptide 291 H (0-100) pg/ml Total Protein 6.5 (6.0-8.3) gm/dl Albumin 3.8 (3.4-5.0) gm/dl Globulin 2.7 (2.5-4.0) gm/dl Albumin/Globulin Ratio 1.4 (0.9-2) Adenovirus (PCR) Not Detected (NotDetected) B. pertussis DNA (PCR) Not Detected (NotDetected) B.parapertussis DNA PCR Not Detected (NotDetected) C. pneumoniae DNA (PCR) Not Detected (NotDetected) Coronavirus OC43 (PCR) Not Detected (NotDetected) Coronavirus HKU1 (PCR) Not Detected (NotDetected) Coronavirus 229E (PCR) Not Detected (NotDetected) SARS-CoV-2 (PCR) Not Detected (NotDetected) Coronavirus NL63 (PCR) Not Detected (NotDetected) Human Metapneumovir PCR Not Detected (NotDetected) Influenza Type A (PCR) Not Detected (NotDetected) Influenza Type B (PCR) Not Detected (NotDetected) M. pneumoniae (PCR) Not Detected (NotDetected) Parainfluenza 1 (PCR) Not Detected (NotDetected) Parainfluenza 2 (PCR) Not Detected (NotDetected) Parainfluenza 3 (PCR) DETECTED A (NotDetected) Parainfluenza 4 (PCR) Not Detected (NotDetected) RSV (PCR) Not Detected (NotDetected) Entero/Rhino (PCR) Not Detected (NotDetected) Imaging Data Attestation: I personally reviewed and interpreted this imaging study as follows: Radiologist's Impression: Chest X-Ray 07/16/24 11:27 XR chest 1V portable CLINICAL HISTORY: Dyspnea COMPARISON STUDY: 07/15/2024 FINDINGS: There is stable moderate cardiomegaly without pulmonary vascular congestion. No effusion, consolidation, or pneumothorax. IMPRESSION: No acute findings. ACT 112: Negative or not required by law. Electronically signed by: James Iverson M.D. 07/16/2024 11:41 AM MDM Narrative See ED Course. Impression & Plan Acute exacerbation of chronic obstructive pulmonary disease, Parainfluenza infection Discharge Plan Visit Data Chief Complaint: Shortness of Breath/Dyspnea Stated Complaint: CAN'T BREATH, DISCHARGING PHLEGM ED Provider: Nabor Rodriguez ED Midlevel Provider: Janice Rojas Discharge Problem: Acute exacerbation of chronic obstructive pulmonary disease, Parainfluenza infection Patient Disposition: Admitted As Inpatient Discharge Instructions Interventions: ED Discharge Assessment Last Done: 07/16/24 17:13
--- NOTE | 2024-07-16 11:43 | XRay Report ---
XR chest 1V portable CLINICAL HISTORY: Dyspnea COMPARISON STUDY: 07/15/2024 FINDINGS: There is stable moderate cardiomegaly without pulmonary vascular congestion. No effusion, c onsolidation, or pneumothorax. IMPRESSION: No acute findings. ACT 112: Negative or not required by law. Electronically signed by: James Iverson M.D. 07/16/2024 11:41 AM
[2024-07-16] MEDS: dexAMETHasone**PF** 10 MG/ML VIAL IV ONE (11:48)
[2024-07-16 12:12] LABS: Basophils # (auto) 0.02 K/uL (0.00-0.20); Basophils % (auto) 0.2 %; Hematocrit (blood only) 29.1 % (37.0-47.0); Hemoglobin 8.8 g/dl (12.0-16.0); Immature Granulocytes # (auto) 0.08 K/uL (0.01-0.20); Immature Granulocytes % (auto) 0.8 %; Lymphocytes # (auto) 0.43 K/uL (1.20-3.40); Lymphocytes % (auto) 4.4 %; Mean Corpuscular Hemoglobin 25.9 pg (25.0-34.0); Mean Corpuscular Hgb Conc 30.2 g/dL (32.0-36.0); Mean Corpuscular Volume 85.6 fL (80.0-100.0); Monocytes # (auto) 0.56 K/uL (0.11-0.59); Monocytes % (auto) 5.7 %; Neutrophils # (auto) 8.78 K/uL (1.40-6.50); Neutrophils % (auto) 88.9 %; Platelet Count 170 K/uL (130-400); RDW Coefficient of Variation 16.2 % (11.5-14.5); RDW Standard Deviation 49.6 fL (36.4-46.3); White Blood Count 9.87 K/ul (4.8-10.8)
[2024-07-16 12:30] LABS: Albumin Level 3.8 gm/dl (3.4-5.0); Anion Gap 4 (3-11); Bilirubin,Total 0.3 mg/dl (0.2-1.0); Calcium 8.6 mg/dl (8.6-10.3); Carbon Dioxide 29 mmol/L (21-32); Chloride 105 mmol/L (98-107); Magnesium 2.1 mg/dl (1.7-2.4); Potassium 4.1 mmol/L (3.5-5.1); Sodium 138 mmol/L (136-145)
[2024-07-16 12:36] LABS: Alanine Aminotransferase 30 U/L (7-52); Albumin Globulin Ratio 1.4 (0.9-2); Alkaline Phosphatase 84 U/L (34-104); Aspartate Aminotransferase 39 U/L (13-39); BUN Creatinine Ratio 17.9 (10-20); Blood Urea Nitrogen 20 mg/dl (6-23); Globulin 2.7 gm/dl (2.5-4.0); Glucose 119 mg/dl (70-99(Fasting)); Total Protein 6.5 gm/dl (6.0-8.3)
[2024-07-16 13:04] LABS: Adenovirus PCR Not Detected (NotDetected); Bordetella parapertussis PCR Not Detected (NotDetected); Bordetella pertussis PCR Not Detected (NotDetected); Chlamydia pneumoniae PCR Not Detected (NotDetected); Coronavirus 229E PCR Not Detected (NotDetected); Coronavirus CoV-2 (COVID19)PCR Not Detected (NotDetected); Coronavirus HKU1 PCR Not Detected (NotDetected); Coronavirus NL63 PCR Not Detected (NotDetected); Coronavirus OC43PCR Not Detected (NotDetected); Human Metapneumovirus PCR Not Detected (NotDetected); Influenza A PCR Not Detected (NotDetected); Influenza B PCR Not Detected (NotDetected); Mycoplasma pneumoniae PCR Not Detected (NotDetected); Parainfluenza Virus 1 PCR Not Detected (NotDetected); Parainfluenza Virus 2 PCR Not Detected (NotDetected); Parainfluenza Virus 3 PCR DETECTED (NotDetected); Parainfluenza Virus 4 PCR Not Detected (NotDetected); Respiratory Syncytial VirusPCR Not Detected (NotDetected); Rhinovirus/Enterovirus PCR Not Detected (NotDetected)
--- NOTE | 2024-07-16 13:49 | History & Physical Report ---
Date of Service July 16, 2024 Assessment & Plan (1) Acute exacerbation of chronic obstructive pulmonary disease: Plan: - Patient with a acute exacerbation of her chronic COPD. - Chest x-ray negative. ABG showed pH of 7.33. - Continue on oxygen. Most likely will need to stop prior to discharge. - CBC benign did show a hemoglobin of 8.8 which is chronically low. Will continue monitoring with daily labs. - Continue on home Breztri Aerosphere bid. - DuoNebs scheduled every 6 hours and as needed every 2 hours. - [employer] resulted in parainfluenza infection we will hold off on coverage of community-acquired pneumonia though will start on azithromycin 5-day course. - Patient with chest pain, most likely pleuritic in nature given that it gets worse with a deep breath and is tender on palpitation. Troponin negative x 2, EKG without any ischemic changes. Will monitor on telemetry. - Incentive spirometry and flutter valve ordered. - Received dexamethasone in the ED. Will start him on prednisone 20 mg twice daily. Had first dose this a.m. We will switch to 40 mg daily for 5 days total. (2) Parainfluenza infection: Plan: - Parainfluenza seen [employer]. As above. Supportive care. (3) (HFpEF) heart failure with preserved ejection fraction: Plan: - BNP of 291, no fluid seen on x-ray or physical exam. No lower extremity edema. - Continue with Lasix as needed. Continue beta-nguyen daily. Continue spironolactone daily. (4) History of fall: Plan: - Patient with a history of falls. PT OT ordered. (5) ARNOLDO (generalized anxiety disorder): Plan: - Continue paroxetine 10 mg daily. (6) Paroxysmal atrial fibrillation: Plan: - History of paroxysmal A-fib. Continue on Eliquis 2.5 mg twice daily. Will monitor for signs of bleeding. - Monitor on telemetry. Plan Fluids: None Nutrition: Heart healthy Code status: Full code DVT ppx: Eliquis PT/OT:ordered Dispo: PCU/telemetry History of Present Illness Chief Complaint: COPD exacerbation, parainfluenza infection Primary Care Provider: Valerie Calzada MD Patient is an 89-year-old female with past medical history of COPD, heart failure with preserved ejection fraction, prior proximal A-fib, COPD, and chronic venous insufficiency who presents to the hospital with shortness of breath. Patient states that she has been having shortness of breath since Monday. She normally wears 2 L of nasal cannula as needed at home and reports that she has been needing it frequently. She has been also having some wheezing. She recently came into the ED yesterday and was worked up and sent home on prednisone. She states that last night she started to have chest pain or felt like a elephant sitting on her chest. Denies any radiation of symptoms. Located at the center of the chest. States that it gets worse with taking a deep breath. States that she was taking her oxygen at home and it was 76% on 2 L. Denies any lower extremity swelling. Does state that she has COPD and that she has inhalers at home though is not able to remember which ones she has. States that she does not regularly use her long-term inhaler as she is supposed to. Does have an as needed albuterol Hailer that she has been using more frequently since the symptoms started. Allergies Allergy/AdvReac Type Severity Reaction Status Date / Time latex Allergy Intermediate rash and Verified 07/15/24 11:25 sores in mouth methylprednisolone Allergy Intermediate hives Verified 07/15/24 11:25 aspirin AdvReac Intermediate upset Verified 07/15/24 11:25 stomach Home Medications Medication Instructions Recorded Confirmed Type albuterol sulfate 90 mcg/actuation 2 puff inhalation Q6H PRN 11/17/22 07/16/24 History aerosol inhaler cough,Sob,wheezing furosemide 20 mg tablet 20 mg PO DAILY PRN Fluid Retention 04/05/24 07/16/24 Rx #90 tabs budesonide 160 mcg-glycopyr 9 2 inh inhalation BID #10.7 grams 04/11/24 07/16/24 Rx mcg-formot 4.8 mcg/actuation HFA inhaler (Breztri Aerosphere) amiodarone 200 mg tablet 200 mg PO QAM 06/21/24 07/16/24 History apixaban 2.5 mg tablet 2.5 mg PO BID #60 tabs 07/08/24 07/16/24 Rx esomeprazole magnesium 40 mg 40 mg PO DAILY 07/15/24 07/16/24 History capsule,delayed release guaifenesin 600 mg tablet, 600 mg PO Q12H PRN Congestion 07/15/24 07/16/24 History extended release 12 hr (Mucinex) ipratropium 0.5 mg-albuterol 3 mg 3 ml inhalation TID PRN shortness 07/15/24 07/16/24 History (2.5 mg base)/3 mL nebulization of breath or wheezing soln paroxetine HCl 10 mg tablet 10 mg PO DAILY 07/15/24 07/16/24 History prednisone 20 mg tablet 20 mg PO BID 5 days #10 tabs 07/15/24 07/16/24 Rx spironolactone 25 mg tablet 25 mg PO DAILY 07/15/24 07/16/24 History Past Med/Surg History Problem List (Updated 07/16/24 @ 13:17 by Janice Rojas) Parainfluenza infection (Acute) Acute exacerbation of chronic obstructive pulmonary disease (Acute) History of fall Swallowing dysfunction Leg weakness ARNOLDO (generalized anxiety disorder) Chronic headache Chronic diarrhea CHF (congestive heart failure) Carotid artery stenosis BPPV (benign paroxysmal positional vertigo) Borderline hyperglycemia Back pain Bilateral wheezing (Acute) (HFpEF) heart failure with preserved ejection fraction (Chronic) Seizure-like activity Positive Lyme disease serology Stroke-like symptoms (Acute) Hypoxia (Acute) Diarrhea Epigastric pain Dyspnea on exertion Pericardial effusion Paroxysmal atrial fibrillation (Acute) Acute febrile illness Elevated troponin Hyponatremia Gastroenteritis (Acute) Dehydration (Acute) Weakness (Acute) Atrial fibrillation with rapid ventricular response (Acute) Uncontrolled pain Rib pain on right side (Acute) SOB (shortness of breath) (Acute) DVT prophylaxis Humeral fracture (Acute) Right rib fracture (Acute) Cerebral vascular disease Venous insufficiency (chronic) (peripheral) Medical History Acute kidney injury Anemia COPD (chronic obstructive pulmonary disease) Paroxysmal atrial fibrillation controlled w/ medications, reason for eliquis, follows w/ Dr Escudero COPD (chronic obstructive pulmonary disease) Venous insufficiency (chronic) (peripheral) Cerebral vascular disease Hx of fracture 2021--hx humeral and rib fracture from fall- resolved Pericardial effusion hx Dyspnea on exertion Hx of acute heart failure Acid reflux Anxiety Peripheral edema bilat ankle On home O2 2 lpm via NC w/ activity Vomiting reason for upcoming procedure Surgical History H/O total hysterectomy appendix removed during hysterectomy Family History Grandfather (Maternal) Cancer mouth Father Cancer colon, lung Mother Cancer colon and uterine Family/Other Cancer colon Brother Cancer lung Social History Smoking Status: Former smoker Tobacco Type: Cigarettes Age Started Using Tobacco: 19; Age Quit Using Tobacco: 69; packs per day: 4; Second Hand Exposure: No; Do You Dip or Chew Tobacco: No; Hx Alcohol Use: No Hx Substance Use: No Preferred Language: Wallisian Communication Ability: Effective Visual Impairment: No Limitations Hearing Ability: Normal [employer] Supervisor Required: No Beliefs That Will Affect Care: None marital status: / Current Living Situation: Alone current occupational status: retired Feels Safe at Home: Yes Diet: other Diet Comment: swallowing dysfunction caffeine: Yes Physical Activity Frequency: Does not Exercise Seatbelt Use: always Do you think of yourself as: straight/heterosexual Gender Identity: Female Assistive Devices: Cane, Nebulizer, Oxygen - Continuous and Walker Review of Systems Review of Systems: All systems reviewed & are unremarkable except as noted in Subjective Physical Exam Physical Exam: Constitutional: well-appearing, no acute distress HEENT: NCAT, no conjunctival injection CV: Irregularly irregular rate and rhythm, no murmur appreciated, extremities well-perfused, no LE edema Resp: Mild increased work of breathing, wheezing heard throughout, no rhonchi or crackles GI: soft, nondistended, nontender, BS normoactive MSK: no gross deformities appreciated, substernal chest tenderness on palpitation Skin: warm, dry, no rash appreciated Neuro: alert, oriented, no focal neurologic deficit appreciated Results & Data Results & Data Vital Signs (Past 12 Hours) Vital Signs Temp Pulse Resp BP Pulse Ox O2 Del Method O2 Flow Rate 07/16/24 13:33 92 H 20 100 07/16/24 13:30 118/47 L 07/16/24 13:30 118/47 L 07/16/24 13:30 118/47 L 07/16/24 13:12 94 H 22 100 07/16/24 13:06 95 H 22 99 07/16/24 13:00 127/68 07/16/24 12:57 101 H 99 07/16/24 12:54 94 H 99 04/22/25 12:42 99 H 22 100 07/16/24 12:33 103 H 24 100 07/16/24 12:30 107/70 07/16/24 12:27 108 H 24 100 07/16/24 12:09 95 H 100 07/16/24 11:54 84 100 07/16/24 11:54 100 Nasal Cannula 07/16/24 11:54 100 Nasal Cannula 3 07/16/24 11:52 165/72 H 07/16/24 11:52 165/72 H 07/16/24 11:51 80 100 07/16/24 11:45 81 24 100 07/16/24 11:36 74 07/16/24 11:20 100 Nasal Cannula 3 07/16/24 11:20 100 Nasal Cannula 3 07/16/24 11:03 36.9 C 81 26 H 182/62 H 92 Nasal Cannula 2 Supervising Physician Co-Signing Physician Notes I personally examined the patient and verified all almonte points of history and exam, discussed case, and agree with decision making with Dr Coffey short of breath, tight in chest - was following treatments as rec'd by ER but feeling worse vitals noted fatigued heent nc at mmm lungs tight with faint harsh wheeze but symmetric findings no rales no rhonchi labs, diagnostics, CXR reviewed. trop normal, EKG without ischemic changes viral bronchitis/acute on chronic COPD/COPD exacerbation caused by parainfluenza infectionsteroids, nebulizers, oxygen, azithromycin, supportive care. Anticoagulated on apixaban otherwise as above. Resident Activity Tracking Resident Involvement: Resident Care Provided Care Provided: Adult Hospital Medicine (3) (HFpEF) heart failure with preserved ejection fraction Heart failure chronicity: chronic Qualified Code(s): I50.32 - Chronic diastolic (congestive) heart failure
--- NOTE | 2024-07-16 15:14 | Electrocardiogram Report ---
Test Reason : Blood Pressure : */* mmHG Vent. Rate : 79 BPM Atrial Rate : 79 BPM P-R Int : 194 ms QRS Dur : 98 ms QT Int : 402 ms P-R-T Axes : 96 59 75 degrees QTcB Int : 460 ms Normal sinus rhythm Normal ECG When compared with ECG of 15-Jul-2024 09:52, No significant change was found Confirmed by Matias Freire ([id number]) on 07/16/2024 3:13:59 PM Referred By: REFERRED SELF Confirmed By: Matias Freire
--- NOTE | 2024-07-16 16:33 | Billing Data ---
Date of Service July 16, 2024 Coding Level of Care Code 07640 INT INP/OBS CARE
[2024-07-16] MEDS ORDERED: ALBUT/IPRATROP 3MG/0.5MG NEB 3 ML VIAL NEB PRN (17:34)
[2024-07-16] MEDS ORDERED: FUROSEMIDE 20 MG TAB PO PRN (17:34)
[2024-07-16] MEDS: AZITHROMYCIN 250 MG TAB PO ONE (18:14)
[2024-07-16] MEDS: ACETAMINOPHEN 325 MG TAB PO PRN (18:17)
[2024-07-16] MEDS: ALBUT/IPRATROP 3MG/0.5MG NEB 3 ML VIAL INH SCH (18:25)
[2024-07-16] MEDS: APIXABAN 2.5 MG TAB PO SCH (20:03)
[2024-07-16] MEDS ORDERED: NON-FORMULARY MEDICATION (Budesonide-Glycopyr-Formoterol [Breztri Aerosphere] 160-9-4.8 mc INH SCH (21:00)
[2024-07-17] MEDS: guaiFENesin 600 MG TABCR PO PRN (03:29)
[2024-07-17 05:51] LABS: Base Excess VBG 3.8 mEq/L; HCO3 VBG 31 mmol/L; Oxygen Saturation VBG < 60.0 %; PCO2 VBG 56 mmHg (38-50); PO2 VBG 24 mmHg; pH VBG 7.35 (7.36-7.41)
[2024-07-17 05:59] LABS: Hematocrit (blood only) 27.1 % (37.0-47.0); Hemoglobin 8.3 g/dl (12.0-16.0); Mean Corpuscular Hemoglobin 26.3 pg (25.0-34.0); Mean Corpuscular Hgb Conc 30.6 g/dL (32.0-36.0); Mean Platelet Volume 11.4 fL (9.4-12.4); Platelet Count 173 K/uL (130-400); RDW Coefficient of Variation 16.5 % (11.5-14.5); RDW Standard Deviation 50.6 fL (36.4-46.3); Red Blood Count 3.15 M/uL (4.20-5.40)
[2024-07-17 06:12] LABS: Albumin Globulin Ratio 1.6 (0.9-2); Albumin Level 3.6 gm/dl (3.4-5.0); BUN Creatinine Ratio 18.5 (10-20); Bilirubin,Total 0.3 mg/dl (0.2-1.0); Calcium 8.9 mg/dl (8.6-10.3); Creatinine Clr Calc Pharmacy 26.4 ml/min; Globulin 2.3 gm/dl (2.5-4.0); Magnesium 2.4 mg/dl (1.7-2.4); Potassium 4.8 mmol/L (3.5-5.1); Total Protein 5.9 gm/dl (6.0-8.3)
[2024-07-17] MEDS: UMECLIDINIUM/VILANTEROL 62.5/25MCG 7 PUFFS/INHALER INH SCH (07:35)
[2024-07-17] MEDS: FLUTICASONE FUROATE 200MCG 14 PUFFS/INHALER INH SCH (07:35)
[2024-07-17] MEDS: AMIODARONE 200 MG TAB PO SCH (07:36)
[2024-07-17] MEDS: AZITHROMYCIN 250 MG TAB PO SCH (07:38)
[2024-07-17] MEDS: predniSONE 20 MG TAB PO SCH (07:39)
[2024-07-17] MEDS: PARoxetine HCL 10 MG TAB PO SCH (07:39)
[2024-07-17] MEDS: SPIRONOLACTONE 25 MG TAB PO SCH (07:39)
[2024-07-17] MEDS: PANTOprazole 40 MG TAB PO SCH (07:40)
--- NOTE | 2024-07-17 08:00 | Hospitalist Progress Note ---
Date of Service July 17, 2024 Assessment & Plan (1) Acute exacerbation of chronic obstructive pulmonary disease: (2) Parainfluenza infection: Plan: - Parainfluenza seen [facility]. As above. Supportive care. (3) (HFpEF) heart failure with preserved ejection fraction: (4) History of fall: Plan: - Patient with a history of falls. PT OT ordered. (5) ARNOLDO (generalized anxiety disorder): Plan: - Continue paroxetine 10 mg daily. (6) Paroxysmal atrial fibrillation: Plan: - History of paroxysmal A-fib. Continue on Eliquis 2.5 mg twice daily. Will monitor for signs of bleeding. - Monitor on telemetry. Plan #Acute Exacerbation of COPD secondary to parainfluenza infection -VBG with VBG PCO2 56 and pH 7.35 - Prednisolone PO switched to IV Methylprednisolone - Continue spirometry and flutter valve -Complete course of Azithromycin for 5 days(day 2) -O2 at 2l -Duoneb inhaler q6h -Continue home breztri Aerosphere BID #HFpEF -- BNP of 291, no fluid seen on x-ray or physical exam. No lower extremity edema. - Continue with Lasix as needed. Continue spironolactone daily. #H/o fall -PT/OT evaluation today #ARNOLDO -Continue paroxetine daily Fluids: None Nutrition: Heart healthy Code status: Full code DVT ppx: Eliquis PT/OT:ordered Dispo: PCU/telemetry Admission and Anticipated Discharge Date Admission Date: July 16, 2024 Supervising Physician Co-Signing Physician Notes I personally examined the patient and verified all almonte points of history and exam, discussed case, and agree with decision making with Dr Copeland Breathing this morning was feeling just as bad as yesterday, through the morning somewhat better, main complaint now is that she feels like she cannot breathe through her nose. At the same time, she is still fairly short of breath vitals noted fatigued heent nc at mmm lungs tight with faint harsh wheeze but symmetric findings no rales no rhonchi, fairly similar to yesterday viral bronchitis/acute on chronic COPD/COPD exacerbation caused by parainfluenza infectionsteroids (not really improving after several days of 40 mg range p.o. prednisonewill escalate to 40 IV twice daily methylprednisolone and follow -- also, highly doubt "allergy" - will follow for response), nebulizers, oxygen, azithromycin, supportive care. Anticoagulated on apixaban otherwise as above. Subjective Overnight events:Slept ok. no any overnight events Ongoing symptoms: Th morning she woke up with dizziness and and is more short of breath and has headache. Reporting congestion of her face. She was oriented to time, place and person New concerns: no any Review of Systems Review of Systems: As per HPI Physical Exam Physical Exam: Constitutional: well-appearing, no acute distress HEENT: NCAT, no conjunctival injection CV: Irregularly irregular rate and rhythm, no murmur appreciated, extremities well-perfused, no LE edema Resp: Mild increased work of breathing, diffuse wheezing , no rhonchi or crackles GI: soft, nondistended, nontender, BS normoactive MSK: no gross deformities appreciated, substernal chest tenderness on palpitation Skin: warm, dry, no rash appreciated Neuro: alert, oriented, no focal neurologic deficit appreciated Results & Data Results & Data Vital Signs (Past 12 Hours) Vital Signs Temp Pulse Pulse Resp BP Pulse Ox O2 Del Method 07/17/24 07:32 Nasal Cannula 07/17/24 03:35 36.5 C 86 22 139/97 96 Nasal Cannula 07/17/24 01:25 72 18 92 Nasal Cannula 07/16/24 22:10 77 07/16/24 22:03 36.5 C 81 18 145/58 H 95 Room Air 07/16/24 21:14 Nasal Cannula O2 Flow Rate 07/17/24 07:32 2 07/17/24 03:35 2 07/17/24 01:25 2 07/16/24 22:10 07/16/24 22:03 07/16/24 21:14 2 (3) (HFpEF) heart failure with preserved ejection fraction Heart failure chronicity: chronic Qualified Code(s): I50.32 - Chronic diastolic (congestive) heart failure
[2024-07-17] MEDS ORDERED: methylPREDNISolone 125 MG/2 ML VIAL IV STA (13:35)
[2024-07-17] MEDS: methylPREDNISolone 40 MG in SYRINGE 0 ML IV SCH (14:24)
--- NOTE | 2024-07-17 16:08 | Billing Data ---
Date of Service July 17, 2024 Coding Level of Care Code 77454 SUB INP/OBS CARE
[2024-07-17] MEDS: SODIUM CHLORIDE 0.65% NA SOLN 45 ML (OCEAN) PRN (20:36)
[2024-07-17] MEDS: MELATONIN 3 MG TAB PO PRN (20:36)
[2024-07-18 05:56] LABS: Basophils # (auto) 0.01 K/uL (0.00-0.20); Basophils % (auto) 0.1 %; Hematocrit (blood only) 26.7 % (37.0-47.0); Hemoglobin 8.3 g/dl (12.0-16.0); Immature Granulocytes # (auto) 0.08 K/uL (0.01-0.20); Immature Granulocytes % (auto) 0.9 %; Lymphocytes # (auto) 0.49 K/uL (1.20-3.40); Lymphocytes % (auto) 5.4 %; Mean Corpuscular Hemoglobin 26.8 pg (25.0-34.0); Mean Corpuscular Hgb Conc 31.1 g/dL (32.0-36.0); Mean Corpuscular Volume 86.1 fL (80.0-100.0); Mean Platelet Volume 11.5 fL (9.4-12.4); Monocytes # (auto) 0.34 K/uL (0.11-0.59); Monocytes % (auto) 3.7 %; Neutrophils # (auto) 8.22 K/uL (1.40-6.50); Neutrophils % (auto) 89.9 %; Platelet Count 195 K/uL (130-400); RDW Coefficient of Variation 16.5 % (11.5-14.5); RDW Standard Deviation 51.3 fL (36.4-46.3); White Blood Count 9.14 K/ul (4.8-10.8)
[2024-07-18 06:08] LABS: Albumin Globulin Ratio 1.3 (0.9-2); Albumin Level 3.5 gm/dl (3.4-5.0); BUN Creatinine Ratio 23.9 (10-20); Bilirubin,Total 0.3 mg/dl (0.2-1.0); Calcium 8.9 mg/dl (8.6-10.3); Globulin 2.6 gm/dl (2.5-4.0); Potassium 4.6 mmol/L (3.5-5.1); Total Protein 6.1 gm/dl (6.0-8.3)
--- NOTE | 2024-07-18 07:24 | Hospitalist Progress Note ---
Date of Service July 18, 2024 Assessment & Plan (1) Acute exacerbation of chronic obstructive pulmonary disease: (2) Parainfluenza infection: Plan: - Parainfluenza seen [facility] [place]. As above. Supportive care. (3) (HFpEF) heart failure with preserved ejection fraction: (4) History of fall: Plan: - Patient with a history of falls. PT OT ordered. (5) ARNOLDO (generalized anxiety disorder): Plan: - Continue paroxetine 10 mg daily. (6) Paroxysmal atrial fibrillation: Plan: - History of paroxysmal A-fib. Continue on Eliquis 2.5 mg twice daily. Will monitor for signs of bleeding. - Monitor on telemetry. Plan #Acute Exacerbation of COPD secondary to parainfluenza infection -Continue IV methylpred today - Continue spirometry and flutter valve -Complete course of Azithromycin for 5 days(day 3) -O2 at 2l -Duoneb inhaler q6h -Continue home breztri Aerosphere BID #HFpEF -BNP of 291, no fluid seen on x-ray or physical exam. No lower extremity edema. - Continue with Lasix as needed. Continue spironolactone daily. #H/o fall -PT/OT evaluation today #ARNOLDO -Continue paroxetine daily Fluids: None Nutrition: Heart healthy Code status: Full code DVT ppx: Eliquis PT/OT:ordered Dispo: PCU/telemetry Admission and Anticipated Discharge Date Admission Date: July 16, 2024 Supervising Physician Co-Signing Physician Notes I personally examined the patient and verified all almonte points of history and exam, discussed case, and agree with decision making with Dr Copeland Breathing feeling better. Less dyspnea on exertion. Getting around better. vitals noted fatigued heent nc at mmm lungs More clear better air entry less wheeze. No accessory muscle use good effort. viral bronchitis/acute on chronic COPD/COPD exacerbation caused by parainfluenza infectionsteroids ( Improving after higher dosing of steroids.), nebulizers, oxygen, azithromycin, supportive care. Anticoagulated on apixaban otherwise as above. Listed as having methylprednisolone allergy in the EMRobviously she is tolerating it just fine, I am trying to determine how to delete this allergy from her list Subjective Overnight events:Slept ok. no any overnight events Ongoing symptoms: Patient reports she feels a lot better than yesterday. Denies dizziness or headache today. New concerns: no any Review of Systems Review of Systems: As per HPI Physical Exam Physical Exam: Constitutional: well-appearing, no acute distress HEENT: NCAT, no conjunctival injection CV: Irregularly irregular rate and rhythm, no murmur appreciated, extremities well-perfused, no LE edema Resp: Mild increased work of breathing, diffuse wheezing , no rhonchi or crackles GI: soft, nondistended, nontender, BS normoactive MSK: no gross deformities appreciated, substernal chest tenderness on palpitation Skin: warm, dry, no rash appreciated Neuro: alert, oriented, no focal neurologic deficit appreciated Results & Data Results & Data Vital Signs (Past 12 Hours) Vital Signs Temp Pulse Pulse Resp BP Pulse Ox O2 Del Method 07/18/24 07:18 36.5 C 90 18 134/55 L 98 Nasal Cannula 07/18/24 06:14 74 18 98 Nasal Cannula 07/18/24 03:07 36.7 C 77 20 126/63 95 Nasal Cannula 07/18/24 01:38 78 18 98 Nasal Cannula 07/17/24 22:52 36.5 C 79 20 124/54 L 96 Nasal Cannula 07/17/24 21:56 78 07/17/24 20:49 Nasal Cannula 07/17/24 20:14 77 19 94 Nasal Cannula 07/17/24 19:50 36.5 C 81 16 145/58 H 95 Nasal Cannula O2 Flow Rate 07/18/24 07:18 2 07/18/24 06:14 2 07/18/24 03:07 07/18/24 01:38 2 07/17/24 22:52 07/17/24 21:56 07/17/24 20:49 2 07/17/24 20:14 2 07/17/24 19:50 (3) (HFpEF) heart failure with preserved ejection fraction Heart failure chronicity: chronic Qualified Code(s): I50.32 - Chronic diastolic (congestive) heart failure
[2024-07-18] MEDS: ONDANSETRON INJ 2 MG/ML 2 ML VIAL IV PRN (11:59)
--- NOTE | 2024-07-18 15:52 | Billing Data ---
Date of Service July 18, 2024 Coding Level of Care Code 05060 SUB INP/OBS CARE
[2024-07-18] MEDS: COUGH DROP (SUGAR FREE) LOZ 24 LOZ/1 BOX BUCCAL STA (19:53)
--- NOTE | 2024-07-19 07:49 | Hospitalist Progress Note ---
Date of Service July 19, 2024 Assessment & Plan (1) Acute exacerbation of chronic obstructive pulmonary disease: (2) Parainfluenza infection: Plan: - Parainfluenza seen bio [facility]. As above. Supportive care. (3) (HFpEF) heart failure with preserved ejection fraction: (4) History of fall: Plan: - Patient with a history of falls. PT OT ordered. (5) ARNOLDO (generalized anxiety disorder): Plan: - Continue paroxetine 10 mg daily. (6) Paroxysmal atrial fibrillation: Plan: - History of paroxysmal A-fib. Continue on Eliquis 2.5 mg twice daily. Will monitor for signs of bleeding. - Monitor on telemetry. Plan #Acute Exacerbation of COPD secondary to parainfluenza infection -Continue IV methylpred 40mg . clinically improving. Switch from BID to OD. If continues to feel better, discharge in next 1 or 2 days. Taper steroids dose on discharge - Continue spirometry and flutter valve -Complete course of Azithromycin for 5 days(day 3) -O2 at 2l -Duoneb inhaler q6h -Continue home breztri Aerosphere BID #HFpEF -BNP of 291, no fluid seen on x-ray or physical exam. No lower extremity edema. - Continue with Lasix as needed. Continue spironolactone daily. #H/o fall -PT/OT evaluation today #ARNOLDO -Continue paroxetine daily Fluids: None Nutrition: Heart healthy Code status: Full code DVT ppx: Eliquis PT/OT:ordered Dispo: PCU/telemetry Admission and Anticipated Discharge Date Admission Date: July 18, 2024 Supervising Physician Co-Signing Physician Notes I personally examined the patient and verified all almonte points of history and exam, discussed case, and agree with decision making with Dr Copeland continues to feel better. has a hard time coughing up phlegm vitals noted fatigued heent nc at mmm breathing unlabored no accessory muscle use good effort. neuro no focal deficits. skin no rashes nop allor or icterus viral bronchitis/acute on chronic COPD/COPD exacerbation caused by parainfluenza infectiontitrate steroids (got better once increased to so lumedrol bid - improving and will drop to 40mg daily today - if continues to do better then hopefully home next 1-2 days on PO prednisone - given severity of disease and initial slow response, would do prolonged taper rather than burst), nebulizers, oxygen, azithromycin, supportive care. Anticoagulated on apixaban otherwise as above. Subjective Overnight events:Slept ok. no any overnight events Ongoing symptoms: Patient reports she feels a lot better than yesterday. Denies dizziness or headache today. New concerns: no any Review of Systems Review of Systems: As per HPI Physical Exam Physical Exam: Constitutional: well-appearing, no acute distress HEENT: NCAT, no conjunctival injection CV: Irregularly irregular rate and rhythm, no murmur appreciated, extremities well-perfused, no LE edema Resp: Mild increased work of breathing, wheezing better , no rhonchi or crackles GI: soft, nondistended, nontender, BS normoactive MSK: no gross deformities appreciated, substernal chest tenderness on palpitation Skin: warm, dry, no rash appreciated Neuro: alert, oriented, no focal neurologic deficit appreciated Results & Data Results & Data Vital Signs (Past 12 Hours) Vital Signs Temp Pulse Resp BP Pulse Ox O2 Del Method O2 Flow Rate 07/19/24 07:24 58 L 16 99 Nasal Cannula 1 07/19/24 06:54 36.6 C 73 18 152/66 H 97 Nasal Cannula 2.0 07/19/24 00:54 60 18 98 Nasal Cannula 2 (3) (HFpEF) heart failure with preserved ejection fraction Heart failure chronicity: chronic Qualified Code(s): I50.32 - Chronic diastolic (congestive) heart failure
[2024-07-19 08:01] LABS: Basophils # (auto) 0.01 K/uL (0.00-0.20); Basophils % (auto) 0.1 %; Hematocrit (blood only) 27.7 % (37.0-47.0); Hemoglobin 8.6 g/dl (12.0-16.0); Immature Granulocytes # (auto) 0.14 K/uL (0.01-0.20); Immature Granulocytes % (auto) 1.2 %; Lymphocytes # (auto) 0.61 K/uL (1.20-3.40); Lymphocytes % (auto) 5.1 %; Mean Corpuscular Hemoglobin 26.5 pg (25.0-34.0); Mean Corpuscular Volume 85.2 fL (80.0-100.0); Monocytes # (auto) 0.68 K/uL (0.11-0.59); Monocytes % (auto) 5.7 %; Neutrophils # (auto) 10.44 K/uL (1.40-6.50); Neutrophils % (auto) 87.9 %; Platelet Count 225 K/uL (130-400); RDW Coefficient of Variation 16.2 % (11.5-14.5); RDW Standard Deviation 50.6 fL (36.4-46.3); Red Blood Count 3.25 M/uL (4.20-5.40); White Blood Count 11.88 K/ul (4.8-10.8)
[2024-07-19 08:28] LABS: Albumin Globulin Ratio 1.4 (0.9-2); Albumin Level 3.6 gm/dl (3.4-5.0); BUN Creatinine Ratio 27.4 (10-20); Bilirubin,Total 0.3 mg/dl (0.2-1.0); Calcium 8.6 mg/dl (8.6-10.3); Creatinine Clr Calc Pharmacy 24.2 ml/min; Globulin 2.5 gm/dl (2.5-4.0); Potassium 4.8 mmol/L (3.5-5.1); Total Protein 6.1 gm/dl (6.0-8.3)
--- NOTE | 2024-07-19 15:51 | Billing Data ---
Date of Service July 19, 2024 Coding Level of Care Code 53144 SUB INP/OBS CARE
[2024-07-20 06:57] LABS: Basophils # (auto) 0.01 K/uL (0.00-0.20); Basophils % (auto) 0.1 %; Eosinophils # (auto) 0.01 K/uL (0.00-0.50); Eosinophils % (auto) 0.1 %; Hematocrit (blood only) 28.8 % (37.0-47.0); Hemoglobin 8.6 g/dl (12.0-16.0); Immature Granulocytes # (auto) 0.14 K/uL (0.01-0.20); Lymphocytes # (auto) 1.41 K/uL (1.20-3.40); Lymphocytes % (auto) 10.3 %; Mean Corpuscular Hemoglobin 25.6 pg (25.0-34.0); Mean Corpuscular Hgb Conc 29.9 g/dL (32.0-36.0); Mean Corpuscular Volume 85.7 fL (80.0-100.0); Mean Platelet Volume 10.7 fL (9.4-12.4); Monocytes % (auto) 10.9 %; Neutrophils # (auto) 10.64 K/uL (1.40-6.50); Neutrophils % (auto) 77.6 %; Platelet Count 232 K/uL (130-400); RDW Coefficient of Variation 16.2 % (11.5-14.5); RDW Standard Deviation 50.5 fL (36.4-46.3); Red Blood Count 3.36 M/uL (4.20-5.40); White Blood Count 13.71 K/ul (4.8-10.8)
[2024-07-20 07:26] LABS: Albumin Globulin Ratio 1.5 (0.9-2); Albumin Level 3.5 gm/dl (3.4-5.0); BUN Creatinine Ratio 33.1 (10-20); Bilirubin,Total 0.2 mg/dl (0.2-1.0); Calcium 8.6 mg/dl (8.6-10.3); Creatinine Clr Calc Pharmacy 26.4 ml/min; Globulin 2.4 gm/dl (2.5-4.0); Potassium 4.5 mmol/L (3.5-5.1); Total Protein 5.9 gm/dl (6.0-8.3)
[2024-07-20 07:44] VITALS: BP 164/57; TEMP 98.1
[2024-07-20] MEDS: methylPREDNISolone 40 MG in SYRINGE 0 ML IV SCH (09:02)
--- NOTE | 2024-07-20 11:36 | Discharge Summary ---
Date of Service July 20, 2024 Admission HPI Per Admitting Provider Patient is an 89-year-old female with past medical history of COPD, heart failure with preserved ejection fraction, prior proximal A-fib, COPD, and chronic venous insufficiency who presents to the hospital with shortness of breath. Patient states that she has been having shortness of breath since Monday. She normally wears 2 L of nasal cannula as needed at home and reports that she has been needing it frequently. She has been also having some wheezing. She recently came into the ED yesterday and was worked up and sent home on prednisone. She states that last night she started to have chest pain or felt like a elephant sitting on her chest. Denies any radiation of symptoms. Located at the center of the chest. States that it gets worse with taking a deep breath. States that she was taking her oxygen at home and it was 76% on 2 L. Denies any lower extremity swelling. Does state that she has COPD and that she has inhalers at home though is not able to remember which ones she has. States that she does not regularly use her long-term inhaler as she is supposed to. Does have an as needed albuterol Hailer that she has been using more frequently since the symptoms started. Admission Exam Per Admitting Provider Constitutional: well-appearing, no acute distress HEENT: NCAT, no conjunctival injection CV: Irregularly irregular rate and rhythm, no murmur appreciated, extremities well-perfused, no LE edema Resp: Mild increased work of breathing, wheezing heard throughout, no rhonchi or crackles GI: soft, nondistended, nontender, BS normoactive MSK: no gross deformities appreciated, substernal chest tenderness on palpitation Skin: warm, dry, no rash appreciated Neuro: alert, oriented, no focal neurologic deficit appreciated Principal Diagnosis Acute COPD exacerbation Discharge Exam General: patient resting comfortably, NAD, non-toxic in appearance, answers questions appropriately. Skin: warm, dry, intact HEENT: NC/AT, anicteric sclera, conjunctiva without injection, moist mucus membranes. Heart: +S1/S2, regular, no m/r/g Lungs: equal air entry bilaterally, no rales, mild rhonchi/wheezes in BL lower lung lobes Abd: +BS, soft, NT/ND Ext: warm, no clubbing/cyanosis or edema Neuro: nonfocal, speech intact, no facial droop, moving all extremities. Discharge Data Allergies Allergy/AdvReac Type Severity Reaction Status Date / Time latex Allergy Intermediate rash and Verified 07/15/24 11:25 sores in mouth aspirin AdvReac Intermediate upset Verified 07/15/24 11:25 stomach Consultations 07/16/24 13:52 ED Decision to Admit Stat Hospital Course (1) Acute exacerbation of chronic obstructive pulmonary disease: (2) Parainfluenza infection: - Parainfluenza seen bio fire. As above. Supportive care. (3) (HFpEF) heart failure with preserved ejection fraction: (4) History of fall: - Patient with a history of falls. PT OT ordered. (5) ARNOLDO (generalized anxiety disorder): - Continue paroxetine 10 mg daily. (6) Paroxysmal atrial fibrillation: - History of paroxysmal A-fib. Continue on Eliquis 2.5 mg twice daily. Will monitor for signs of bleeding. - Monitor on telemetry. Plan #Acute Exacerbation of COPD secondary to parainfluenza infection -Continue IV methylpred 40mg . clinically improving. Switch from BID to OD. If continues to feel better, discharge in next 1 or 2 days. Taper steroids dose on discharge - Continue spirometry and flutter valve -Complete course of Azithromycin for 5 days(day 3) -O2 at 2l -Duoneb inhaler q6h -Continue home breztri Aerosphere BID #HFpEF -BNP of 291, no fluid seen on x-ray or physical exam. No lower extremity edema. - Continue with Lasix as needed. Continue spironolactone daily. #H/o fall -PT/OT evaluation today #ARNOLDO -Continue paroxetine daily Fluids: None Nutrition: Heart healthy Code status: Full code DVT ppx: Eliquis PT/OT:ordered Dispo: PCU/telemetry Total Time Total Time Spent Total Time Spent (In Minutes): <30 Discharge Plan Discharge Items Patient Disposition: Home - Self-Care Reason For Visit: CODP EXCERBATION Discharge Diagnosis: COPD exacerbation Activity: Per Instructions section Non-emergency contact: Primary Care Provider Call non-emergency contact if: your symptoms worsen Follow-up/Referrals: Valerie Calzada MD [Primary Care Provider] - Diet: Regular Addtl Attending Provider Instructions: You were admitted to the hospital for an acute COPD exacerbation, likely related to your concurrent parainfluenzae viral infection. You were treated with an antibiotic, azithromycin and supplemental oxygen. Although your parainfluenzae infection is a viral infection, azithromycin was used as it can also help to decrease inflammation within the lungs allowing you to return to your normal respiratory status more quickly. It will take time, a few weeks to a few months for your lungs to completely heal from an infection standpoint as your body is able to clear the mucous and debris that remains after your immune system is able to clear a viral pneumonia. You have now completed your 5 day course of azithromycin as of today. You endorsed that you do feel much better today, and are able to breath much easier, I expect this to become easier as time passes and you are back down to your baseline requirements of 2L oxygen today. An important step in recovery will be using a oral steroid medication called Prednisone that will take the place of the IV methylprednisone you have been getting in the hospital. Please take this medication as outlined below and finish the entire course. Doing so will help reduce any remaining inflammation in your lungs and make it easier to breath, while also hastening your recovery time. Continue using your home medications as prescribed including your inhalers and albuterol therapy. As your respiratory status was initially worse and required higher levels of steroids and support a steroid taper is the optimal medication regimen to continue at home. This will last you 12 days and you should take your first dose tomorrow. Again the information regarding this taper will be provided below and should be followed as indicated. A discharge summary will be sent to your primary care physician to ensure continuity of care. Please bring this discharge summary with you to your next office appointment so that your provider can review it at that time. Follow-up appointments: Make a follow-up appointment with your PCP within the next week. It is very important that you follow up with them shortly after discharge from the hospital. Medications: Your medication list has been reviewed and reconciled upon discharge to ensure accuracy and continuity of care. An updated list of all your medications is included with your hospital discharge paperwork. Please review this list closely, and make note of any changes. We sent a new medication called Prednisone to your pharmacy. Take Prednisone 10mg for the next 12 days. Your schedule will look like as follows: 60mg on days 1 and 2. 50mg days 3 and 4. 40mg days 5 and 6. 30mg days 7 and 8. 20 mg days 9 and 10. 10mg days 11 and 12. You will be prescribed 42 Prednisone 10mg pills to be completed in 12 days. Take your medications as instructed; do not skip a dose of your medicines. Make sure all of your doctors know every medicine you are taking (including [id number] medicines, vitamins, and supplements). Call your primary care provider before taking any new medicines (including [id number] medicines, vitamins, and supplements), because some of these may interact with your current medications, or may make your symptoms worse. Tell your primary care provider if you cannot afford your medications. CONTACT YOUR PRIMARY CARE PROVIDER if you experience any of the following: Difficulty following your treatment plan, or difficulty taking medications CALL 911 OR GO TO THE EMERGENCY DEPARTMENT if you experience any of the following: Sudden, severe abdominal pain or nausea/vomiting Severe chest pain, or chest pain that radiates (moves) to your jaw or arm Sudden, severe shortness of breath or difficulty breathing Thank you for allowing us to participate in your care. Pending Studies at Discharge: No Stand-Alone Forms: My [facility] [employer] Knowledge, Smoking Cessation Medications and DC Order Prescriptions: New prednisone 10 mg tablet 10 mg PO DIRECTED Qty: 42 0RF Rx Instructions: see taper instructions Days 1-12 as follows: 60mg days 1-2, 50mg days 3-4, 40mg days 5-6, 30mg days 7-8, 20mg days 9-10, 10mg days 11-12. Total 42 Prednisone 10mg tablets in 12 days. Continued Breztri Aerosphere 160-9-4.8 mcg/actuation HFA aerosol inhaler 2 inh inhalation BID Qty: 10.7 3RF ipratropium-albuterol 0.5 mg-3 mg(2.5 mg base)/3 mL solution for nebulization 3 ml inhalation TID PRN (Reason: shortness of breath or wheezing) paroxetine HCl 10 mg tablet 10 mg PO DAILY Rx Instructions: 01/30/24 x30 day supply. Unable to verify w/ pt if still taking. Previously verified on 07/15/24 as still active by other medical staff. spironolactone 25 mg tablet 25 mg PO DAILY furosemide 20 mg tablet 20 mg PO DAILY PRN (Reason: Fluid Retention) Qty: 90 3RF apixaban 2.5 mg tablet 2.5 mg PO BID Qty: 60 5RF albuterol sulfate 90 mcg/actuation Hfa Aerosol Inhaler 2 puff INHALATION Q6H PRN (Reason: cough,Sob,wheezing) amiodarone 200 mg tablet 200 mg PO QAM esomeprazole magnesium 40 mg capsule,delayed release(DR/EC) 40 mg PO DAILY guaifenesin [Mucinex] 600 mg Tablet Extended Release 12hr 600 mg PO Q12H PRN (Reason: Congestion) Rx Instructions: Unable to verify OTC meds at this date/time. prednisone 20 mg tablet 20 mg PO BID 5 Days Qty: 10 0RF Rx Instructions: Start Date 07/15/24 x5 days Discharge Orders: Discharge Order (Routine); Ordered 07/20/24 Ordered By: Myron Khan/Other Patient Handouts: COPD and Heart Disease Admission Data Admit Date/Time: 07/18/24 15:51 Attending Provider: Lenny Lott Admit Provider: Lenny Lott Primary Care Provider: Valerie Calzada Other Providers: Lenny Lott Other Interventions: Discharge Summary Assessment (RN) Last Done: 07/20/24 13:54 Supervising Physician Co-Signing Physician Notes I personally examined the patient and verified all almonte points of history and exam, discussed case, and agree with decision making with Dr Rodríguez continues to feel better. getting around with less dyspnea vitals noted fatigued heent nc at mmm breathing unlabored no accessory muscle use good effort. lungs quiet but clear and far bettter air entry than before no wheeze. neuro no focal deficits. skin no rashes no pallor or icterus viral bronchitis/acute on chronic COPD/COPD exacerbation caused by parainfluenza infectionsafe/stable for home - wean steroids (given age, COPD, severity of illness, and dosing of steroids it took to finally get her better - will do more prolonged taper) Anticoagulated on apixaban otherwise as above. Resident Activity Tracking Resident Involvement: Resident Care Provided Care Provided: Adult Hospital Medicine
[2024-07-20 13:50] VITALS: PULSE 79; O2SAT 96
--- NOTE | 2024-07-20 15:00 | Billing Data ---
Date of Service July 20, 2024 Coding Level of Care Code 52414 IN/OBS DISCH 30 MIN/LESS
[2024-07-20 15:08] VITALS: RESP 20
== END 2024-07-20 15:46 | disposition home or self-care (01) | DRG 191 ==
LOC: ED 11:01 → 2S 11:01 → 3W 07-18 18:11

== ENCOUNTER 2024-07-22 18:01 | Inpatient (IN) ==
--- NOTE | 2024-07-22 18:44 | Emergency Department Note ---
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 She notes she was admitted last week and just discharged on Monday for viral pneumonia. She notes since getting home she cannot get up and do anything as she is so short of breath. Nothing has improved. She denies any headache or change in vision. She admits to a persistent cough bringing up sputum. Denies any belly pain, nausea, vomiting or diarrhea. No dysuria, urgency or frequency. No other exacerbating or remitting factors. ADDITIONAL HISTORY OBTAINED: Per HPI Chronic Medical/Social Conditions Affecting Care: Per HPI PAST MEDICAL HISTORY:See Below PAST SURGICAL HISTORY:See Below FAMILY HISTORY:See Below SOCIAL HISTORY:See Below HOME MEDICATIONS:See Below ALLERGIES:See Below VITALS:See Below PHYSICAL EXAMINATION: GENERAL: Sitting up in bed, alert, moderate distress/difficulty talking full sentences EYE EXAM: normal conjunctiva. PERRL and EOM's grossly intact. OROPHARYNX: mucous membranes are moist NECK: supple, no nuchal rigidity, no adenopathy, non-tender LUNGS: Poor air movement with wheezing bilaterally. Normal chest wall mechanics HEART: no murmurs, S1 normal and S2 normal ABDOMEN: abdomen soft, non-tender, normo-active bowel sounds, no masses, no rebound or guarding. UPPER EXTREMITIES: upper extremities are grossly normal. LOWER EXTREMITIES: No pitting edema. NEURO EXAM: Normal sensorium, cranial nerves II-XII grossly intact, normal speech, no gross weakness of arms, no gross weakness of legs. MEDICAL DECISION MAKING: Patient is an 89-year-old female who presents to the ER for the below stated complaint. IV was established blood work was obtained. Labs show mild leukocytosis of 13,000. Mild anemia at 9.9 which is actually significantly improved from previous. VBG with a pH is 7.35 and a CO2 of 52. BMP with LFTs and bilirubin was unremarkable. Pro-Dinesh was normal. Viral panel was negative. Chest x-ray clean. Patient was given hour-long neb treatments as well as steroids. Respiratory rate did improve. She was able to talk in full sentences and was discussed with the hospitalist for further evaluation management treatment Consults/Care Managements Discussions: Per [facility] Triage Nursing notes reviewed. Limited review of prior medical records performed Vital Signs: reviewed and remarkable for hypertension, chronically on 2 L nasal cannula at 100% Differential diagnosis: Differential diagnoses includes but is not limited to pneumonia, bronchitis, COPD/Asthma exacerbation, pneumothorax, pulmonary embolism, congestive heart failure, acute coronary syndrome ER treatment provided: See below Diagnostics interpreted by me include EKG and cardiac monitoring as listed below: -Cardiac Monitoring: An order was placed for continuous cardiac monitoring. The monitor shows a rate of 70 with sinus rhythm. -ECG: Sinus rhythm rate of 79 Normal axis No PVCs Poor baseline QTc 447 -Laboratory studies:Interpreted by me as stated above in MDM and shown below. Imaging studies: Xrays: As interpreted by me: Portable AP upright 1 view of the chest shows no focal Lutrate CTs show: None Procedures: None Critical Care: None Past Med/Surg History Problem List (Updated 07/23/24 @ 00:19 by Lenny Gupta DO) Anemia (Acute) Leukocytosis (Acute) Shortness of breath (Acute) COPD with acute exacerbation (Acute) Parainfluenza infection (Acute) Acute exacerbation of chronic obstructive pulmonary disease (Acute) History of fall Swallowing dysfunction Leg weakness ARNOLDO (generalized anxiety disorder) Chronic headache Chronic diarrhea CHF (congestive heart failure) Carotid artery stenosis BPPV (benign paroxysmal positional vertigo) Borderline hyperglycemia Back pain Bilateral wheezing (Acute) (HFpEF) heart failure with preserved ejection fraction (Chronic) Seizure-like activity Positive Lyme disease serology Stroke-like symptoms (Acute) Hypoxia (Acute) Diarrhea Epigastric pain Dyspnea on exertion Pericardial effusion Paroxysmal atrial fibrillation (Acute) Acute febrile illness Elevated troponin Hyponatremia Gastroenteritis (Acute) Dehydration (Acute) Weakness (Acute) Atrial fibrillation with rapid ventricular response (Acute) Uncontrolled pain Rib pain on right side (Acute) SOB (shortness of breath) (Acute) DVT prophylaxis Humeral fracture (Acute) Right rib fracture (Acute) Cerebral vascular disease Venous insufficiency (chronic) (peripheral) Medical History Acute kidney injury Anemia COPD (chronic obstructive pulmonary disease) Paroxysmal atrial fibrillation controlled w/ medications, reason for eliquis, follows w/ Dr Escudero COPD (chronic obstructive pulmonary disease) Venous insufficiency (chronic) (peripheral) Cerebral vascular disease Hx of fracture 2021--hx humeral and rib fracture from fall- resolved Pericardial effusion hx Dyspnea on exertion Hx of acute heart failure Acid reflux Anxiety Peripheral edema bilat ankle On home O2 2 lpm via NC w/ activity Vomiting reason for upcoming procedure Surgical History H/O total hysterectomy appendix removed during hysterectomy Family History Grandfather (Maternal) Cancer mouth Father Cancer colon, lung Mother Cancer colon and uterine Family/Other Cancer colon Brother Cancer lung Social History Smoking Status: Former smoker Tobacco Type: Cigarettes Age Started Using Tobacco: 19; Age Quit Using Tobacco: 69; packs per day: 4; Smoking End Date: 2000; Second Hand Exposure: No; Do You Dip or Chew Tobacco: No; Hx Alcohol Use: No Hx Substance Use: No Preferred Language: Filipino Communication Ability: Effective Visual Impairment: No Limitations Hearing Ability: Normal [place] Required: No Beliefs That Will Affect Care: None marital status: / Current Living Situation: Alone current occupational status: retired Feels Safe at Home: Yes Safety Concerns: Feels Safe At This Time Diet: other Diet Comment: swallowing dysfunction caffeine: Yes Physical Activity Frequency: Does not Exercise Seatbelt Use: always Do you think of yourself as: straight/heterosexual Gender Identity: Female Assistive Devices: Denture - Upper, Oxygen - Continuous and Walker Allergies Allergies Allergy/AdvReac Type Severity Reaction Status Date / Time latex Allergy Intermediate rash and Verified 07/22/24 20:03 sores in mouth aspirin AdvReac Intermediate upset Verified 07/22/24 20:03 stomach Home Meds Home Medications Medication Instructions Recorded Confirmed albuterol sulfate 90 mcg/actuation 2 puff inhalation Q6H PRN 11/17/22 07/22/24 aerosol inhaler cough,Sob,wheezing amiodarone 200 mg tablet 200 mg PO QAM 06/21/24 07/22/24 esomeprazole magnesium 40 mg 40 mg PO DAILY 07/15/24 07/22/24 capsule,delayed release guaifenesin 600 mg tablet, 600 mg PO Q12H PRN Congestion 07/15/24 07/22/24 extended release 12 hr (Mucinex) ipratropium 0.5 mg-albuterol 3 mg 3 ml inhalation TID PRN shortness 07/15/24 07/22/24 (2.5 mg base)/3 mL nebulization of breath or wheezing soln Previous Rx's Medication Instructions Recorded furosemide 20 mg tablet 20 mg PO DAILY PRN Fluid Retention 04/05/24 #90 tabs budesonide 160 mcg-glycopyr 9 2 inh inhalation BID #10.7 grams 04/11/24 mcg-formot 4.8 mcg/actuation HFA inhaler (Breztri Aerosphere) apixaban 2.5 mg tablet 2.5 mg PO BID #60 tabs 07/08/24 prednisone 10 mg tablet 10 mg PO DIRECTED #42 tabs 07/20/24 Results & Data (ED) Vital Signs Vital Signs - 24 hr 07/22/24 18:11 07/22/24 18:46 07/22/24 18:50 Temperature 36.6 C Temperature Source Temporal Artery Scan Pulse Rate 74 76 78 Pulse Rate from SpO2 Sensor Respiratory Rate 18 22 Respiratory Effort / Characteristics Respiratory Depth Normal Respiratory Pattern Blood Pressure 177/53 H 187/79 H Blood Pressure Mean 94 101 Pulse Oximetry 100 100 Oxygen Delivery Method Nasal Cannula Oxygen Flow Rate 2 Sepsis Recent Fever Within 48 Hours No Sepsis New/Unexplained Change in Mental Status No Sepsis Action Taken by Nursing No Action Required 07/22/24 19:00 07/22/24 19:02 07/22/24 19:02 Temperature Temperature Source Pulse Rate 70 Pulse Rate from SpO2 Sensor Respiratory Rate 22 Respiratory Effort / Characteristics Spontaneous Respiratory Depth Respiratory Pattern Regular Blood Pressure 166/74 H Blood Pressure Mean 105 Pulse Oximetry 100 Oxygen Delivery Method Nasal Cannula Nasal Cannula Oxygen Flow Rate 2 Sepsis Recent Fever Within 48 Hours Sepsis New/Unexplained Change in Mental Status Sepsis Action Taken by Nursing 07/22/24 19:30 07/22/24 20:03 07/22/24 20:30 Temperature Temperature Source Pulse Rate 72 89 81 Pulse Rate from SpO2 Sensor 89 Respiratory Rate 23 24 21 Respiratory Effort / Characteristics Respiratory Depth Respiratory Pattern Blood Pressure 183/72 H 170/86 H 147/62 H Blood Pressure Mean 127 114 83 Pulse Oximetry 100 99 99 Oxygen Delivery Method Nasal Cannula Oxygen Flow Rate 2 Sepsis Recent Fever Within 48 Hours Sepsis New/Unexplained Change in Mental Status Sepsis Action Taken by Nursing Laboratory Data 07/22/24 18:31 07/22/24 18:31 Lab Results 07/22/24 Range/Units 18:31 WBC 13.78 H (4.8-10.8) K/ul RBC 3.81 L (4.20-5.40) M/uL Hgb 9.9 L (12.0-16.0) g/dl Hct 32.4 L (37.0-47.0) % MCV 85.0 (80.0-100.0) fL MCH 26.0 (25.0-34.0) pg MCHC 30.6 L (32.0-36.0) g/dL RDW Std Deviation 49.0 H (36.4-46.3) fL RDW Coeff of Harmony 15.8 H (11.5-14.5) % Plt Count 311 (130-400) K/uL MPV 10.6 (9.4-12.4) fL Immature Gran % (Auto) 2.0 % Neut % (Auto) 91.3 % Lymph % (Auto) 2.5 % [place] % (Auto) 4.1 % Eos % (Auto) 0.0 % Baso % (Auto) 0.1 % Neut # (Auto) 12.59 H (1.40-6.50) K/uL Lymph # (Auto) 0.34 L (1.20-3.40) K/uL [place] # (Auto) 0.56 (0.11-0.59) K/uL Eos # (Auto) 0.00 (0.00-0.50) K/uL Baso # (Auto) 0.02 (0.00-0.20) K/uL Immature Gran # (Auto) 0.27 H (0.01-0.20) K/uL Sodium 136 (136-145) mmol/L Potassium 4.6 (3.5-5.1) mmol/L Chloride 98 (98-107) mmol/L Carbon Dioxide 33 H (21-32) mmol/L Anion Gap 5 (3-11) BUN 23 (6-23) mg/dl Creatinine 0.99 (0.6-1.2) mg/dl Est Cr Clr Drug Dosing Not Reportable eGFR 54.84 BUN/Creatinine Ratio 23.2 H (10-20) Glucose 123 H (70-99(Fasting)) mg/dl Calcium 8.5 L (8.6-10.3) mg/dl Total Bilirubin 0.4 (0.2-1.0) mg/dl AST 19 (13-39) U/L ALT 27 (7-52) U/L Alkaline Phosphatase 64 (34-104) U/L Total Protein 6.6 (6.0-8.3) gm/dl Albumin 4.0 (3.4-5.0) gm/dl Globulin 2.6 (2.5-4.0) gm/dl Albumin/Globulin Ratio 1.5 (0.9-2) Procalcitonin 0.04 (0-0.5) ng/ml SARS-CoV-2 (PCR) NEGATIVE (Negative) Influenza Type A (PCR) Negative (Neg) Influenza Type B (PCR) Negative (Neg) RSV (RT-PCR) Negative (Neg) Administered Medications Apixaban (Apixaban 2.5 Mg Tab) 2.5 mg PO BID KOBI Stop: 08/21/24 23:06 Last Admin: 07/22/24 23:46 Dose: Not Given Documented By: MMG Discontinued Medications Albuterol (Albut/Ipratrop 3mg/0.5mg Neb 3 Ml Vial) 12 ml NEB ONE ONE; Protocol Stop: 07/22/24 18:45 Last Admin: 07/22/24 19:19 Dose: 12 ml Documented By: DAMIAN Furosemide (Furosemide 40 Mg/4 Ml Vial) 40 mg IV ONE ONE Stop: 07/22/24 21:07 Last Admin: 07/22/24 21:51 Dose: 40 mg Documented By: AMPARO Levofloxacin/Dextrose (Levaquin/D5w) 750 mg in 150 mls @ 100 mls/hr IV NOW STA Stop: 07/22/24 22:39 Last Infusion: 07/22/24 23:57 Dose: Infused Documented By: Admin: 07/22/24 21:51 Dose: 100 mls/hr Documented By: NURIAW Methylprednisolone (Methylprednisolone 125 Mg/2 Ml Vial) 60 mg IV NOW STA Stop: 07/22/24 18:45 Last Admin: 07/22/24 19:19 Dose: 60 mg Documented By: DAMIAN Miscellaneous (Patient's Height &/Or Weight Needed) 1 each N/A ONE STA Stop: 07/22/24 23:22 Last Admin: 07/22/24 23:51 Dose: Not Given Documented By: MMG Imaging Data Radiologist's Impression: Chest X-Ray 07/22/24 18:16 Clinical History: Shortness of breath Technique: A frontal view of the chest was obtained Comparison is made to the prior examination dated 07/16/2024 Findings: There are no confluent pulmonary infiltrates. The heart size is at the upper limit of normal. No pleural effusion or pneumothorax is seen. There is suspected mild pulmonary vascular congestion No fracture is noted. No foreign body is seen Impression: Suspected mild pulmonary vascular congestion ACT 112: Positive. There are findings on this exam that require communication between the performing entity and the patient following Patient Test Result Information Act ([place] ACT 112) guidelines. Electronically signed by Marlon Rincon 07-22-2024 7:56 PM Discharge Plan Visit Data Chief Complaint: Shortness of Breath/Dyspnea Stated Complaint: SOB, PNEUMONIA ED Provider: Lenny Gupta Discharge Problem: COPD with acute exacerbation, Shortness of breath, Leukocytosis, Anemia Discharge Problem: Leukocytosis Qualifiers: Leukocytosis type: unspecified Qualified Code(s): D72.829 - Elevated white blood cell count, unspecified Anemia Qualifiers: Anemia type: unspecified type Qualified Code(s): D64.9 - Anemia, unspecified
[2024-07-22 18:47] LABS: Hematocrit (blood only) 32.4 % (37.0-47.0); Hemoglobin 9.9 g/dl (12.0-16.0); Mean Corpuscular Hgb Conc 30.6 g/dL (32.0-36.0); Mean Platelet Volume 10.6 fL (9.4-12.4); Platelet Count 311 K/uL (130-400); RDW Coefficient of Variation 15.8 % (11.5-14.5); Red Blood Count 3.81 M/uL (4.20-5.40); White Blood Count 13.78 K/ul (4.8-10.8)
[2024-07-22 19:03] LABS: Alanine Aminotransferase 27 U/L (7-52); Albumin Globulin Ratio 1.5 (0.9-2); Alkaline Phosphatase 64 U/L (34-104); Anion Gap 5 (3-11); Aspartate Aminotransferase 19 U/L (13-39); BUN Creatinine Ratio 23.2 (10-20); Bilirubin,Total 0.4 mg/dl (0.2-1.0); Blood Urea Nitrogen 23 mg/dl (6-23); Calcium 8.5 mg/dl (8.6-10.3); Carbon Dioxide 33 mmol/L (21-32); Chloride 98 mmol/L (98-107); Globulin 2.6 gm/dl (2.5-4.0); Glucose 123 mg/dl (70-99(Fasting)); Potassium 4.6 mmol/L (3.5-5.1); Sodium 136 mmol/L (136-145); Total Protein 6.6 gm/dl (6.0-8.3)
[2024-07-22 19:09] LABS: Basophils # (auto) 0.02 K/uL (0.00-0.20); Basophils % (auto) 0.1 %; Immature Granulocytes # (auto) 0.27 K/uL (0.01-0.20); Lymphocytes # (auto) 0.34 K/uL (1.20-3.40); Lymphocytes % (auto) 2.5 %; Monocytes # (auto) 0.56 K/uL (0.11-0.59); Monocytes % (auto) 4.1 %; Neutrophils # (auto) 12.59 K/uL (1.40-6.50); Neutrophils % (auto) 91.3 %
[2024-07-22] MEDS: methylPREDNISolone 125 MG/2 ML VIAL IV STA (19:19)
[2024-07-22] MEDS: ALBUT/IPRATROP 3MG/0.5MG NEB 3 ML VIAL NEB ONE (19:19)
[2024-07-22 19:24] LABS: Influenza A virus by PCR Negative (Neg); Influenza B virus by PCR Negative (Neg); RSV by PCR Negative (Neg); SARS CoV2 RNA(COVID-19) Ceph NEGATIVE (Negative)
--- NOTE | 2024-07-22 19:56 | XRay Report ---
Clinical History: Shortness of breath Technique: A frontal view of the chest was obtained Comparison is made to the prior examination dated 07/16/2024 Findings: There are no confluent pulmonary infiltrates. The heart size is at the upper limit of normal. No pleural effusion or pneumothorax is seen. There is suspected mild pulmonary vascular congestion No fracture is noted. No foreign body is seen Impression: Suspected mild pulmonary vascular congestion ACT 112: Positive. There are findings on this exam that require communication between the performing entity and the patient following Patient Test Result Information Act ([place] ACT 112) guidelines. Electronically signed by Marlon Rincon 07-22-2024 7:56 PM
--- NOTE | 2024-07-22 21:02 | History & Physical Report ---
Date of Service July 22, 2024 Assessment & Plan (1) Acute exacerbation of chronic obstructive pulmonary disease: (2) CHF (congestive heart failure): (3) Paroxysmal atrial fibrillation: Plan Donita is a 89 y/o female with PMH of COPD, HRpEF, ARNOLDO that presented to the ED due to worsening SOB. Patient was recently discharge from hospital due to COPD exacerbation secondary to Parainfluenza. Patient discharged with Prednisone cheri. Patient did finished a course of Azithromycin. Patient uses 2L of O2 on ambulation. She states that her SOB on Monday now at rest #COPD exacerbation - Patient with increased SOB and wheezing on exam. Lab remarkable for leukocytosis and a left shift. CXR remarkable for vascular congestion, no consolidations. VBG pH: 7.35. PCO2 52. PAtient was recently discharge (07/20) from hospital due to COPD exacerbation secondary to parainfluenza - Levofloxacin given once on ED - due to left shift and recent admission. Low concern of pneumonia at this time. Sputum cultures ordered. Procal negative - Biofire negative - DuoNeb q 6hr schedule and q 2 hrs as needed - Continue IV Solumedrol 60 mg Daily - Continue Breztri Aerosphere BID, continue ipratropium TID - Incentive spirometry - continue O2 supplementation - Will monitor in telemetry #HFpEF - CXR with vascular congestion . No weight gained. Denied any worsening leg edema - Will give Lasix 40 mg now - continue home Lasix as needed - BNP ordered - Daily weights - Measure I/O #Anemia - Chronic, Hgb 9.9 - no signs of bleeding - continue to monitor #Paroxysmal Atrial fibrillation- Eliquis 2,5 mg BID and Amiodarone #ARNOLDO- continue paroxetine Disposition- Admit to Telemetry for further monitoring DVT prophylaxis: Eliquis History of Present Illness Primary Care Provider: Valerie Calzada MD Donita is a 89 y/o female with PMH of COPD, HRpEF, ARNOLDO that presented to the ED due to worsening SOB. Patient was recently discharge from hospital due to COPD exacerbation secondary to Parainfluenza. Patient discharged with Prednisone cheri and Azithromycin. Patient uses 2L of O2 on ambulation only. She states that her SOB worsen on Monday, now at rest. States she hasn't started the cheri down. States worsening orthopnea at night. Denied any dizziness, chest pain, abdominal pain, palpitations. Denied any fever or chills. No sick contacts. She is on 2 L nasal cannula at rest. She states being compliance on home medications. Denied any poor appetitie. Denied any black stools or blood on BMS Ed course:Solumedrol 60 mg and Duoneb Allergies Allergy/AdvReac Type Severity Reaction Status Date / Time latex Allergy Intermediate rash and Verified 07/22/24 20:03 sores in mouth aspirin AdvReac Intermediate upset Verified 07/22/24 20:03 stomach Home Medications Medication Instructions Recorded Confirmed Type albuterol sulfate 90 mcg/actuation 2 puff inhalation Q6H PRN 11/17/22 07/22/24 History aerosol inhaler cough,Sob,wheezing furosemide 20 mg tablet 20 mg PO DAILY PRN Fluid Retention 04/05/24 07/22/24 Rx #90 tabs budesonide 160 mcg-glycopyr 9 2 inh inhalation BID #10.7 grams 04/11/24 07/22/24 Rx mcg-formot 4.8 mcg/actuation HFA inhaler (Breztri Aerosphere) amiodarone 200 mg tablet 200 mg PO QAM 06/21/24 07/22/24 History apixaban 2.5 mg tablet 2.5 mg PO BID #60 tabs 07/08/24 07/22/24 Rx esomeprazole magnesium 40 mg 40 mg PO DAILY 07/15/24 07/22/24 History capsule,delayed release guaifenesin 600 mg tablet, 600 mg PO Q12H PRN Congestion 07/15/24 07/22/24 History extended release 12 hr (Mucinex) ipratropium 0.5 mg-albuterol 3 mg 3 ml inhalation TID PRN shortness 07/15/24 07/22/24 History (2.5 mg base)/3 mL nebulization of breath or wheezing soln prednisone 10 mg tablet 10 mg PO DIRECTED #42 tabs 07/20/24 07/22/24 Rx Past Med/Surg History Problem List Anemia (Acute) Leukocytosis (Acute) Shortness of breath (Acute) COPD with acute exacerbation (Acute) Parainfluenza infection (Acute) Acute exacerbation of chronic obstructive pulmonary disease (Acute) History of fall Swallowing dysfunction Leg weakness ARNOLDO (generalized anxiety disorder) Chronic headache Chronic diarrhea CHF (congestive heart failure) Carotid artery stenosis BPPV (benign paroxysmal positional vertigo) Borderline hyperglycemia Back pain Bilateral wheezing (Acute) (HFpEF) heart failure with preserved ejection fraction (Chronic) Seizure-like activity Positive Lyme disease serology Stroke-like symptoms (Acute) Hypoxia (Acute) Diarrhea Epigastric pain Dyspnea on exertion Pericardial effusion Paroxysmal atrial fibrillation (Acute) Acute febrile illness Elevated troponin Hyponatremia Gastroenteritis (Acute) Dehydration (Acute) Weakness (Acute) Atrial fibrillation with rapid ventricular response (Acute) Uncontrolled pain Rib pain on right side (Acute) SOB (shortness of breath) (Acute) DVT prophylaxis Humeral fracture (Acute) Right rib fracture (Acute) Cerebral vascular disease Venous insufficiency (chronic) (peripheral) Medical History Acute kidney injury Anemia COPD (chronic obstructive pulmonary disease) Paroxysmal atrial fibrillation controlled w/ medications, reason for eliquis, follows w/ Dr Escudero COPD (chronic obstructive pulmonary disease) Venous insufficiency (chronic) (peripheral) Cerebral vascular disease Hx of fracture 2021--hx humeral and rib fracture from fall- resolved Pericardial effusion hx Dyspnea on exertion Hx of acute heart failure Acid reflux Anxiety Peripheral edema bilat ankle On home O2 2 lpm via NC w/ activity Vomiting reason for upcoming procedure Surgical History H/O total hysterectomy appendix removed during hysterectomy Family History Grandfather (Maternal) Cancer mouth Father Cancer colon, lung Mother Cancer colon and uterine Family/Other Cancer colon Brother Cancer lung Social History Smoking Status: Former smoker Tobacco Type: Cigarettes Age Started Using Tobacco: 19; Age Quit Using Tobacco: 69; packs per day: 4; Smoking End Date: 2000; Second Hand Exposure: No; Do You Dip or Chew Tobacco: No; Hx Alcohol Use: No Hx Substance Use: No Preferred Language: Chinese Communication Ability: Effective Visual Impairment: No Limitations Hearing Ability: Normal It Training Specialist Required: No Beliefs That Will Affect Care: None marital status: / Current Living Situation: Alone current occupational status: retired Feels Safe at Home: Yes Safety Concerns: Feels Safe At This Time Diet: other Diet Comment: swallowing dysfunction caffeine: Yes Physical Activity Frequency: Does not Exercise Seatbelt Use: always Do you think of yourself as: straight/heterosexual Gender Identity: Female Assistive Devices: Denture - Upper, Oxygen - Continuous and Walker Review of Systems Review of Systems: as per hpi Physical Exam Constitutional: well developed and well nourished; no acute distress ENMT: external ear and nose normal, oropharynx normal Respiratory: + cough; + abnormal respiratory effort, no respiratory distress and does not use accessory muscles Auscultation: + wheezes; no crackles Cardiovascular: RRR, no murmur, no edema Extremities: no edema Gastrointestinal (Abdomen): normal bowel sounds, soft, nontender, no hepatosplenomegaly Results & Data Results & Data Vital Signs (Past 12 Hours) Vital Signs Temp Pulse Resp BP Pulse Ox O2 Del Method O2 Flow Rate 07/22/24 19:02 Nasal Cannula 2 07/22/24 19:02 Nasal Cannula 07/22/24 18:50 78 07/22/24 18:11 36.6 C 74 18 177/53 H 100 Nasal Cannula 2 Laboratory Results Laboratory Results WBC 13.78 K/ul (4.8-10.8) H 07/22/24 18:31 RBC 3.81 M/uL (4.20-5.40) L 07/22/24 18:31 Hgb 9.9 g/dl (12.0-16.0) L 07/22/24 18:31 Hct 32.4 % (37.0-47.0) L 07/22/24 18:31 MCV 85.0 fL (80.0-100.0) 07/22/24 18:31 MCH 26.0 pg (25.0-34.0) 07/22/24 18:31 MCHC 30.6 g/dL (32.0-36.0) L 07/22/24 18:31 RDW Std Deviation 49.0 fL (36.4-46.3) H 07/22/24 18:31 RDW Coeff of Harmony 15.8 % (11.5-14.5) H 07/22/24 18:31 Plt Count 311 K/uL (130-400) 07/22/24 18:31 MPV 10.6 fL (9.4-12.4) 07/22/24 18:31 Immature Gran % (Auto) 2.0 % 07/22/24 18:31 Neut % (Auto) 91.3 % 07/22/24 18:31 Lymph % (Auto) 2.5 % 07/22/24 18:31 Waller % (Auto) 4.1 % 07/22/24 18:31 Eos % (Auto) 0.0 % 07/22/24 18:31 Baso % (Auto) 0.1 % 07/22/24 18:31 Neut # (Auto) 12.59 K/uL (1.40-6.50) H 07/22/24 18:31 Lymph # (Auto) 0.34 K/uL (1.20-3.40) L 07/22/24 18:31 Waller # (Auto) 0.56 K/uL (0.11-0.59) 07/22/24 18:31 Eos # (Auto) 0.00 K/uL (0.00-0.50) 07/22/24 18:31 Baso # (Auto) 0.02 K/uL (0.00-0.20) 07/22/24 18:31 Immature Gran # (Auto) 0.27 K/uL (0.01-0.20) H 07/22/24 18:31 VBG pH 7.35 (7.36-7.41) L 07/22/24 20:57 VBG pCO2 52 mmHg (38-50) H 07/22/24 20:57 VBG pO2 38 mmHg 07/22/24 20:57 VBG HCO3 29 mmol/L 07/22/24 20:57 VBG O2 Saturation 71.3 % 07/22/24 20:57 VBG Base Excess 2.1 mEq/L 07/22/24 20:57 Sodium 136 mmol/L (136-145) 07/22/24 18:31 Potassium 4.6 mmol/L (3.5-5.1) 07/22/24 18:31 Chloride 98 mmol/L (98-107) 07/22/24 18:31 Carbon Dioxide 33 mmol/L (21-32) H 07/22/24 18:31 Anion Gap 5 (3-11) 07/22/24 18:31 BUN 23 mg/dl (6-23) 07/22/24 18:31 Creatinine 0.99 mg/dl (0.6-1.2) 07/22/24 18: Est Cr Clr Drug Dosing Not Reportable 07/22/24 18: eGFR 54.84 07/22/24 18:31 BUN/Creatinine Ratio 23.2 (10-20) H 07/22/24 18:31 Glucose 123 mg/dl (70-99(Fasting)) H 07/22/24 18: Calcium 8.5 mg/dl (8.6-10.3) L 07/22/24 18: Total Bilirubin 0.4 mg/dl (0.2-1.0) 07/22/24 18: AST 19 U/L (13-39) 07/22/24 18: ALT 27 U/L (7-52) 07/22/24 18: Alkaline Phosphatase 64 U/L (34-104) 07/22/24 18: Total Protein 6.6 gm/dl (6.0-8.3) 07/22/24 18: Albumin 4.0 gm/dl (3.4-5.0) 07/22/24 18: Globulin 2.6 gm/dl (2.5-4.0) 07/22/24 18: Albumin/Globulin Ratio 1.5 (0.9-2) 07/22/24 18:31 Procalcitonin 0.04 ng/ml (0-0.5) 07/22/24 18:31 SARS-CoV-2 (PCR) NEGATIVE (Negative) 07/22/24 18:31 Influenza Type A (PCR) Negative (Neg) 07/22/24 18:31 Influenza Type B (PCR) Negative (Neg) 07/22/24 18:31 RSV (RT-PCR) Negative (Neg) 07/22/24 18:31 Impressions Chest X-Ray 07/22/24 18:16 Clinical History: Shortness of breath Technique: A frontal view of the chest was obtained Comparison is made to the prior examination dated 07/16/2024 Findings: There are no confluent pulmonary infiltrates. The heart size is at the upper limit of normal. No pleural effusion or pneumothorax is seen. There is suspected mild pulmonary vascular congestion No fracture is noted. No foreign body is seen Impression: Suspected mild pulmonary vascular congestion ACT 112: Positive. There are findings on this exam that require communication between the performing entity and the patient following Patient Test Result Information Act ([place] ACT 112) guidelines. Electronically signed by Marlon Rincon 07-22-2024 7:56 PM Code Status & VTE Plan VTE Prophylaxis Plan VTE Prophylaxis will be ordered: Yes Supervising Physician Co-Signing Physician Notes patient seen and examined, chart reviewed, case discussed with Dr. Obie Staley and I agree with the assessment and plan as document above. In brief, patient is an 89-year-old female with history of COPD, recent admission for acute exacerbation of COPD secondary to parainfluenza virus presenting with ongoing Shortness of breath. Patient is afebrile. On physical exam nasal cannula in place, breathing comfortably Skinno rash HEENTneck supple, no JVD Heart + S1, S2, regular, no murmurs/rubs/gallops Lungs with coarse breath soundsrhonchi bilaterally with end expiratory wheezing throughout. Do not appreciate any rales at this time Abdomenpositive bowel sounds, soft, nontender/nondistended Extremitieswarm, well-perfused with no clubbing/cyanosis/edema Assessment/plan COPD exacerbation Continue with nebs and steroids. Incentive spirometry, flutter valve, mucus management Patient did get 1 dose of IV Lasix as pulmonary vascular congestion noted on chest x-ray. Does not appear to be overtly volume overloaded at this time Patient did receive 1 dose of Levaquin in the ER. She has leukocytosis likely secondary from recent steroid use but does have new bands on her differential q uestion infection Remainder as above
[2024-07-22 21:07] LABS: Base Excess VBG 2.1 mEq/L; HCO3 VBG 29 mmol/L; Oxygen Saturation VBG 71.3 %; PCO2 VBG 52 mmHg (38-50); PO2 VBG 38 mmHg; pH VBG 7.35 (7.36-7.41)
[2024-07-22] MEDS: levoFLOXacin/D5W 750 MG/150 ML BAG IV STA (21:51)
[2024-07-22] MEDS: FUROSEMIDE 40 MG/4 ML VIAL IV ONE (21:51)
[2024-07-22] MEDS ORDERED: ALBUT/IPRATROP 3MG/0.5MG NEB 3 ML VIAL INH PRN (23:07)
[2024-07-22] MEDS ORDERED: guaiFENesin 600 MG TABCR PO PRN (23:07)
[2024-07-22] MEDS ORDERED: ALBUTEROL HFA 8 GM INHALER INH PRN (23:07)
[2024-07-22] MEDS ORDERED: MELATONIN 3 MG TAB PO PRN (23:07)
[2024-07-22] MEDS ORDERED: ONDANSETRON INJ 2 MG/ML 2 ML VIAL IV PRN (23:07)
[2024-07-22] MEDS ORDERED: NON-FORMULARY MEDICATION (Budesonide-Glycopyr-Formoterol [Breztri Aerosphere] 160-9-4.8 mc INH SCH (23:07)
[2024-07-22] MEDS: APIXABAN 2.5 MG TAB PO SCH (23:46)
[2024-07-22] MEDS: Patient's HEIGHT &/or WEIGHT Needed STA (23:51)
[2024-07-23] MEDS: ALBUT/IPRATROP 3MG/0.5MG NEB 3 ML VIAL NEB SCH (00:30)
--- NOTE | 2024-07-23 01:41 | Billing Data ---
Date of Service July 22, 2024 Coding Level of Care Code 46766 INT INP/OBS CARE
[2024-07-23 06:40] LABS: Hemoglobin 9.1 g/dl (12.0-16.0); Immature Granulocytes # (auto) 0.13 K/uL (0.01-0.20); Immature Granulocytes % (auto) 1.4 %; Lymphocytes # (auto) 0.36 K/uL (1.20-3.40); Mean Corpuscular Hemoglobin 26.5 pg (25.0-34.0); Mean Corpuscular Hgb Conc 31.4 g/dL (32.0-36.0); Mean Corpuscular Volume 84.5 fL (80.0-100.0); Mean Platelet Volume 10.6 fL (9.4-12.4); Monocytes # (auto) 0.49 K/uL (0.11-0.59); Monocytes % (auto) 5.4 %; Neutrophils # (auto) 8.04 K/uL (1.40-6.50); Neutrophils % (auto) 89.2 %; Platelet Count 250 K/uL (130-400); RDW Coefficient of Variation 15.8 % (11.5-14.5); Red Blood Count 3.43 M/uL (4.20-5.40); White Blood Count 9.02 K/ul (4.8-10.8)
[2024-07-23 07:23] LABS: Albumin Level 3.5 gm/dl (3.4-5.0); Bilirubin,Total 0.3 mg/dl (0.2-1.0); Calcium 8.4 mg/dl (8.6-10.3); Magnesium 2.1 mg/dl (1.7-2.4); Potassium 4.6 mmol/L (3.5-5.1)
[2024-07-23 07:29] LABS: Albumin Globulin Ratio 1.6 (0.9-2); BUN Creatinine Ratio 18.6 (10-20); Creatinine Clr Calc Pharmacy 28.5 ml/min; Globulin 2.2 gm/dl (2.5-4.0); Total Protein 5.7 gm/dl (6.0-8.3)
[2024-07-23] MEDS: AMIODARONE 200 MG TAB PO SCH (08:48)
[2024-07-23] MEDS: ACETAMINOPHEN 325 MG TAB PO PRN (08:48)
[2024-07-23] MEDS: PANTOprazole 40 MG TAB PO SCH (08:48)
[2024-07-23] MEDS: methylPREDNISolone 60 MG in SYRINGE 0 ML IV SCH (08:48)
[2024-07-23] MEDS ORDERED: methylPREDNISolone 125 MG/2 ML VIAL IV SCH (09:00)
--- NOTE | 2024-07-23 15:43 | Hospitalist Progress Note ---
Date of Service July 23, 2024 Assessment & Plan (1) Acute exacerbation of chronic obstructive pulmonary disease: Plan: Improving. Parenteral steroid therapy increased to every 8 hour dosing. Continue nebulizer treatments (2) CHF (congestive heart failure): Plan: Acute on chronic diastolic CHF has improved with diuresis. Monitor intake and output. (3) Paroxysmal atrial fibrillation: Plan: She remains in normal sinus rhythm. Telemetry (4) Anemia: Plan: Chronic. No active bleeding at this time. Serial labs Plan Hopeful discharge to home within the next day or 2 Admission and Anticipated Discharge Date Admission Date: July 22, 2024 Subjective Alert and oriented. Pleasant. She has diuresed 1 L of fluids with parenteral diuretics. Respiratory status has improved. Parenteral steroid therapy increased to every 8 hour dosing. She has not produce any sputum for culture. She remains on Levaquin, day 2. Hopefully she can go home tomorrow, July 24 Review of Systems 2 Review of Systems: Constitutionalno fever or chills ENTno blurred vision, no double vision, no epistaxis, no sore throat Respiratoryless shortness of breath. Nonproductive cough. Less wheezing Cardiacno palpitations, no chest pain, no syncope Megan nausea, vomiting, diarrhea, melena, hematochezia GUno urinary retention, no urinary incontinence, no dysuria, no hematuria Musculoskeletalno joint pain, no muscle tenderness Skinno bruising, no rashes, no pruritus Neurono isolated weakness, no paresthesia, no weakness Psychno depression, no anxiety Physical Exam 2 Physical Exam: General-alert and oriented x3, no fever, no chills HEENT-head atraumatic and normocephalic, pupils equal and reactive to light, extraocular muscles intact Neck-no lymphadenopathy or thyromegaly, trachea midline Chest-no inspiratory rales. Faint midline rhonchi. No wheezing. No dullness to percussion Cardiac-regular rate and rhythm, normal S1 and S2 Abdomen-normal bowel sounds, no hepatosplenomegaly Extremities-no cyanosis, clubbing, or edema Neuro-cranial nerves II through XII intact, motor and sensory function within normal limits, strength symmetrical, no focal deficits Psych-normal affect, normal mood Results & Data Results & Data Vital Signs (Past 12 Hours) Vital Signs Temp Pulse Pulse Resp BP Pulse Ox Pulse Ox 07/23/24 15:00 07/23/24 13:57 68 07/23/24 12:51 71 20 99 07/23/24 11:38 97 07/23/24 11:32 36.7 C 96 H 18 145/64 H 100 07/23/24 07:42 36.8 C 86 22 135/65 96 07/23/24 07:41 75 07/23/24 07:06 82 26 H 99 Pulse Ox Pulse Ox O2 Del Method O2 Flow Rate O2 Flow Rate O2 Flow Rate O2 Flow Rate 07/23/24 15:00 Nasal Cannula 2 07/23/24 13:57 07/23/24 12:51 Nasal Cannula 2 07/23/24 11:38 97 80 L 2 2 0 07/23/24 11:32 Nasal Cannula 2 07/23/24 07:42 Nasal Cannula 2 07/23/24 07:41 07/23/24 07:06 Nasal Cannula 2 Laboratory Results 07/23/24 06:17 07/23/24 06:17 PG Care Time/CCT Total # of Minutes Spent Total Time Spent with Patient: Total time spent is greater than 50% in coordination of care (as documented) at patient's floor/unit and/or counseling patient: Coding Level of Care Code 30987 SUB INP/OBS CARE 3/50MIN Diagnoses Acute exacerbation of chronic obstructive pulmonary disease J44.1 CHF (congestive heart failure) I50.9 Paroxysmal atrial fibrillation I48.0 Anemia D64.9 Anemia type: unspecified type (4) Anemia Anemia type: unspecified type Qualified Code(s): D64.9 - Anemia, unspecified
[2024-07-23] MEDS: methylPREDNISolone 40 MG in SYRINGE 0 ML IV SCH (17:47)
[2024-07-24 12:20] VITALS: BP 133/55; PULSE 78; RESP 19; TEMP 98.1; O2SAT 99
--- NOTE | 2024-07-24 12:22 | Discharge Summary ---
Discharge Summary Date of Service July 24, 2024 Principal Dx & Hospital Course #1 = Principal Diagnosis (1) Acute exacerbation of chronic obstructive pulmonary disease: Continued improvement. She was treated with parenteral steroid therapy while hospitalized and will be discharged on a tapering dose of oral prednisone. She was also treated while hospitalized with nebulizer treatments (2) CHF (congestive heart failure): Acute on chronic diastolic CHF has resolved with diuresis. Monitor intake and output. (3) Paroxysmal atrial fibrillation: She remains in normal sinus rhythm. Telemetry (4) Anemia: Chronic. No active bleeding at this time. Serial labs Plan Home today, July 24. She will continue Levaquin for 1 more week along with a tapering dose of oral prednisone. Admission HPI Per Admitting Provider Donita is a 89 y/o female with PMH of COPD, HRpEF, ARNOLDO that presented to the ED due to worsening SOB. Patient was recently discharge from hospital due to COPD exacerbation secondary to Parainfluenza. Patient discharged with Prednisone cheri and Azithromycin. Patient uses 2L of O2 on ambulation only. She states that her SOB worsen on Monday, now at rest. States she hasn't started the cheri down. States worsening orthopnea at night. Denied any dizziness, chest pain, abdominal pain, palpitations. Denied any fever or chills. No sick contacts. She is on 2 L nasal cannula at rest. She states being compliance on home medications. Denied any poor appetitie. Denied any black stools or blood on BMS Ed course:Solumedrol 60 mg and Duoneb Discharge Exam General-alert and oriented x3, no fever, no chills HEENT-head atraumatic and normocephalic, pupils equal and reactive to light, extraocular muscles intact Neck-no lymphadenopathy or thyromegaly, trachea midline Chest-no inspiratory rales. Faint midline rhonchi. No wheezing. No dullness to percussion Cardiac-regular rate and rhythm, normal S1 and S2 Abdomen-normal bowel sounds, no hepatosplenomegaly Extremities-no cyanosis, clubbing, or edema Neuro-cranial nerves II through XII intact, motor and sensory function within normal limits, strength symmetrical, no focal deficits Psych-normal affect, normal mood Discharge Plan Discharge Items Patient Disposition: Home - Self-Care Reason For Visit: COPD Discharge Diagnosis: Acute exacerbation COPD, acute on chronic diastolic CHF Activity: Resume your previous activity Non-emergency contact: Primary Care Provider Call non-emergency contact if: you have any medication questions and your symptoms worsen Follow-up/Referrals: Valerie Calzada MD [Primary Care Provider] - Diet: Regular and Heart Healthy Addtl Attending Provider Instructions: Take prednisone in a tapering dose fashion as directed over the next 6 days. Take the Levaquin once daily for 1 week. Prescriptions have been sent to your [facility] pharmacy in [place] Pending Studies at Discharge: No Stand-Alone Forms: [facility], Smoking Cessation Medications and DC Order Prescriptions: New levofloxacin 500 mg tablet 500 mg PO DAILY 7 Days Qty: 7 0RF prednisone 10 mg tablet See Rx Instructions .ROUTE .COMPLEX Qty: 12 0RF Rx Instructions: 10 mg orally 3 times a day for 2 days, then 10 mg twice a day for 2 days, then 10 mg once a day for 2 days, then stop Continued Breztri Aerosphere 160-9-4.8 mcg/actuation HFA aerosol inhaler 2 inh inhalation BID Qty: 10.7 3RF ipratropium-albuterol 0.5 mg-3 mg(2.5 mg base)/3 mL solution for nebulization 3 ml inhalation TID PRN (Reason: shortness of breath or wheezing) furosemide 20 mg tablet 20 mg PO DAILY PRN (Reason: Fluid Retention) Qty: 90 3RF apixaban 2.5 mg tablet 2.5 mg PO BID Qty: 60 5RF albuterol sulfate 90 mcg/actuation Hfa Aerosol Inhaler 2 puff INHALATION Q6H PRN (Reason: cough,Sob,wheezing) prednisone 10 mg tablet 10 mg PO DIRECTED Qty: 42 0RF Rx Instructions: STARTED 07/21/24 see taper instructions Days 1-12 as follows: 60mg days 1-2, 50mg days 3-4, 40mg days 5-6, 30mg days 7-8, 20mg days 9-10, 10mg days 11-12. Total 42 Prednisone 10mg tablets in 12 days. amiodarone 200 mg tablet 200 mg PO QAM esomeprazole magnesium 40 mg capsule,delayed release(DR/EC) 40 mg PO DAILY guaifenesin [Mucinex] 600 mg Tablet Extended Release 12hr 600 mg PO Q12H PRN (Reason: Congestion) Discharge Orders: Discharge Order (Routine); Ordered 07/24/24 Ordered By: Grady West Admission Data Admit Date/Time: 07/22/24 20:53 Attending Provider: Grady West Admit Provider: Bettie Mart Primary Care Provider: Valerie Calzada Other Providers: Bettie Mart Hospital Stay Data Consultations 07/22/24 20:14 ED Decision to Admit Stat Pending Results Patient Have Any Pending Studies at Discharge: No Discharge Instructions Given to Patient (Per Discharging Provider) Take prednisone in a tapering dose fashion as directed over the next 6 days. Take the Levaquin once daily for 1 week. Prescriptions have been sent to your [facility] pharmacy in [place] Total Time Total Time Spent Total Time Spent (In Minutes): 45-minute Coding Level of Care Code 38772 INP/OBS DISCH >30 MIN Diagnoses Acute exacerbation of chronic obstructive pulmonary disease J44.1 CHF (congestive heart failure) I50.9 Paroxysmal atrial fibrillation I48.0 Anemia D64.9 Anemia type: unspecified type
[2024-07-24] MEDS ORDERED: levoFLOXacin/D5W 750 MG/150 ML BAG IV SCH (21:00)
--- NOTE | 2024-07-25 09:18 | Electrocardiogram Report ---
Test Reason : Blood Pressure : */* mmHG Vent. Rate : 79 BPM Atrial Rate : * BPM P-R Int : * ms QRS Dur : 82 ms QT Int : 390 ms P-R-T Axes : * 8 -21 degrees QTcB Int : 447 ms Normal sinus rhythm Cannot rule out Inferior infarct , age undetermined Abnormal ECG When compared with ECG of 16-Jul-2024 11:16, Minimal criteria for Inferior infarct are now Present Non-specific change in ST segment in Inferior leads T wave inversion now evident in Inferior leads Confirmed by Clark Douglas ([id number]) on 07/25/2024 9:18:13 AM Referred By: REFERRED SELF Confirmed By: Clark Douglas
== END 2024-07-24 12:48 | disposition home or self-care (01) | DRG 865 ==
LOC: ED 18:01 → 2S 20:53 → SUATTDRO 20:53 → 2S 23:01
DX: Z91.040 Latex allergy status; Z79.899 Other long term (current) drug therapy; I87.2 Venous insufficiency (chronic) (peripheral); Z88.6 Allergy status to analgesic agent; I50.33 Acute on chronic diastolic (congestive) heart failure; K21.9 Gastro-esophageal reflux disease without esophagitis; J44.1 Chronic obstructive pulmonary disease with (acute) exacerbation; F41.1 Generalized anxiety disorder; Z79.01 Long term (current) use of anticoagulants; I48.0 Paroxysmal atrial fibrillation; D64.9 Anemia, unspecified; Z87.891 Personal history of nicotine dependence; B34.8 Other viral infections of unspecified site